=== PATIENT | male | born 1960 | race Caucasian/White ===

== ENCOUNTER 2018-10-09 05:13 | Inpatient (IN) | payer OTHER ==
[~2018-10-09] VITALS: Ht 165.1 cm; Wt 51.5 kg
[2018-10-09] VITALS (8 sets, daily range): BP systolic 97–127; BP diastolic 53–61; PULSE 53–66; RESP 18–19; Ht 165.1 cm; Wt 51.5 kg
[~2018-10-09 05:13] MED LIST: AMLO2.5T2 PO; LANT3I SC; LEVO500T48 PO; SAN30GM TOP
--- NOTE | 2018-10-09 09:19 | HP ---
Date/Time of Note Date/Time of Note DATE: 10/09/18 TIME: 09:06 Assessment/Plan VTE Prophylaxis SCD applied (from Nsg): Yes Pharmacological prophylaxis: NA/contraindicated Pharm contraindication: renal impairment Assessment/Plan Hospital Course 1. Sepsis secondary to UTI UA at outside hospital showed WBC of 100-200, large leukocyte esterase as well as a serum WBC of 14.9 and fevers Obtain UA and urine culture Empiric Rocephin 2. CKD with possible acute component Patient has a BUN of 77 and creatinine of 5.9 at outside hospital Baseline creatinine is unknown but patient has been told that he is close to requiring dialysis Renal ultrasound to rule out obstruction UA does show significant proteinuria likely secondary to diabetic nephropathy, urine RBC is 100-200 with large blood noted Nephrology consultation obtained IV fluids and antibiotics for sepsis 3. Diabetes Patient is on oral medications which will be held during his hospitalization Basal and mealtime insulin as well as sliding scale Follow-up on A1c 4. History of hypertension Hold home meds secondary to current sepsis Restart as needed 5. Chronic anemia likely secondary to chronic disease and CKD Stool guaiac at outside ER was negative and patient denies melena Patient reports chronic anemia and reports that his hemoglobin is usually between 7 and 8 6. Hyponatremia Sodium at outside hospital was 126, serum sugar was 262 and hence this is not merely pseudohyponatremia Nephrology consultation obtained Follow-up on urine sodium IV fluids Monitor Prophylaxis: SCDs HPI/ROS Admit Date/Time Admit Date/Time Oct 09, 2018 at 08:11 Hx of Present Illness Patient is a 57-year-old male with a history of oih-lhmpvhd-bnsgrdpnk diabetes with CKD, hypertension, chronic anemia as well as chronic cough for 2 years with no hemoptysis or acute features. Patient presents to [facility] with complaint of fever for 8 days as well as dysuria. In the ER at [facility] patient was noted to have a UTI as well as fever and white count of 14.9. Patient was also noted to be anemic with hemoglobin of 7.0 which according to the patient is close to his baseline. Patient did have a stool guaiac test in the ER that was negative. Patient's remaining labs revealed a sodium of 126 BUN of 77 and creatinine 5.9, glucose was 262 lactic acid was normal and urine protein was greater than 300. Patient has no known history of BPH, patient does not recall his baseline renal function but was told that he is close to requiring dialysis. Chest x-ray at outside hospital was normal, patient was transferred to [facility] due to capitation. Patient denies flank pain and has no other complaints besides fever chills and dysuria at this time. ROS Constitutional: chills, febrile Eyes: no complaints ENT: no complaints Respiratory: no complaints Cardiovascular: no complaints Gastrointestinal: no complaints Genitourinary: dysuria Musculoskeletal: no complaints Skin: no complaints Neurologic: no complaints Endocrine: no complaints Lymphatic: no complaints Psychological: no complaints, nl mood/affect Immunologic: no complaints PMH/Family/Social Past Medical History As per HPI Coded Allergies: No Known Allergy (Unverified , 05/29/15) Family History Significant Family History: no pertinent family hx Social History Alcohol Use: rarely Smoking Status: Never smoker Drug Use: none Exam/Review of Systems Vital Signs Vitals Vital Signs Date Temp Pulse Resp B/P (MAP) Pulse Ox O2 O2 Flow FiO2 Time Delivery Rate 10/09/18 66 08:24 Exam Constitutional: alert, oriented Respiratory: clear to auscultation Cardiovascular: regular rate and rhythm Gastrointestinal: soft; No distended Musculoskeletal: nl extremities to inspection LISA JUNG Oct 09, 2018 09:19
[2018-10-09] MEDS ORDERED: NACL 0.9% 3 ML SYG IV SCH (09:30)
[2018-10-09] MEDS ORDERED: morphine 2 MG INJ IV PRN (09:30)
[2018-10-09] MEDS ORDERED: ONDANSETRON 4 MG INJ IV PRN (09:30)
[2018-10-09] MEDS ORDERED: HYDROCODONE/APAP (5/325) TAB PO PRN (09:30)
[2018-10-09] MEDS ORDERED: ZOLPIDEM 5 MG TAB PO PRN (09:30)
[2018-10-09] MEDS ORDERED: DOCUSATE SODIUM 100 MG CAP PO PRN (09:30)
[2018-10-09] MEDS ORDERED: DEXTROSE 50% 50 ML SYRINGE IV PRN ×2 (10:00)
[2018-10-09] MEDS ORDERED: GLUCOSE GEL 15 GRAM TUBE BUCCAL PRN (10:00)
[2018-10-09] MEDS ORDERED: GLUCOSE GEL 15 GRAM TUBE PO PRN ×2 (10:00)
[2018-10-09] MEDS ORDERED: GLUCAGON 1 MG INJ IM PRN (10:00)
[2018-10-09] MEDS: SOD CHLORIDE 0.9% 1,000 ML IV SCH ×3 (10:25→20:48)
[2018-10-09] MEDS: CEFTRIAXONE 1 GM/50 ML (PMX) 50 ML IVPB SCH (10:25)
[2018-10-09] MEDS: INSULIN ASPART [NOVOLOG] 3 ML PEN SC SCH ×5 (12:00→20:39)
--- NOTE | 2018-10-09 16:38 | CONS ---
DATE OF ADMISSION: 10/09/2018 DATE OF CONSULTATION: 10/09/2018 TYPE OF CONSULTATION: Nephrology. REASON FOR CONSULTATION: Chronic kidney disease, possible acute kidney injury. HISTORY OF PRESENT ILLNESS: This is a 57-year-old male with a past medical history of chronic kidney disease stage IV with a baseline eGFR around 20 mL per minute per patient, history of hypertension, history of diabetes, history of anemia, who presented to an outside hospital ____ with complaints of fever for 8 days. The patient in the emergency room was noted to have UTI, elevated white count of 1 4.9. The patient was also noted to have hemoglobin of 10.0. The patient was guaiac negative in the ER. On admission, the patient also was hyponatremic, sodium 126, BUN 77, creatinine 5.9. The patien t was subsequently transferred to [facility] for evaluation. In terms of patient's renal history, the patient admits to being followed by outpatient pulpwood cutter. Patient states that he was told his kidney function is around 20%. The patient last saw the nephro logist several months ago. The patient is also adamant stating he did not wish to be dialyzed. The patient denies any hemoptysis, hematemesis or hematochezia. PAST MEDICAL HISTORY: History of CKD stage IV, history of hypertension, anemia, diabetes. PAST SURGICAL HISTORY: Reviewed. ALLERGIES: NO KNOWN DRUG ALLERGIES. FAMILY HISTORY: No family history of kidney disease. SOCIAL HISTORY: Does not drink, smoke or do drugs. MEDICATIONS: The patient's medications have been reviewed. REVIEW OF SYSTEMS: A 14-point review of system is conducted. Pertinent positives stated in HPI, oth erwise negative. PHYSICAL EXAMINATION: VITAL SIGNS: Blood pressure is 127/61, respiration 18, pulse 62, temperature 98.2. HEENT: Head is normocephalic. NECK: Supple. HEART: Regular rate. LUNGS: Show diminished breath sounds at the base. ABDOMEN: Soft, nontender to palpation without rebound or guarding. EXTREMITIES: Negative for clubbing, cyanosis, no edema. DERMATOLOGIC: No rashes. MUSCULOSKELETAL: No joint effusion. NEUROLOGIC: No focal deficits. The patient's medications have been reviewed. LABORATORY DATA: From outside hospital was reviewed. Laboratory data from [facility] is pending. ASSESSMENT AND PLAN: This is a 57-year-old male who presents with: 1. Renal failure, possible acute kidney injury on top of CKD, versus progression of CKD. Plan is to do a full evaluation. We will check UA with microanalysis, check urine electrolytes. We will quant luciano patient's proteinuria. Will check the renal ultrasound to rule out obstruction. Agree with gent le fluid challenge. We will monitor renal function closely. Continue supportive care, renally dose all meds, avoid nephrotoxins. Please note, I spoke with the patient about the possibility of initiat ing hemodialysis if renal function does not improve. The patient is adamant and has refused dialysis at this time. We will also try to obtain old medical records from patient's primary pulpwood cutter. 2. Anemia, etiology may be secondary to chronic kidney disease. Plan is to check an iron panel, joaquin ck stool for occult blood. We will give patient Epogen if there is evidence of iron deficiency. We will start IV iron and monitor. 3. Mineral bone disorder. Monitor calcium and phosphorus level. Check PTH, vitamin D25 level. 4. Sepsis secondary to UTI. Continue current antibiotic regimen. Follow up cultures. 5. Diabetes. Continue current insulin regimen. 6. Hyponatremia. Etiology may be likely multifactorial secondary to acute kidney injury, CKD causin g decreased free water urinary excretion. Possible component of hyperglycemia as a contributing fact or. Recommendation is to limit free water intake no more than 800 mL daily. We will follow up urine studies, monitor sodium levels closely, on IV fluids. Thank you, Dr. Madrid, for this interesting consult. It will be a pleasure to follow patient with y mirtha throughout the hospital course. Dictated By: GI PENA DO NR/NTS Conf#: [id number] DID#: [id number] CC: JIMENEZ HAILE MD;*EndCC*
[2018-10-10] VITALS (11 sets, daily range): BP systolic 104–149; BP diastolic 56–70; PULSE 61–71; RESP 18–20
[2018-10-10] MEDS: ACCU-CHEK XX SCH (02:00)
[2018-10-10] MEDS: ACETAMINOPHEN 325 MG TAB PO PRN (04:07)
[2018-10-10] MEDS: SOD CHLORIDE 0.9% 1,000 ML IV SCH (05:19)
[2018-10-10] MEDS ORDERED: INSULIN GLARGINE [LANTus] (100 UNITS/ML) SYG SC SCH (08:00)
[2018-10-10] MEDS: INSULIN ASPART [NOVOLOG] 3 ML PEN SC SCH ×7 (08:00→21:27)
[2018-10-10] MEDS: CEFTRIAXONE 1 GM/50 ML (PMX) 50 ML IVPB SCH (09:34)
--- NOTE | 2018-10-10 09:49 | PN ---
DATE: 10/10/2018 SUBJECTIVE: The patient is stable. I spoke in detail with the patient yesterday about initiating he modialysis. The patient refused. I spoke again this morning about dialysis. Patient at this point does not wish to start dialysis. The risks and benefits were explained to the patient. OBJECTIVE: VITAL SIGNS: Blood pressure is 112/56, respiration 19, pulse 71, temperature 98.6. HEENT: Head is normocephalic. NECK: Supple. HEART: Regular rate. LUNGS: Show diminished breath sounds at the base. ABDOMEN: Soft, nontender to palpation without rebound or guarding. EXTREMITIES: Negative for clubbing, cyanosis, no edema. DERMATOLOGIC: No rashes. MUSCULOSKELETAL: No joint effusion. NEUROLOGIC: No change in exam. MEDICATIONS: Reviewed. LABORATORY DATA: Has been reviewed. IMAGING STUDIES: Renal ultrasound shows echogenic kidneys consistent with medical renal disease and moderate left-sided hydronephrosis, and large 3 cm stone within the urinary bladder. ASSESSMENT AND PLAN: 1. Renal failure, possible acute on top of chronic versus progression of chronic kidney disease. Et iology of acute kidney injury may be secondary to hemodynamics, tubular injury, questionable componen t of obstructive uropathy. The patient showed no evidence of renal recovery despite fluid challenge. The patient was advised to initiate hemodialysis. Currently, he is refusing. Will therefore alex nue current medical management. Continue supportive care, renally dose all meds, monitor mental stat us and electrolytes closely. 2. Anemia, etiology is likely due to chronic kidney disease. Plan is to check an iron panel, check ferritin level. Continue Epogen. Consider blood transfusion if there is evidence of iron deficiency , will start the patient on IV Ferrlecit. 3. Mineral bone disorder. The patient is hyperphosphatemic. We will start patient on phosphorus bi nders. 4. Atrial left-sided hydronephrosis. Etiology is unclear. Consider urologic evaluation. 5. Metabolic acidosis likely secondary to acute kidney injury and chronic kidney disease. Continue to monitor bicarbonate levels. 6. Sepsis secondary to urinary tract infection. Continue current regimen. 7. Diabetes. Continue current insulin regimen. 8. Hyponatremia secondary to acute kidney injury. The patient's sodium levels have been improving. Continue to monitor. Dictated By: GI DALEY/TIFFANI Conf#: [id number] DID#: [id number] CC: JIMENEZ HAILE MD;*EndCC*
--- NOTE | 2018-10-10 11:45 | PN ---
Date/Time of Note Date/Time of Note DATE: 10/10/18 TIME: 11:42 Assessment/Plan VTE Prophylaxis Risk score (from Ns)>0 risk: 1 SCD applied (from Ns): Yes Pharmacological prophylaxis: heparin Lines/Catheters IV [facility]from [facility] Peripheral IV Assessment/Plan Hospital Course 57 yo male with h/o DMII, CKD 5, blindness presents wtih UTI and advanced renal failure Hydronephrosis: - Dr Borrero consulted - Imaging requested DMII: - Decrease basal dose given midl hypoglycemia - sliding scale AK/CKD: - likely at baseline - refused HD per Dr Gordon - Dc fluids as no benefit after 2.5 L ANemia of CKD: - stable - iron Result Diagram: 10/10/18 0502 10/10/18 0502 Results 24hrs Laboratory Tests Test 10/09/18 12:27 10/09/18 17:16 10/09/18 20:25 10/10/18 02:15 Bedside Glucose 133 160 132 Urine Color YELLOW Urine Clarity CLOUDY A Urine pH 5.0 Urine Specific 1.011 Linch Urine Ketones NEGATIVE Urine Nitrite NEGATIVE Urine Bilirubin NEGATIVE Urine Urobilinogen NEGATIVE Urine Leukocyte 3+ H Esterase Urine Microscopic 14 H RBC Urine Microscopic > 182 H WBC Urine Bacteria FEW A Urine Hemoglobin 2+ H Urine Random Sodium 23 L Urine Glucose NEGATIVE Urine Total Protein 183.0 H Test 10/10/18 05:02 10/10/18 08:34 10/10/18 09:25 White Blood Count 12.4 #H Red Blood Count 1.95 #L Hemoglobin 6.5 #*L Hematocrit 19.1 #L Mean Corpuscular 97.9 Volume Mean Corpuscular 33.3 H Hemoglobin Mean Corpuscular 34.0 Hemoglobin Concent Red Cell 12.1 Distribution Width Platelet Count 160 Mean Platelet Volume 9.9 # Immature 1.000 H Granulocytes % Neutrophils % 84.2 H Lymphocytes % 8.6 L Monocytes % 5.1 Eosinophils % 1.0 Basophils % 0.1 Nucleated Red Blood 0.0 Cells % Immature 0.130 H Granulocytes # Neutrophils # 10.5 H Lymphocytes # 1.1 Monocytes # 0.6 Eosinophils # 0.1 Basophils # 0.0 Nucleated Red Blood 0.0 Cells # Sodium Level 134 L Potassium Level 3.8 Chloride Level 111 H Carbon Dioxide Level 14 L Anion Gap 9 Blood Urea Nitrogen 81 H Creatinine 6.48 H Est Glomerular 9 L Filtrat Rate mL/min Glucose Level 65 L Hemoglobin A1c 8.7 H Calcium Level 8.4 Phosphorus Level 5.5 H Magnesium Level 1.7 Iron Level 21 L Total Iron Binding 194 L Capacity Percent Iron 11 L Saturation Total Bilirubin 0.0 L Direct Bilirubin 0.00 Indirect Bilirubin 0.0 Aspartate Amino 24 Transf (AST/SGOT) Alanine 26 Aminotransferase (AL T/SGPT) Alkaline Phosphatase 76 Total Protein 5.6 L Albumin 2.5 L Globulin 3.10 Albumin/Globulin 0.80 Ratio Triglycerides Level 172 H Cholesterol Level 96 L LDL Cholesterol, 36 Calculated HDL Cholesterol 26 L Cholesterol/HDL 3.6 Ratio Bedside Glucose 73 126 Subjective 24 Hr Interval Summary Free Text/Dictation Doing well no complaints Exam/Review of Systems Exam Vitals Vital Signs Date Temp Pulse Resp B/P (MAP) Pulse Ox O2 O2 Flow FiO2 Time Delivery Rate 10/10/18 67 08:01 10/10/18 98.6 18 112/56 98 07:40 (74) Intake and Output 10/09/18 10/09/18 10/10/18 1515:00 23:00 07:00 IntakeIntake Total 700 ml 400 ml OutputOutput Total 400 ml 800 ml BalanceBalance 300 ml -400 ml Exam blindness comfortable euvolemic RRR CTAB soft nt nd Results Results 24hrs Laboratory Tests Test 10/09/18 12:27 10/09/18 17:16 10/09/18 20:25 10/10/18 02:15 Bedside Glucose 133 160 132 Urine Color YELLOW Urine Clarity CLOUDY A Urine pH 5.0 Urine Specific 1.011 Linch Urine Ketones NEGATIVE Urine Nitrite NEGATIVE Urine Bilirubin NEGATIVE Urine Urobilinogen NEGATIVE Urine Leukocyte 3+ H Esterase Urine Microscopic 14 H RBC Urine Microscopic > 182 H WBC Urine Bacteria FEW A Urine Hemoglobin 2+ H Urine Random Sodium 23 L Urine Glucose NEGATIVE Urine Total Protein 183.0 H Test 10/10/18 05:02 10/10/18 08:34 10/10/18 09:25 White Blood Count 12.4 #H Red Blood Count 1.95 #L Hemoglobin 6.5 #*L Hematocrit 19.1 #L Mean Corpuscular 97.9 Volume Mean Corpuscular 33.3 H Hemoglobin Mean Corpuscular 34.0 Hemoglobin Concent Red Cell 12.1 Distribution Width Platelet Count 160 Mean Platelet Volume 9.9 # Immature 1.000 H Granulocytes % Neutrophils % 84.2 H Lymphocytes % 8.6 L Monocytes % 5.1 Eosinophils % 1.0 Basophils % 0.1 Nucleated Red Blood 0.0 Cells % Immature 0.130 H Granulocytes # Neutrophils # 10.5 H Lymphocytes # 1.1 Monocytes # 0.6 Eosinophils # 0.1 Basophils # 0.0 Nucleated Red Blood 0.0 Cells # Sodium Level 134 L Potassium Level 3.8 Chloride Level 111 H Carbon Dioxide Level 14 L Anion Gap 9 Blood Urea Nitrogen 81 H Creatinine 6.48 H Est Glomerular 9 L Filtrat Rate mL/min Glucose Level 65 L Hemoglobin A1c 8.7 H Calcium Level 8.4 Phosphorus Level 5.5 H Magnesium Level 1.7 Iron Level 21 L Total Iron Binding 194 L Capacity Percent Iron 11 L Saturation Total Bilirubin 0.0 L Direct Bilirubin 0.00 Indirect Bilirubin 0.0 Aspartate Amino 24 Transf (AST/SGOT) Alanine 26 Aminotransferase (AL T/SGPT) Alkaline Phosphatase 76 Total Protein 5.6 L Albumin 2.5 L Globulin 3.10 Albumin/Globulin 0.80 Ratio Triglycerides Level 172 H Cholesterol Level 96 L LDL Cholesterol, 36 Calculated HDL Cholesterol 26 L Cholesterol/HDL 3.6 Ratio Bedside Glucose 73 126 Medications Medication Current Medications IV Flush (NS 3 ml) 3 ml PER PROTOCOL IV ; Start 10/09/18 at 09:30 Ondansetron HCl (Zofran Inj) 4 mg Q6H PRN IV NAUSEA/VOMITING; Start 10/09/18 at 09:30 Acetaminophen (Tylenol Tab) 650 mg Q6H PRN PO .PAIN 1-3 OR TEMP Last administered on 10/10/18at 04:07; Admin Dose 650 MG; Start 10/09/18 at 09:30 Acetaminophen/ Hydrocodone Bitart ([place] (5/325)) 1 tab Q6H PRN PO .MOD PAIN 4- 6; Start 10/09/18 at 09:30 Docusate Sodium (Colace) 100 mg Q12H PRN PO .CONSTIPATION; Start 10/09/18 at 09:30 Zolpidem Tartrate (Ambien) 5 mg QHS PRN PO .INSOMNIA; Start 10/09/18 at 09:30 Ceftriaxone Sodium 50 ml @ 100 mls/hr Q24H IVPB Last administered on 10/10/18at 09:34; Admin Dose 100 MLS/HR; Start 10/09/18 at 10:00 Diagnostic Test (Pha) (Accu-Chek) 1 ea 02 XX ; Start 10/10/18 at 02:00 Insulin Aspart (Novolog Insulin Pen) 3 unit WITH MEALS SC Last administered on 10/10/18at 10:02; Admin Dose 3 UNIT; Start 10/09/18 at 12:00 Insulin Aspart (Novolog Insulin Pen) NOVOLOG *MILD* ALGORITHM WITH MEALS BE DTIME SC Last administered on 10/09/18at 17:26; Admin Dose 1 UNIT; Start 10/09/18 at 12:00 Miscellaneous Information 1 ea NOTE XX ; Start 10/09/18 at 10:00 Glucose (Glutose) 15 gm Q15M PRN PO DECREASED GLUCOSE; Start 10/09/18 at 10:00 Glucose (Glutose) 22.5 gm Q15M PRN PO DECREASED GLUCOSE; Start 10/09/18 at 10:00 Dextrose (D50w Syringe) 25 ml Q15M PRN IV DECREASED GLUCOSE; Start 10/09/18 at 10:00 Dextrose (D50w Syringe) 50 ml Q15M PRN IV DECREASED GLUCOSE; Start 10/09/18 at 10:00 Glucagon (Glucagen) 1 mg Q15M PRN IM DECREASED GLUCOSE; Start 10/09/18 at 10:00 Glucose (Glutose) 15 gm Q15M PRN BUCCAL DECREASED GLUCOSE; Start 10/09/18 at 10:00 Epoetin Santiago-epbx (RETACRIT(esrd)) 10,000 unit MoWeFr@1700 SC ; Start 10/10/18 at 17:00 Sevelamer Carbonate (Renvela) 800 mg WITH MEALS PO ; Start 10/10/18 at 12:00 Insulin Glargine (Lantus) 8 units DAILY@0800 SC ; Start 10/11/18 at 08:00 MANNY HOUGH MD Oct 10, 2018 11:45
[2018-10-10] MEDS: SEVELAMER CARBONATE 800 MG TABLET PO SCH ×2 (11:57→17:52)
[2018-10-10] MEDS: SOD FERRIC GLUC COMPLX 125 MG in SOD CHLORIDE 0.9% 100 ML IVPB SCH (15:04)
[2018-10-10] MEDS ORDERED: EPOETIN ALFA-EPBX (ESRD) 10,000 UNIT/ML VIAL SC SCH (17:00)
--- NOTE | 2018-10-10 22:08 | CONS ---
Assessment/Plan Assessment/Plan Hospital Course (Demo Recall) 57-year-old male has a history of qxe-hytmpwp-oqmplydfh diabetes with CKD, hypertension, chronic anemia as well as chronic cough for 2 years. He presented to [facility] complaining of fever for 8 days as well as dysuria. In the ER at [facility] patient was noted to have a UTI as well as fever and white count of 14.9. He was noted to be anemic with hemoglobin of 7.0 Patient did h ave a stool guaiac test in the ER that was negative. Patient's remaining labs revealed a sodium of 126 BUN of 77 and creatinine 5.9, glucose was 262. Patient was transferred to [facility] because of his insurance. Because of his elevated creatinine renal ultrasound was done and that showed: Echogenic kidneys, consistent with medical renal disease. Left nephrolithiasis with moderate left-sided hydronephrosis. Large 3 cm stone within the urinary bladder. Therefore a urological consultation was requested. Prior to coming and seeing him I reviewed the ultrasound and I did order a KUB for him and CT scan. The KUB showed that he has a JJ stent in the left ureter . He also had the CT scan of the abdomen and pelvis and that showed stones forming on the distal curl of the JJ stent in the bladder. The patient himself does not know that he has a JJ stent and when I tried to question him he then recalls having it put at [facility] and was told it just to drain the kidney. It appears he did not follow-up with the doctor to have it removed or replaced. The patient will need the stones in the bladder removed and then he may need extracorporeal shockwave lithotripsy to the proximal curl of the stent then try to remove the stent from his left ureter. Consultation Date/Type/Reason Admit Date/Time Oct 09, 2018 at 08:11 Date of Consultation: Oct 10, 2018 Type of Consult Urology Reason for Consultation Hydronephrosis and kidney stones Requesting Provider: MANNY HOUGH MD Date/Time of Note DATE: 10/10/18 TIME: 21:51 Hx of Present Illness 57-year-old male has a history of [id number]-uvfhgfpjp diabetes with CKD, hypertension, chronic anemia as well as chronic cough for 2 years. He presented to [facility] complaining of fever for 8 days as well as dysuria. In the ER at [facility] patient was noted to have a UTI as well as fever and white count of 14.9. He was noted to be anemic with hemoglobin of 7.0 Patient did have a stool guaiac test in the ER that was negative. Patient's remaining labs revealed a sodium of 126 BUN of 77 and creatinine 5.9, glucose was 262. Patient was transferred to [facility] because of his insurance. Because of his elevated creatinine renal ultrasound was done and that showed: Echogenic kidneys, consistent with medical renal disease. Left nephrolithiasis with moderate left-sided hydronephrosis. Large 3 cm stone within the urinary bladder. Therefore a urological consultation was requested. Prior to coming and seeing him I reviewed the ultrasound and I did order a KUB for him and CT scan. The KUB showed that he has a JJ stent in the left ureter . He also had the CT scan of the abdomen and pelvis and that showed stones forming on the distal curl of the JJ stent in the bladder. The patient himself does not know that he has a JJ stent and when I tried to question him he then recalls having it put at [facility] and was told it just to drain the kidney. It appears he did not follow-up with the doctor to have it removed or replaced. Constitutional: no complaints, other (Patient is blind.) Eyes: visual change (Patient is blind in the left eye the right eye vision is very poor. He does have cataract on that eye) ENT: no complaints Respiratory: cough; No wheezing Cardiovascular: No chest pain Gastrointestinal: No nausea, No vomiting Genitourinary: dysuria Musculoskeletal: no complaints Skin: no complaints Neurologic: no complaints Psychological: no complaints Past Medical History Medical History: diabetes, hypertension, renal disease, other (Anemia) Home Meds Active Scripts Collagenase* (Santyl*) 1 Applic Oint, 1 APPLIC TOP DAILY for 28 Days Prov:MARK LAMBERT MD 06/25/15 Amlodipine Besylate* (Norvasc*) 2.5 Mg Tab, 2.5 MG PO DAILY for 28 Days, TAB Prov:MARK LAMBERT MD 06/25/15 Insulin Glargine* (Lantus*) 100 Unit/Ml Soln, 8 UNIT SC QHS for 14 Days Prov:MARK LAMBERT MD 06/25/15 Levofloxacin* (Levaquin*) 500 Mg Tab, 500 MG PO DAILY@06 for 28 Days, TAB Prov:MARK LAMBERT MD 06/25/15 Medications Current Medications IV Flush (NS 3 ml) 3 ml PER PROTOCOL IV ; Start 10/09/18 at 09:30 Ondansetron HCl (Zofran Inj) 4 mg Q6H PRN IV NAUSEA/VOMITING; Start 10/09/18 at 09:30 Acetaminophen (Tylenol Tab) 650 mg Q6H PRN PO .PAIN 1-3 OR TEMP Last adm inistered on 10/10/18at 04:07; Admin Dose 650 MG; Start 10/09/18 at 09:30 Acetaminophen/ Hydrocodone Bitart ([place] (5/325)) 1 tab Q6H PRN PO .MOD PAIN 4- 6; Start 10/09/18 at 09:30 Docusate Sodium (Colace) 100 mg Q12H PRN PO .CONSTIPATION; Start 10/09/18 at 09:30 Zolpidem Tartrate (Ambien) 5 mg QHS PRN PO .INSOMNIA; Start 10/09/18 at 09:30 Ceftriaxone Sodium 50 ml @ 100 mls/hr Q24H IVPB Last administered on 10/10/18at 09:34; Admin Dose 100 MLS/HR; Start 10/09/18 at 10:00 Diagnostic Test (Pha) (Accu-Chek) 1 ea 02 XX ; Start 10/10/18 at 02:00 Insulin Aspart (Novolog Insulin Pen) 3 unit WITH MEALS SC Last administered on 10/10/18at 17:51; Admin Dose 3 UNIT; Start 10/09/18 at 12:00 Insulin Aspart (Novolog Insulin Pen) NOVOLOG *MILD* ALGORITHM WITH MEALS BEDTIME SC Last administered on 10/10/18at 21:27; Admin Dose 2 UNIT; Start 10/09/18 at 12:00 Miscellaneous Information 1 ea NOTE XX ; Start 10/09/18 at 10:00 Glucose (Glutose) 15 gm Q15M PRN PO DECREASED GLUCOSE; Start 10/09/18 at 10:00 Glucose (Glutose) 22.5 gm Q15M PRN PO DECREASED GLUCOSE; Start 10/09/18 at 10:00 Dextrose (D50w Syringe) 25 ml Q15M PRN IV DECREASED GLUCOSE; Start 10/09/18 at 10:00 Dextrose (D50w Syringe) 50 ml Q15M PRN IV DECREASED GLUCOSE; Start 10/09/18 at 10:00 Glucagon (Glucagen) 1 mg Q15M PRN IM DECREASED GLUCOSE; Start 10/09/18 at 10:00 Glucose (Glutose) 15 gm Q15M PRN BUCCAL DECREASED GLUCOSE; Start 10/09/18 at 10:00 Epoetin Santiago-epbx (RETACRIT(esrd)) 10,000 unit MoWeFr@1700 SC Last administered on 10/10/18at 17:17; Admin Dose 10,000 UNIT; Start 10/10/18 at 17:00 Sevelamer Carbonate (Renvela) 800 mg WITH MEALS PO Last administered on 10/10/18at 11:57; Admin Dose 800 MG; Start 10/10/18 at 12:00 Insulin Glargine (Lantus) 8 units DAILY@0800 SC ; Start 10/11/18 at 08:00 Ferric Sodium Gluconate Complex 125 mg/Sodium Chloride 110 ml @ 110 mls/hr DAILY@1300 IVPB Last administered on 10/10/18at 15:04; Admin Dose 110 MLS/HR; Start 10/10/18 at 15:00; Stop 10/14/18 at 13:59 Allergies: Coded Allergies: No Known Allergy (Unverified , 05/29/15) Past Surgical History Past Surgical Hx: other (Patient must have had in the past cystoscopy and insertion of left ureteral JJ stent, he also has had multiple surgeries on his left eye and he is blind in that eye.) Social History Alcohol Use: rarely Smoking Status: Never smoker Drug Use: none Exam/Review of Systems Exam Vitals Vital Signs Date Temp Pulse Resp B/P (MAP) Pulse Ox O2 O2 Flow FiO2 Time Delivery Rate 10/10/18 69 20:02 10/10/18 98.1 19 149/70 98 20:00 (96) Intake and Output 10/09/18 10/09/18 10/10/18 1515:00 23:00 07:00 IntakeIntake Total 700 ml 400 ml OutputOutput Total 400 ml 800 ml BalanceBalance 300 ml -400 ml Constitutional: alert Psych: no complaints Head: normocephalic Eyes: other (Blind in the left eye and vision right eye is very poor) ENMT: nl external ears & nose Neck: supple, non-tender Respiratory: normal air movement; No wheezing Cardiovascular: No jugular venous distention (JVD) Gastrointestinal: soft, non-tender Genitourinary - Male: nl penis, nl scrotum, other (Rectal exam prostate is soft and not large) Musculoskeletal: nl extremities to inspection Extremities: No calf tenderness Neurological: nl mental status Skin: nl turgor Results Result Diagram: 10/10/18 0502 10/10/18 0502 Results 24hrs Laboratory Tests Test 10/10/18 02:15 10/10/18 05:02 10/10/18 08:34 10/10/18 09:25 Urine Color YELLOW Urine Clarity CLOUDY A Urine pH 5.0 Urine Specific 1.011 [place] Urine Ketones NEGATIVE Urine Nitrite NEGATIVE Urine Bilirubin NEGATIVE Urine Urobilinogen NEGATIVE Urine Leukocyte 3+ H Esterase Urine Microscopic 14 H RBC Urine Microscopic > 182 H WBC Urine Bacteria FEW A Urine Hemoglobin 2+ H Urine Random 111.04 Creatinine Urine Random Sodium 23 L Urine Glucose NEGATIVE Urine Total Protein 183.0 H White Blood Count 12.4 #H Red Blood Count 1.95 #L Hemoglobin 6.5 #*L Hematocrit 19.1 #L Mean Corpuscular 97.9 Volume Mean Corpuscular 33.3 H Hemoglobin Mean Corpuscular 34.0 Hemoglobin Concent Red Cell 12.1 Distribution Width Platelet Count 160 Mean Platelet Volume 9.9 # Immature 1.000 H Granulocytes % Neutrophils % 84.2 H Lymphocytes % 8.6 L Monocytes % 5.1 Eosinophils % 1.0 Basophils % 0.1 Nucleated Red Blood 0.0 Cells % Immature 0.130 H Granulocytes # Neutrophils # 10.5 H Lymphocytes # 1.1 Monocytes # 0.6 Eosinophils # 0.1 Basophils # 0.0 Nucleated Red Blood 0.0 Cells # Sodium Level 134 L Potassium Level 3.8 Chloride Level 111 H Carbon Dioxide Level 14 L Anion Gap 9 Blood Urea Nitrogen 81 H Creatinine 6.48 H Est Glomerular 9 L Filtrat Rate mL/min Glucose Level 65 L Hemoglobin A1c 8.7 H Calcium Level 8.4 Phosphorus Level 5.5 H Magnesium Level 1.7 Iron Level 21 L Total Iron Binding 194 L Capacity Percent Iron 11 L Saturation Ferritin 439.0 H Total Bilirubin 0.0 L Direct Bilirubin 0.00 Indirect Bilirubin 0.0 Aspartate Amino 24 Transf (AST/SGOT) Alanine 26 Aminotransferase (AL T/SGPT) Alkaline Phosphatase 76 Total Protein 5.6 L Albumin 2.5 L Globulin 3.10 Albumin/Globulin 0.80 Ratio Triglycerides Level 172 H Cholesterol Level 96 L LDL Cholesterol, 36 Calculated HDL Cholesterol 26 L Cholesterol/HDL 3.6 Ratio Bedside Glucose 73 126 Test 10/10/18 11:55 10/10/18 17:35 10/10/18 21:08 Bedside Glucose 190 182 225 H Imaging Imaging Renal ultrasound: Echogenic kidneys, consistent with medical renal disease. Left nephrolithiasis with moderate left-sided hydronephrosis. Large 3 cm stone within the urinary bladder. KUB: 1. Left double-J ureteral stent. 2. 6 mm calcification projects over the lower pole of the left kidney. 3. Bladder calculi noted on prior ultrasound are not appreciated on plain film. Consider CT for further evaluation. CT scan was done and it appears he does have stone formed on the distal curl of the JJ stent inside the bladder. Medications Medication Current Medications IV Flush (NS 3 ml) 3 ml PER PROTOCOL IV ; Start 10/09/18 at 09:30 Ondansetron HCl (Zofran Inj) 4 mg Q6H PRN IV NAUSEA/VOMITING; Start 10/09/18 at 09:30 Acetaminophen (Tylenol Tab) 650 mg Q6H PRN PO .PAIN 1-3 OR TEMP Last administered on 10/10/18at 04:07; Admin Dose 650 MG; Start 10/09/18 at 09:30 Acetaminophen/ Hydrocodone Bitart ([place] (5/325)) 1 tab Q6H PRN PO .MOD PAIN 4- 6; Start 10/09/18 at 09:30 Docusate Sodium (Colace) 100 mg Q12H PRN PO .CONSTIPATION; Start 10/09/18 at 09:30 Zolpidem Tartrate (Ambien) 5 mg QHS PRN PO .INSOMNIA; Start 10/09/18 at 09:30 Ceftriaxone Sodium 50 ml @ 100 mls/hr Q24H IVPB Last administered on 10/10/18at 09:34; Admin Dose 100 MLS/HR; Start 10/09/18 at 10:00 Diagnostic Test (Pha) (Accu-Chek) 1 ea 02 XX ; Start 10/10/18 at 02:00 Insulin Aspart (Novolog Insulin Pen) 3 unit WITH MEALS SC Last administered on 10/10/18at 17:51; Admin Dose 3 UNIT; Start 10/09/18 at 12:00 Insulin Aspart (Novolog Insulin Pen) NOVOLOG *MILD* ALGORITHM WITH MEALS BEDTIME SC Last administered on 10/10/18at 21:27; Admin Dose 2 UNIT; Start 10/09 at 12:00 Miscellaneous Information 1 ea NOTE XX ; Start 10/09/18 at 10:00 Glucose (Glutose) 15 gm Q15M PRN PO DECREASED GLUCOSE; Start 10/09/18 at 10:00 Glucose (Glutose) 22.5 gm Q15M PRN PO DECREASED GLUCOSE; Start 10/09/18 at 10:00 Dextrose (D50w Syringe) 25 ml Q15M PRN IV DECREASED GLUCOSE; Start 10/09/18 at 10:00 Dextrose (D50w Syringe) 50 ml Q15M PRN IV DECREASED GLUCOSE; Start 10/09/18 at 10:00 Glucagon (Glucagen) 1 mg Q15M PRN IM DECREASED GLUCOSE; Start 10/09/18 at 10:00 Glucose (Glutose) 15 gm Q15M PRN BUCCAL DECREASED GLUCOSE; Start 10/09/18 at 10:00 Epoetin Santiago-epbx (RETACRIT(esrd)) 10,000 unit MoWeFr@1700 SC Last administered on 10/10/18at 17:17; Admin Dose 10,000 UNIT; Start 10/10/18 at 17:00 Sevelamer Carbonate (Renvela) 800 mg WITH MEALS PO Last administered on 10/10/18at 11:57; Admin Dose 800 MG; Start 10/10/18 at 12:00 Insulin Glargine (Lantus) 8 units DAILY@0800 SC ; Start 10/11/18 at 08:00 Ferric Sodium Gluconate Complex 125 mg/Sodium Chloride 110 ml @ 110 mls/hr DAILY@1300 IVPB Last administered on 10/10/18at 15:04; Admin Dose 110 MLS/HR; Start 10/10/18 at 15:00; Stop 10/14/18 at 13:59 JITENDRA MOYA MD Oct 10, 2018 22:03
[2018-10-11] VITALS (12 sets, daily range): BP systolic 105–186; BP diastolic 55–87; PULSE 67–88; RESP 18–19
[2018-10-11] MEDS ORDERED: hydrALAzine 20 MG INJ IV PRN
[2018-10-11] MEDS: ACETAMINOPHEN 325 MG TAB PO PRN ×2 (00:22→10:39)
[2018-10-11] MEDS: ACCU-CHEK XX SCH (02:00)
[2018-10-11] MEDS ORDERED: SOD CHLORIDE 0.9% 250 ML IV* ONE (06:53)
[2018-10-11] MEDS: INSULIN ASPART [NOVOLOG] 3 ML PEN SC SCH ×7 (07:54→21:00)
[2018-10-11] MEDS: SEVELAMER CARBONATE 800 MG TABLET PO SCH ×3 (08:00→17:35)
[2018-10-11] MEDS: INSULIN GLARGINE [LANTus] (100 UNITS/ML) SYG SC SCH (08:06)
--- NOTE | 2018-10-11 08:51 | CONS ---
Consult Date/Type/Reason Admit Date/Time Oct 09, 2018 at 08:11 Initial Consult Date 10/10/18 Type of Consultation: Urology Reason for Consultation Hydronephrosis and renal and bladder stones Requesting Provider: MANNY HOUGH MD Date/Time of Note DATE: 10/11/18 TIME: 08:45 Subjective Patient states that he is comfortable, he denies any dysuria. Objective Vitals Vital Signs Date Temp Pulse Resp B/P (MAP) Pulse Ox O2 O2 Flow FiO2 Time Delivery Rate 10/11/18 70 08:01 10/11/18 99.0 18 105/56 98 07:34 (72) Intake and Output 10/10/18 10/10/18 10/11/18 1414:59 22:59 06:59 IntakeIntake Total 1400 ml 760 ml OutputOutput Total 800 ml 900 ml BalanceBalance 600 ml -140 ml Exam Abdomen is soft. His KUB and CT scan of the abdomen and pelvis showed that he has left ureteral JJ stent with stones forming on the distal curl into the bladder. Results/Medications Result Diagram: 10/11/18 0526 10/11/18 0527 Results 24 hrs Laboratory Tests Test 10/10/18 09:25 10/10/18 11:55 10/10/18 17:35 10/10/18 21:08 Bedside Glucose 126 190 182 225 H Test 10/11/18 05:26 10/11/18 05:27 10/11/18 07:53 White Blood Count 8.5 # Red Blood Count 1.76 L Hemoglobin 6.0 *L Hematocrit 16.9 L Mean Corpuscular 96.0 Volume Mean Corpuscular 34.1 H Hemoglobin Mean Corpuscular 35.5 Hemoglobin Concent Red Cell 12.1 Distribution Width Platelet Count 167 Mean Platelet Volume 9.9 Immature 1.800 H Granulocytes % Neutrophils % 78.9 H Lymphocytes % 9.7 L Monocytes % 8.1 Eosinophils % 1.3 Basophils % 0.2 Nucleated Red Blood 0.0 Cells % Immature 0.150 H Granulocytes # Neutrophils # 6.7 Lymphocytes # 0.8 Monocytes # 0.7 Eosinophils # 0.1 Basophils # 0.0 Nucleated Red Blood 0.0 Cells # Sodium Level 138 Potassium Level 3.8 Chloride Level 115 H Carbon Dioxide Level 13 L Anion Gap 10 Blood Urea Nitrogen 81 H Creatinine 6.25 H Est Glomerular 9 L Filtrat Rate mL/min Glucose Level 115 # Calcium Level 8.7 Phosphorus Level 4.4 Magnesium Level 1.8 Bedside Glucose 120 Home Meds Active Scripts Collagenase* (Santyl*) 1 Applic Oint, 1 APPLIC TOP DAILY for 28 Days Prov:MARK LAMBERT MD 06/25/15 Amlodipine Besylate* (Norvasc*) 2.5 Mg Tab, 2.5 MG PO DAILY for 28 Days, TAB Prov:MARK LAMBERT MD 06/25/15 Insulin Glargine* (Lantus*) 100 Unit/Ml Soln, 8 UNIT SC QHS for 14 Days Prov:MARK LAMBERT MD 06/25/15 Levofloxacin* (Levaquin*) 500 Mg Tab, 500 MG PO DAILY@06 for 28 Days, TAB Prov:MARK LAMBERT MD 06/25/15 Medications Current Medications IV Flush (NS 3 ml) 3 ml PER PROTOCOL IV ; Start 10/09/18 at 09:30 Ondansetron HCl (Zofran Inj) 4 mg Q6H PRN IV NAUSEA/VOMITING; Start 10/09/18 at 09:30 Acetaminophen (Tylenol Tab) 650 mg Q6H PRN PO .PAIN 1-3 OR TEMP Last administered on 10/11/18at 00:22; Admin Dose 650 MG; Start 10/09/18 at 09:30 Acetaminophen/ Hydrocodone Bitart ([place] (5/325)) 1 tab Q6H PRN PO .MOD PAIN 4- 6 Last administered on 10/11/18at 04:07; Admin Dose 1 TAB; Start 10/09/18 at 09:30 Docusate Sodium (Colace) 100 mg Q12H PRN PO .CONSTIPATION; Start 10/09/18 at 09:30 Zolpidem Tartrate (Ambien) 5 mg QHS PRN PO .INSOMNIA; Start 10/09/18 at 09:30 Ceftriaxone Sodium 50 ml @ 100 mls/hr Q24H IVPB Last administered on 10/10/18at 09:34; Admin Dose 100 MLS/HR; Start 10/09/18 at 10:00 Diagnostic Test (Pha) (Accu-Chek) 1 ea 02 XX Last administered on 10/11/18at 02:00; Admin Dose 1 EA; Start 10/10/18 at 02:00 Insulin Aspart (Novolog Insulin Pen) 3 unit WITH MEALS SC Last administered on 10/11/18at 08:06; Admin Dose 3 UNIT; Start 10/09/18 at 12:00 Insulin Aspart (Novolog Insulin Pen) NOVOLOG *MILD* ALGORITHM WITH MEALS BEDTIME SC Last administered on 10/10/18at 21:27; Admin Dose 2 UNIT; Start 10/09/18 at 12:00 Miscellaneous Information 1 ea NOTE XX ; Start 10/09/18 at 10:00 Glucose (Glutose) 15 gm Q15M PRN PO DECREASED GLUCOSE; Start 10/09/18 at 10:00 Glucose (Glutose) 22.5 gm Q15M PRN PO DECREASED GLUCOSE; Start 10/09/18 at 10:00 Dextrose (D50w Syringe) 25 ml Q15M PRN IV DECREASED GLUCOSE; Start 10/09/18 at 10:00 Dextrose (D50w Syringe) 50 ml Q15M PRN IV DECREASED GLUCOSE; Start 10/09/18 at 10:00 Glucagon (Glucagen) 1 mg Q15M PRN IM DECREASED GLUCOSE; Start 10/09/18 at 10:00 Glucose (Glutose) 15 gm Q15M PRN BUCCAL DECREASED GLUCOSE; Start 10/09/18 at 10:00 Epoetin Santiago-epbx (RETACRIT(esrd)) 10,000 unit MoWeFr@1700 SC Last administered on 10/10/18at 17:17; Admin Dose 10,000 UNIT; Start 10/10/18 at 17:00 Sevelamer Carbonate (Renvela) 800 mg WITH MEALS PO Last administered on 10/10/18at 11:57; Admin Dose 800 MG; Start 10/10/18 at 12:00 Insulin Glargine (Lantus) 8 units DAILY@0800 SC Last administered on 10/11/18at 08:06; Admin Dose 8 UNITS; Start 10/11/18 at 08:00 Ferric Sodium Gluconate Complex 125 mg/Sodium Chloride 110 ml @ 110 mls/hr DAILY@1300 IVPB Last administered on 10/10/18at 15:04; Admin Dose 110 MLS/HR; Start 10/10/18 at 15:00; Stop 10/14/18 at 13:59 Hydralazine HCl (Apresoline) 10 mg Q4H PRN IV ELEVATED BLOOD PRESSURE Last administered on 10/11/18at 00:22; Admin Dose 10 MG; Start 10/11/18 at 00:00 Assessment/Plan Hospital Course (Demo Recall) 57-year-old male has a history of rzc-ucjrohp-lcznoqkky diabetes with CKD, hypertension, chronic anemia as well as chronic cough for 2 years. He presented to [facility] complaining of fever for 8 days as well as dysuria. In the ER at [facility] patient was noted to have a UTI as well as fever and white count of 14.9. He was noted to be anemic with hemoglobin of 7.0 Patient did have a stool guaiac test in the ER that was negative. Patient's remaining labs revealed a sodium of 126 BUN of 77 and creatinine 5.9, glucose was 262. Patient was transferred to [facility] because of his insurance. Because of his elevated creatinine renal ultrasound was done and that showed: Echogenic kidneys, consistent with medical renal disease. Left nephrolithiasis with moderate left-sided hydronephrosis. Large 3 cm stone within the urinary bladder. Therefore a urological consultation was requested. A KUB showed that he has a JJ stent in the left ureter . He also had the CT scan of the abdomen and pelvis and that showed stones forming on the distal curl of the JJ stent in the bladder. The patient himself does not know that he has a JJ stent and when I tried to question him he then recalls having it put at [facility] over 2 years ago and was told it just to drain the kidney. It appears he did not follow-up with the doctor to have it removed or replaced. The patient will need the stones in the bladder removed and then he may need extracorporeal shockwave lithotripsy to the proximal curl of the stent then try to remove the stent from his left ureter. JITENDRA MOYA MD Oct 11, 2018 08:51
--- NOTE | 2018-10-11 09:29 | PN ---
DATE: 10/11/2018 SUBJECTIVE: The patient is stable. No events overnight. OBJECTIVE: VITAL SIGNS: Blood pressure is 105/56, pulse 72, respirations 18, temperature 99.0. HEENT: Head is normocephalic. NECK: Supple. HEART: Regular rate. LUNGS: Show diminished breath sounds at the base. ABDOMEN: Soft, nontender to palpation without rebound or guarding. EXTREMITIES: Negative for clubbing, cyanosis, no edema. DERMATOLOGIC: No rashes. MUSCULOSKELETAL: No joint effusion. NEUROLOGIC: No change in exam. MEDICATIONS: Reviewed. LABORATORY DATA: Reviewed. ASSESSMENT AND PLAN: 1. Renal failure. Etiology is possible acute kidney injury on top of chronic kidney disease versus progression of underlying chronic kidney disease. The patient's renal function has shown no evidence of significant recovery despite fluid challenge. I have spoken with the patient in extensive detail about initiating hemodialysis. The patient does not wish to start dialysis. I have explained the r isks of not doing dialysis including uremia and electrolyte abnormalities. The patient is insistent not wanting to initiate dialysis. The patient does have evidence of left-sided hydronephrosis. A co mponent of obstructive uropathy may also be contributing to patient's renal failure. 2. Chronic kidney disease stage IV. Possible progression towards stage V. We will continue current treatment plan as stated above. 3. Anemia with iron deficiency. Continue IV Ferrlecit. Continue Epogen. 4. Metabolic acidosis. The patient will be started on Bicitra. 5. Mineral bone disorder. The patient is hyperphosphatemic. Continue phosphate binders. 6. Left-sided hydronephrosis. Etiology is unclear. Continue to monitor. The patient's CT scan of abdomen and pelvis was reviewed. Appreciate urology's evaluation. Follow up recommendations. 7. Sepsis secondary to urinary tract infection. Continue current antibiotic regimen. 8. Diabetes. Continue current insulin regimen. 9. Hypernatremia, improved. Dictated By: GI PENA DO NR/NTS Conf#: [id number] DID#: [id number] CC: MANNY HOUGH MD; GI PENA DO; JIMENEZ HAILE MD;*EndCC*
[2018-10-11] MEDS: CEFTRIAXONE 1 GM/50 ML (PMX) 50 ML IVPB SCH (10:39)
--- NOTE | 2018-10-11 13:43 | PN ---
Date/Time of Note Date/Time of Note DATE: 10/11/18 TIME: 13:41 Assessment/Plan VTE Prophylaxis Risk score (from Nsg)>0 risk: 1 SCD applied (from Nsg): Yes Pharmacological prophylaxis: heparin Lines/Catheters IV Catheter Type (from Nrsg): Peripheral IV Assessment/Plan Hospital Course EXAM: Blind Appears comfortable Euvolemic RRR CTAB Soft ntd Toe amputations 57 yo male with h/o DMII, CKD 5, PAD s/p toe amputations, blindness presents wtih UTI and advanced renal failure Hydronephrosis: - Dr Borrero consulted. Will need to have lithotripsy and stent removal as an outapitent. I communicated this to the patient and his daughter DMII: - Decrease basal dose given midl hypoglycemia - sliding scale AK/CKD: - likely at baseline - refused HD per Dr Gordon - Further care as outapitnet UTI: - Ceftriaxone course. culture without growth ANemia of CKD: - stable - iron dc home tomorrow Result Diagram: 10/11/18 0526 10/11/18 0527 Results 24hrs Laboratory Tests Test 10/10/18 17:35 10/10/18 21:08 10/11/18 05:26 10/11/18 05:27 Bedside Glucose 182 225 H White Blood Count 8.5 # Red Blood Count 1.76 L Hemoglobin 6.0 *L Hematocrit 16.9 L Mean Corpuscular 96.0 Volume Mean Corpuscular 34.1 H Hemoglobin Mean Corpuscular 35.5 Hemoglobin Concent Red Cell 12.1 Distribution Width Platelet Count 167 Mean Platelet Volume 9.9 Immature 1.800 H Granulocytes % Neutrophils % 78.9 H Lymphocytes % 9.7 L Monocytes % 8.1 Eosinophils % 1.3 Basophils % 0.2 Nucleated Red Blood 0.0 Cells % Immature 0.150 H Granulocytes # Neutrophils # 6.7 Lymphocytes # 0.8 Monocytes # 0.7 Eosinophils # 0.1 Basophils # 0.0 Nucleated Red Blood 0.0 Cells # Sodium Level 138 Potassium Level 3.8 Chloride Level 115 H Carbon Dioxide Level 13 L Anion Gap 10 Blood Urea Nitrogen 81 H Creatinine 6.25 H Est Glomerular 9 L Filtrat Rate mL/min Glucose Level 115 # Calcium Level 8.7 Phosphorus Level 4.4 Magnesium Level 1.8 Test 10/11/18 07:53 10/11/18 11:49 Bedside Glucose 120 145 Subjective 24 Hr Interval Summary Free Text/Dictation Patient feels well, no complaints Again says he prefers to have his renal care coordinated by outpatient imaging system administrator Exam/Review of Systems Exam Vitals Vital Signs Date Temp Pulse Resp B/P (MAP) Pulse Ox O2 O2 Flow FiO2 Time Delivery Rate 10/11/18 98.3 68 18 131/66 98 12:16 (87) Intake and Output 10/10/18 10/10/18 10/11/18 1414:59 22:59 06:59 IntakeIntake Total 1400 ml 760 ml OutputOutput Total 800 ml 900 ml BalanceBalance 600 ml -140 ml Results Results 24hrs Laboratory Tests Test 10/10/18 17:35 10/10/18 21:08 10/11/18 05:26 10/11/18 05:27 Bedside Glucose 182 225 H White Blood Count 8.5 # Red Blood Count 1.76 L Hemoglobin 6.0 *L Hematocrit 16.9 L Mean Corpuscular 96.0 Volume Mean Corpuscular 34.1 H Hemoglobin Mean Corpuscular 35.5 Hemoglobin Concent Red Cell 12.1 Distribution Width Platelet Count 167 Mean Platelet Volume 9.9 Immature 1.800 H Granulocytes % Neutrophils % 78.9 H Lymphocytes % 9.7 L Monocytes % 8.1 Eosinophils % 1.3 Basophils % 0.2 Nucleated Red Blood 0.0 Cells % Immature 0.150 H Granulocytes # Neutrophils # 6.7 Lymphocytes # 0.8 Monocytes # 0.7 Eosinophils # 0.1 Basophils # 0.0 Nucleated Red Blood 0.0 Cells # Sodium Level 138 Potassium Level 3.8 Chloride Level 115 H Carbon Dioxide Level 13 L Anion Gap 10 Blood Urea Nitrogen 81 H Creatinine 6.25 H Est Glomerular 9 L Filtrat Rate mL/min Glucose Level 115 # Calcium Level 8.7 Phosphorus Level 4.4 Magnesium Level 1.8 Test 10/11/18 07:53 10/11/18 11:49 Bedside Glucose 120 145 Medications Medication Current Medications IV Flush (NS 3 ml) 3 ml PER PROTOCOL IV ; Start 10/09/18 at 09:30 Ondansetron HCl (Zofran Inj) 4 mg Q6H PRN IV NAUSEA/VOMITING; Start 10/09/18 at 09:30 Acetaminophen (Tylenol Tab) 650 mg Q6H PRN PO .PAIN 1-3 OR TEMP Last administered on 10/11/18 10:39; Admin Dose 650 MG; Start 10/09/18 at 09:30 Acetaminophen/ Hydrocodone Bitart ([place] (5/325)) 1 tab Q6H PRN PO .MOD PAIN 4- 6 Last administered on 10/11/18at 04:07; Admin Dose 1 TAB; Start 10/09/18 at 09:30 Docusate Sodium (Colace) 100 mg Q12H PRN PO .CONSTIPATION; Start 10/09/18 at 09:30 Zolpidem Tartrate (Ambien) 5 mg QHS PRN PO .INSOMNIA; Start 10/09/18 at 09:30 Ceftriaxone Sodium 50 ml @ 100 mls/hr Q24H IVPB Last administered on 10/11/18 10:39; Admin Dose 100 MLS/HR; Start 10/09/18 at 10:00 Diagnostic Test (Pha) (Accu-Chek) 1 ea 02 XX Last administered on 10/11/18at 02:00; Admin Dose 1 EA; Start 10/10/18 at 02:00 Insulin Aspart (Novolog Insulin Pen) 3 unit WITH MEALS SC Last administered on 10/11/18 12:12; Admin Dose 3 UNIT; Start 10/09/18 at 12:00 Insulin Aspart (Novolog Insulin Pen) NOVOLOG *MILD* ALGORITHM WITH MEALS BEDTIME SC Last administered on 10/11/18 12:12; Admin Dose 1 UNIT; Start 10/09/18 at 12:00 Miscellaneous Information 1 ea NOTE XX ; Start 10/09/18 at 10:00 Glucose (Glutose) 15 gm Q15M PRN PO DECREASED GLUCOSE; Start 10/09/18 at 10:00 Glucose (Glutose) 22.5 gm Q15M PRN PO DECREASED GLUCOSE; Start 10/09/18 at 10:00 Dextrose (D50w Syringe) 25 ml Q15M PRN IV DECREASED GLUCOSE; Start 10/09/18 at 10:00 Dextrose (D50w Syringe) 50 ml Q15M PRN IV DECREASED GLUCOSE; Start 10/09/18 at 10:00 Glucagon (Glucagen) 1 mg Q15M PRN IM DECREASED GLUCOSE; Start 10/09/18 at 10:00 Glucose (Glutose) 15 gm Q15M PRN BUCCAL DECREASED GLUCOSE; Start 10/09/18 at 10:00 Epoetin Santiago-epbx (RETACRIT(esrd)) 10,000 unit MoWeFr@1700 SC Last administered on 10/10/18at 17:17; Admin Dose 10,000 UNIT; Start 10/10/18 at 17:00 Sevelamer Carbonate (Renvela) 800 mg WITH MEALS PO Last administered on 10/10/18at 11:57; Admin Dose 800 MG; Start 10/10/18 at 12:00 Insulin Glargine (Lantus) 8 units DAILY@0800 SC Last administered on 10/11/18at 08:06; Admin Dose 8 UNITS; Start 10/11/18 at 08:00 Ferric Sodium Gluconate Complex 125 mg/Sodium Chloride 110 ml @ 110 mls/hr DAILY@1300 IVPB Last administered on 10/10/18at 15:04; Admin Dose 110 MLS/HR; Start 10/10/18 at 15:00; Stop 10/14/18 at 13:59 Hydralazine HCl (Apresoline) 10 mg Q4H PRN IV ELEVATED BLOOD PRESSURE Last administered on 10/11/18at 00:22; Admin Dose 10 MG; Start 10/11/18 at 00:00 Citric Acid/ Sodium Citrate (Bicitra) 30 ml Q8 PO ; Start 10/11/18 at 14:00 MANNY HOUGH MD Oct 11, 2018 13:43
[2018-10-11] MEDS: SOD FERRIC GLUC COMPLX 125 MG in SOD CHLORIDE 0.9% 100 ML IVPB SCH (15:41)
[2018-10-11] MEDS: CITRIC ACID/NA CITRATE 30 ML CUP PO SCH ×2 (15:44→22:49)
[2018-10-11 19:57] LABS: PTH CALCIUM 7.8 mg/dL (8.6-10.3)
[2018-10-12] VITALS (7 sets, daily range): BP systolic 132–155; BP diastolic 67–70; PULSE 75–87; RESP 18–19
[2018-10-12] MEDS: ACCU-CHEK XX SCH (01:22)
[2018-10-12] MEDS: CITRIC ACID/NA CITRATE 30 ML CUP PO SCH (05:32)
[2018-10-12] MEDS: INSULIN ASPART [NOVOLOG] 3 ML PEN SC SCH ×4 (08:00→11:36)
[2018-10-12] MEDS: SEVELAMER CARBONATE 800 MG TABLET PO SCH ×2 (08:37→12:18)
[2018-10-12] MEDS: ACETAMINOPHEN 325 MG TAB PO PRN (08:37)
[2018-10-12] MEDS: INSULIN GLARGINE [LANTus] (100 UNITS/ML) SYG SC SCH (08:40)
--- NOTE | 2018-10-12 09:23 | PN ---
DATE: 10/12/2018 SUBJECTIVE: No events overnight. No fevers, chills, nausea, or vomiting. OBJECTIVE: VITAL SIGNS: Blood pressure is 150/70, respirations 18, pulse 81, temperature 99.2. HEENT: Head is normocephalic. NECK: Supple. HEART: Regular rate. LUNGS: Show diminished breath sounds at the base. ABDOMEN: Soft, nontender to palpation without rebound or guarding. EXTREMITIES: Negative for clubbing, cyanosis, no edema. DERMATOLOGIC: No rashes. MUSCULOSKELETAL: No joint effusion. NEUROLOGIC: No change in exam. MEDICATIONS: The patient's medications have been reviewed. LABORATORY DATA: Reviewed. ASSESSMENT AND PLAN: 1. Renal failure. Etiology may be possible acute kidney injury on top of chronic kidney disease estella maxim progression of chronic kidney disease. The patient's renal function has marginally improved in t he last 24 to 48 hours. His creatinine is down to 5.8 mg/dL. The patient is refusing any form of he modialysis at this time. We will therefore continue current treatment plan, supportive care, renally dose all medicines. A component of obstructive uropathy may also be a contributing factor in the fani tee's renal failure. 2. Chronic kidney disease stage IV, possible stage V. Continue current medical management as stated above. Continue disease factor modification. 3. Anemia with iron deficiency. The patient is status post Epogen. Status post blood transfusion. Continue IV Ferrlecit. 4. Metabolic acidosis, slowly improving. Continue Bicitra. 5. Mineral bone disorder. Monitor calcium and phosphorus levels. Continue phosphate binders. 6. Left-sided hydronephrosis. The patient has been evaluated by urology. Continue to monitor. 7. Sepsis secondary to urinary tract infection. The patient is completing antibiotic course. 8. Diabetes. Continue current insulin regimen. 9. Hypernatremia, improved. Dictated By: GI PENA DO NR/NTS Conf#: [id number] DID#: [id number] CC: MANNY HOUGH MD; JIMENEZ HAILE MD; GI PENA DO;*EndCC*
[2018-10-12] MEDS: CEFTRIAXONE 1 GM/50 ML (PMX) 50 ML IVPB SCH (09:46)
[2018-10-12] MEDS ORDERED: LEVO500T48 PO ×2 (11:33→14:25)
[2018-10-12] MEDS ORDERED: BICS PO (11:33)
--- NOTE | 2018-10-12 11:34 | PDOCDIS ---
Discharge Instructions DIAGNOSIS Discharge Diagnosis UTI CONDITION [id number] Patient Condition: [id number] Stable FOLLOW UP/APPOINTMENTS Follow-up Plan Take your antibiotics as prescribed Return to the emergency room if you have any concerning symptoms It is very important for you to see your kidney doctor regularly You also need to make an appointment with a urologist to discuss management of your kidney stones MANNY HOUGH MD October 12, 2018 11:34
--- NOTE | 2018-10-12 13:33 | DS ---
Date/Time of Note Date/Time of Note DATE: 10/12/18 TIME: 13:31 Discharge Summary Admission/Discharge Info Admit Date/Time Oct 09, 2018 at 08:11 Discharge Date/Time October 12, 2018 at 12:41 Discharge Diagnosis UTI Patient Condition: Stable Hospital Course EXAM: Blind Appears comfortable Euvolemic RRR CTAB Soft ntd Toe amputations 57 yo male with h/o DMII, CKD 5, PAD s/p toe amputations, blindness presents wtih UTI and advanced renal failure He was found to be febrile at [facility] emergency room. He was started on ceftriaxone and symptoms resolved. He was given a course of levaquin to complete as an outpatient. He had anemia of CKD and was transfused PRBCs as well as iron IV. He was offered dialysis initiation but he declined this and preferred to have this done by his regular community relations liaison He also was found to have unilateral hydronephrosis with nephrolithiasis. He was seen by Dr Borrero from urology who recommended he follow up as an outpatient for lithotripsy Home Meds Active Scripts Citric Acid/Sodium Citrate* (Bicitra* (PEDIATRIC)) 1 Meq/Ml Soln, 30 ML PO Q8 for 30 Days, #90 DOSE Prov:MANNY HOUGH MD 10/12/18 Levofloxacin* (Levaquin*) 500 Mg Tab, 500 MG PO Q48H for 8 Days, #4 TAB Prov:MANNY HOUGH MD 10/12/18 Collagenase* (Santyl*) 1 Applic Oint, 1 APPLIC TOP DAILY for 28 Days Prov:MARK LAMBERT MD 06/25/15 Amlodipine Besylate* (Norvasc*) 2.5 Mg Tab, 2.5 MG PO DAILY for 28 Days, TAB Prov:MARK LAMBERT MD 06/25/15 Insulin Glargine* (Lantus*) 100 Unit/Ml Soln, 8 UNIT SC QHS for 14 Days Prov:MARK LAMBERT MD 06/25/15 Follow-up Plan Take your antibiotics as prescribed Return to the emergency room if you have any concerning symptoms It is very important for you to see your kidney doctor regularly You also need to make an appointment with a urologist to discuss management of your kidney stones Primary Care Provider Not On Staff Doctor Pending Labs Laboratory Tests Test 10/11/18 17:37 10/11/18 20:32 10/12/18 05:01 10/12/18 07:59 Bedside 155 142 84 Glucose mg/dL (70-220) mg/dL (70-220) mg/dL (70-220) White Blood 10.7 Count 10^3/ul (4.8-1 0.8) Red Blood 2.34 Count 10^6/ul (4.70- 6.10) Hemoglobin 7.5 g/dl (14.0-18. 0) Hematocrit 21.8 % (42.0-52.0) Mean 93.2 Corpuscular fl (82.0-101.0 Volume ) Mean 32.1 Corpuscular pg (29.0-33.0) Hemoglobin Mean 34.4 Corpuscular g/dl (32.0-37. Hemoglobin Conc 0) ent Red Cell 14.1 Distribution % (11.5-14.5) Width Platelet Count 207 10^3/UL (140-4 15) Mean Platelet 9.9 Volume fl (7.4-10.4) Immature 3.800 Granulocytes % % (0.001-0.429 ) Neutrophils % 76.5 % (39.0-77.0) Lymphocytes % 9.7 % (15.0-51.0) Monocytes % 7.7 % (0.0-11.0) Eosinophils % 2.1 % (0.0-7.0) Basophils % 0.2 % (0.0-2.0) Nucleated Red 0.0 Blood Cells % /100WBC (0.0-0 .0) Immature 0.410 Granulocytes # 10^3/ul (0.0-0 .031) Neutrophils # 8.2 10^3/ul (1.6-7 .5) Lymphocytes # 1.0 10^3/ul (0.8-2 .9) Monocytes # 0.8 10^3/ul (0.3-0 .9) Eosinophils # 0.2 10^3/ul (0.0-0 .5) Basophils # 0.0 10^3/ul (0.0-0 .1) Nucleated Red 0.0 Blood Cells # 10^3/ul (0.0-0 .0) Sodium Level 140 mmol/L (135-14 4) Potassium 4.0 Level mmol/L (3.5-5. 1) Chloride Level 115 mmol/L (97-110 ) Carbon Dioxide 15 Level mmol/L (21-31) Anion Gap 10 (5-13) Blood Urea 79 Nitrogen mg/dl (7-20) Creatinine 5.84 mg/dl (0.61-1. 24) Est Glomerular 10 Filtrat mL/min (>60) Rate mL/min Glucose Level 85 mg/dl (70-220) Calcium Level 8.8 mg/dl (8.4-10. 2) Phosphorus 3.7 Level mg/dl (2.5-4.9 ) Magnesium 1.7 Level mg/dl (1.7-2.5 ) Test 10/12/18 11:30 Bedside 143 Glucose mg/dL (70-220) MANNY HOUGH MD October 12, 2018 13:33
== END 2018-10-12 12:41 | disposition home or self-care (01) | DRG 872 ==
LOC: 6WM 08:11
PROVIDERS: ADMIT Internal Medicine; ATTEND Internal Medicine
PROC: 30233N1 Transfusion of Nonautologous Red Blood Cells into Peripheral Vein, Percutaneous Approach (ICD-10-PCS; principal; 2018-10-11)
DX: A41.9 Sepsis, unspecified organism (principal); I12.0 Hypertensive chronic kidney disease with stage 5 chronic kidney disease or end stage renal disease; N39.0 Urinary tract infection, site not specified; N17.9 Acute kidney failure, unspecified; E87.1 Hypo-osmolality and hyponatremia; E87.2 Acidosis; N18.5 Chronic kidney disease, stage 5; N13.6 Pyonephrosis; E87.0 Hyperosmolality and hypernatremia; E11.51 Type 2 diabetes mellitus with diabetic peripheral angiopathy without gangrene; E11.21 Type 2 diabetes mellitus with diabetic nephropathy; E11.649 Type 2 diabetes mellitus with hypoglycemia without coma; E11.22 Type 2 diabetes mellitus with diabetic chronic kidney disease; D63.1 Anemia in chronic kidney disease; H54.40 Blindness, one eye, unspecified eye; N21.0 Calculus in bladder; D50.9 Iron deficiency anemia, unspecified; Z79.4 Long term (current) use of insulin; Z89.421 Acquired absence of other right toe(s)
CPT/HCPCS: 36430; 74018; 74176; 76775; 80048; 80053; 80061; 81001; 81003; 82043; 82306; 82728; 82962; 83036; 83540; 83735; 83970; 84100; 84155; 84300; 85025; 86850; 86900; 86901; 86920; 87086; J0360; J0696; J1815; J2916; J7030; J7040; P9016; Q5105

== ENCOUNTER 2018-10-18 04:28 | Inpatient (IN) | payer OTHER ==
[~2018-10-18] VITALS: Ht 182.9 cm; Wt 57.2 kg
[2018-10-18 04:33] VITALS: Ht 182.9 cm; Wt 57.2 kg
--- NOTE | 2018-10-18 05:23 | ERD ---
ER Documentation Chief Complaint Chief Complaint BIB AMB FROM [facility]. FEVER X 1 WEEK. HPI This is a 57-year-old with private evidence for heavy male. Patient has fever for a week. He was to be admitted for infected diabetic foot ulcer. Patient capitated to this hospital. Accepted by hospitalist ROS All systems reviewed and are negative except as per history of present illness. Medications Home Meds Active Scripts Levofloxacin* (Levaquin*) 500 Mg Tablet, 500 MG PO Q48H for 8 Days, #4 TAB Prov:MANNY HOUGH MD 10/12/18 Collagenase* (Santyl*) 1 Applic Oint, 1 APPLIC TOP DAILY for 28 Days Prov:MARK LAMBERT MD 06/25/15 Amlodipine Besylate* (Norvasc*) 2.5 Mg Tab, 2.5 MG PO DAILY for 28 Days, TAB Prov:MARK LAMBERT MD 06/25/15 Insulin Glargine* (Lantus*) 100 Unit/Ml Soln, 8 UNIT SC QHS for 14 Days Prov:MARK LAMBERT MD 06/25/15 Discontinued Scripts Levofloxacin* (Levaquin*) 500 Mg Tab, 500 MG PO DAILY@06 for 28 Days, TAB Prov:MARK LAMBERT MD 06/25/15 Allergies Allergies: Coded Allergies: No Known Allergy (Unverified , 05/29/15) PMhx/Soc History of Surgery: No Anesthesia Reaction: No Hx Neurological Disorder: No Hx Respiratory Disorders: No Hx Cardiac Disorders: Yes (htn, hyperlipidemia ) Hx Psychiatric Problems: No Hx Miscellaneous Medical Probl: No Hx Alcohol Use: No Hx Substance Use: No Hx Tobacco Use: No Smoking Status: Never smoker Physical Exam Vitals Vital Signs Date Temp Pulse Resp B/P (MAP) Pulse Ox O2 O2 Flow FiO2 Time Delivery Rate 10/18/18 97.5 56 16 123/61 100 04:33 (81) Physical Exam Const: No acute distress Head: Atraumatic Eyes: Normal Conjunctiva ENT: Normal External Ears, Nose and Mouth. Neck: Full range of motion. No meningismus. Resp: Clear to auscultation bilaterally Cardio: Regular rate and rhythm, no murmurs Abd: Soft, non tender, non distended. Normal bowel sounds Skin: No petechiae or rashes Back: No midline or flank tenderness Ext: No cyanosis, or edema Neur: Awake and alert Psych: Normal Mood and Affect Procedures/MDM This is a 57-year-old male with infected diabetic foot ulcer. Patient admitted to hospitalist. Departure Diagnosis: Primary Impression: Cellulitis of foot Condition: Serious JIMENEZ RODRÍGUEZ October 18, 2018 05:23
[2018-10-18] MEDS ORDERED: GLIP10TA14 PO (06:46)
[2018-10-18] MEDS ORDERED: SIMV20TA PO (06:49)
[2018-10-18] MEDS ORDERED: CARV12.579 PO (06:49)
[2018-10-18] MEDS ORDERED: LEVO500T48 PO (06:50)
[2018-10-18] MEDS ORDERED: PIOG30TA12 PO (06:50)
[2018-10-18] MEDS ORDERED: FOLI-49 PO (06:50)
[2018-10-18 13:00] VITALS: BP 136/65; PULSE 70; RESP 18
--- NOTE | 2018-10-18 14:07 | HP ---
Date/Time of Note Date/Time of Note DATE: 10/18/18 TIME: 13:56 Assessment/Plan VTE Prophylaxis SCD applied (from Nsg): Yes Pharmacological prophylaxis: NA/contraindicated Pharm contraindication: anticoag not tolerated Lines/Catheters IV Catheter Type (from Nrsg): Saline Lock Urinary Cath still in place: No Assessment/Plan Hospital Course SUBJECTIVE: Lying in bed comfortably. No fevers. Having pain not right foot. OBJECTIVE: Vital signs-see below PHYSICAL EXAM: Constitutional: Adequately built,not in acute distress. HEENT:Blind. Head atraumatic and normocephalic. Eyes: Extraocular muscles intact. NECK: Supple without lymph node. CHEST: Clear and good breath sounds equally. No wheezing. No rhonchi. HEART: S1, S2. Regular rate and rhythm. ABDOMEN: Soft/non tender with no rebound tenderness. Bowel sounds were present. EXTREMITIES:R foot erythema/cellulitis.Missing toes. No cyanosis, clubbing or edema. NEUROLOGIC: Alert and oriented x3. No focal deficit. No sensory deficit. PSYCHOSOCIAL: No signs of depression. INTEGUMENTARY: See extremity assessment. Skin appears pale. ASSESSMENT AND PLAN:57 yo M w/DMII, CKD, chronic anemia, PAD s/p toe amputations,dyslipidemia, transferred from OSH for inpatient management for sepsis w/ R foot DM cellulitis... Sepsis with right foot cellulitis (Criteria:Outside hosp record T 103/WBC 15,00 PLUS documented foot infection) -Zosyn/vancomycin (Renally dosed) -Cultures Right foot DM cellulitis -Podiatry consult -Wound care -Glycemic control Chronic anemia -H/H 7.2/ 21.5 -Consider Epogen -No need for transfusion. Monitor H&H closely DMII -A1C -Basal/bolus insulin CKD -Outside record creatinine 4.5. -Nephrology consult/monitor renal function -Patient was previously told to be on dialysis for which he was not receptive -AVOID NEPHROTOXINS AND RENALLY DOSE ALL MEDS PAD s/p toe amputations -Chronic issue Dyslipidemia -Resume statin Blindness -Supportive care DVT prophylaxis: SCDs PUD prophylaxis: Not indicated Rest of the management depend on hospital course. Approximately 60 m spent on this history and physical. Patient was seen in collaboration with Dr. Nelson 57-year-old male with history of DMII, CKD 5, anemia of CKD-who was recommended to start dialysis for which patient was not receptive,, nephrolithiasis, PAD s/p toe amputations, dyslipidemia, blindness, who initially presented to [facility] with redness/swelling on right foot associated with fevers x2-day duration. HPI/ROS Admit Date/Time Admit Date/Time October 18, 2018 at 04:40 Hx of Present Illness This is a 57-year-old male with history of DMII, CKD 5, anemia of CKD-who was recommended to start dialysis for which patient was not receptive,, nephrolithiasis, PAD s/p toe amputations, dyslipidemia, blindness, who initially presented to [facility] with redness/swelling on right foot associated with fevers x2-day duration. Patient did not have any other complaints. Patient was transferred to [facility] due to insurance capitation. At my encounter with the patient, he denied chest pain, palpitation, nausea, vomiting, abdominal pain, loss of consciousness, dizziness, numbness, tingling, fever, chills, diarrhea, constipation or other discomfort. Labs reviewed from outside hospital showed white count 15,400, hemoglobin 7.2, hematocrit 21.5, platelet 252, sodium 131, potassium 4.4, BUN 62, creatinine 4.5, glucose 177. Normal LFTs. Right foot x-ray with no acute issues. Chest x-ray normal. Twelve-lead EKG normal sinus rhythm.Vital signs temperature 103.1, pulse rate 86, respiratory rate 20, blood pressure 153/69 and oxygen saturation 97% on arrival to [facility]. Patient was given Zosyn and vancomycin from outside hospital. ROS A 12 point review of system was assessed and is negative other than what is mentioned in HPI. PMH/Family/Social Past Medical History See HPI Coded Allergies: No Known Allergy (Unverified , 10/18/18) Past Surgical History See HPI Past Surgical Hx: other Family History Significant Family History: no pertinent family hx Social History Denied history of alcohol, smoking or illicit drug use. Smoking Status: Never smoker Exam/Review of Systems Vital Signs Vitals Vital Signs Date Temp Pulse Resp B/P (MAP) Pulse Ox O2 O2 Flow FiO2 Time Delivery Rate 10/18/18 97.8 64 62 121/74 100 11:11 (90) 10/18/18 Room Air 09:06 ISIDRO PAPPAS NP October 18, 2018 14:07
[2018-10-18] MEDS ORDERED: GLUCOSE GEL 15 GRAM TUBE BUCCAL PRN (14:30)
[2018-10-18] MEDS ORDERED: GLUCAGON 1 MG INJ IM PRN (14:30)
[2018-10-18] MEDS ORDERED: VANCOMYCIN IV PER PHARMACY XX SCH (14:30)
[2018-10-18] MEDS ORDERED: GLUCOSE GEL 15 GRAM TUBE PO PRN ×2 (14:30)
[2018-10-18] MEDS ORDERED: PIPER-TAZO 3.375 GM IV (PMX) 100 ML IVPB SCH (14:30)
[2018-10-18] MEDS ORDERED: ONDANSETRON 4 MG INJ IV PRN (14:30)
[2018-10-18] MEDS ORDERED: DOCUSATE SODIUM 100 MG CAP PO PRN (14:30)
[2018-10-18] MEDS ORDERED: DEXTROSE 50% 50 ML SYRINGE IV PRN (14:30)
[2018-10-18] MEDS ORDERED: NACL 0.9% 3 ML SYG IV SCH (14:30)
[2018-10-18] MEDS: SOD CHLORIDE 0.9% 1,000 ML IV SCH (16:07)
[2018-10-18 16:31] VITALS: BP 150/73; PULSE 72; RESP 18
--- NOTE | 2018-10-18 17:32 | CONS ---
Assessment/Plan Assessment/Plan Assessment/Plan (Daily) Right foot cellulitis Right foot callus Tinea pedis Onychomycosis Hx of digit amputation right foot DM2 with peripheral neuropathy CKD 5 refused dialysis Plan Reviewed reports from [facility] and appreciated elevated white blood cell count and X-ray report revealed no fracture fragment or dislocation. Recommend ordering MRI of right foot and ankle. Inflammatory labs to be ordered along with non invasive arterial studies. Continue with IV abx therapy as recommended. Apply clotrimazole to bilateral feet. Offload heels with pillows. No open lesions appreciated. Consultation Date/Type/Reason Admit Date/Time October 18, 2018 at 04:40 Date/Time of Note DATE: 10/18/18 TIME: 17:31 Hx of Present Illness 57 y/o M patient with hx of diabetes, CKD, legally blind, and PAD presents to the floor with right foot redness, swelling and associated fevers. Patient was seen previously at [facility] and transferred here due to insurance. Patient was noted to have elevated white blood cell count, cellulitis, and burning pain to the foot. Patient was initiated on IV broad spectrum IV abx and had X-rays with no acute fracture fragments or dislocations per the report. Patient states it has been going on for a few days. He does not recall how it started. ROS Negative except for HPI Past Medical History DMII, CKD 5, anemia of CKD-who was recommended to start dialysis for which patient was not receptive,, nephrolithiasis, PAD s/p toe amputations, dyslipidemia, blindness Home Meds Reported Medications Levofloxacin* (Levaquin*) 500 Mg Tablet, 500 MG PO DAILY, TAB 10/18/18 Pioglitazone Hcl* (Actos*) 30 Mg Tablet, 30 MG PO DAILY, #30 TAB 10/18/18 Folic Acid* (Folic Acid*) 1 Mg Tablet, 1 MG PO DAILY, TAB 10/18/18 Simvastatin* (Zocor*) 20 Mg Tablet, 20 MG PO QHS, #30 TAB 10/18/18 Carvedilol* (Carvedilol*) 12.5 Mg Tablet, 12.5 MG PO DAILY, #60 TAB 10/18/18 Glipizide* (Glipizide*) 10 Mg Tablet, 10 MG PO AC BREAKFAST, TAB 10/18/18 Discontinued Scripts Levofloxacin* (Levaquin*) 500 Mg Tablet, 500 MG PO Q48H for 8 Days, #4 TAB Prov:MANNY HOUGH MD 10/12/18 Collagenase* (Santyl*) 1 Applic Oint, 1 APPLIC TOP DAILY for 28 Days Prov:AMRK LAMBERT MD 06/25/15 Amlodipine Besylate* (Norvasc*) 2.5 Mg Tab, 2.5 MG PO DAILY for 28 Days, TAB Prov:MARK LAMBERT MD 06/25/15 Insulin Glargine* (Lantus*) 100 Unit/Ml Soln, 8 UNIT SC QHS for 14 Days Prov:MARK LAMBERT MD 06/25/15 Levofloxacin* (Levaquin*) 500 Mg Tab, 500 MG PO DAILY@06 for 28 Days, TAB Prov:MARK LAMBERT MD 06/25/15 Medications Current Medications Carvedilol (Coreg) 12.5 mg DAILY PO ; Start 10/19/18 at 09:00 Folic Acid (Folic Acid) 1 mg DAILY PO ; Start 10/19/18 at 09:00 Atorvastatin Calcium (Lipitor) 10 mg DAILY@21 PO ; Start 10/18/18 at 21:00 Sodium Chloride 1,000 ml @ 75 mls/hr [id number] IV Last administered on 10/18/18at 16:07; Admin Dose 75 MLS/HR; Start 10/18/18 at 14:08 IV Flush (NS 3 ml) 3 ml PER PROTOCOL IV ; Start 10/18/18 at 14:30 Ondansetron HCl (Zofran Inj) 4 mg Q6H PRN IV NAUSEA/VOMITING; Start 10/18/18 at 14:30 Acetaminophen (Tylenol Tab) 650 mg Q6H PRN PO .PAIN 1-3 OR TEMP; Start 10/18/18 at 14:30 Acetaminophen/ Hydrocodone Bitart (Davis (5/325)) 1 tab Q6H PRN PO .MOD PAIN 4- 6; Start 10/18/18 at 14:30 Docusate Sodium (Colace) 100 mg Q12H PRN PO .CONSTIPATION; Start 10/18/18 at 14:30 Diagnostic Test (Pha) (Accu-Chek) 1 ea 02 XX ; Start 10/19/18 at 02:00 Insulin Glargine (Lantus) 14 units DAILY@2000 SC ; Start 10/18/18 at 20:00 Insulin Aspart (Novolog Insulin Pen) 3 unit WITH MEALS SC ; Start 10/18/18 at 17:35 Insulin Aspart (Novolog Insulin Pen) NOVOLOG *MILD* ALGORITHM WITH MEALS BEDTIME SC ; Start 10/18/18 at 17:35 Vancomycin HCl (Vanco Iv Per Pharmacy) VANCOMYCIN PER PHARM... PER PROTOCOL XX ; Start 10/18/18 at 14:30 Piperacillin Sod/ Tazobactam Sod 50 ml @ 100 mls/hr Q8 IVPB ; Start 10/18/18 at 14:30 Miscellaneous Information 1 ea NOTE XX ; Start 10/18/18 at 14:30 Glucose (Glutose) 15 gm Q15M PRN PO DECREASED GLUCOSE; Start 10/18/18 at 14:30 Glucose (Glutose) 22.5 gm Q15M PRN PO DECREASED GLUCOSE; Start 10/18/18 at 14:30 Dextrose (D50w Syringe) 25 ml Q15M PRN IV DECREASED GLUCOSE; Start 10/18/18 at 14:30 Dextrose (D50w Syringe) 50 ml Q15M PRN IV DECREASED GLUCOSE; Start 10/18/18 at 14:30 Glucagon (Glucagen) 1 mg Q15M PRN IM DECREASED GLUCOSE; Start 10/18/18 at 14:30 Glucose (Glutose) 15 gm Q15M PRN BUCCAL DECREASED GLUCOSE; Start 10/18/18 at 14:30 Allergies: Coded Allergies: No Known Allergy (Unverified , 10/18/18) Past Surgical History previous toe amputation and debridements Past Surgical Hx: other Social History Smoking Status: Never smoker Exam/Review of Systems Exam Vitals Vital Signs Date Temp Pulse Resp B/P (MAP) Pulse Ox O2 O2 Flow FiO2 Time Delivery Rate 10/18/18 98.3 72 18 150/73 100 16:31 (98) 10/18/18 Room Air 09:06 Exam PT pulses palpable, DP weakly palpable Absent protective sensations Warmth to the right foot compared to the left foot Non pitting edema to the right foot Appreciate right foot digit amputation Muscle strength 4/5 in all compartments of the foot. No pain on palpation to the right foot. HPK lesion noted to the right plantar 5th metatarsal White scaling lesions in mocassin distribution. Results Result Diagram: 10/18/18 1508 10/18/18 1508 Results 24hrs Laboratory Tests Test 10/18/18 15:08 White Blood Count 15.5 #H Red Blood Count 2.16 L Hemoglobin 7.1 L Hematocrit 20.6 L Mean Corpuscular Volume 95.4 Mean Corpuscular Hemoglobin 32.9 Mean Corpuscular Hemoglobin Concent 34.5 Red Cell Distribution Width 13.7 Platelet Count 264 # Mean Platelet Volume 9.6 Immature Granulocytes % 0.600 H Neutrophils % 90.4 H Lymphocytes % 3.1 L Monocytes % 4.8 Eosinophils % 0.9 Basophils % 0.2 Nucleated Red Blood Cells % 0.0 Immature Granulocytes # 0.100 H Neutrophils # 14.0 H Lymphocytes # 0.5 L Monocytes # 0.7 Eosinophils # 0.1 Basophils # 0.0 Nucleated Red Blood Cells # 0.0 Sodium Level 134 L Potassium Level 4.3 Chloride Level 110 Carbon Dioxide Level 15 L Anion Gap 9 Blood Urea Nitrogen 70 H Creatinine 4.79 H Est Glomerular Filtrat Rate mL/min 13 L Glucose Level 195 Calcium Level 8.3 L Medications Medication Current Medications Carvedilol (Coreg) 12.5 mg DAILY PO ; Start 10/19/18 at 09:00 Folic Acid (Folic Acid) 1 mg DAILY PO ; Start 10/19/18 at 09:00 Atorvastatin Calcium (Lipitor) 10 mg DAILY@21 PO ; Start 10/18/18 at 21:00 Sodium Chloride 1,000 ml @ 75 mls/hr [id number] IV Last administered on 10/18/18at 16:07; Admin Dose 75 MLS/HR; Start 10/18/18 at 14:08 IV Flush (NS 3 ml) 3 ml PER PROTOCOL IV ; Start 10/18/18 at 14:30 Ondansetron HCl (Zofran Inj) 4 mg Q6H PRN IV NAUSEA/VOMITING; Start 10/18/18 at 14:30 Acetaminophen (Tylenol Tab) 650 mg Q6H PRN PO .PAIN 1-3 OR TEMP; Start 10/18/18 at 14:30 Acetaminophen/ Hydrocodone Bitart (Davis (5/325)) 1 tab Q6H PRN PO .MOD PAIN 4- 6; Start 10/18/18 at 14:30 Docusate Sodium (Colace) 100 mg Q12H PRN PO .CONSTIPATION; Start 10/18/18 at 14:30 Diagnostic Test (Pha) (Accu-Chek) 1 ea 02 XX ; Start 10/19/18 at 02:00 Insulin Glargine (Lantus) 14 units DAILY@2000 SC ; Start 10/18/18 at 20:00 Insulin Aspart (Novolog Insulin Pen) 3 unit WITH MEALS SC ; Start 10/18/18 at 17:35 Insulin Aspart (Novolog Insulin Pen) NOVOLOG *MILD* ALGORITHM WITH MEALS BEDTIME SC ; Start 10/18/18 at 17:35 Vancomycin HCl (Vanco Iv Per Pharmacy) VANCOMYCIN PER PHARM... PER PROTOCOL XX ; Start 10/18/18 at 14:30 Piperacillin Sod/ Tazobactam Sod 50 ml @ 100 mls/hr Q8 IVPB ; Start 10/18/18 at 14:30 Miscellaneous Information 1 ea NOTE XX ; Start 10/18/18 at 14:30 Glucose (Glutose) 15 gm Q15M PRN PO DECREASED GLUCOSE; Start 10/18/18 at 14:30 Glucose (Glutose) 22.5 gm Q15M PRN PO DECREASED GLUCOSE; Start 10/18/18 at 14:30 Dextrose (D50w Syringe) 25 ml Q15M PRN IV DECREASED GLUCOSE; Start 10/18/18 at 14:30 Dextrose (D50w Syringe) 50 ml Q15M PRN IV DECREASED GLUCOSE; Start 10/18/18 at 14:30 Glucagon (Glucagen) 1 mg Q15M PRN IM DECREASED GLUCOSE; Start 10/18/18 at 14:30 Glucose (Glutose) 15 gm Q15M PRN BUCCAL DECREASED GLUCOSE; Start 10/18/18 at 14:30 RM BAKER DPShaye October 18, 2018 17:31
[2018-10-18] MEDS: INSULIN ASPART [NOVOLOG] 3 ML PEN SC SCH ×3 (17:47→21:51)
[2018-10-18] MEDS: PIPER-TAZO 2.25 GM (PMX) 50 ML IVPB SCH ×2 (17:47→21:47)
--- NOTE | 2018-10-18 18:05 | CONS ---
DATE OF ADMISSION: 10/18/2018 DATE OF CONSULTATION: TYPE OF CONSULTATION: Nephrology. REASON FOR CONSULTATION: CKD stage V, possible acute kidney injury. PHYSICIAN REQUESTING CONSULT: Augustina Gusman NP HISTORY OF PRESENT ILLNESS: This is a 57-year-old male with a past medical history of chronic kidney disease stage IV/V with a previous eGFR around 20 mL per minute per patient, history of hypertension , diabetes, anemia, who was previously admitted to [facility] approximately 2 weeks ago. At that time, the patient was in acute kidney injury with possible progression of chronic kidn ey disease. The patient had an eGFR of approximately 10 to 12 mL per minute. The patient refused he modialysis at that time, did not have overt uremic symptoms and was subsequently discharged. The hugo suárez now presented to [facility] with symptoms of fevers, chills. In the em ergency room, the patient was noted to have possible sepsis secondary to his diabetic foot wound and was subsequently admitted to telemetry for further evaluation. Upon my evaluation of the patient at this time, he is currently stable. Denies any fevers, chills. The patient also denies nausea, vomiting. Denies any rashes, any frothy urine. PAST MEDICAL HISTORY: As stated above, history of CKD stage IV/V, history of diabetes, history of pe ripheral arterial disease, history of dyslipidemia, history of anemia, history of blindness. FAMILY HISTORY: No family history of kidney disease. SOCIAL HISTORY: Does not drink, smoke or do drugs. MEDICATIONS: Have been reviewed. REVIEW OF SYSTEMS: A 14-point review of systems was conducted. Pertinent positives stated in HPI, o therwise negative. PHYSICAL EXAMINATION: VITAL SIGNS: Blood pressure 150/73, respiration 18, pulse is 72, temperature 98.3. HEENT: Head is normocephalic. NECK: Supple. HEART: Regular rate. LUNGS: Show diminished breath sounds at the base. ABDOMEN: Soft, nontender to palpation without rebound or guarding. EXTREMITIES: Negative for clubbing, cyanosis. No edema. DERMATOLOGIC: No rashes. MUSCULOSKELETAL: No joint effusions. NEUROLOGIC: No focal deficits. LABORATORY DATA: Have been reviewed. IMAGING STUDIES: Have been reviewed. MICROBIOLOGY: Previous urinalysis was reviewed. ASSESSMENT AND PLAN: 1. Nonoliguric acute kidney injury on top of chronic kidney disease stage IV/V with previous eGFR ar ound 20 mL per minute per patient. The patient's renal function has improved in the last 10 days. T he patient may be entering the recovery phase of acute kidney injury. Recommendation at this point i s to repeat UA with microanalysis and check urine electrolytes. We will continue current treatment p jihan, supportive care, renally dose all medications. Continue current antibiotic therapy. Please not e, I spoke with the patient again about the possibility of hemodialysis if renal function does not im prove. The patient again refuses any form of dialysis. Please note, the patient is currently on a f luid challenge. We will continue. Monitor volume status closely. 2. Metabolic acidosis. Etiology is secondary to chronic kidney disease. The patient will be starte d on Bicitra. 3. Hyponatremia secondary to chronic kidney disease and acute kidney injury, causing decreased free water urinary excretion. We will continue to monitor serial sodium levels. We will minimize free wa ter intake. 4. Anemia. Monitor hemoglobin and hematocrit levels. We will give Epogen. We will check an iron p apple. 5. Mineral bone disorder. Monitor calcium and phosphorus level. 6. Sepsis secondary to right foot cellulitis. Continue current antibiotic regimen. Follow up cultu res. 7. Diabetes. Continue current insulin regimen. 8. Peripheral arterial disease, status post amputation. Continue medical management. 9. Dyslipidemia. Continue statin therapy. 10. History of bilateral blindness. Thank you, Augustina, for this interesting consult. It will be a pleasure to follow patient with you thr oughout the hospital course. Dictated By: GI PENA DO NR/NTS Conf#: [id number] DID#: [id number] CC: JIMENEZ HAILE MD;*EndCC*
--- NOTE | 2018-10-18 18:47 | CONS ---
DATE OF ADMISSION: 10/18/2018 DATE OF CONSULTATION: 10/18/2018 TYPE OF CONSULTATION: Infectious disease. REASON FOR CONSULTATION: Antibiotic management. HISTORY OF PRESENT ILLNESS: Huber Hines is a 57-year-old male who comes in from [facility] with a fever for 1 week. The patient has a diabetic infected foot ulcer. His past problems include hypertension, hyperlipidemia. On admission, the patient was seen by the hospitalist, Augustina Gusman. The patient is noted to be blind. He has chronic renal disease, anemia of chronic disease, pe ripheral artery disease, status post amputations, dyslipidemia. He was transferred from outside hosp [facility] for sepsis and right foot diabetic cellulitis. The patient is on vancomycin and Zosyn, sepsis w ith right foot cellulitis. Temperature of 103. White count of 15,000 plus. The patient was seen by Dr. Devante Mccurdy, podiatry. PAST MEDICAL HISTORY: As outlined. FAMILY HISTORY: Noncontributory. SOCIAL HISTORY: He does not smoke, drink or abuse drugs. ALLERGIES: NONE TO PENICILLIN, SULFA OR FOODS. MEDICATIONS: Per chart. REVIEW OF SYSTEMS: As per HPI. PHYSICAL EXAMINATION: GENERAL: The patient is an adequately built individual in no acute distress. VITAL SIGNS: Stable. He is afebrile. SKIN: Without generalized rash. HEENT: Within normal limits. NECK: Supple. LYMPH NODES: None palpable. CHEST: Decreased breath sounds at the bases. HEART: Without murmur or gallop. ABDOMEN: Soft, nontender without organosplenomegaly or masses. EXTREMITIES: Right foot erythema and cellulitis with missing toes. RECTAL AND GENITAL: Deferred. NEUROLOGIC: Decreased sensation in distal extremities. His creatinine at the outside hospital is 4.5. He was told that he would need dialysis, which he was not receptive. The patient was started on vancomycin and Zosyn and vancomycin per pharmacy. His wh ite count was 15.5, H and H is 7.1 and 20.6, platelet count 264,000 with 90% neutrophils. BUN and cr eatinine is 70/4.79. We will continue him on current therapy. No evidence for deep vein thrombophle bitis. He has enlarged right inguinal lymph node and right leg edema. I will dictate my findings to the hospitalist and to Dr. Mccurdy. Dictated By: GRETCHEN NDIAYE MD, JD/TIFFANI Conf#: [id number] [facility]#: [id number] CC: GI PENA DO; JIMENEZ HAILE MD;*EndCC*
[2018-10-18 19:37] VITALS: BP 144/72; PULSE 80; RESP 18
[2018-10-18] MEDS ORDERED: INSULIN GLARGINE [LANTus] (100 UNITS/ML) SYG SC SCH (20:00)
[2018-10-18] MEDS ORDERED: EPOETIN ALFA-EPBX (ESRD) 10,000 UNIT/ML VIAL SC ONE (20:00)
[2018-10-18] MEDS ORDERED: NON-FORMULARY/PATIENT OWN MED (Simvastatin* (Zocor*) 20 MG) PO SCH (21:00)
[2018-10-18] MEDS: ATORVASTATIN 10 MG TAB PO SCH (21:47)
[2018-10-18] MEDS: CITRIC ACID/NA CITRATE 30 ML CUP PO SCH (21:47)
[2018-10-18] MEDS: ACETAMINOPHEN 325 MG TAB PO PRN (21:47)
[2018-10-18] MEDS: CLOTRIMAZOLE 1% 30 GM CR TOP SCH (23:09)
[2018-10-19 01:21] VITALS: BP 115/61; PULSE 76; RESP 18
[2018-10-19] MEDS: ACCU-CHEK XX SCH (02:03)
[2018-10-19] MEDS: SOD CHLORIDE 0.9% 1,000 ML IV SCH (03:17)
[2018-10-19] MEDS: PIPER-TAZO 2.25 GM (PMX) 50 ML IVPB SCH ×3 (06:13→22:02)
[2018-10-19 07:59] VITALS: BP 149/72; PULSE 68; RESP 18
[2018-10-19] MEDS: INSULIN ASPART [NOVOLOG] 3 ML PEN SC SCH ×5 (08:00→20:30)
--- NOTE | 2018-10-19 09:25 | PN ---
DATE: 10/19/2018 SUBJECTIVE: Overnight, the patient was stable. No events overnight. No fevers, chills, nausea, vom iting, no distress. No shortness of breath. The patient again this morning has reiterated that he d oes not want to be initiated on hemodialysis. OBJECTIVE: VITAL SIGNS: Blood pressure is 149/72, respirations 18, pulse 68, temperature 98.8. HEENT: Head is normocephalic. NECK: Supple. HEART: Regular rate. LUNGS: Show diminished breath sounds at the base. ABDOMEN: Soft, nontender to palpation without rebound or guarding. EXTREMITIES: Negative for clubbing, cyanosis, no edema. DERMATOLOGIC: No rashes. MUSCULOSKELETAL: No joint effusion. NEUROLOGIC: No change in exam. MEDICATIONS: Reviewed. LABORATORY DATA: Reviewed. IMAGING STUDIES: Reviewed. ASSESSMENT AND PLAN: 1. Chronic kidney disease stage V. The patient's creatinine appears to be stabilizing around 4.8 to 5.5 mg/dL, which gives her EGFR of approximately 11 mL per minute. The patient has mild uremic symp toms. The patient is clear that he does not wish to be initiating on dialysis. We will therefore co ntinue current treatment plan, supportive care, renally dose all medications, monitor for signs of ur emia closely. 2. Metabolic acidosis. Etiology is secondary to chronic kidney disease. The patient will be starti ng on Bicitra. 3. Hypernatremia secondary to chronic kidney disease, caused decreased urinary excretion, will limit free water intake. 4. Anemia, start the patient on IV iron. We will continue Epogen. The patient may require blood tr ansfusion. 5. Mineral bone disorder, monitor calcium and phosphorus levels. 6. Sepsis secondary to cellulitis. Continue current antibiotic regimen. 7. Peripheral vascular disease. The patient's ultrasounds were reviewed. Continue to monitor. Con bed setter a vascular evaluation. 8. Diabetes. Continue current insulin regimen. 9. Dyslipidemia. Continue statin therapy. 10. Hypertension in part due to increased intravascular volume. We will discontinue IV fluids and m onitor. 11. Bilateral blindness. Dictated By: GI PENA DO NR/NTS Conf#: [id number] DID#: [id number] CC: JIMENEZ HAILE MD; GI PENA DO;*EndCC*
[2018-10-19] MEDS: CITRIC ACID/NA CITRATE 30 ML CUP PO SCH ×2 (09:38→20:30)
[2018-10-19] MEDS: FOLIC ACID 1 MG TAB PO SCH (09:38)
[2018-10-19] MEDS: CLOTRIMAZOLE 1% 30 GM CR TOP SCH ×2 (09:39→20:30)
[2018-10-19] MEDS ORDERED: SOD CHLORIDE 0.9% 250 ML IV* ONE (11:55)
[2018-10-19] MEDS: ACETAMINOPHEN 325 MG TAB PO PRN (11:56)
--- NOTE | 2018-10-19 12:05 | PN ---
Date/Time of Note Date/Time of Note DATE: 10/19/18 TIME: 11:56 Assessment/Plan VTE Prophylaxis Risk score (from Ns)>0 risk: 3 SCD applied (from Ns): No SCD contraindicated: other (NOT CONTRAINDIACTED) Pharmacological prophylaxis: NA/contraindicated Pharm contraindication: anticoag not tolerated Lines/Catheters IV C[facility]ter Type (from [facility]): Peripheral IV Urinary Cath still in place: No Assessment/Plan Hospital Course SUBJECTIVE:No acute distress. no fevers. right foot w/improved swelling/pain. OBJECTIVE: Vital signs-see below PHYSICAL EXAM: Constitutional: Adequately built,not in acute distress. HEENT:Blind. Head atraumatic and normocephalic. Eyes: Extraocular muscles intact. NECK: Supple without lymph node. CHEST: Clear and good breath sounds equally. No wheezing. No rhonchi. HEART: S1, S2. Regular rate and rhythm. ABDOMEN: Soft/non tender with no rebound tenderness. Bowel sounds were present. EXTREMITIES:R foot erythema/cellulitis-improved.Missing toes. No cyanosis, clubbing or edema. NEUROLOGIC: Alert and oriented x3. No focal deficit. No sensory deficit. PSYCHOSOCIAL: No signs of depression. INTEGUMENTARY: See extremity assessment. Skin appears pale. ASSESSMENT AND PLAN:57 yo M w/DMII, CKD, chronic anemia, PAD s/p toe amputations,dyslipidemia, transferred from OSH for inpatient management for sepsis w/ R foot DM cellulitis... Sepsis,POA with right foot cellulitis/abscess -cont. 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 Dyslipidemia -on statin Blindness -Supportive care DVT prophylaxis: SCDs PUD prophylaxis: Not indicated Dispo: f/u podiatry,nephrology and vascular recs Patient was seen in collaboration with Dr. Nelson Result Diagram: 10/19/18 0448 10/19/18447 Results 24hrs Laboratory Tests Test 10/18/18 15:08 10/18/18 15:43 10/18/18 17:41 10/18/18 21:46 White Blood Count 15.5 #H Red Blood Count 2.16 L Hemoglobin 7.1 L Hematocrit 20.6 L Mean Corpuscular Volume 95.4 Mean Corpuscular 32.9 Hemoglobin Mean Corpuscular 34.5 Hemoglobin Concent Red Cell Distribution 13.7 Width Platelet Count 264 # Mean Platelet Volume 9.6 Immature Granulocytes % 0.600 H Neutrophils % 90.4 H Lymphocytes % 3.1 L Monocytes % 4.8 Eosinophils % 0.9 Basophils % 0.2 Nucleated Red Blood 0.0 Cells % Immature Granulocytes # 0.100 H Neutrophils # 14.0 H Lymphocytes # 0.5 L Monocytes # 0.7 Eosinophils # 0.1 Basophils # 0.0 Nucleated Red Blood 0.0 Cells # Erythrocyte 104 H Sedimentation Rate Sodium Level 134 L Potassium Level 4.3 Chloride Level 110 Carbon Dioxide Level 15 L Anion Gap 9 Blood Urea Nitrogen 70 H Creatinine 4.79 H Est Glomerular Filtrat 13 L Rate mL/min Glucose Level 195 Calcium Level 8.3 L C-Reactive Protein 8.5 H Urine Color YELLOW Urine Clarity CLOUDY A Urine pH 5.0 Urine Specific [place] 1.013 Urine Ketones NEGATIVE Urine Nitrite NEGATIVE Urine Bilirubin NEGATIVE Urine Urobilinogen NEGATIVE Urine Leukocyte Esterase NEGATIVE Urine Microscopic RBC > 182 H Urine Microscopic WBC 18 H Urine Squamous FEW Epithelial Cells Urine Hemoglobin 3+ H Urine Random Creatinine 85.01 Urine Random Sodium 40 Urine Glucose 1+ H Urine Total Protein 345.0 H Bedside Glucose 194 258 H Test 10/19/18 02:04 10/19/18 04:48 10/19/18 04:51 10/19/18 08:13 Bedside Glucose 140 54 L White Blood Count 14.6 H Red Blood Count 1.99 L Hemoglobin 6.3 *L Hematocrit 18.9 L Mean Corpuscular Volume 95.0 Mean Corpuscular 31.7 Hemoglobin Mean Corpuscular 33.3 Hemoglobin Concent Red Cell Distribution 13.9 Width Platelet Count 255 Mean Platelet Volume 9.6 Immature Granulocytes % 0.800 H Neutrophils % 84.3 H Lymphocytes % 6.3 L Monocytes % 7.1 Eosinophils % 1.3 Basophils % 0.2 Nucleated Red Blood 0.1 H Cells % Immature Granulocytes # 0.120 H Neutrophils # 12.3 H Lymphocytes # 0.9 Monocytes # 1.0 H Eosinophils # 0.2 Basophils # 0.0 Nucleated Red Blood 0.0 Cells # Sodium Level 137 Potassium Level 3.8 Chloride Level 111 H Carbon Dioxide Level 17 L Anion Gap 9 Blood Urea Nitrogen 66 H Creatinine 5.27 H Est Glomerular Filtrat 11 L Rate mL/min Glucose Level 77 # Hemoglobin A1c 8.0 H Calcium Level 8.2 L Phosphorus Level 4.3 Magnesium Level 2.2 Iron Level < 10 L Total Iron Binding 165 L Capacity Percent Iron Saturation Total Bilirubin 0.1 L Direct Bilirubin 0.00 Indirect Bilirubin 0.1 Aspartate Amino 34 Transf (AST/SGOT) Alanine 33 Aminotransferase (ALT/SG PT) Alkaline Phosphatase 148 H Total Protein 5.4 L Albumin 2.3 L Globulin 3.10 Albumin/Globulin Ratio 0.74 Triglycerides Level 114 Cholesterol Level 77 L LDL Cholesterol, 33 Calculated HDL Cholesterol 21 L Cholesterol/HDL Ratio 3.6 Random Vancomycin Level 17.8 Test 10/19/18 09:05 Bedside Glucose 118 Exam/Review of Systems Exam Vitals Vital Signs Date Temp Pulse Resp B/P (MAP) Pulse Ox O2 O2 Flow FiO2 Time Delivery Rate 10/19/18 98.8 68 18 149/72 99 07:59 (97) 10/18/18 Room Air 09:06 Intake and Output 10/18/18 10/18/18 10/19/18 1515:00 23:00 07:00 IntakeIntake Total 650 ml 875 ml OutputOutput Total 400 ml BalanceBalance 250 ml 875 ml Results Results 24hrs Laboratory Tests Test 10/18/18 15:08 10/18/18 15:43 10/18/18 17:41 10/18/18 21:46 White Blood Count 15.5 #H Red Blood Count 2.16 L Hemoglobin 7.1 L Hematocrit 20.6 L Mean Corpuscular Volume 95.4 Mean Corpuscular 32.9 Hemoglobin Mean Corpuscular 34.5 Hemoglobin Concent Red Cell Distribution 13.7 Width Platelet Count 264 # Mean Platelet Volume 9.6 Immature Granulocytes % 0.600 H Neutrophils % 90.4 H Lymphocytes % 3.1 L Monocytes % 4.8 Eosinophils % 0.9 Basophils % 0.2 Nucleated Red Blood 0.0 Cells % Immature Granulocytes # 0.100 H Neutrophils # 14.0 H Lymphocytes # 0.5 L Monocytes # 0.7 Eosinophils # 0.1 Basophils # 0.0 Nucleated Red Blood 0.0 Cells # Erythrocyte 104 H Sedimentation Rate Sodium Level 134 L Potassium Level 4.3 Chloride Level 110 Carbon Dioxide Level 15 L Anion Gap 9 Blood Urea Nitrogen 70 H Creatinine 4.79 H Est Glomerular Filtrat 13 L Rate mL/min Glucose Level 195 Calcium Level 8.3 L C-Reactive Protein 8.5 H Urine Color YELLOW Urine Clarity CLOUDY A Urine pH 5.0 Urine Specific [place] 1.013 Urine Ketones NEGATIVE Urine Nitrite NEGATIVE Urine Bilirubin NEGATIVE Urine Urobilinogen NEGATIVE Urine Leukocyte Esterase NEGATIVE Urine Microscopic RBC > 182 H Urine Microscopic WBC 18 H Urine Squamous FEW Epithelial Cells Urine Hemoglobin 3+ H Urine Random Creatinine 85.01 Urine Random Sodium 40 Urine Glucose 1+ H Urine Total Protein 345.0 H Bedside Glucose 194 258 H Test 10/19/18 02:04 10/19/18 04:48 10/19/18 04:51 10/19/18 08:13 Bedside Glucose 140 54 L White Blood Count 14.6 H Red Blood Count 1.99 L Hemoglobin 6.3 *L Hematocrit 18.9 L Mean Corpuscular Volume 95.0 Mean Corpuscular 31.7 Hemoglobin Mean Corpuscular 33.3 Hemoglobin Concent Red Cell Distribution 13.9 Width Platelet Count 255 Mean Platelet Volume 9.6 Immature Granulocytes % 0.800 H Neutrophils % 84.3 H Lymphocytes % 6.3 L Monocytes % 7.1 Eosinophils % 1.3 Basophils % 0.2 Nucleated Red Blood 0.1 H Cells % Immature Granulocytes # 0.120 H Neutrophils # 12.3 H Lymphocytes # 0.9 Monocytes # 1.0 H Eosinophils # 0.2 Basophils # 0.0 Nucleated Red Blood 0.0 Cells # Sodium Level 137 Potassium Level 3.8 Chloride Level 111 H Carbon Dioxide Level 17 L Anion Gap 9 Blood Urea Nitrogen 66 H Creatinine 5.27 H Est Glomerular Filtrat 11 L Rate mL/min Glucose Level 77 # Hemoglobin A1c 8.0 H Calcium Level 8.2 L Phosphorus Level 4.3 Magnesium Level 2.2 Iron Level < 10 L Total Iron Binding 165 L Capacity Percent Iron Saturation Total Bilirubin 0.1 L Direct Bilirubin 0.00 Indirect Bilirubin 0.1 Aspartate Amino 34 Transf (AST/SGOT) Alanine 33 Aminotransferase (ALT/SG PT) Alkaline Phosphatase 148 H Total Protein 5.4 L Albumin 2.3 L Globulin 3.10 Albumin/Globulin Ratio 0.74 Triglycerides Level 114 Cholesterol Level 77 L LDL Cholesterol, 33 Calculated HDL Cholesterol 21 L Cholesterol/HDL Ratio 3.6 Random Vancomycin Level 17.8 Test 10/19/18 09:05 Bedside Glucose 118 Medications Medication Current Medications Carvedilol (Coreg) 12.5 mg DAILY PO Last administered on 10/19/18at 09:39; Admin Dose 12.5 MG; Start 10/19/18 at 09:00 Folic Acid (Folic Acid) 1 mg DAILY PO Last administered on 10/19/18at 09:38; Admin Dose 1 MG; Start 10/19/18 at 09:00 Atorvastatin Calcium (Lipitor) 10 mg DAILY@21 PO Last administered on 10/18/18at 21:47; Admin Dose 10 MG; Start 10/18/18 at 21:00 IV Flush (NS 3 ml) 3 ml PER PROTOCOL IV ; Start 10/18/18 at 14:30 Ondansetron HCl (Zofran Inj) 4 mg Q6H PRN IV NAUSEA/VOMITING; Start 10/18/18 at 14:30 Acetaminophen (Tylenol Tab) 650 mg Q6H PRN PO .PAIN 1-3 OR TEMP Last administered on 10/18/18at 21:47; Admin Dose 650 MG; Start 10/18/18 at 14:30 Acetaminophen/ Hydrocodone Bitart ([place] (5/325)) 1 tab Q6H PRN PO .MOD PAIN 4- 6; Start 10/18/18 at 14:30 Docusate Sodium (Colace) 100 mg Q12H PRN PO .CONSTIPATION; Start 10/18/18 at 14:30 Diagnostic Test (Pha) (Accu-Chek) 1 ea 02 XX Last administered on 10/19/18 02:03; Admin Dose 1 EA; Start 10/19/18 at 02:00 Insulin Glargine (Lantus) 14 units DAILY@2000 SC Last administered on 10/18/18 21:52; Admin Dose 14 UNITS; Start 10/18/18 at 20:00 Insulin Aspart (Novolog Insulin Pen) 3 unit WITH MEALS SC Last administered on 10/18/18 17:47; Admin Dose 3 UNIT; Start 10/18/18 at 17:35 Insulin Aspart (Novolog Insulin Pen) NOVOLOG *MILD* ALGORITHM WITH MEALS BEDTIME SC Last administered on 10/18/18 21:51; Admin Dose 2 UNIT; Start 10/18/18 at 17:35 Vancomycin HCl (Vanco Iv Per Pharmacy) VANCOMYCIN PER PHARM... PER PROTOCOL XX ; Start 10/18/18 at 14:30 Piperacillin Sod/ Tazobactam Sod 50 ml @ 100 mls/hr Q8 IVPB Last administered on 10/19/18 06:13; Admin Dose 100 MLS/HR; Start 10/18/18 at 14:30 Miscellaneous Information 1 ea NOTE XX ; Start 10/18/18 at 14:30 Glucose (Glutose) 15 gm Q15M PRN PO DECREASED GLUCOSE; Start 10/18/18 at 14:30 Glucose (Glutose) 22.5 gm Q15M PRN PO DECREASED GLUCOSE; Start 10/18/18 at 14:30 Dextrose (D50w Syringe) 25 ml Q15M PRN IV DECREASED GLUCOSE; Start 10/18/18 at 14:30 Dextrose (D50w Syringe) 50 ml Q15M PRN IV DECREASED GLUCOSE; Start 10/18/18 at 14:30 Glucagon (Glucagen) 1 mg Q15M PRN IM DECREASED GLUCOSE; Start 10/18/18 at 14:30 Glucose (Glutose) 15 gm Q15M PRN BUCCAL DECREASED GLUCOSE; Start 10/18/18 at 14:30 Citric Acid/ Sodium Citrate (Bicitra) 30 ml BID PO Last administered on 10/19/18at 09:38; Admin Dose 30 ML; Start 10/18/18 at 21:00 Clotrimazole (Lotrimin Cr) 1 applic BID TOP Last administered on 10/19/18at 09:39; Admin Dose 1 APPLIC; Start 10/18/18 at 21:00 Ferric Sodium Gluconate Complex 125 mg/Sodium Chloride 110 ml @ 110 mls/hr DAILY@1300 IVPB ; Start 10/19/18 at 13:00; Stop 10/23/18 at 13:59 ISIDRO PAPPAS NP October 19, 2018 12:05
--- NOTE | 2018-10-19 13:50 | CONS ---
Assessment/Plan Assessment/Plan Hospital Course (Demo Recall) Patient is alert looks comfortable no fevers overnight this morning he spiked fever of 101 and WBC today 14.6 platelets 255 neutrophils 84.3 BUN 66 creatinine 5.27 Urine culture negative MRI of the right foot revealed osteomyelitis with possible phlegmon collection Antimicrobials: Zosyn, vancomycin Physical examination: Well-developed middle-aged man who is in no distress head atraumatic normocephalic neck is supple chest rise symmetrical breath sounds diminished bases heart: S1-S2 abdomen soft bowel sounds present extremities with right foot swelling and erythema Assessment: 1. Sepsis, present on admission 2. Right foot cellulitis, osteomyelitis, abscess 3. End-stage renal disease 4. Diabetes Plan: We are going to do blood cultures and order chest x-ray, continue on curr ent antibiotics, follow podiatry recommendations Consultation Date/Type/Reason Admit Date/Time October 18, 2018 at 04:40 Initial Consult Date Type of Consult id Date/Time of Note DATE: 10/19/18 TIME: 13:49 Exam/Review of Systems Exam Vitals Vital Signs Date Temp Pulse Resp B/P (MAP) Pulse Ox O2 O2 Flow FiO2 Time Delivery Rate 10/19/18 101.0 11:56 10/19/18 68 18 149/72 99 07:59 (97) 10/18/18 Room Air 09:06 Intake and Output 10/18/18 10/18/18 10/19/18 1515:00 23:00 07:00 IntakeIntake Total 650 ml 875 ml OutputOutput Total 400 ml BalanceBalance 250 ml 875 ml Results Result Diagram: 10/19/18 0448 10/19/18 0448 Results 24hrs Laboratory Tests Test 10/18/18 15:08 10/18/18 15:43 10/18/18 17:41 10/18/18 21:46 White Blood Count 15.5 #H Red Blood Count 2.16 L Hemoglobin 7.1 L Hematocrit 20.6 L Mean Corpuscular Volume 95.4 Mean Corpuscular 32.9 Hemoglobin Mean Corpuscular 34.5 Hemoglobin Concent Red Cell Distribution 13.7 Width Platelet Count 264 # Mean Platelet Volume 9.6 Immature Granulocytes % 0.600 H Neutrophils % 90.4 H Lymphocytes % 3.1 L Monocytes % 4.8 Eosinophils % 0.9 Basophils % 0.2 Nucleated Red Blood 0.0 Cells % Immature Granulocytes # 0.100 H Neutrophils # 14.0 H Lymphocytes # 0.5 L Monocytes # 0.7 Eosinophils # 0.1 Basophils # 0.0 Nucleated Red Blood 0.0 Cells # Erythrocyte 104 H Sedimentation Rate Sodium Level 134 L Potassium Level 4.3 Chloride Level 110 Carbon Dioxide Level 15 L Anion Gap 9 Blood Urea Nitrogen 70 H Creatinine 4.79 H Est Glomerular Filtrat 13 L Rate mL/min Glucose Level 195 Calcium Level 8.3 L C-Reactive Protein 8.5 H Urine Color YELLOW Urine Clarity CLOUDY A Urine pH 5.0 Urine Specific [place] 1.013 Urine Ketones NEGATIVE Urine Nitrite NEGATIVE Urine Bilirubin NEGATIVE Urine Urobilinogen NEGATIVE Urine Leukocyte Esterase NEGATIVE Urine Microscopic RBC > 182 H Urine Microscopic WBC 18 H Urine Squamous FEW Epithelial Cells Urine Hemoglobin 3+ H Urine Random Creatinine 85.01 Urine Random Sodium 40 Urine Glucose 1+ H Urine Total Protein 345.0 H Bedside Glucose 194 258 H Test 10/19/18 02:04 10/19/18 04:48 10/19/18 04:51 10/19/18 08:13 Bedside Glucose 140 54 L White Blood Count 14.6 H Red Blood Count 1.99 L Hemoglobin 6.3 *L Hematocrit 18.9 L Mean Corpuscular Volume 95.0 Mean Corpuscular 31.7 Hemoglobin Mean Corpuscular 33.3 Hemoglobin Concent Red Cell Distribution 13.9 Width Platelet Count 255 Mean Platelet Volume 9.6 Immature Granulocytes % 0.800 H Neutrophils % 84.3 H Lymphocytes % 6.3 L Monocytes % 7.1 Eosinophils % 1.3 Basophils % 0.2 Nucleated Red Blood 0.1 H Cells % Immature Granulocytes # 0.120 H Neutrophils # 12.3 H Lymphocytes # 0.9 Monocytes # 1.0 H Eosinophils # 0.2 Basophils # 0.0 Nucleated Red Blood 0.0 Cells # Sodium Level 137 Potassium Level 3.8 Chloride Level 111 H Carbon Dioxide Level 17 L Anion Gap 9 Blood Urea Nitrogen 66 H Creatinine 5.27 H Est Glomerular Filtrat 11 L Rate mL/min Glucose Level 77 # Hemoglobin A1c 8.0 H Calcium Level 8.2 L Phosphorus Level 4.3 Magnesium Level 2.2 Iron Level < 10 L Total Iron Binding 165 L Capacity Percent Iron Saturation Total Bilirubin 0.1 L Direct Bilirubin 0.00 Indirect Bilirubin 0.1 Aspartate Amino 34 Transf (AST/SGOT) Alanine 33 Aminotransferase (ALT/SG PT) Alkaline Phosphatase 148 H Total Protein 5.4 L Albumin 2.3 L Globulin 3.10 Albumin/Globulin Ratio 0.74 Triglycerides Level 114 Cholesterol Level 77 L LDL Cholesterol, 33 Calculated HDL Cholesterol 21 L Cholesterol/HDL Ratio 3.6 Random Vancomycin Level 17.8 Test 10/19/18 09:05 10/19/18 12:46 Bedside Glucose 118 76 Medications Medication Current Medications Carvedilol (Coreg) 12.5 mg DAILY PO Last administered on 10/19/18 09:39; Admin Dose 12.5 MG; Start 10/19/18 at 09:00 Folic Acid (Folic Acid) 1 mg DAILY PO Last administered on 10/19/18 09:38; Admin Dose 1 MG; Start 10/19/18 at 09:00 Atorvastatin Calcium (Lipitor) 10 mg DAILY@21 PO Last administered on 10/18/18at 21:47; Admin Dose 10 MG; Start 10/18/18 at 21:00 IV Flush (NS 3 ml) 3 ml PER PROTOCOL IV ; Start 10/18/18 at 14:30 Ondansetron HCl (Zofran Inj) 4 mg Q6H PRN IV NAUSEA/VOMITING; Start 10/18/18 at 14:30 Acetaminophen (Tylenol Tab) 650 mg Q6H PRN PO .PAIN 1-3 OR TEMP Last administered on 10/19/18at 11:56; Admin Dose 650 MG; Start 10/18/18 at 14:30 Acetaminophen/ Hydrocodone Bitart ([place] (5/325)) 1 tab Q6H PRN PO .MOD PAIN 4- 6; Start 10/18/18 at 14:30 Docusate Sodium (Colace) 100 mg Q12H PRN PO .CONSTIPATION; Start 10/18/18 at 14:30 Diagnostic Test (Pha) (Accu-Chek) 1 ea 02 XX Last administered on 10/19/18at 02:03; Admin Dose 1 EA; Start 10/19/18 at 02:00 Insulin Aspart (Novolog Insulin Pen) NOVOLOG *MILD* ALGORITHM WITH MEALS BEDTIME SC Last administered on 10/18/18 21:51; Admin Dose 2 UNIT; Start 10/18/18 at 17:35 Vancomycin HCl (Vanco Iv Per Pharmacy) VANCOMYCIN PER PHARM... PER PROTOCOL XX ; Start 10/18/18 at 14:30 Piperacillin Sod/ Tazobactam Sod 50 ml @ 100 mls/hr Q8 IVPB Last administered on 10/19/18at 06:13; Admin Dose 100 MLS/HR; Start 10/18/18 at 14:30 Miscellaneous Information 1 ea NOTE XX ; Start 10/18/18 at 14:30 Glucose (Glutose) 15 gm Q15M PRN PO DECREASED GLUCOSE; Start 10/18/18 at 14:30 Glucose (Glutose) 22.5 gm Q15M PRN PO DECREASED GLUCOSE; Start 10/18/18 at 14:30 Dextrose (D50w Syringe) 25 ml Q15M PRN IV DECREASED GLUCOSE; Start 10/18/18 at 14:30 Dextrose (D50w Syringe) 50 ml Q15M PRN IV DECREASED GLUCOSE; Start 10/18/18 at 14:30 Glucagon (Glucagen) 1 mg Q15M PRN IM DECREASED GLUCOSE; Start 10/18/18 at 14:30 Glucose (Glutose) 15 gm Q15M PRN BUCCAL DECREASED GLUCOSE; Start 10/18/18 at 14:30 Citric Acid/ Sodium Citrate (Bicitra) 30 ml BID PO Last administered on 10/19/18at 09:38; Admin Dose 30 ML; Start 10/18/18 at 21:00 Clotrimazole (Lotrimin Cr) 1 applic BID TOP Last administered on 10/19/18at 09:39; Admin Dose 1 APPLIC; Start 10/18/18 at 21:00 Ferric Sodium Gluconate Complex 125 mg/Sodium Chloride 110 ml @ 110 mls/hr DAILY@1300 IVPB ; Start 10/19/18 at 13:00; Stop 10/23/18 at 13:59 Insulin Glargine (Lantus) 12 units DAILY@2000 SC ; Start 10/19/18 at 20:00 CHEN BAXTER NP October 19, 2018 13:49
[2018-10-19] MEDS: SOD FERRIC GLUC COMPLX 125 MG in SOD CHLORIDE 0.9% 100 ML IVPB SCH (15:01)
[2018-10-19 15:17] VITALS: BP 145/68; PULSE 72; RESP 17
[2018-10-19] MEDS ORDERED: VANCOMYCIN 1 GM 250 ML IVPB SCH (17:00)
--- NOTE | 2018-10-19 17:03 | CONS ---
DATE OF ADMISSION: 10/18/2018 DATE OF CONSULTATION: 10/19/2018 TYPE OF CONSULTATION: VASCULAR REFERRING PHYSICIAN: Augustina Pappas, nurse practitioner. REASON FOR CONSULTATION: Vascular evaluation. He has had a right foot edema and also has chronic ki dney disease, with peripheral arterial disease. HISTORY OF PRESENT ILLNESS: This is a 57-year-old diabetic hypertensive gentleman with stage IV/V ch ronic kidney disease. He was transferred here from [facility] with some edema and celluliti s in the right foot. He has had some surgery on the foot in the past. The fourth and fifth toes hav e been partially amputated. There is a healed wound on the plantar surface of the foot, but he had a n MRI that shows osteomyelitis in the fifth metatarsal and an abscess in the foot as well. This was just done today. Dr. Baker has been consulted, he is going to see him for podiatric evaluation. He had some arterial studies that show monophasic flow in the right lower extremity, this is from th e SFA down. There is no discrete area of stenosis seen. Suggestion of a stenosis is in the SFA. Hi s creatinine is in the 5 range. He has refused hemodialysis in the past. He had a venous duplex sca n done that showed no DVT, but he does have some large nodes in the right groin. The patient denies any pain in the foot. He has been febrile. PAST MEDICAL HISTORY: Significant for diabetes, hypertension, chronic kidney disease, peripheral art erial disease, osteomyelitis, anemia. He is legally blind. MEDICATIONS: Consist of: 1. Insulin. 2. Iron. 3. Coreg. 4. Folate. 5. Lipitor. 6. Lotrimin cream. 7. Lantus. 8. Epogen. 9. Zofran. 10. [place]. 11. Vancomycin. 12. Zosyn. ALLERGIES: Has no known drug allergies. SOCIAL HISTORY: He is a nonsmoker. Does not drink or use any illicit drugs. FAMILY HISTORY: Noncontributory. REVIEW OF SYSTEMS: He currently denies any chest pain, shortness of breath, nausea, vomiting, diarrh ea. Denies any pain in the right foot. I guess he was having pain earlier. He does have some disco mfort in the right groin where the lymph nodes are palpable. PHYSICAL EXAMINATION GENERAL: He is an elderly gentleman. He is in no acute distress. VITAL SIGNS: He has a T-max of 101 and is his current temperature. Has a blood pressure 149/72, hea rt rate 68, respiratory rate is 18, 99% sat on room air. NECK: He has 2+ carotid, radial and brachial pulses bilaterally. LUNGS: Clear. HEART: Regular rate and rhythm. ABDOMEN: Soft, nontender, nondistended. EXTREMITIES: He has 2+ femoral and popliteal pulses bilaterally. I do not feel DP or PT pulses in e ither lower extremity. The right groin, there are some enlarged lymph nodes. In the right foot, I d on't see any open wounds. He has what looks like a healed wound on the plantar aspect over the 4th a nd 5th metatarsal region and portions of his fourth and fifth toes sort of at the base have been ampu tated. So the toes are short and contracted, but there is no evidence of obvious opening. However, the MRI does show an abscess and osteomyelitis which is consistent with his lab values and his fever. There is some erythema in the right foot and sort of diffusely and it a little bit swollen. His wh ite count is 15, hemoglobin 6. Again, his MRI shows osteomyelitis. Arterial study suggests and look s to me like tibial disease and there are no palpable pedal pulses. LABORATORY DATA: Creatinine is 5.2, so actually going up. IMPRESSION: Right foot osteomyelitis with an abscess. He has some least moderate peripheral arteria l disease. He has palpable popliteal, but no pedal pulse on either side. He needs the abscess drain ed. I will discuss with Dr. Baker and is not the best time to be worked on his arterial circulat ion, given his elevated creatinine. We could consider doing an angiogram with CO2 at some point afte r the abscess is drained and he is most likely going to end up on dialysis anyway. He is on appropri ate antibiotics and I will follow him along with you. Dictated By: EILEEN BHATTI/TIFFANI Conf#: [id number] DID#: [id number] CC: AUGUSTINA PAPPAS SPACE CONTROLLER; RM BAKER; GI PENA DO; JIMENEZ HAILE MD;*End*
[2018-10-19 17:10] VITALS: BP 148/73; PULSE 64; RESP 18
[2018-10-19 17:25] VITALS: BP 136/73; PULSE 62; RESP 16
[2018-10-19 20:00] VITALS: BP 156/76; PULSE 61; RESP 17
[2018-10-19] MEDS ORDERED: INSULIN GLARGINE [LANTus] (100 UNITS/ML) SYG SC SCH (20:00)
[2018-10-19] MEDS: ATORVASTATIN 10 MG TAB PO SCH (20:30)
[2018-10-20] VITALS (14 sets, daily range): BP systolic 111–185; BP diastolic 63–84; PULSE 56–78; RESP 11–19
[2018-10-20] MEDS: ACCU-CHEK XX SCH (02:00)
[2018-10-20] MEDS ORDERED: hydrALAzine 20 MG INJ IV ONE (02:30)
[2018-10-20] MEDS: PIPER-TAZO 2.25 GM (PMX) 50 ML IVPB SCH ×3 (05:30→21:02)
[2018-10-20] MEDS: DEXTROSE 50% 50 ML SYRINGE IV PRN ×2 (08:06→17:06)
[2018-10-20] MEDS ORDERED: DEXTROSE 5%-0.45% NACL 1,000 ML IV SCH (08:30)
[2018-10-20] MEDS: INSULIN ASPART [NOVOLOG] 3 ML PEN SC SCH ×4 (08:57→21:00)
[2018-10-20] MEDS: CITRIC ACID/NA CITRATE 30 ML CUP PO SCH ×2 (09:00→20:57)
[2018-10-20] MEDS: FOLIC ACID 1 MG TAB PO SCH (09:00)
--- NOTE | 2018-10-20 10:38 | PN ---
DATE: 10/20/2018 SUBJECTIVE: The patient is stable. No events overnight. The patient has refused hemodialysis. OBJECTIVE: VITAL SIGNS: Blood pressure is 141/76, respirations 18, pulse 73, temperature 97.9. HEENT: Head is normocephalic. NECK: Supple. HEART: Regular rate. LUNGS: Show diminished breath sounds at the base. ABDOMEN: Soft. Nontender to palpation without rebound or guarding. EXTREMITIES: Negative for clubbing, cyanosis, no edema. DERMATOLOGIC: No rashes. MUSCULOSKELETAL: No joint effusion. NEUROLOGIC: No change in exam. MEDICATIONS: Reviewed. LABORATORY DATA: Reviewed. ASSESSMENT AND PLAN: 1. Chronic kidney disease stage V. The patient's creatinine appears to be stabilizing around 4.8 to 5.5 mg/dL. The patient has mild uremic symptoms. The patient has been clear that he does not wish to be initiating on dialysis. Risks and benefits including has been explained to the patient. He has voiced understanding. We will therefore continue current treatment plans, supportive care, r enally dose all medications. 2. Metabolic acidosis. Continue Bicitra. 3. Hypernatremia, resolved. 4. Anemia. The patient has blood transfusion. We will continue Epogen. The patient is completing course of IV iron. 5. Mineral bone disorder. Monitor calcium and phosphorus levels. 6 Sepsis secondary to cellulitis. The patient is completing antibiotic course. 7. Peripheral vascular disease. The patient was seen by vascular surgery. Continue to monitor. Fo llow up recommendations. 8. Diabetes. Continue current insulin regimen. 7. Dyslipidemia. Continue statin therapy. 8. Hypertension. Continue current blood pressure regimen. 9. Bilateral blindness. Dictated By: GI PENA DO NR/NTS Conf#: [id number] DID#: [id number] CC: EILEEN MCCALL MD; JIMENEZ HAILE MD;*EndCC*
--- NOTE | 2018-10-20 10:50 | PN ---
Date/Time of Note Date/Time of Note DATE: 10/20/18 TIME: 10:40 Assessment/Plan VTE Prophylaxis Risk score (from Nsg)>0 risk: 3 SCD applied (from Nsg): Yes Pharmacological prophylaxis: NA/contraindicated Pharm contraindication: surgical contra Lines/Catheters IV Catheter Type (from Nrsg): Saline Lock Urinary Cath still in place: No Assessment/Plan Hospital Course SUBJECTIVE:No acute distress. no fevers. right foot w/improved swelling/pain. OBJECTIVE: Vital signs-see below PHYSICAL EXAM: Constitutional: Adequately built,not in acute distress. HEENT:Blind. Head atraumatic and normocephalic. Eyes: Extraocular muscles intact. NECK: Supple without lymph node. CHEST: Clear and good breath sounds equally. No wheezing. No rhonchi. HEART: S1, S2. Regular rate and rhythm. ABDOMEN: Soft/non tender with no rebound tenderness. Bowel sounds were present. EXTREMITIES:R foot erythema/cellulitis-improved.Missing toes. No cyanosis, clubbing or edema. NEUROLOGIC: Alert and oriented x3. No focal deficit. No sensory deficit. PSYCHOSOCIAL: No signs of depression. INTEGUMENTARY: See extremity assessment. Skin appears pale. ASSESSMENT AND PLAN:57 yo M w/DMII, CKD, chronic anemia, PAD s/p toe amputations,dyslipidemia, transferred from OSH for inpatient management for sepsis w/ R foot DM cellulitis... Sepsis,POA with right foot cellulitis/abscess -Renally dosed abx-ID managing -culture NGTD ~24hrs Right foot DM cellulitis w/Abscess -Plan for OR drainage today-f/u podiatry recs -cont.abx -Glycemic control Osteomyelitis of Right 5th metatarsal base -alf Abx -PICC line Acute on Chronic anemia -s/p 1 PRBS-HH improved -on IV iron /Epogen DMII -Blood sugar drops to 50s in the mornings-otherwise stable. Will adjust Lantus dose and will be scheduled for morning. -basal/bolus CKD progressing to ESRD -Pt adamantly refuses HD after multiple attempt d/w night supervisor-he thinks" it will kill him" -appreciate nephrology recs -His renal fxn is an obstacle to appropriate abx/vascular f/u -AVOID NEPHROTOXINS AND RENALLY DOSE ALL MEDS PVD,s/p toe amputations -Arterial studies noted-appreciate vascular recommendation and patient would definitely benefit from vascular intervention. However his renal function and unable to accept hemodialysis treatment precludes him from getting appropriate vascular intervention. Deferred for outpatient discussion -Continue to optimize neurovascular status with antihypertensives to keep blood pressure ~140/90, diet, nutrition, exercise, blood glucose control, and antiplatelets/anticoagulation(when appropriate). Dyslipidemia -on statin Blindness -Supportive care DVT prophylaxis: SCDs PUD prophylaxis: Not indicated Dispo: Patient is for OR drainage of abscess. PICC line insertion and anticipate discharge planning on long-term antibiotics once cultures are resulted. Case management to arrange home health at that point. F/u podiatry,nephrology and vascular recs Patient was seen in collaboration with Dr. Nelson Result Diagram: 10/20/18 0532 10/20/18 0532 Results 24hrs Laboratory Tests Test 10/19/18 12:46 10/19/18 17:27 10/19/18 20:25 10/20/18 05:32 Bedside Glucose 76 112 151 White Blood Count 14.9 H Red Blood Count 2.66 #L Hemoglobin 8.3 #L Hematocrit 24.5 #L Mean Corpuscular Volume 92.1 Mean Corpuscular 31.2 Hemoglobin Mean Corpuscular 33.9 Hemoglobin Concent Red Cell Distribution 15.2 H Width Platelet Count 298 Mean Platelet Volume 9.4 Immature Granulocytes % 0.800 H Neutrophils % 86.6 H Lymphocytes % 4.8 L Monocytes % 6.7 Eosinophils % 0.9 Basophils % 0.2 Nucleated Red Blood 0.0 Cells % Immature Granulocytes # 0.120 H Neutrophils # 12.9 H Lymphocytes # 0.7 L Monocytes # 1.0 H Eosinophils # 0.1 Basophils # 0.0 Nucleated Red Blood 0.0 Cells # Sodium Level 138 Potassium Level 3.9 Chloride Level 111 H Carbon Dioxide Level 18 L Anion Gap 9 Blood Urea Nitrogen 62 H Creatinine 5.42 H Est Glomerular Filtrat 11 L Rate mL/min Glucose Level 57 #L Calcium Level 8.6 Phosphorus Level 4.6 Magnesium Level 2.1 Test 10/20/18 08:02 10/20/18 08:29 10/20/18 08:47 Bedside Glucose 53 L 113 105 Exam/Review of Systems Exam Vitals Vital Signs Date Temp Pulse Resp B/P (MAP) Pulse Ox O2 O2 Flow FiO2 Time Delivery Rate 10/20/18 97.9 73 19 141/76 100 08:18 (97) 10/19/18 Room Air 17:25 Intake and Output 10/19/18 10/19/18 10/20/18 1515:00 23:00 07:00 IntakeIntake Total 840 ml 990 ml 450 ml OutputOutput Total 250 ml BalanceBalance 840 ml 740 ml 450 ml Results Results 24hrs Laboratory Tests Test 10/19/18 12:46 10/19/18 17:27 10/19/18 20:25 10/20/18 05:32 Bedside Glucose 76 112 151 White Blood Count 14.9 H Red Blood Count 2.66 #L Hemoglobin 8.3 #L Hematocrit 24.5 #L Mean Corpuscular Volume 92.1 Mean Corpuscular 31.2 Hemoglobin Mean Corpuscular 33.9 Hemoglobin Concent Red Cell Distribution 15.2 H Width Platelet Count 298 Mean Platelet Volume 9.4 Immature Granulocytes % 0.800 H Neutrophils % 86.6 H Lymphocytes % 4.8 L Monocytes % 6.7 Eosinophils % 0.9 Basophils % 0.2 Nucleated Red Blood 0.0 Cells % Immature Granulocytes # 0.120 H Neutrophils # 12.9 H Lymphocytes # 0.7 L Monocytes # 1.0 H Eosinophils # 0.1 Basophils # 0.0 Nucleated Red Blood 0.0 Cells # Sodium Level 138 Potassium Level 3.9 Chloride Level 111 H Carbon Dioxide Level 18 L Anion Gap 9 Blood Urea Nitrogen 62 H Creatinine 5.42 H Est Glomerular Filtrat 11 L Rate mL/min Glucose Level 57 #L Calcium Level 8.6 Phosphorus Level 4.6 Magnesium Level 2.1 Test 10/20/18 08:02 10/20/18 08:29 10/20/18 08:47 Bedside Glucose 53 L 113 105 Medications Medication Current Medications Carvedilol (Coreg) 12.5 mg DAILY PO Last administered on 10/19/18at 09:39; Admin Dose 12.5 MG; Start 10/19/18 at 09:00 Folic Acid (Folic Acid) 1 mg DAILY PO Last administered on 10/19/18at 09:38; Admin Dose 1 MG; Start 10/19/18 at 09:00 Atorvastatin Calcium (Lipitor) 10 mg DAILY@21 PO Last administered on 10/19/18at 20:30; Admin Dose 10 MG; Start 10/18/18 at 21:00 IV Flush (NS 3 ml) 3 ml PER PROTOCOL IV ; Start 10/18/18 at 14:30 Ondansetron HCl (Zofran Inj) 4 mg Q6H PRN IV NAUSEA/VOMITING; Start 10/18/18 at 14:30 Acetaminophen (Tylenol Tab) 650 mg Q6H PRN PO .PAIN 1-3 OR TEMP Last administered on 10/19/18at 11:56; Admin Dose 650 MG; Start 10/18/18 at 14:30 Acetaminophen/ Hydrocodone Bitart ([place] (5/325)) 1 tab Q6H PRN PO .MOD PAIN 4- 6; Start 10/18/18 at 14:30 Docusate Sodium (Colace) 100 mg Q12H PRN PO .CONSTIPATION; Start 10/18/18 at 14:30 Diagnostic Test (Pha) (Accu-Chek) 1 ea 02 XX Last administered on 10/19/18at 02:03; Admin Dose 1 EA; Start 10/19/18 at 02:00 Vancomycin HCl (Vanco Iv Per Pharmacy) VANCOMYCIN PER PHARM... PER PROTOCOL XX ; Start 10/18/18 at 14:30 Piperacillin Sod/ Tazobactam Sod 50 ml @ 100 mls/hr Q8 IVPB Last administered on 10/20/18at 05:30; Admin Dose 100 MLS/HR; Start 10/18/18 at 14:30 Miscellaneous Information 1 ea NOTE XX ; Start 10/18/18 at 14:30 Glucose (Glutose) 15 gm Q15M PRN PO DECREASED GLUCOSE; Start 10/18/18 at 14:30 Glucose (Glutose) 22.5 gm Q15M PRN PO DECREASED GLUCOSE; Start 10/18/18 at 14:30 Dextrose (D50w Syringe) 25 ml Q15M PRN IV DECREASED GLUCOSE Last administered on 10/20/18at 08:06; Admin Dose 25 ML; Start 10/18/18 at 14:30 Dextrose (D50w Syringe) 50 ml Q15M PRN IV DECREASED GLUCOSE; Start 10/18/18 at 14:30 Glucagon (Glucagen) 1 mg Q15M PRN IM DECREASED GLUCOSE; Start 10/18/18 at 14:30 Glucose (Glutose) 15 gm Q15M PRN BUCCAL DECREASED GLUCOSE; Start 10/18/18 at 14:30 Citric Acid/ Sodium Citrate (Bicitra) 30 ml BID PO Last administered on 10/19/18at 20:30; Admin Dose 30 ML; Start 10/18/18 at 21:00 Clotrimazole (Lotrimin Cr) 1 applic BID TOP Last administered on 10/19/18at 20:30; Admin Dose 1 APPLIC; Start 10/18/18 at 21:00 Ferric Sodium Gluconate Complex 125 mg/Sodium Chloride 110 ml @ 110 mls/hr DAILY@1300 IVPB Last administered on 10/19/18at 15:01; Admin Dose 110 MLS/HR; Start 10/19/18 at 13:00; Stop 10/23/18 at 13:59 Insulin Glargine (Lantus) 12 units DAILY@2000 SC Last administered on 10/19/18at 20:28; Admin Dose 12 UNITS; Start 10/19/18 at 20:00 Insulin Aspart (Novolog Insulin Pen) NOVOLOG *MILD* ALGORI... Q4 SC ; Start at 09:00 Dextrose/Sodium Chloride 1,000 ml @ 40 mls/hr Q24H IV Last administered on 10/20/18at 08:50; Admin Dose 40 MLS/HR; Start 10/20/18 at 08:30 Epoetin Santiago-epbx (RETACRIT(non-esrd)) 10,000 unit TuThSa@1700 SC ; Start 10/20/18 at 17:00 ISIDRO PAPPAS NP October 20, 2018 10:50
[2018-10-20] MEDS: CLOTRIMAZOLE 1% 30 GM CR TOP SCH ×2 (11:11→23:37)
[2018-10-20] MEDS ORDERED: LIDOCAINE 1% (MPF) 5 ML VIAL SC ONE (12:30)
[2018-10-20] MEDS: SOD FERRIC GLUC COMPLX 125 MG in SOD CHLORIDE 0.9% 100 ML IVPB SCH (13:35)
--- NOTE | 2018-10-20 15:23 | HPN ---
Date/Time of Note Date/Time of Note DATE: 10/20/18 TIME: 15:23 Interval H&P Admission Note Pt. seen H&P reviewed: No system changes RM BAKER DPM October 20, 2018 15:23
[2018-10-20] MEDS ORDERED: POLYMYXIN/BACITRACIN 1L IRRIG ONE (15:35)
--- NOTE | 2018-10-20 15:39 | PREAC ---
Date/Time of Note Date/Time of Note DATE: 10/20/18 TIME: 15:37 Anesthesia Eval and Record Evaluation Time Pre-Procedure Interview DATE: 10/20/18 TIME: 15:37 Age 57 Sex male NPO: 8 hrs Preoperative diagnosis I AND D RIGHT FOOT ULCER Planned procedure I AND D DIABETIC RIGHT FOOT ULCER Past Medical History Past Medical History: Includes Cardio: HTN, Dyslipidemia Endo: Diabetes Musculoskeletal: Osteoarthritis Renal: CKD Heme: Anemia Surgery & Anesthesia Issues No known issue Meds Anticoagulation: No Beta Rolando within 24 hr: Yes Reported Medications Levofloxacin* (Levaquin*) 500 Mg Tablet, 500 MG PO DAILY, TAB 10/18/18 Pioglitazone Hcl* (Actos*) 30 Mg Tablet, 30 MG PO DAILY, #30 TAB 10/18/18 Folic Acid* (Folic Acid*) 1 Mg Tablet, 1 MG PO DAILY, TAB 10/18/18 Simvastatin* (Zocor*) 20 Mg Tablet, 20 MG PO QHS, #30 TAB 10/18/18 Carvedilol* (Carvedilol*) 12.5 Mg Tablet, 12.5 MG PO DAILY, #60 TAB 10/18/18 Glipizide* (Glipizide*) 10 Mg Tablet, 10 MG PO AC BREAKFAST, TAB 10/18/18 Discontinued Scripts Levofloxacin* (Levaquin*) 500 Mg Tablet, 500 MG PO Q48H for 8 Days, #4 TAB Prov:MANNY HOUGH MD 10/12/18 Collagenase* (Santyl*) 1 Applic Oint, 1 APPLIC TOP DAILY for 28 Days Prov:MARK LAMBERT MD 06/25/15 Amlodipine Besylate* (Norvasc*) 2.5 Mg Tab, 2.5 MG PO DAILY for 28 Days, TAB Prov:MARK LAMBERT MD 06/25/15 Insulin Glargine* (Lantus*) 100 Unit/Ml Soln, 8 UNIT SC QHS for 14 Days Prov:MARK LAMBERT MD 06/25/15 Current Medications Carvedilol (Coreg) 12.5 mg DAILY PO Last administered on 10/19/18at 09:39; Admin Dose 12.5 MG; Start 10/19/18 at 09:00 Folic Acid (Folic Acid) 1 mg DAILY PO Last administered on 10/19/18at 09:38; Admin Dose 1 MG; Start 10/19/18 at 09:00 Atorvastatin Calcium (Lipitor) 10 mg DAILY@21 PO Last administered on 10/19/18at 20:30; Admin Dose 10 MG; Start 10/18/18 at 21:00 IV Flush (NS 3 ml) 3 ml PER PROTOCOL IV ; Start 10/18/18 at 14:30 Ondansetron HCl (Zofran Inj) 4 mg Q6H PRN IV NAUSEA/VOMITING; Start 10/18/18 at 14:30 Acetaminophen (Tylenol Tab) 650 mg Q6H PRN PO .PAIN 1-3 OR TEMP Last admini stered on 10/19/18at 11:56; Admin Dose 650 MG; Start 10/18/18 at 14:30 Acetaminophen/ Hydrocodone Bitart ([place] (5/325)) 1 tab Q6H PRN PO .MOD PAIN 4- 6; Start 10/18/18 at 14:30 Docusate Sodium (Colace) 100 mg Q12H PRN PO .CONSTIPATION; Start 10/18/18 at 14:30 Diagnostic Test (Pha) (Accu-Chek) 1 ea 02 XX Last administered on 10/19/18at 02:03; Admin Dose 1 EA; Start 10/19/18 at 02:00 Vancomycin HCl (Vanco Iv Per Pharmacy) VANCOMYCIN PER PHARM... PER PROTOCOL XX ; Start 10/18/18 at 14:30 Piperacillin Sod/ Tazobactam Sod 50 ml @ 100 mls/hr Q8 IVPB Last administered on 10/20/18at 05:30; Admin Dose 100 MLS/HR; Start 10/18/18 at 14:30 Miscellaneous Information 1 ea NOTE XX ; Start 10/18/18 at 14:30 Glucose (Glutose) 15 gm Q15M PRN PO DECREASED GLUCOSE; Start 10/18/18 at 14:30 Glucose (Glutose) 22.5 gm Q15M PRN PO DECREASED GLUCOSE; Start 10/18/18 at 14:30 Dextrose (D50w Syringe) 25 ml Q15M PRN IV DECREASED GLUCOSE Last administered on 10/20/18at 08:06; Admin Dose 25 ML; Start 10/18/18 at 14:30 Dextrose (D50w Syringe) 50 ml Q15M PRN IV DECREASED GLUCOSE; Start 10/18/18 at 14:30 Glucagon (Glucagen) 1 mg Q15M PRN IM DECREASED GLUCOSE; Start 10/18/18 at 14:30 Glucose (Glutose) 15 gm Q15M PRN BUCCAL DECREASED GLUCOSE; Start 10/18/18 at 14:30 Citric Acid/ Sodium Citrate (Bicitra) 30 ml BID PO Last administered on 10/19/18at 20:30; Admin Dose 30 ML; Start 10/18/18 at 21:00 Clotrimazole (Lotrimin Cr) 1 applic BID TOP Last administered on 10/20/18at 11:11; Admin Dose 1 APPLIC; Start 10/18/18 at 21:00 Ferric Sodium Gluconate Complex 125 mg/Sodium Chloride 110 ml @ 110 mls/hr DAILY@1300 IVPB Last administered on 10/20/18at 13:35; Admin Dose 110 MLS/HR; Start 10/19/18 at 13:00; Stop 10/23/18 at 13:59 Insulin Aspart (Novolog Insulin Pen) NOVOLOG *MILD* ALGORI... Q4 SC ; Start 10/20/18 at 09:00 Dextrose/Sodium Chloride 1,000 ml @ 40 mls/hr Q24H IV Last administered on 10/20/18at 08:50; Admin Dose 40 MLS/HR; Start 10/20/18 at 08:30 Epoetin Santiago-epbx (RETACRIT(non-esrd)) 10,000 unit TuThSa@1700 SC ; Start 10/20/18 at 17:00 Insulin Glargine (Lantus) 9 units DAILY@0800 SC ; Start 10/21/18 at 08:00 Meds reviewed: Yes Allergies Coded Allergies: No Known Allergy (Unverified , 10/18/18) Allergies Reviewed: Yes Labs/Studies Labs Reviewed: Reviewed by anesthesiologist Result Diagram: 10/20/18 0532 10/20/18 0532 Laboratory Tests 10/20/18 05:32 test: N/A Studies: ECG, CXR Pre-procedure Exam Last vitals Vital Signs Date Temp Pulse Resp B/P (MAP) Pulse Ox O2 O2 Flow FiO2 Time Delivery Rate 10/20/18 97.9 73 19 141/76 100 08:18 (97) 10/19/18 Room Air 17:25 Airway: Adequate mouth opening, Adequate thyromental dist Mallampati: Mallampati II Teeth: Normal Lung: Normal Heart: Normal ASA Physical Status ASA physical status: 3 Emergency: None Planned Anesthetic General/MAC: LMA Planned Pain Management Parenteral pain med Pre-operative Attestations Prior to commencing anesthesia and surgery, the patient was re-evaluated, there was verification of: *The patient's identity *The results of appropriate recent lab work and preoperative vital signs *The above evaluation not changing prior to induction *Anesthetic plan, risk benefits, alternative and complications discussed with patient/family; questions answered; patient/family understands, accepts and wishes to proceed. IRIS VIERA October 20, 2018 15:39
[2018-10-20] MEDS ORDERED: PROPOFOL 20 ML ONE (15:44)
[2018-10-20] MEDS ORDERED: LIDOCAINE 2% (SDV) 5 ML INJ ONE (15:44)
[2018-10-20] MEDS ORDERED: EPHEDrine 25 MG/5 ML SYG ONE (15:45)
[2018-10-20] MEDS ORDERED: BACITRACIN 50000 UNITS INJ ONE (15:45)
--- NOTE | 2018-10-20 15:45 | CONS ---
Assessment/Plan Assessment/Plan Hospital Course (Demo Recall) All noted, no acute events, no fevers Urine culture negative MRI of the right foot revealed osteomyelitis with possible phlegmon collection Antimicrobials: Zosyn, vancomycin Physical examination: Well-developed middle-aged man who is in no distress head atraumatic normocephalic neck is supple chest rise symmetrical breath sounds diminished bases heart: S1-S2 abdomen soft bowel sounds present extremities with right foot swelling and erythema Assessment: 1. Sepsis, present on admission 2. Right foot cellulitis, osteomyelitis, abscess 3. End-stage renal disease 4. Diabetes Plan: Stable, continue antibiotics pending debridement with abscess drainage Consultation Date/Type/Reason Admit Date/Time October 18, 2018 at 04:40 Initial Consult Date Type of Consult id Date/Time of Note DATE: 10/20/18 TIME: 15:44 Exam/Review of Systems Exam Vitals Vital Signs Date Temp Pulse Resp B/P (MAP) Pulse Ox O2 O2 Flow FiO2 Time Delivery Rate 10/20/18 97.9 73 19 141/76 100 08:18 (97) 10/19/18 Room Air 17:25 Intake and Output 10/19/18 10/19/18 10/20/18 1515:00 23:00 07:00 IntakeIntake Total 840 ml 990 ml 450 ml OutputOutput Total 250 ml BalanceBalance 840 ml 740 ml 450 ml Results Result Diagram: 10/20/18 0532 10/20/18 0532 Results 24hrs Laboratory Tests Test 10/19/18 17:27 10/19/18 20:25 10/20/18 05:32 10/20/18 08:02 Bedside Glucose 112 151 53 L White Blood Count 14.9 H Red Blood Count 2.66 #L Hemoglobin 8.3 #L Hematocrit 24.5 #L Mean Corpuscular Volume 92.1 Mean Corpuscular 31.2 Hemoglobin Mean Corpuscular 33.9 Hemoglobin Concent Red Cell Distribution 15.2 H Width Platelet Count 298 Mean Platelet Volume 9.4 Immature Granulocytes % 0.800 H Neutrophils % 86.6 H Lymphocytes % 4.8 L Monocytes % 6.7 Eosinophils % 0.9 Basophils % 0.2 Nucleated Red Blood 0.0 Cells % Immature Granulocytes # 0.120 H Neutrophils # 12.9 H Lymphocytes # 0.7 L Monocytes # 1.0 H Eosinophils # 0.1 Basophils # 0.0 Nucleated Red Blood 0.0 Cells # Sodium Level 138 Potassium Level 3.9 Chloride Level 111 H Carbon Dioxide Level 18 L Anion Gap 9 Blood Urea Nitrogen 62 H Creatinine 5.42 H Est Glomerular Filtrat 11 L Rate mL/min Glucose Level 57 #L Calcium Level 8.6 Phosphorus Level 4.6 Magnesium Level 2.1 Test 10/20/18 08:29 10/20/18 08:47 10/20/18 12:26 Bedside Glucose 113 105 76 Medications Medication Current Medications Carvedilol (Coreg) 12.5 mg DAILY PO Last administered on 10/19/18 09:39; Admin Dose 12.5 MG; Start 10/19/18 at 09:00 Folic Acid (Folic Acid) 1 mg DAILY PO Last administered on 10/19/18 09:38; Admin Dose 1 MG; Start 10/19/18 at 09:00 Atorvastatin Calcium (Lipitor) 10 mg DAILY@21 PO Last administered on 10/19/18 20:30; Admin Dose 10 MG; Start 10/18/18 at 21:00 IV Flush (NS 3 ml) 3 ml PER PROTOCOL IV ; Start 10/18/18 at 14:30 Ondansetron HCl (Zofran Inj) 4 mg Q6H PRN IV NAUSEA/VOMITING; Start 10/18/18 at 14:30 Acetaminophen (Tylenol Tab) 650 mg Q6H PRN PO .PAIN 1-3 OR TEMP Last administered on 10/19/18at 11:56; Admin Dose 650 MG; Start 10/18/18 at 14:30 Acetaminophen/ Hydrocodone Bitart ([place] (5/325)) 1 tab Q6H PRN PO .MOD PAIN 4- 6; Start 10/18/18 at 14:30 Docusate Sodium (Colace) 100 mg Q12H PRN PO .CONSTIPATION; Start 10/18/18 at 14:30 Diagnostic Test (Pha) (Accu-Chek) 1 ea 02 XX Last administered on 10/19/18at 02:03; Admin Dose 1 EA; Start 10/19/18 at 02:00 Vancomycin HCl (Vanco Iv Per Pharmacy) VANCOMYCIN PER PHARM... PER PROTOCOL XX ; Start 10/18/18 at 14:30 Piperacillin Sod/ Tazobactam Sod 50 ml @ 100 mls/hr Q8 IVPB Last administered on 10/20/18at 05:30; Admin Dose 100 MLS/HR; Start 10/18/18 at 14:30 Miscellaneous Information 1 ea NOTE XX ; Start 10/18/18 at 14:30 Glucose (Glutose) 15 gm Q15M PRN PO DECREASED GLUCOSE; Start 10/18/18 at 14:30 Glucose (Glutose) 22.5 gm Q15M PRN PO DECREASED GLUCOSE; Start 10/18/18 at 14:30 Dextrose (D50w Syringe) 25 ml Q15M PRN IV DECREASED GLUCOSE Last administered on 10/20/18at 08:06; Admin Dose 25 ML; Start 10/18/18 at 14:30 Dextrose (D50w Syringe) 50 ml Q15M PRN IV DECREASED GLUCOSE; Start 10/18/18 at 14:30 Glucagon (Glucagen) 1 mg Q15M PRN IM DECREASED GLUCOSE; Start 10/18/18 at 14:30 Glucose (Glutose) 15 gm Q15M PRN BUCCAL DECREASED GLUCOSE; Start 10/18/18 at 14:30 Citric Acid/ Sodium Citrate (Bicitra) 30 ml BID PO Last administered on 10/19/18at 20:30; Admin Dose 30 ML; Start 10/18/18 at 21:00 Clotrimazole (Lotrimin Cr) 1 applic BID TOP Last administered on 10/20/18at 11:11; Admin Dose 1 APPLIC; Start 10/18/18 at 21:00 Ferric Sodium Gluconate Complex 125 mg/Sodium Chloride 110 ml @ 110 mls/hr DAILY@1300 IVPB Last administered on 10/20/18at 13:35; Admin Dose 110 MLS/HR; Start 10/19/18 at 13:00; Stop 10/23/18 at 13:59 Insulin Aspart (Novolog Insulin Pen) NOVOLOG *MILD* ALGORI... Q4 SC ; Start 10/20/18 at 09:00 Dextrose/Sodium Chloride 1,000 ml @ 40 mls/hr Q24H IV Last administered on 10/20/18at 08:50; Admin Dose 40 MLS/HR; Start 10/20/18 at 08:30 Epoetin Santiago-epbx (RETACRIT(non-esrd)) 10,000 unit TuThSa@1700 SC ; Start 10/20/18 at 17:00 Insulin Glargine (Lantus) 9 units DAILY@0800 SC ; Start 10/21/18 at 08:00 CHEN BAXTER NP October 20, 2018 15:45
[2018-10-20] MEDS ORDERED: POLYMYXIN B 500000 UNIT INJ ONE (15:47)
[2018-10-20] MEDS ORDERED: BUPIVACAINE 0.5% (SDV) 30 ML INJ ONE (16:03)
[2018-10-20] MEDS ORDERED: LIDOCAINE 1% (MPF) 30 ML INJ ONE (16:03)
[2018-10-20] MEDS ORDERED: FENTAnyl 50 MCG/ML VIAL ONE (16:04)
--- NOTE | 2018-10-20 16:50 | PAC ---
Date/Time of Note Date/Time of Note DATE: 10/20/18 TIME: 16:49 Post-Anesthesia Notes Post-Anesthesia Note Last documented vital signs Vital Signs Date Temp Pulse Resp B/P (MAP) Pulse Ox O2 O2 Flow FiO2 Time Delivery Rate 10/20/18 97.9 73 19 141/76 100 1649 (97) 10/19/18 Room Air 17:25 Activity: WNL Respiratory function: WNL Cardiovascular function: WNL Mental status: Baseline Pain reasonably controlled: Yes Hydration appropriate: Yes Nausea/Vomiting absent: Yes IRIS VIERA October 20, 2018 16:49
[2018-10-20] MEDS ORDERED: FENTAnyl 50 MCG/ML VIAL IV PRN ×3 (17:00)
[2018-10-20] MEDS ORDERED: METOCLOPRAMIDE 10 MG INJ IV PRN (17:00)
[2018-10-20] MEDS ORDERED: MIDAZOLAM 1 MG/ML 2 ML INJ IV PRN (17:00)
[2018-10-20] MEDS ORDERED: EPHEDrine SULFATE 50 MG/5 ML SYG IV PRN (17:00)
[2018-10-20] MEDS ORDERED: MEPERIDINE 25 MG INJ IV PRN (17:00)
[2018-10-20] MEDS ORDERED: ONDANSETRON 4 MG INJ IV PRN (17:00)
[2018-10-20] MEDS ORDERED: KETOROLAC 30 MG INJ IV PRN (17:00)
[2018-10-20] MEDS ORDERED: DIPHENHYDRAMINE 50 MG INJ IV PRN (17:00)
[2018-10-20] MEDS ORDERED: hydrALAzine 20 MG INJ IV PRN (17:00)
[2018-10-20] MEDS ORDERED: ALBUTEROL 0.083% (NEB) 2.5 MG/3 ML AMP HHN PRN (17:00)
[2018-10-20] MEDS ORDERED: LABETALOL HCL 20MG INJ IV PRN (17:00)
--- NOTE | 2018-10-20 17:03 | OPR ---
Date/Time of Note Date/Time of Note DATE: 10/20/18 TIME: 17:03 Operative Report Preoperative Diagnosis Right foot cellulitis Right foot abscess Right foot osteomyelitis DM2 with peripheral neuropathy CKD 5 refused dialysis Postoperative Diagnosis Right foot cellulitis Right foot abscess Right foot osteomyelitis DM2 with peripheral neuropathy CKD 5 refused dialysis Operation/Procedure Performed Incision and drainage right foot Surgeon see signature line Rn Post Partum none Anesthesia Type: general Estimated Blood Loss: 10 - 50 ml's Transfusion none Specimen right foot wound culture Right foot post lavage cultures Grafts/Implants none Complications none Indications 57 y/o diabetic M patient with right foot cellulitis with no open lesion sites upon initial presentation. Further MRI studies showed localized collection of abscess to the right foot which was contributing to his leukocytosis and infection of the foot. Findings were discussed with the patient and recommended surgical intervention to remove the infectious material. Patient was amenable to the procedure. All of the patient's questions and concerns were addressed. No promises or guarantees were given. Procedure Description Patient was brought into the OR and placed on the OR table in the supine position. The right lower extremity was scrubbed, prepped, and draped in the usual aseptic manner. A formal time out was conducted. Attention was directed to the plantar aspect of the foot correlating to the MRI findings and a linear incision was made and blunt dissection was carried out into the deeper layers. 5-6mL of purulent drainage was expelled from the plantar aspect of the foot. There was tunneling into the proximal aspect of the plantar foot and upon further exploration no additional purulence was noted. Wound cultures were obtained. Copious antibiotic infused pulse lavage irrigation was used at the plantar aspect of the right foot post lavage wound cultures were obtained Subsequently, attention was directed to the lateral aspect of the foot near the base of the 5th metatarsal correlating with the MRI findings and a linear incision was made and seropurulent drainage was appreciated. Blunt dissection was done and no further purulence was appreciated. Wound cultures were obtained. Copious irrigation was used at the surgical site. Post lavage cultures were obtained of the latera foot. 1/4in iodoform packing was placed into the incision sites and betadine 4x4 gauze, kerlix, ABD pads and dry sterile dressings were applied to the right foot. Patient was transferred to the PACU with vital signs stable and neurovascular status intact. RM BAKER DPM October 20, 2018 17:03
--- NOTE | 2018-10-20 17:03 | SIPON ---
Date/Time of Note Date/Time of Note DATE: 10/20/18 TIME: 17:03 Operative Report Preoperative Diagnosis Right foot cellulitis Right foot abscess Right foot osteomyelitis DM2 with peripheral neuropathy CKD 5 refused dialysis Postoperative Diagnosis Right foot cellulitis Right foot abscess Right foot osteomyelitis DM2 with peripheral neuropathy CKD 5 refused dialysis Operation/Procedure Performed Incision and drainage right foot Surgeon see signature line land surveyor assistant none Anesthesia: general Estimated blood loss: 10 - 50 ml's Transfusion Required none Specimen right foot wound culture Right foot post lavage cultures Grafts/Implants none Complications none RM BAKER DPM October 20, 2018 17:03
[2018-10-20] MEDS: EPOETIN ALFA-EPBX (NON-ESRD 10,000 UNIT/ML VIAL SC SCH (18:31)
[2018-10-20] MEDS: ATORVASTATIN 10 MG TAB PO SCH (20:57)
[2018-10-21 01:33] VITALS: BP 159/74; PULSE 71; RESP 18
[2018-10-21] MEDS: ACCU-CHEK XX SCH (02:00)
[2018-10-21] MEDS: PIPER-TAZO 2.25 GM (PMX) 50 ML IVPB SCH (05:32)
[2018-10-21] MEDS: INSULIN ASPART [NOVOLOG] 3 ML PEN SC SCH ×4 (07:00→21:00)
[2018-10-21 07:27] VITALS: BP 166/78; PULSE 73; RESP 18
--- NOTE | 2018-10-21 08:43 | PN ---
DATE: 10/21/2018 SUBJECTIVE: The patient is stable, no events overnight. The patient yesterday underwent abscess tammie inage of right foot, tolerated the procedure well. No other events noted. OBJECTIVE: VITAL SIGNS: Blood pressure is 156/78, respirations 18, pulse 73, temperature 99.0. HEENT: Head is normocephalic. NECK: Supple. HEART: Regular rate. LUNGS: Show diminished breath sounds at the base. ABDOMEN: Soft, nontender to palpation without rebound or guarding. EXTREMITIES: Negative for clubbing, cyanosis. The patient's right foot has dressing clean, dry, and intact. DERMATOLOGIC: No rashes. MUSCULOSKELETAL: No joint effusion. NEUROLOGIC: No change in exam. MEDICATIONS: Reviewed. LABORATORY DATA: From 10/21/2018 was reviewed. ASSESSMENT AND PLAN: 1. Nonoliguric acute kidney injury on top of chronic kidney disease stage V. The patient's renal fu nction further declined in the last 24 hours. This may be secondary to hemodynamics due to recent linares rgery. The patient has been advised to initiate hemodialysis and he has adamantly refused. Risks an d benefits of refusing including have been made aware to the patient, however, he continues to refuse hemodialysis. At this point, we would continue to monitor, continue supportive care, renally dose all medications. 2. Metabolic acidosis. Continue Bicitra. 3. Hypernatremia, resolved. 4. Anemia. The patient is status post blood transfusion. Continue IV iron. Continue Epogen. 5. Mineral bone disorder, monitor calcium and phosphorus levels. We will continue the patient on ph osphate binders. 6. Sepsis secondary to cellulitis, right foot abscess. The patient is status post incision and tamiko nage, abscess evacuation. Continue to monitor. Follow up with podiatry. 7. Peripheral vascular disease. Continue medical management. Follow up with vascular surgery. 8. Diabetes. Continue current insulin regimen. 9. Dyslipidemia. Continue statin therapy. 10. Hypertension. Continue current blood pressure regimen. 11. Bilateral blindness. Dictated By: GI PENA DO NR/NTS Conf#: [id number] DID#: [id number] CC: JIMENEZ HAILE MD; EILEEN MCCALL MD;*[facility]*
[2018-10-21] MEDS: CITRIC ACID/NA CITRATE 30 ML CUP PO SCH ×2 (08:44→21:15)
[2018-10-21] MEDS: CLOTRIMAZOLE 1% 30 GM CR TOP SCH ×2 (08:44→21:34)
[2018-10-21] MEDS: FOLIC ACID 1 MG TAB PO SCH (08:45)
[2018-10-21] MEDS: INSULIN GLARGINE [LANTus] (100 UNITS/ML) SYG SC SCH (08:52)
--- NOTE | 2018-10-21 11:09 | PN ---
Date/Time of Note Date/Time of Note DATE: 10/21/18 TIME: 11:03 Assessment/Plan VTE Prophylaxis Risk score (from Ns)>0 risk: 2 SCD applied (from Ns): No SCD contraindicated: other Pharmacological prophylaxis: heparin Lines/Catheters IV [facility] Urinary Cath still in place: No Assessment/Plan Hospital Course SUBJECTIVE:No acute distress. no fevers. OBJECTIVE: Vital signs-see below PHYSICAL EXAM: Constitutional: Adequately built,not in acute distress. HEENT:Blind. Head atraumatic and normocephalic. Eyes: Extraocular muscles intact. NECK: Supple without lymph node. CHEST: Clear and good breath sounds equally. No wheezing. No rhonchi. HEART: S1, S2. Regular rate and rhythm. ABDOMEN: Soft/non tender with no rebound tenderness. Bowel sounds were present. EXTREMITIES:R foot covered w/dressing.no oozing noted..Missing toes. No cyanosis, clubbing or edema. NEUROLOGIC: Alert and oriented x3. No focal deficit. No sensory deficit. PSYCHOSOCIAL: No signs of depression. INTEGUMENTARY: See extremity assessment. Skin appears pale. ASSESSMENT AND PLAN:57 yo M w/DMII, CKD, chronic anemia, PAD s/p toe amputations,dyslipidemia, transferred from OSH for inpatient management for sepsis w/ R foot DM cellulitis... Right foot DM cellulitis w/Abscess -s/p OR Incision and drainage right foot 10/20/18 -cont.abx -Glycemic control Osteomyelitis of Right 5th metatarsal base -long-term Abx -PICC line Sepsis,POA with right foot cellulitis/abscess -Renally dosed abx-ID managing -culture NGTD ~48hrs Acute on Chronic anemia -s/p 1 PRBS-HH improved -on IV iron /Epogen Hypertension -Needs more control -Not a candidate for ACEi 2/2 renal fx/refusing HD -change coreg to Toprol XL 50 bid DMII -W/improved control -basal/bolus CKD progressing to ESRD -REFUSED HD -appreciate nephrology recs -His renal fxn is an obstacle to appropriate abx/vascular f/u -AVOID NEPHROTOXINS AND RENALLY DOSE ALL MEDS PVD,s/p toe amputations -Arterial studies noted-appreciate vascular recommendation and patient would definitely benefit from vascular intervention. However his renal function and unable to accept hemodialysis treatment precludes him from getting appropriate vascular intervention. Deferred for outpatient discussion -Continue to optimize neurovascular status with antihypertensives to keep blood pressure ~140/90, diet, nutrition, exercise, blood glucose control, and antiplatelets/anticoagulation(when appropriate). -start aspirin Dyslipidemia -on statin Blindness -Supportive care DVT prophylaxis: Heparin PUD prophylaxis: Not indicated Dispo: PICC line insertion and anticipate discharge planning on long-term antibiotics ~24-48hrs once cultures are resulted. Case management to arrange home health at that point. F/u podiatry,nephrology and vascular recs Patient was seen in collaboration with Dr. Nelson Result Diagram: 10/20/18 0532 10/21/18 0602 Results 24hrs Laboratory Tests Test 10/20/18 12:26 10/20/18 16:52 10/20/18 17:22 10/20/18 18:28 Bedside Glucose 76 50 L 115 79 Test 10/20/18 21:00 10/21/18 06:02 10/21/18 08:48 Bedside Glucose 122 76 Sodium Level 138 Potassium Level 4.0 Chloride Level 111 H Carbon Dioxide Level 18 L Anion Gap 9 Blood Urea Nitrogen 62 H Creatinine 6.25 H Est Glomerular Filtrat 9 L Rate mL/min Glucose Level 82 Calcium Level 8.3 L Phosphorus Level 5.5 H Magnesium Level 2.1 Exam/Review of Systems Exam Vitals Vital Signs Date Temp Pulse Resp B/P (MAP) Pulse Ox O2 O2 Flow FiO2 Time Delivery Rate 10/21/18 99.0 73 18 166/78 97 Room Air 07:27 (107) Intake and Output 10/20/18 10/20/18 10/21/18 1515:00 23:00 07:00 IntakeIntake Total 500 ml 50 ml OutputOutput Total 300 ml 5 ml BalanceBalance -300 ml 495 ml 50 ml Results Results 24hrs Laboratory Tests Test 10/20/18 12:26 10/20/18 16:52 10/20/18 17:22 10/20/18 18:28 Bedside Glucose 76 50 L 115 79 Test 10/20/18 21:00 10/21/18 06:02 10/21/18 08:48 Bedside Glucose 122 76 Sodium Level 138 Potassium Level 4.0 Chloride Level 111 H Carbon Dioxide Level 18 L Anion Gap 9 Blood Urea Nitrogen 62 H Creatinine 6.25 H Est Glomerular Filtrat 9 L Rate mL/min Glucose Level 82 Calcium Level 8.3 L Phosphorus Level 5.5 H Magnesium Level 2.1 Medications Medication Current Medications Carvedilol (Coreg) 12.5 mg DAILY PO Last administered on 10/21/18at 08:45; Admin Dose 12.5 MG; Start 10/19/18 at 09:00 Folic Acid (Folic Acid) 1 mg DAILY PO Last administered on 10/21/18 08:45; Admin Dose 1 MG; Start 10/19/18 at 09:00 Atorvastatin Calcium (Lipitor) 10 mg DAILY@21 PO Last administered on 10/20/18at 20:57; Admin Dose 10 MG; Start 10/18/18 at 21:00 IV Flush (NS 3 ml) 3 ml PER PROTOCOL IV ; Start 10/18/18 at 14:30 Ondansetron HCl (Zofran Inj) 4 mg Q6H PRN IV NAUSEA/VOMITING; Start 10/18/18 at 14:30 Acetaminophen (Tylenol Tab) 650 mg Q6H PRN PO .PAIN 1-3 OR TEMP Last administered on 10/19/18at 11:56; Admin Dose 650 MG; Start 10/18/18 at 14:30 Acetaminophen/ Hydrocodone Bitart ([place] (5/325)) 1 tab Q6H PRN PO .MOD PAIN 4- 6; Start 10/18/18 at 14:30 Docusate Sodium (Colace) 100 mg Q12H PRN PO .CONSTIPATION; Start 10/18/18 at 14:30 Diagnostic Test (Pha) (Accu-Chek) 1 ea 02 XX Last administered on 10/19/18at 0 2:03; Admin Dose 1 EA; Start 10/19/18 at 02:00 Vancomycin HCl (Vanco Iv Per Pharmacy) VANCOMYCIN PER PHARM... PER PROTOCOL XX ; Start 10/18/18 at 14:30 Piperacillin Sod/ Tazobactam Sod 50 ml @ 100 mls/hr Q8 IVPB Last administered on 10/21/18at 05:32; Admin Dose 100 MLS/HR; Start 10/18/18 at 14:30 Miscellaneous Information 1 ea NOTE XX ; Start 10/18/18 at 14:30 Glucose (Glutose) 15 gm Q15M PRN PO DECREASED GLUCOSE; Start 10/18/18 at 14:30 Glucose (Glutose) 22.5 gm Q15M PRN PO DECREASED GLUCOSE; Start 10/18/18 at 14:30 Dextrose (D50w Syringe) 25 ml Q15M PRN IV DECREASED GLUCOSE Last administered o n 10/20/18at 17:06; Admin Dose 25 ML; Start 10/18/18 at 14:30 Dextrose (D50w Syringe) 50 ml Q15M PRN IV DECREASED GLUCOSE; Start 10/18/18 at 14:30 Glucagon (Glucagen) 1 mg Q15M PRN IM DECREASED GLUCOSE; Start 10/18/18 at 14:30 Glucose (Glutose) 15 gm Q15M PRN BUCCAL DECREASED GLUCOSE; Start 10/18/18 at 14:30 Citric Acid/ Sodium Citrate (Bicitra) 30 ml BID PO Last administered on 10/21/18at 08:44; Admin Dose 30 ML; Start 10/18/18 at 21:00 Clotrimazole (Lotrimin Cr) 1 applic BID TOP Last administered on 10/21/18at 08:44; Admin Dose 1 APPLIC; Start 10/18/18 at 21:00 Ferric Sodium Gluconate Complex 125 mg/Sodium Chloride 110 ml @ 110 mls/hr DAILY@1300 IVPB Last administered on 10/20/18at 13:35; Admin Dose 110 MLS/HR; Start 10/19/18 at 13:00; Stop 10/23/18 at 13:59 Epoetin Santiago-epbx (RETACRIT(non-esrd)) 10,000 unit TuThSa@1700 SC Last administered on 10/20/18at 18:31; Admin Dose 10,000 UNIT; Start 10/20/18 at 17:00 Insulin Glargine (Lantus) 9 units DAILY@0800 SC Last administered on 10/21/18at 08:52; Admin Dose 9 UNITS; Start 10/21/18 at 08:00 Insulin Aspart (Novolog Insulin Pen) NOVOLOG *MILD* ALGORITHM AC MEALS AND BEDTIME SC ; Start 10/20/18 at 17:30 Sevelamer Carbonate (Renvela) 800 mg WITH MEALS PO ; Start 10/21/18 at 12:00 ISIDRO PAPPAS NP October 21, 2018 11:09
[2018-10-21] MEDS ORDERED: hydrALAzine 20 MG INJ IV ONE (11:30)
--- NOTE | 2018-10-21 11:38 | CONS ---
Assessment/Plan Assessment/Plan Hospital Course (Demo Recall) All noted, no acute events, afebrile Urine culture negative MRI of the right foot revealed osteomyelitis with possible phlegmon collection Antimicrobials: Zosyn, vancomycin Physical examination: Well-developed middle-aged man who is in no distress head atraumatic normocephalic neck is supple chest rise symmetrical breath sounds diminished bases heart: S1-S2 abdomen soft bowel sounds present extremities with right foot swelling and erythema Assessment: 1. Sepsis, present on admission 2. Right foot cellulitis, osteomyelitis, abscess s/p i/d 10/20/18 3. End-stage renal disease, not on HD 4. Diabetes Plan: Change antibiotics to Daptomycin and Merrem, await for wound cx, renal rec -s noted, pt needs HD==> refusing Consultation Date/Type/Reason Admit Date/Time October 18, 2018 at 04:40 Initial Consult Date Type of Consult id Date/Time of Note DATE: 10/21/18 TIME: 11:36 Exam/Review of Systems Exam Vitals Vital Signs Date Temp Pulse Resp B/P (MAP) Pulse Ox O2 O2 Flow FiO2 Time Delivery Rate 10/21/18 99.0 73 18 166/78 97 Room Air 07:27 (107) Intake and Output 10/20/18 10/20/18 10/21/18 1515:00 23:00 07:00 IntakeIntake Total 500 ml 50 ml OutputOutput Total 300 ml 5 ml BalanceBalance -300 ml 495 ml 50 ml Results Result Diagram: 10/20/18 0532 10/21/18 0602 Results 24hrs Laboratory Tests Test 10/20/18 12:26 10/20/18 16:52 10/20/18 17:22 10/20/18 18:28 Bedside Glucose 76 50 L 115 79 Test 10/20/18 21:00 10/21/18 06:02 10/21/18 08:48 Bedside Glucose 122 76 Sodium Level 138 Potassium Level 4.0 Chloride Level 111 H Carbon Dioxide Level 18 L Anion Gap 9 Blood Urea Nitrogen 62 H Creatinine 6.25 H Est Glomerular Filtrat 9 L Rate mL/min Glucose Level 82 Calcium Level 8.3 L Phosphorus Level 5.5 H Magnesium Level 2.1 Medications Medication Current Medications Folic Acid (Folic Acid) 1 mg DAILY PO Last administered on 10/21/18at 08:45; Admin Dose 1 MG; Start 10/19/18 at 09:00 Atorvastatin Calcium (Lipitor) 10 mg DAILY@21 PO Last administered on 10/20/18at 20:57; Admin Dose 10 MG; Start 10/18/18 at 21:00 IV Flush (NS 3 ml) 3 ml PER PROTOCOL IV ; Start 10/18/18 at 14:30 Ondansetron HCl (Zofran Inj) 4 mg Q6H PRN IV NAUSEA/VOMITING; Start 10/18/18 at 14:30 Acetaminophen (Tylenol Tab) 650 mg Q6H PRN PO .PAIN 1-3 OR TEMP Last administered on 10/19/18at 11:56; Admin Dose 650 MG; Start 10/18/18 at 14:30 Acetaminophen/ Hydrocodone Bitart ([place] (5/325)) 1 tab Q6H PRN PO .MOD PAIN 4- 6; Start 10/18/18 at 14:30 Docusate Sodium (Colace) 100 mg Q12H PRN PO .CONSTIPATION; Start 10/18/18 at 14:30 Diagnostic Test (Pha) (Accu-Chek) 1 ea 02 XX Last administered on 10/19/18at 02:03; Admin Dose 1 EA; Start 10/19/18 at 02:00 Vancomycin HCl (Vanco Iv Per Pharmacy) VANCOMYCIN PER PHARM... PER PROTOCOL XX ; Start 10/18/18 at 14:30 Piperacillin Sod/ Tazobactam Sod 50 ml @ 100 mls/hr Q8 IVPB Last administered on 10/21/18at 05:32; Admin Dose 100 MLS/HR; Start 10/18/18 at 14:30 Miscellaneous Information 1 ea NOTE XX ; Start 10/18/18 at 14:30 Glucose (Glutose) 15 gm Q15M PRN PO DECREASED GLUCOSE; Start 10/18/18 at 14:30 Glucose (Glutose) 22.5 gm Q15M PRN PO DECREASED GLUCOSE; Start 10/18/18 at 14:30 Dextrose (D50w Syringe) 25 ml Q15M PRN IV DECREASED GLUCOSE Last administered on 10/20/18at 17:06; Admin Dose 25 ML; Start 10/18/18 at 14:30 Dextrose (D50w Syringe) 50 ml Q15M PRN IV DECREASED GLUCOSE; Start 10/18/18 at 14:30 Glucagon (Glucagen) 1 mg Q15M PRN IM DECREASED GLUCOSE; Start 10/18/18 at 14:30 Glucose (Glutose) 15 gm Q15M PRN BUCCAL DECREASED GLUCOSE; Start 10/18/18 at 14:30 Citric Acid/ Sodium Citrate (Bicitra) 30 ml BID PO Last administered on 10/21/18 08:44; Admin Dose 30 ML; Start 10/18/18 at 21:00 Clotrimazole (Lotrimin Cr) 1 applic BID TOP Last administered on 10/21/18 08:44; Admin Dose 1 APPLIC; Start 10/18/18 at 21:00 Ferric Sodium Gluconate Complex 125 mg/Sodium Chloride 110 ml @ 110 mls/hr DAILY@1300 IVPB Last administered on 10/20/18 13:35; Admin Dose 110 MLS/HR; Start 10/19/18 at 13:00; Stop 10/23/18 at 13:59 Epoetin Santiago-epbx (RETACRIT(non-esrd)) 10,000 unit TuThSa@1700 SC Last administered on 10/20/18 18:31; Admin Dose 10,000 UNIT; Start 10/20/18 at 17:00 Insulin Glargine (Lantus) 9 units DAILY@0800 SC Last administered on 10/21/18 08:52; Admin Dose 9 UNITS; Start 10/21/18 at 08:00 Insulin Aspart (Novolog Insulin Pen) NOVOLOG *MILD* ALGORITHM AC MEALS AND BEDTIME SC ; Start 10/20/18 at 17:30 Sevelamer Carbonate (Renvela) 800 mg WITH MEALS PO ; Start 10/21/18 at 12:00 Metoprolol Succinate (Toprol Xl) 50 mg BID PO ; Start 10/21/18 at 21:00 Aspirin (Aspirin) 81 mg DAILY PO ; Start 10/21/18 at 12:00 Heparin Sodium (Porcine) (Heparin (5000 Units/1ml)) 5,000 unit BID SC ; Start 10/21/18 at 21:00 CHEN BAXTER NP October 21, 2018 11:38
[2018-10-21] MEDS: SEVELAMER CARBONATE 800 MG TABLET PO SCH ×2 (12:21→17:55)
[2018-10-21] MEDS: ASPIRIN 81 MG TAB PO SCH (12:22)
[2018-10-21] MEDS: MEROPENEM 500MG/50 ML (PMX) 50 ML IVPB SCH (13:49)
[2018-10-21 14:08] VITALS: BP 135/65; PULSE 69; RESP 16
[2018-10-21] MEDS: SOD FERRIC GLUC COMPLX 125 MG in SOD CHLORIDE 0.9% 100 ML IVPB SCH (14:35)
[2018-10-21] MEDS ORDERED: GUAIFENESIN/DM 5ML CUP PO PRN (15:00)
--- NOTE | 2018-10-21 15:19 | CONS ---
Assessment/Plan Assessment/Plan Assessment/Plan (Daily) Right foot abscess - s/p incision and drainage (DOS: 10/20/18) Right foot cellulitis Right foot callus Tinea pedis Onychomycosis Hx of digit amputation right foot DM2 with peripheral neuropathy CKD 5 refused dialysis Plan Intra-op cultures pending, continue with daily dressing changes with dakins irrigation, 1/4in iodoform packing, betadine 4x4 gauze and wrap with kerlix. Offload heels while resting in bed. Patient received PICC line placement and recommend continue with IV abx as per recommendations. Appreciate vascular surgery recommendations. Consultation Date/Type/Reason Admit Date/Time October 18, 2018 at 04:40 Initial Consult Date Date/Time of Note DATE: 10/21/18 TIME: 15:19 24 HR Interval Summary Free Text/Dictation No acute events overnight. Exam/Review of Systems Exam Vitals Vital Signs Date Temp Pulse Resp B/P (MAP) Pulse Ox O2 O2 Flow FiO2 Time Delivery Rate 10/21/18 99.0 69 16 135/65 97 Room Air 14:08 (88) Intake and Output 10/20/18 10/20/18 10/21/18 1414:59 22:59 06:59 IntakeIntake Total 100 ml 500 ml 50 ml OutputOutput Total 300 ml 5 ml BalanceBalance -200 ml 495 ml 50 ml Exam Right plantar surgical incision site with seropurulent drainage no foul odor Right lateral foot with seropurulent drainage to the surgical incision site. PT pulses palpable, DP weakly palpable Absent protective sensations Warmth to the right foot compared to the left foot Non pitting edema to the right foot Appreciate right foot digit amputation Muscle strength 4/5 in all compartments of the foot. No pain on palpation to the right foot. HPK lesion noted to the right plantar 5th metatarsal White scaling lesions in mocassin distribution. Results Result Diagram: 10/20/18 0532 10/21/18 0602 Results 24hrs Laboratory Tests Test 10/20/18 16:52 10/20/18 17:22 10/20/18 18:28 10/20/18 21:00 Bedside Glucose 50 L 115 79 122 Test 10/21/18 06:02 10/21/18 08:48 10/21/18 12:21 Sodium Level 138 Potassium Level 4.0 Chloride Level 111 H Carbon Dioxide Level 18 L Anion Gap 9 Blood Urea Nitrogen 62 H Creatinine 6.25 H Est Glomerular 9 L Filtrat Rate mL/min Glucose Level 82 Calcium Level 8.3 L Phosphorus Level 5.5 H Magnesium Level 2.1 Bedside Glucose 76 144 Medications Medication Current Medications Folic Acid (Folic Acid) 1 mg DAILY PO Last administered on 10/21/18at 08:45; Admin Dose 1 MG; Start 10/19/18 at 09:00 Atorvastatin Calcium (Lipitor) 10 mg DAILY@21 PO Last administered on 10/20/18at 20:57; Admin Dose 10 MG; Start 10/18/18 at 21:00; Status Hold IV Flush (NS 3 ml) 3 ml PER PROTOCOL IV ; Start 10/18/18 at 14:30 Ondansetron HCl (Zofran Inj) 4 mg Q6H PRN IV NAUSEA/VOMITING; Start 10/18/18 at 14:30 Acetaminophen (Tylenol Tab) 650 mg Q6H PRN PO .PAIN 1-3 OR TEMP Last administered on 10/19/18at 11:56; Admin Dose 650 MG; Start 10/18/18 at 14:30 Acetaminophen/ Hydrocodone Bitart ([place] (5/325)) 1 tab Q6H PRN PO .MOD PAIN 4- 6; Start 10/18/18 at 14:30 Docusate Sodium (Colace) 100 mg Q12H PRN PO .CONSTIPATION; Start 10/18/18 at 14:30 Diagnostic Test (Pha) (Accu-Chek) 1 ea 02 XX Last administered on 10/19/18at 02:03; Admin Dose 1 EA; Start 10/19/18 at 02:00 Miscellaneous Information 1 ea NOTE XX ; Start 10/18/18 at 14:30 Glucose (Glutose) 15 gm Q15M PRN PO DECREASED GLUCOSE; Start 10/18/18 at 14:30 Glucose (Glutose) 22.5 gm Q15M PRN PO DECREASED GLUCOSE; Start 10/18/18 at 14:30 Dextrose (D50w Syringe) 25 ml Q15M PRN IV DECREASED GLUCOSE Last administered on 10/20/18at 17:06; Admin Dose 25 ML; Start 10/18/18 at 14:30 Dextrose (D50w Syringe) 50 ml Q15M PRN IV DECREASED GLUCOSE; Start 10/18/18 at 14:30 Glucagon (Glucagen) 1 mg Q15M PRN IM DECREASED GLUCOSE; Start 10/18/18 at 14:30 Glucose (Glutose) 15 gm Q15M PRN BUCCAL DECREASED GLUCOSE; Start 10/18/18 at 14:30 Citric Acid/ Sodium Citrate (Bicitra) 30 ml BID PO Last administered on 10/21/18 08:44; Admin Dose 30 ML; Start 10/18/18 at 21:00 Clotrimazole (Lotrimin Cr) 1 applic BID TOP Last administered on 10/21/18 08:44; Admin Dose 1 APPLIC; Start 10/18/18 at 21:00 Ferric Sodium Gluconate Complex 125 mg/Sodium Chloride 110 ml @ 110 mls/hr DAILY@1300 IVPB Last administered on 10/21/18 14:35; Admin Dose 110 MLS/HR; Start 10/19/18 at 13:00; Stop 10/23/18 at 13:59 Epoetin Santiago-epbx (RETACRIT(non-esrd)) 10,000 unit TuThSa@1700 SC Last administered on 10/20/18 18:31; Admin Dose 10,000 UNIT; Start 10/20/18 at 17:00 Insulin Glargine (Lantus) 9 units DAILY@0800 SC Last administered on 10/21/18 08:52; Admin Dose 9 UNITS; Start 10/21/18 at 08:00 Insulin Aspart (Novolog Insulin Pen) NOVOLOG *MILD* ALGORITHM AC MEALS AND BEDTIME SC Last administered on 10/21/18 12:23; Admin Dose 1 UNIT; Start 10/20/18 at 17:30 Sevelamer Carbonate (Renvela) 800 mg WITH MEALS PO Last administered on 10/21/18 12:21; Admin Dose 800 MG; Start 10/21/18 at 12:00 Metoprolol Succinate (Toprol Xl) 50 mg BID PO ; Start 10/21/18 at 21:00 Aspirin (Aspirin) 81 mg DAILY PO Last administered on 10/21/18 12:22; Admin Dose 81 MG; Start 10/21/18 at 12:00 Heparin Sodium (Porcine) (Heparin (5000 Units/1ml)) 5,000 unit BID SC ; Start 10/21/18 at 21:00 Daptomycin 350 mg/ Sodium Chloride 100 ml @ 200 mls/hr Q48H IVPB ; Start 10/21/18 at 14:00 Meropenem/Sodium Chloride 50 ml @ 100 mls/hr Q24H IVPB Last administered on 10/21/18at 13:49; Admin Dose 100 MLS/HR; Start 10/21/18 at 13:00 Guaifenesin/ Dextromethorphan (Robitussin Dm Liquid Cup) 10 ml Q4H PRN PO COUGH; Start 10/21/18 at 15:00 IV Flush (NS 10 ml) 10 ml Q8 PRN IV IV PROTOCOL; Start 10/21/18 at 15:00 RM BAKER DPShaye October 21, 2018 15:19
[2018-10-21] MEDS: DAPTOMYCIN 350 MG in SOD CHLORIDE 0.9% 100 ML IVPB SCH (17:49)
[2018-10-21 19:40] VITALS: BP 147/67; PULSE 65; RESP 16
[2018-10-21] MEDS: METOPROLOL (XL) 50 MG TAB PO SCH (21:15)
[2018-10-21] MEDS: HEPARIN 5,000 UNIT/1 ML VIAL SC SCH (21:17)
[2018-10-21] MEDS: PENTOXIFYLLINE (SR) 400 MG TAB PO SCH (21:30)
[2018-10-21] MEDS: CILOSTAZOL 100 MG TAB PO SCH (21:31)
[2018-10-21] MEDS: ACETYLCYSTEINE 600 MG CAP PO SCH (23:19)
[2018-10-22 01:35] VITALS: BP 155/70; PULSE 68; RESP 16
[2018-10-22] MEDS: ACCU-CHEK XX SCH (02:00)
[2018-10-22] MEDS: INSULIN ASPART [NOVOLOG] 3 ML PEN SC SCH ×4 (07:00→21:00)
[2018-10-22 07:34] VITALS: BP 129/66; PULSE 74; RESP 18
[2018-10-22] MEDS: INSULIN GLARGINE [LANTus] (100 UNITS/ML) SYG SC SCH (08:00)
[2018-10-22] MEDS: ASPIRIN 81 MG TAB PO SCH (08:14)
[2018-10-22] MEDS: CITRIC ACID/NA CITRATE 30 ML CUP PO SCH ×2 (08:14→21:49)
[2018-10-22] MEDS: PENTOXIFYLLINE (SR) 400 MG TAB PO SCH ×3 (08:15→21:51)
[2018-10-22] MEDS: CILOSTAZOL 100 MG TAB PO SCH ×2 (08:15→21:49)
[2018-10-22] MEDS: FOLIC ACID 1 MG TAB PO SCH (08:15)
[2018-10-22] MEDS: SEVELAMER CARBONATE 800 MG TABLET PO SCH ×3 (08:15→17:44)
[2018-10-22] MEDS: METOPROLOL (XL) 50 MG TAB PO SCH ×2 (08:15→21:51)
[2018-10-22] MEDS: ACETYLCYSTEINE 600 MG CAP PO SCH ×2 (08:15→21:49)
[2018-10-22] MEDS: HEPARIN 5,000 UNIT/1 ML VIAL SC SCH ×2 (08:19→21:55)
[2018-10-22] MEDS: CLOTRIMAZOLE 1% 30 GM CR TOP SCH ×2 (08:20→21:57)
[2018-10-22] MEDS: DAKINS 0.0125%(1/40) 473 ML SOLUTION TP SCH (08:21)
--- NOTE | 2018-10-22 09:01 | PN ---
Date/Time of Note Date/Time of Note DATE: 10/22/18 TIME: 08:54 Assessment/Plan VTE Prophylaxis Risk score (from Ns)>0 risk: 2 [place]CD applied [place]from [facility] [place] SCD contraindicated: bilateral LE trauma Pharmacological prophylaxis: heparin Lines/Catheters IV Catheter Type (from [facility]): PICC Line Central line still needed: Yes Urinary Cath still in place: No Assessment/Plan Problems: (1) Abscess of right foot Status: Acute Comment: Status post incision and drainage. Cultures so far no growth to date. On broad-spectrum antibiotics and progressing. Please note this gentleman may not be very cooperative and I suspect may have an underlying significant depression which he declines to have dealt with (2) Osteomyelitis of right foot Status: Chronic Comment: Patient will need long-term IV antibiotic therapy but does have a PICC line in place. Infectious disease will guide us for medication choices and duration of treatment which will undoubtedly be at least 6 weeks. Podiatry will also be actively involved. 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 This is frequently neelima mittens comorbidity of diabetes when renal failure is present (5) Diabetes mellitus type 2 with complications Status: Chronic Comment: Presently sugar control is adequate. Qualifiers: Diabetes mellitus care home insulin use: with supervisor brake repair use Qualified Codes: E11.8 - Type 2 diabetes mellitus with unspecified complications; Z79.4 - long-term (current) use of insulin (6) Essential hypertension Status: Chronic Comment: Fair control. Ideally would like to use SYLVESTER inhibitors or angiotensin to receptor blockers but I will have to wait until after he ultimately agrees to dialysis. In the meantime we will go ahead and use an alpha blocking agent (7) Hyperlipidemia due to type 2 diabetes mellitus Status: Chronic Comment: On full dose statin therapy (8) Onychomycosis Status: Chronic Comment: As per infectious disease and podiatry (9) Anemia, iron deficiency Status: Chronic Comment: Receiving iron replacement therapy now (10) Diabetes, polyneuropathy Status: Acute Comment: Noted. Qualifiers: Diabetes mellitus type: type 2 Qualified Codes: E11.42 - Type 2 diabetes mellitus with diabetic polyneuropathy Result Diagram: 10/22/18 0554 10/22/18 0555 Results 24hrs Laboratory Tests Test 10/21/18 12:21 10/21/18 17:46 10/21/18 21:13 10/22/18 05:54 Bedside Glucose 144 148 112 White Blood Count 10.5 # Red Blood Count 2.42 L Hemoglobin 7.6 L Hematocrit 23.0 L Mean Corpuscular 95.0 Volume Mean Corpuscular 31.4 Hemoglobin Mean Corpuscular 33.0 Hemoglobin Concent Red Cell 15.1 H Distribution Width Platelet Count 287 Mean Platelet Volume 9.3 Immature 3.300 H Granulocytes % Neutrophils % 73.2 Lymphocytes % 10.2 L Monocytes % 10.0 Eosinophils % 2.8 Basophils % 0.5 Nucleated Red Blood 0.2 H Cells % Immature 0.350 H Granulocytes # Neutrophils # 7.7 H Lymphocytes # 1.1 Monocytes # 1.1 H Eosinophils # 0.3 Basophils # 0.1 Nucleated Red Blood 0.0 Cells # Creatine Kinase 26 Test 10/22/18 05:55 10/22/18 06:48 10/22/18 07:02 10/22/18 07:29 Sodium Level 139 Potassium Level 3.7 Chloride Level 112 H Carbon Dioxide Level 18 L Anion Gap 9 Blood Urea Nitrogen 60 H Creatinine 6.32 H Est Glomerular 9 L Filtrat Rate mL/min Glucose Level 53 #L Calcium Level 8.2 L Phosphorus Level 5.6 H Magnesium Level 2.1 Bedside Glucose 57 L 55 L 109 Test 10/22/18 08:13 Bedside Glucose 130 Subjective 24 Hr Interval Summary Free Text/Dictation Patient requests to have a interview conducted in Vincent[place]. Constitutional: no complaints (Fevers chills or sweats) Respiratory: no complaints (Cough wheezing or shortness of breath) Cardiovascular: no complaints (Chest pain palpitations PND or orthopnea) Gastrointestinal: no complaints Genitourinary: no complaints Musculoskeletal: other (Specifically denies any lower extremity pain) Exam/Review of Systems Exam Vitals Vital Signs Date Temp Pulse Resp B/P (MAP) Pulse Ox O2 O2 Flow FiO2 Time Delivery Rate 10/22/18 98.6 74 18 129/66 97 07:34 (87) 10/21/18 Room Air 14:08 Intake and Output 10/21/18 10/21/18 10/22/18 1515:00 23:00 07:00 IntakeIntake Total 290 ml 810 ml 120 ml OutputOutput Total 175 ml 465 ml BalanceBalance 115 ml 345 ml 120 ml Exam Patient somewhat withdrawn with an air of depression Constitutional: alert Psych: depression Head: normocephalic, atraumatic Neck: supple, non-tender Respiratory: clear to auscultation, normal air movement Cardiovascular: regular rate and rhythm, nl pulses Gastrointestinal: soft, nl liver, spleen, non-tender Extremities: other (Right lower extremity bandaged but warm) Results Results 24hrs Laboratory Tests Test 10/21/18 12:21 10/21/18 17:46 10/21/18 21:13 10/22/18 05:54 Bedside Glucose 144 148 112 White Blood Count 10.5 # Red Blood Count 2.42 L Hemoglobin 7.6 L Hematocrit 23.0 L Mean Corpuscular 95.0 Volume Mean Corpuscular 31.4 Hemoglobin Mean Corpuscular 33.0 Hemoglobin Concent Red Cell 15.1 H Distribution Width Platelet Count 287 Mean Platelet Volume 9.3 Immature 3.300 H Granulocytes % Neutrophils % 73.2 Lymphocytes % 10.2 L Monocytes % 10.0 Eosinophils % 2.8 Basophils % 0.5 Nucleated Red Blood 0.2 H Cells % Immature 0.350 H Granulocytes # Neutrophils # 7.7 H Lymphocytes # 1.1 Monocytes # 1.1 H Eosinophils # 0.3 Basophils # 0.1 Nucleated Red Blood 0.0 Cells # Creatine Kinase 26 Test 10/22/18 05:55 10/22/18 06:48 10/22/18 07:02 10/22/18 07:29 Sodium Level 139 Potassium Level 3.7 Chloride Level 112 H Carbon Dioxide Level 18 L Anion Gap 9 Blood Urea Nitrogen 60 H Creatinine 6.32 H Est Glomerular 9 L Filtrat Rate mL/min Glucose Level 53 #L Calcium Level 8.2 L Phosphorus Level 5.6 H Magnesium Level 2.1 Bedside Glucose 57 L 55 L 109 Test 10/22/18 08:13 Bedside Glucose 130 Medications Medication Current Medications Folic Acid (Folic Acid) 1 mg DAILY PO Last administered on 10/22/18at 08:15; Admin Dose 1 MG; Start 10/19/18 at 09:00 Atorvastatin Calcium (Lipitor) 10 mg DAILY@21 PO Last administered on 10/20/18at 20:57; Admin Dose 10 MG; Start 10/18/18 at 21:00; Status Hold IV Flush (NS 3 ml) 3 ml PER PROTOCOL IV ; Start 10/18/18 at 14:30 Ondansetron HCl (Zofran Inj) 4 mg Q6H PRN IV NAUSEA/VOMITING Last administered on 10/22/18at 01:12; Admin Dose 4 MG; Start 10/18/18 at 14:30 Acetaminophen (Tylenol Tab) 650 mg Q6H PRN PO .PAIN 1-3 OR TEMP Last administered on 10/19/18at 11:56; Admin Dose 650 MG; Start 10/18/18 at 14:30 Acetaminophen/ Hydrocodone Bitart ([place] (5/325)) 1 tab Q6H PRN PO .MOD PAIN 4- 6; Start 10/18/18 at 14:30 Docusate Sodium (Colace) 100 mg Q12H PRN PO .CONSTIPATION; Start 10/18/18 at 14: 30 Diagnostic Test (Pha) (Accu-Chek) 1 ea 02 XX Last administered on 10/19/18at 02:03; Admin Dose 1 EA; Start 10/19/18 at 02:00 Miscellaneous Information 1 ea NOTE XX ; Start 10/18/18 at 14:30 Glucose (Glutose) 15 gm Q15M PRN PO DECREASED GLUCOSE; Start 10/18/18 at 14:30 Glucose (Glutose) 22.5 gm Q15M PRN PO DECREASED GLUCOSE; Start 10/18/18 at 14:30 Dextrose (D50w Syringe) 25 ml Q15M PRN IV DECREASED GLUCOSE Last administered on 10/20/18at 17:06; Admin Dose 25 ML; Start 10/18/18 at 14:30 Dextrose (D50w Syringe) 50 ml Q15M PRN IV DECREASED GLUCOSE; Start 10/18/18 at 14:30 Glucagon (Glucagen) 1 mg Q15M PRN IM DECREASED GLUCOSE; Start 10/18/18 at 14:30 Glucose (Glutose) 15 gm Q15M PRN BUCCAL DECREASED GLUCOSE Last administered on 10/22/18at 07:07; Admin Dose 15 GM; Start 10/18/18 at 14:30 Citric Acid/ Sodium Citrate (Bicitra) 30 ml BID PO Last administered on 10/22/18 08:14; Admin Dose 30 ML; Start 10/18/18 at 21:00 Clotrimazole (Lotrimin Cr) 1 applic BID TOP Last administered on 10/22/18at 0 8:20; Admin Dose 1 APPLIC; Start 10/18/18 at 21:00 Ferric Sodium Gluconate Complex 125 mg/Sodium Chloride 110 ml @ 110 mls/hr DAILY@1300 IVPB Last administered on 10/21/18 14:35; Admin Dose 110 MLS/HR; Start 10/19/18 at 13:00; Stop 10/23/18 at 13:59 Epoetin Santiago-epbx (RETACRIT(non-esrd)) 10,000 unit TuThSa@1700 SC Last administered on 10/20/18 18:31; Admin Dose 10,000 UNIT; Start 10/20/18 at 17:00 Insulin Glargine (Lantus) 9 units DAILY@0800 SC Last administered on 10/21/18 08:52; Admin Dose 9 UNITS; Start 10/21/18 at 08:00 Insulin Aspart (Novolog Insulin Pen) NOVOLOG *MILD* ALGORITHM AC MEALS AND BEDTIME SC Last administered on 10/21/18 17:48; Admin Dose 1 UNIT; Start 10/20/18 at 17:30 Sevelamer Carbonate (Renvela) 800 mg WITH MEALS PO Last administered on 10/22/18 08:15; Admin Dose 800 MG; Start 10/21/18 at 12:00 Metoprolol Succinate (Toprol Xl) 50 mg BID PO Last administered on 10/22/18 08:15; Admin Dose 50 MG; Start 10/21/18 at 21:00 Aspirin (Aspirin) 81 mg DAILY PO Last administered on 10/22/18 08:14; Admin Dose 81 MG; Start 10/21/18 at 12:00 Heparin Sodium (Porcine) (Heparin (5000 Units/1ml)) 5,000 unit BID SC Last administered on 10/22/18 08:19; Admin Dose 5,000 UNIT; Start 10/21/18 at 21:00 Daptomycin 350 mg/ Sodium Chloride 100 ml @ 200 mls/hr Q48H IVPB Last administered on 5/10/19at 17:49; Admin Dose 200 MLS/HR; Start 10/21/18 at 14:00 Meropenem/Sodium Chloride 50 ml @ 100 mls/hr Q24H IVPB Last administered on 10/21/18 13:49; Admin Dose 100 MLS/HR; Start 10/21/18 at 13:00 Guaifenesin/ Dextromethorphan (Robitussin Dm Liquid Cup) 10 ml Q4H PRN PO COUGH Last administered on 10/21/18 15:25; Admin Dose 10 ML; Start 10/21/18 at 15:00 IV Flush (NS 10 ml) 10 ml Q8 PRN IV IV PROTOCOL; Start 10/21/18 at 15:00 Sodium Hypochlorite (Dakins Diluted ()) 1 applic DAILY TP Last administered on 10/22/18 08:21; Admin Dose 1 APPLIC; Start 10/22/18 at 09:00 Acetylcysteine (Nac) 1,200 mg BID PO Last administered on 10/22/18 08:15; Admin Dose 1,200 MG; Start 10/21/18 at 21:00; Stop 10/25/18 at 20:59 Pentoxifylline (Trental) 400 mg TID PO Last administered on 10/22/18 08:15; Admin Dose 400 MG; Start 10/21/18 at 21:00 Cilostazol (Pletal) 50 mg BID PO Last administered on 10/22/18 08:15; Admin Dose 50 MG; Start 10/21/18 at 21:00 Doxazosin Mesylate (Cardura) 1 mg ONCE ONCE PO ; Start 10/22/18 at 09:00; Stop 10/22/18 at 09:01; Status UNV Doxazosin Mesylate (Cardura) 1 mg HS PO ; Start 10/22/18 at 21:00; Status UNV JOSUE THAKUR MD October 22, 2018 09:01
[2018-10-22] MEDS ORDERED: DOXAZOSIN 1 MG TAB PO ONE (10:00)
--- NOTE | 2018-10-22 12:45 | CONS ---
Assessment/Plan Assessment/Plan Hospital Course (Demo Recall) 1. Nonoliguric acute kidney injury on top of chronic kidney disease stage V. The patient's renal function further declined in the last 24 hours. This may be secondary to hemodynamics due to recent surgery. The patient has been advised to initiate hemodialysis and he has adamantly refused. Risks and benefits of refusing including have been made aware to the patient, however, he con tinues to refuse hemodialysis. At this point, we would continue to monitor, continue supportive care, renally dose all medications. 2. Metabolic acidosis. Continue Bicitra. 3. Hypernatremia, resolved. 4. Anemia. The patient is status post blood transfusion. Continue IV iron. Continue Epogen. 5. Mineral bone disorder, monitor calcium and phosphorus levels. We will continue the patient on phosphate binders. 6. Sepsis secondary to cellulitis, right foot abscess. The patient is status post incision and drainage, abscess evacuation. Continue to monitor. Follow up with podiatry. 7. Peripheral vascular disease. Continue medical management. Follow up with vascular surgery. 8. Diabetes. Continue current insulin regimen. 9. Dyslipidemia. Continue statin therapy. 10. Hypertension. Continue current blood pressure regimen. 11. Bilateral blindness. Consultation Date/Type/Reason Admit Date/Time October 18, 2018 at 04:40 Initial Consult Date Date/Time of Note DATE: 10/22/18 TIME: 12:43 24 HR Interval Summary Free Text/Dictation still refusing hd denies n/v or shortness of breath d/w rn gen nad cv rrr pulm ctab abd soft, nd, nt +bs ext: no edema Exam/Review of Systems Exam Vitals Vital Signs Date Temp Pulse Resp B/P (MAP) Pulse Ox O2 O2 Flow FiO2 Time Delivery Rate 10/22/18 98.6 74 18 129/66 97 07:34 (87) 10/21/18 Room Air 14:08 Intake and Output 10/21/18 10/21/18 10/22/18 1515:00 23:00 07:00 IntakeIntake Total 290 ml 810 ml 120 ml OutputOutput Total 175 ml 465 ml BalanceBalance 115 ml 345 ml 120 ml Results Result Diagram: 10/22/18 0554 10/22/18 0555 Results 24hrs Laboratory Tests Test 10/21/18 17:46 10/21/18 21:13 10/22/18 05:54 10/22/18 05:55 Bedside Glucose 148 112 White Blood Count 10.5 # Red Blood Count 2.42 L Hemoglobin 7.6 L Hematocrit 23.0 L Mean Corpuscular 95.0 Volume Mean Corpuscular 31.4 Hemoglobin Mean Corpuscular 33.0 Hemoglobin Concent Red Cell 15.1 H Distribution Width Platelet Count 287 Mean Platelet Volume 9.3 Immature 3.300 H Granulocytes % Neutrophils % 73.2 Lymphocytes % 10.2 L Monocytes % 10.0 Eosinophils % 2.8 Basophils % 0.5 Nucleated Red Blood 0.2 H Cells % Immature 0.350 H Granulocytes # Neutrophils # 7.7 H Lymphocytes # 1.1 Monocytes # 1.1 H Eosinophils # 0.3 Basophils # 0.1 Nucleated Red Blood 0.0 Cells # Creatine Kinase 26 Sodium Level 139 Potassium Level 3.7 Chloride Level 112 H Carbon Dioxide Level 18 L Anion Gap 9 Blood Urea Nitrogen 60 H Creatinine 6.32 H Est Glomerular 9 L Filtrat Rate mL/min Glucose Level 53 #L Calcium Level 8.2 L Phosphorus Level 5.6 H Magnesium Level 2.1 Test 10/22/18 06:48 10/22/18 07:02 10/22/18 07:29 10/22/18 08:13 Bedside Glucose 57 L 55 L 109 130 Test 10/22/18 11:09 Random Cortisol 21.2 Medications Medication Current Medications Folic Acid (Folic Acid) 1 mg DAILY PO Last administered on 10/22/18at 08:15; Admin Dose 1 MG; Start 10/19/18 at 09:00 Atorvastatin Calcium (Lipitor) 10 mg DAILY@21 PO Last administered on 10/20/18at 20:57; Admin Dose 10 MG; Start 10/18/18 at 21:00; Status Hold IV Flush (NS 3 ml) 3 ml PER PROTOCOL IV ; Start 10/18/18 at 14:30 Ondansetron HCl (Zofran Inj) 4 mg Q6H PRN IV NAUSEA/VOMITING Last administered on 10/22/18at 01:12; Admin Dose 4 MG; Start 10/18/18 at 14:30 Acetaminophen (Tylenol Tab) 650 mg Q6H PRN PO .PAIN 1-3 OR TEMP Last administered on 10/19/18at 11:56; Admin Dose 650 MG; Start 10/18/18 at 14:30 Acetaminophen/ Hydrocodone Bitart ([place] (5/325)) 1 tab Q6H PRN PO .MOD PAIN 4- 6; Start 10/18/18 at 14:30 Docusate Sodium (Colace) 100 mg Q12H PRN PO .CONSTIPATION; Start 10/18/18 at 14:30 Diagnostic Test (Pha) (Accu-Chek) 1 ea 02 XX Last administered on 10/19/18at 02:03; Admin Dose 1 EA; Start 10/19/18 at 02:00 Miscellaneous Information 1 ea NOTE XX ; Start 10/18/18 at 14:30 Glucose (Glutose) 15 gm Q15M PRN PO DECREASED GLUCOSE; Start 10/18/18 at 14:30 Glucose (Glutose) 22.5 gm Q15M PRN PO DECREASED GLUCOSE; Start 10/18/18 at 14:30 Dextrose (D50w Syringe) 25 ml Q15M PRN IV DECREASED GLUCOSE Last administered on 10/20/18at 17:06; Admin Dose 25 ML; Start 10/18/18 at 14:30 Dextrose (D50w Syringe) 50 ml Q15M PRN IV DECREASED GLUCOSE; Start 10/18/18 at 14:30 Glucagon (Glucagen) 1 mg Q15M PRN IM DECREASED GLUCOSE; Start 10/18/18 at 14:30 Glucose (Glutose) 15 gm Q15M PRN BUCCAL DECREASED GLUCOSE Last administered on 10/22/18at 07:07; Admin Dose 15 GM; Start 10/18/18 at 14:30 Citric Acid/ Sodium Citrate (Bicitra) 30 ml BID PO Last administered on 10/22/18at 08:14; Admin Dose 30 ML; Start 10/18/18 at 21:00 Clotrimazole (Lotrimin Cr) 1 applic BID TOP Last administered on 10/22/18at 08:20; Admin Dose 1 APPLIC; Start 10/18/18 at 21:00 Ferric Sodium Gluconate Complex 125 mg/Sodium Chloride 110 ml @ 110 mls/hr DAILY@1300 IVPB Last administered on 10/21/18at 14:35; Admin Dose 110 MLS/HR; Start 10/19/18 at 13:00; Stop 10/23/18 at 13:59 Epoetin Santiago-epbx (RETACRIT(non-esrd)) 10,000 unit TuThSa@1700 SC Last administered on 10/20/18 18:31; Admin Dose 10,000 UNIT; Start 10/20/18 at 17:00 Insulin Glargine (Lantus) 9 units DAILY@0800 SC Last administered on 10/21/18 08:52; Admin Dose 9 UNITS; Start 10/21/18 at 08:00 Insulin Aspart (Novolog Insulin Pen) NOVOLOG *MILD* ALGORITHM AC MEALS AND BEDTIME SC Last administered on 10/21/18 17:48; Admin Dose 1 UNIT; Start 10/20/18 at 17:30 Sevelamer Carbonate (Renvela) 800 mg WITH MEALS PO Last administered on 10/22/18 08:15; Admin Dose 800 MG; Start 10/21/18 at 12:00 Metoprolol Succinate (Toprol Xl) 50 mg BID PO Last administered on 10/22/18 08:15; Admin Dose 50 MG; Start 10/21/18 at 21:00 Aspirin (Aspirin) 81 mg DAILY PO Last administered on 10/22/18 08:14; Admin Dose 81 MG; Start 10/21/18 at 12:00 Heparin Sodium (Porcine) (Heparin (5000 Units/1ml)) 5,000 unit BID SC Last a dministered on 10/22/18 08:19; Admin Dose 5,000 UNIT; Start 10/21/18 at 21:00 Daptomycin 350 mg/ Sodium Chloride 100 ml @ 200 mls/hr Q48H IVPB Last administered on 10/21/18 17:49; Admin Dose 200 MLS/HR; Start 10/21/18 at 14:00 Meropenem/Sodium Chloride 50 ml @ 100 mls/hr Q24H IVPB Last administered on 10/21/18 13:49; Admin Dose 100 MLS/HR; Start 10/21/18 at 13:00 Guaifenesin/ Dextromethorphan (Robitussin Dm Liquid Cup) 10 ml Q4H PRN PO COUGH Last administered on 10/21/18 15:25; Admin Dose 10 ML; Start 10/21/18 at 15:00 IV Flush (NS 10 ml) 10 ml Q8 PRN IV IV PROTOCOL; Start 10/21/18 at 15:00 Sodium Hypochlorite (Dakins Diluted (1/40)) 1 applic DAILY TP Last administered on 10/22/18at 08:21; Admin Dose 1 APPLIC; Start 10/22/18 at 09:00 Acetylcysteine (Nac) 1,200 mg BID PO Last administered on 10/22/18 08:15; Admin Dose 1,200 MG; Start 10/21/18 at 21:00; Stop 10/25/18 at 20:59 Pentoxifylline (Trental) 400 mg TID PO Last administered on 10/22/18at 08:15; Admin Dose 400 MG; Start 10/21/18 at 21:00 Cilostazol (Pletal) 50 mg BID PO Last administered on 10/22/18at 08:15; Admin Do se 50 MG; Start 10/21/18 at 21:00 Doxazosin Mesylate (Cardura) 1 mg HS PO ; Start 10/22/18 at 21:00 CHEVY NÚÑEZ MD October 22, 2018 12:45
[2018-10-22 14:00] VITALS: BP 148/70; PULSE 77; RESP 18
[2018-10-22] MEDS: SOD FERRIC GLUC COMPLX 125 MG in SOD CHLORIDE 0.9% 100 ML IVPB SCH (14:11)
[2018-10-22] MEDS: MEROPENEM 500MG/50 ML (PMX) 50 ML IVPB SCH (15:45)
--- NOTE | 2018-10-22 18:48 | CONS ---
Assessment/Plan Assessment/Plan Hospital Course (Demo Recall) ID PROGRESS NOTE CURRENT ABX: DAY #=> Daptomycin IV + Merrem 24H INTERVAL SUMMARY * Resting comfortably, no fevers, VSS, NAD, chart reviewed IMAGING * MRI of the right foot revealed osteomyelitis with possible phlegmon collection MICRO/OTHER * Urine culture negative * 10/18/18 CX: PHYSICAL EXAMINATION: GENERAL: VSS, NAD HEENT: AT, NC, anicteric, NECK: Supple, CHEST: Equal chest rise bilaterally without dyspnea on observation HEART: Pulse RRR ABDOMEN: soft EXTREMITIES: Warm, dry---right foot swelling and erythema SKIN: No rash, no diaphoresis ID ASSESSMENT 57 yo M admit with: 1. Sepsis, present on admission 2. Right foot cellulitis, osteomyelitis, abscess s/p i/d 10/20/18 3. End-stage renal disease, not on HD 4. Diabetes (-)MRSA Nares ABX ALLERGIES: KNDA INVASIVES: PIV CURRENT ABX: DAY # => Daptomycin IV + Merrem ID RECOMMENDATIONS/PLAN: 1. Continue current ABX over the weekend 2. Will f/u tomorrow Consultation Date/Type/Reason Admit Date/Time October 18, 2018 at 04:40 Initial Consult Date Date/Time of Note DATE: 10/22/18 TIME: 18:48 Exam/Review of Systems Exam Vitals Vital Signs Date Temp Pulse Resp B/P (MAP) Pulse Ox O2 O2 Flow FiO2 Time Delivery Rate 10/22/18 98.7 77 18 148/70 97 14:00 (96) 10/21/18 Room Air 14:08 Intake and Output 10/21/18 10/21/18 10/22/18 1515:00 23:00 07:00 IntakeIntake Total 290 ml 810 ml 120 ml OutputOutput Total 175 ml 465 ml BalanceBalance 115 ml 345 ml 120 ml Results Result Diagram: 10/22/18 0554 10/22/18 0555 Results 24hrs Laboratory Tests Test 10/21/18 21:13 10/22/18 05:54 10/22/18 05:55 10/22/18 06:48 Bedside Glucose 112 57 L White Blood Count 10.5 # Red Blood Count 2.42 L Hemoglobin 7.6 L Hematocrit 23.0 L Mean Corpuscular 95.0 Volume Mean Corpuscular 31.4 Hemoglobin Mean Corpuscular 33.0 Hemoglobin Concent Red Cell 15.1 H Distribution Width Platelet Count 287 Mean Platelet Volume 9.3 Immature 3.300 H Granulocytes % Neutrophils % 73.2 Lymphocytes % 10.2 L Monocytes % 10.0 Eosinophils % 2.8 Basophils % 0.5 Nucleated Red Blood 0.2 H Cells % Immature 0.350 H Granulocytes # Neutrophils # 7.7 H Lymphocytes # 1.1 Monocytes # 1.1 H Eosinophils # 0.3 Basophils # 0.1 Nucleated Red Blood 0.0 Cells # Creatine Kinase 26 Sodium Level 139 Potassium Level 3.7 Chloride Level 112 H Carbon Dioxide Level 18 L Anion Gap 9 Blood Urea Nitrogen 60 H Creatinine 6.32 H Est Glomerular 9 L Filtrat Rate mL/min Glucose Level 53 #L Calcium Level 8.2 L Phosphorus Level 5.6 H Magnesium Level 2.1 Test 10/22/18 07:02 10/22/18 07:29 10/22/18 08:13 10/22/18 11:09 Bedside Glucose 55 L 109 130 Random Cortisol 21.2 Test 10/22/18 12:36 10/22/18 17:43 Bedside Glucose 196 151 Medications Medication Current Medications Folic Acid (Folic Acid) 1 mg DAILY PO Last administered on 10/22/18at 08:15; Admin Dose 1 MG; Start 10/19/18 at 09:00 Atorvastatin Calcium (Lipitor) 10 mg DAILY@21 PO Last administered on 10/20/18at 20:57; Admin Dose 10 MG; Start 10/18/18 at 21:00; Status Hold IV Flush (NS 3 ml) 3 ml PER PROTOCOL IV ; Start 10/18/18 at 14:30 Ondansetron HCl (Zofran Inj) 4 mg Q6H PRN IV NAUSEA/VOMITING Last administered on 10/22/18at 01:12; Admin Dose 4 MG; Start 10/18/18 at 14:30 Acetaminophen (Tylenol Tab) 650 mg Q6H PRN PO .PAIN 1-3 OR TEMP Last administered on 10/19/18at 11:56; Admin Dose 650 MG; Start 10/18/18 at 14:30 Acetaminophen/ Hydrocodone Bitart ([place] (5/325)) 1 tab Q6H PRN PO .MOD PAIN 4- 6; Start 10/18/18 at 14:30 Docusate Sodium (Colace) 100 mg Q12H PRN PO .CONSTIPATION; Start 10/18/18 at 14:30 Diagnostic Test (Pha) (Accu-Chek) 1 ea 02 XX Last administered on 10/19/18at 02:03; Admin Dose 1 EA; Start 10/19/18 at 02:00 Miscellaneous Information 1 ea NOTE XX ; Start 10/18/18 at 14:30 Glucose (Glutose) 15 gm Q15M PRN PO DECREASED GLUCOSE; Start 10/18/18 at 14:30 Glucose (Glutose) 22.5 gm Q15M PRN PO DECREASED GLUCOSE; Start 10/18/18 at 14:30 Dextrose (D50w Syringe) 25 ml Q15M PRN IV DECREASED GLUCOSE Last administered on 10/20/18at 17:06; Admin Dose 25 ML; Start 10/18/18 at 14:30 Dextrose (D50w Syringe) 50 ml Q15M PRN IV DECREASED GLUCOSE; Start 10/18/18 at 14:30 Glucagon (Glucagen) 1 mg Q15M PRN IM DECREASED GLUCOSE; Start 10/18/18 at 14:30 Glucose (Glutose) 15 gm Q15M PRN BUCCAL DECREASED GLUCOSE Last administered on 10/22/18at 07:07; Admin Dose 15 GM; Start 10/18/18 at 14:30 Citric Acid/ Sodium Citrate (Bicitra) 30 ml BID PO Last administered on 10/22/18at 08:14; Admin Dose 30 ML; Start 10/18/18 at 21:00 Clotrimazole (Lotrimin Cr) 1 applic BID TOP Last administered on 10/22/18at 08:20; Admin Dose 1 APPLIC; Start 10/18/18 at 21:00 Ferric Sodium Gluconate Complex 125 mg/Sodium Chloride 110 ml @ 110 mls/hr DAILY@1300 IVPB Last administered on 10/22/18at 14:11; Admin Dose 110 MLS/HR; Start 10/19/18 at 13:00; Stop 10/23/18 at 13:59 Epoetin Santiago-epbx (RETACRIT(non-esrd)) 10,000 unit TuThSa@1700 SC Last administered on 10/20/18 18:31; Admin Dose 10,000 UNIT; Start 10/20/18 at 17:00 Insulin Glargine (Lantus) 9 units DAILY@0800 SC Last administered on 10/21/18 08:52; Admin Dose 9 UNITS; Start 10/21/18 at 08:00 Insulin Aspart (Novolog Insulin Pen) NOVOLOG *MILD* ALGORITHM AC MEALS AND BEDTIME SC Last administered on 10/22/18 17:45; Admin Dose 1 UNIT; Start 10/20/18 at 17:30 Sevelamer Carbonate (Renvela) 800 mg WITH MEALS PO Last administered on 10/22/18 17:44; Admin Dose 800 MG; Start 10/21/18 at 12:00 Metoprolol Succinate (Toprol Xl) 50 mg BID PO Last administered on 10/22/18 08:15; Admin Dose 50 MG; Start 10/21/18 at 21:00 Aspirin (Aspirin) 81 mg DAILY PO Last administered on 10/22/18 08:14; Admin Dose 81 MG; Start 10/21/18 at 12:00 Heparin Sodium (Porcine) (Heparin (5000 Units/1ml)) 5,000 unit BID SC Last administered on 10/22/18 08:19; Admin Dose 5,000 UNIT; Start 10/21/18 at 21:00 Daptomycin 350 mg/ Sodium Chloride 100 ml @ 200 mls/hr Q48H IVPB Last administered on 10/21/18 17:49; Admin Dose 200 MLS/HR; Start 10/21/18 at 14:00 Meropenem/Sodium Chloride 50 ml @ 100 mls/hr Q24H IVPB Last administered on 10/22/18 15:45; Admin Dose 100 MLS/HR; Start 10/21/18 at 13:00 Guaifenesin/ Dextromethorphan (Robitussin Dm Liquid Cup) 10 ml Q4H PRN PO COUGH Last administered on 10/21/18 15:25; Admin Dose 10 ML; Start 10/21/18 at 15:00 IV Flush (NS 10 ml) 10 ml Q8 PRN IV IV PROTOCOL; Start 10/21/18 at 15:00 Sodium Hypochlorite (Dakins Diluted ()) 1 applic DAILY TP Last administered on 10/22/18 08:21; Admin Dose 1 APPLIC; Start 10/22/18 at 09:00 Acetylcysteine (Nac) 1,200 mg BID PO Last administered on 10/22/18 08:15; Admin Dose 1,200 MG; Start 10/21/18 at 21:00; Stop 10/25/18 at 20:59 Pentoxifylline (Trental) 400 mg TID PO Last administered on 10/22/18at 13:23; Admin Dose 400 MG; Start 10/21/18 at 21:00 Cilostazol (Pletal) 50 mg BID PO Last administered on 10/22/18 08:15; Admin Dose 50 MG; Start 10/21/18 at 21:00 Doxazosin Mesylate (Cardura) 1 mg HS PO ; Start 10/22/18 at 21:00 KRISTINA MÁRQUEZ NP October 22, 2018 18:48
[2018-10-22] MEDS: EPOETIN ALFA-EPBX (NON-ESRD 10,000 UNIT/ML VIAL SC SCH (19:08)
[2018-10-22 19:48] VITALS: BP 158/77; PULSE 71; RESP 18
[2018-10-22] MEDS ORDERED: DOXAZOSIN 1 MG TAB PO SCH (21:00)
[2018-10-23 02:00] VITALS: BP 140/81; PULSE 75; RESP 18
[2018-10-23] MEDS: ACCU-CHEK XX SCH (02:00)
[2018-10-23 07:43] VITALS: BP 159/73; PULSE 70; RESP 18
[2018-10-23] MEDS: INSULIN ASPART [NOVOLOG] 3 ML PEN SC SCH ×4 (08:13→20:57)
[2018-10-23] MEDS: INSULIN GLARGINE [LANTus] (100 UNITS/ML) SYG SC SCH (09:10)
[2018-10-23] MEDS: HEPARIN 5,000 UNIT/1 ML VIAL SC SCH ×2 (09:10→21:10)
[2018-10-23] MEDS: SEVELAMER CARBONATE 800 MG TABLET PO SCH ×3 (09:12→17:49)
[2018-10-23] MEDS: CITRIC ACID/NA CITRATE 30 ML CUP PO SCH ×2 (09:12→20:55)
[2018-10-23] MEDS: ACETYLCYSTEINE 600 MG CAP PO SCH ×2 (09:12→20:56)
[2018-10-23] MEDS: FOLIC ACID 1 MG TAB PO SCH (09:13)
[2018-10-23] MEDS: ASPIRIN 81 MG TAB PO SCH (09:13)
[2018-10-23] MEDS: PENTOXIFYLLINE (SR) 400 MG TAB PO SCH ×3 (09:13→20:56)
[2018-10-23] MEDS: CILOSTAZOL 100 MG TAB PO SCH ×2 (09:13→20:56)
[2018-10-23] MEDS: DAKINS 0.0125%(1/40) 473 ML SOLUTION TP SCH (09:14)
[2018-10-23] MEDS: CLOTRIMAZOLE 1% 30 GM CR TOP SCH ×2 (09:14→21:13)
[2018-10-23] MEDS: METOPROLOL (XL) 50 MG TAB PO SCH ×2 (09:19→20:56)
--- NOTE | 2018-10-23 09:22 | PN ---
Date/Time of Note Date/Time of Note DATE: 10/23/18 TIME: : Assessment/Plan VTE Prophylaxis Risk score (from N[place])>0 risk: 2 [place] [facility] [place] contraindicated: bilateral LE trauma Pharmacological prophylaxis: heparin Lines/Catheters IV Catheter Type (from [place]): PICC Line Central line still needed: Yes Urinary Cath still in place: No Assessment/Plan Problems: (1) Osteomyelitis of right foot Status: Chronic Comment: This gentleman remains on aggressive antibiotic therapy. Infectious disease will guide us for duration of treatment. Please note that I still am of the opinion there is a severe depression here however he declines to discuss it with me. Consider psychiatric consultation tomorrow when the staff is in the building Qualifiers: Osteomyelitis type: chronic, with draining sinus Qualified Codes: M86.471 - Chronic osteomyelitis with draining sinus, right ankle and foot (2) Abscess of right foot Status: Acute Comment: Status post incision and drainage. (3) Onychomycosis Status: Chronic Comment: On therapy. (4) Essential hypertension Status: Chronic Comment: Adjusting medication to get this under better control. (5) Hyperlipidemia due to type 2 diabetes mellitus Status: Chronic Comment: Remains on full statin therapy. (6) Diabetes mellitus type 2 with complications Status: Chronic Comment: Blood sugar control is adequate under the current regimen. Qualifiers: Diabetes mellitus snf insulin use: with snf use Qualified Codes: E11.8 - Type 2 diabetes mellitus with unspecified complications; Z79.4 - care home (current) use of insulin (7) CKD (chronic kidney disease) stage 5, GFR less than 15 ml/min Status: Chronic Comment: He again is declining dialysis. 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 Status: Chronic Comment: Comorbid condition with nephropathy (9) Anemia, iron deficiency Status: Chronic Comment: On intravenous iron replacement therapy Result Diagram: 10/23/18 0609 10/23/18 0609 Results 24hrs Laboratory Tests Test 10/22/18 11:09 10/22/18 12:36 10/22/18 17:43 10/22/18 21:58 Random Cortisol 21.2 Bedside Glucose 196 151 128 Test 5/12/19 06:09 10/23/18 06:35 10/23/18 08:05 White Blood Count 8.6 Red Blood Count 2.46 L Hemoglobin 7.6 L Hematocrit 23.5 L Mean Corpuscular 95.5 Volume Mean Corpuscular 30.9 Hemoglobin Mean Corpuscular 32.3 Hemoglobin Concen t Red Cell 14.8 H Distribution Width Platelet Count 306 Mean Platelet 9.1 Volume Immature 5.700 H Granulocytes % Neutrophils % 69.0 Lymphocytes % 10.9 L Monocytes % 9.5 Eosinophils % 4.3 Basophils % 0.6 Nucleated Red 0.5 H Blood Cells % Immature 0.490 H Granulocytes # Neutrophils # 5.9 Lymphocytes # 0.9 Monocytes # 0.8 Eosinophils # 0.4 Basophils # 0.1 Nucleated Red 0.0 Blood Cells # Sodium Level 139 Potassium Level 3.9 Chloride Level 112 H Carbon Dioxide 18 L Level Anion Gap 9 Blood Urea 53 H Nitrogen Creatinine 6.06 H Est Glomerular 10 L Filtrat Rate mL/min Glucose Level 104 # Calcium Level 7.9 L Phosphorus Level 5.1 H Magnesium Level 2.1 Total Bilirubin 0.1 L Direct Bilirubin 0.00 Indirect 0.1 Bilirubin Aspartate Amino 18 Transf (AST/SGOT) Alanine 23 Aminotransferase (ALT/SGPT) Alkaline 95 Phosphatase Total Protein 5.7 L Albumin 2.3 L Globulin 3.40 H Albumin/Globulin 0.67 Ratio Lab Scanned BLOOD TRANSFUSIO Report N Bedside Glucose 130 Subjective 24 Hr Interval Summary Free Text/Dictation Patient reports no review of systems abnormalities and wants to know when he can go home Constitutional: no complaints (Denies fevers chills or sweats) Respiratory: no complaints Cardiovascular: no complaints (Chest pain palpitations PND orthopnea) Gastrointestinal: no complaints Genitourinary: no complaints Exam/Review of Systems Exam Vitals Vital Signs Date Temp Pulse Resp B/P (MAP) Pulse Ox O2 O2 Flow FiO2 Time Delivery Rate 10/23/18 98.5 70 18 159/73 97 07:43 (101) 10/21/18 Room Air 14:08 Intake and Output 10/22/18 10/22/18 10/23/18 1515:00 23:00 07:00 IntakeIntake Total 480 ml 400 ml 240 ml OutputOutput Total 700 ml BalanceBalance 480 ml 400 ml -460 ml Constitutional: alert, oriented Neck: supple, non-tender Respiratory: clear to auscultation, normal air movement Cardiovascular: regular rate and rhythm, nl pulses Extremities: other (No change) Results Results 24hrs Laboratory Tests Test 10/22/18 11:09 10/22/18 12:36 10/22/18 17:43 10/22/18 21:58 Random Cortisol 21.2 Bedside Glucose 196 151 128 Test 10/23/18 06:09 10/23/18 06:35 10/23/18 08:05 White Blood Count 8.6 Red Blood Count 2.46 L Hemoglobin 7.6 L Hematocrit 23.5 L Mean Corpuscular 95.5 Volume Mean Corpuscular 30.9 Hemoglobin Mean Corpuscular 32.3 Hemoglobin Concen t Red Cell 14.8 H Distribution Width Platelet Count 306 Mean Platelet 9.1 Volume Immature 5.700 H Granulocytes % Neutrophils % 69.0 Lymphocytes % 10.9 L Monocytes % 9.5 Eosinophils % 4.3 Basophils % 0.6 Nucleated Red 0.5 H Blood Cells % Immature 0.490 H Granulocytes # Neutrophils # 5.9 Lymphocytes # 0.9 Monocytes # 0.8 Eosinophils # 0.4 Basophils # 0.1 Nucleated Red 0.0 Blood Cells # Sodium Level 139 Potassium Level 3.9 Chloride Level 112 H Carbon Dioxide 18 L Level Anion Gap 9 Blood Urea 53 H Nitrogen Creatinine 6.06 H Est Glomerular 10 L Filtrat Rate mL/min Glucose Level 104 # Calcium Level 7.9 L Phosphorus Level 5.1 H Magnesium Level 2.1 Total Bilirubin 0.1 L Direct Bilirubin 0.00 Indirect 0.1 Bilirubin Aspartate Amino 18 Transf (AST/SGOT) Alanine 23 Aminotransferase (ALT/SGPT) Alkaline 95 Phosphatase Total Protein 5.7 L Albumin 2.3 L Globulin 3.40 H Albumin/Globulin 0.67 Ratio Lab Scanned BLOOD TRANSFUSIO Report N Bedside Glucose 130 Medications Medication Current Medications Folic Acid (Folic Acid) 1 mg DAILY PO Last administered on 10/22/18at 08:15; Admin Dose 1 MG; Start 10/19/18 at 09:00 Atorvastatin Calcium (Lipitor) 10 mg DAILY@21 PO Last administered on 10/20/18at 20:57; Admin Dose 10 MG; Start 10/18/18 at 21:00; Status Hold IV Flush (NS 3 ml) 3 ml PER PROTOCOL IV ; Start 10/18/18 at 14:30 Ondansetron HCl (Zofran Inj) 4 mg Q6H PRN IV NAUSEA/VOMITING Last administered on 10/22/18 01:12; Admin Dose 4 MG; Start 10/18/18 at 14:30 Acetaminophen (Tylenol Tab) 650 mg Q6H PRN PO .PAIN 1-3 OR TEMP Last administered on 10/19/18 11:56; Admin Dose 650 MG; Start 10/18/18 at 14:30 Acetaminophen/ Hydrocodone Bitart ([place] (5/325)) 1 tab Q6H PRN PO .MOD PAIN 4- 6; Start 10/18/18 at 14:30 Docusate Sodium (Colace) 100 mg Q12H PRN PO .CONSTIPATION; Start 10/18/18 at 14:30 Diagnostic Test (Pha) (Accu-Chek) 1 ea 02 XX Last administered on 10/19/18 02:03; Admin Dose 1 EA; Start 10/19/18 at 02:00 Miscellaneous Information 1 ea NOTE XX ; Start 10/18/18 at 14:30 Glucose (Glutose) 15 gm Q15M PRN PO DECREASED GLUCOSE; Start 10/18/18 at 14:30 Glucose (Glutose) 22.5 gm Q15M PRN PO DECREASED GLUCOSE; Start 10/18/18 at 14:30 Dextrose (D50w Syringe) 25 ml Q15M PRN IV DECREASED GLUCOSE Last administered on 10/20/18 17:06; Admin Dose 25 ML; Start 10/18/18 at 14:30 Dextrose (D50w Syringe) 50 ml Q15M PRN IV DECREASED GLUCOSE; Start 10/18/18 at 14:30 Glucagon (Glucagen) 1 mg Q15M PRN IM DECREASED GLUCOSE; Start 10/18/18 at 14:30 Glucose (Glutose) 15 gm Q15M PRN BUCCAL DECREASED GLUCOSE Last administered on 10/22/18 07:07; Admin Dose 15 GM; Start 10/18/18 at 14:30 Citric Acid/ Sodium Citrate (Bicitra) 30 ml BID PO Last administered on 10/22/18 21:49; Admin Dose 30 ML; Start 10/18/18 at 21:00 Clotrimazole (Lotrimin Cr) 1 applic BID TOP Last administered on 10/22/18 21:57; Admin Dose 1 APPLIC; Start 10/18/18 at 21:00 Ferric Sodium Gluconate Complex 125 mg/Sodium Chloride 110 ml @ 110 mls/hr DAILY@1300 IVPB Last administered on 10/22/18 14:11; Admin Dose 110 MLS/HR; Start 10/19/18 at 13:00; Stop 10/23/18 at 13:59 Epoetin Santiago-epbx (RETACRIT(non-esrd)) 10,000 unit TuThSa@1700 SC Last administered on 10/22/18 19:08; Admin Dose 10,000 UNIT; Start 10/20/18 at 17:00 Insulin Glargine (Lantus) 9 units DAILY@0800 SC Last administered on 10/21/18 08:52; Admin Dose 9 UNITS; Start 10/21/18 at 08:00 Insulin Aspart (Novolog Insulin Pen) NOVOLOG *MILD* ALGORITHM AC MEALS AND BEDT ELIZABETH SC Last administered on 10/22/18 17:45; Admin Dose 1 UNIT; Start 10/20/18 at 17:30 Sevelamer Carbonate (Renvela) 800 mg WITH MEALS PO Last administered on 10/22/18 17:44; Admin Dose 800 MG; Start 10/21/18 at 12:00 Metoprolol Succinate (Toprol Xl) 50 mg BID PO Last administered on 10/22/18 21:51; Admin Dose 50 MG; Start 10/21/18 at 21:00 Aspirin (Aspirin) 81 mg DAILY PO Last administered on 10/22/18 08:14; Admin Dose 81 MG; Start 10/21/18 at 12:00 Heparin Sodium (Porcine) (Heparin (5000 Units/1ml)) 5,000 unit BID SC Last administered on 10/23/18 09:10; Admin Dose 5,000 UNIT; Start 10/21/18 at 21:00 Daptomycin 350 mg/ Sodium Chloride 100 ml @ 200 mls/hr Q48H IVPB Last administ ered on 10/21/18 17:49; Admin Dose 200 MLS/HR; Start 10/21/18 at 14:00 Meropenem/Sodium Chloride 50 ml @ 100 mls/hr Q24H IVPB Last administered on 10/22/18 15:45; Admin Dose 100 MLS/HR; Start 10/21/18 at 13:00 Guaifenesin/ Dextromethorphan (Robitussin Dm Liquid Cup) 10 ml Q4H PRN PO COUGH Last administered on 10/21/18 15:25; Admin Dose 10 ML; Start 10/21/18 at 15:00 IV Flush (NS 10 ml) 10 ml Q8 PRN IV IV PROTOCOL; Start 10/21/18 at 15:00 Sodium Hypochlorite (Dakins Diluted ()) 1 applic DAILY TP Last administered on 10/22/18 08:21; Admin Dose 1 APPLIC; Start 10/22/18 at 09:00 Acetylcysteine (Nac) 1,200 mg BID PO Last administered on 10/22/18 21:49; Admin Dose 1,200 MG; Start 10/21/18 at 21:00; Stop 10/25/18 at 20:59 Pentoxifylline (Trental) 400 mg TID PO Last administered on 10/22/18at 21:51; Admin Dose 400 MG; Start 10/21/18 at 21:00 Cilostazol (Pletal) 50 mg BID PO Last administered on 10/22/18 21:49; Admin Dose 50 MG; Start 10/21/18 at 21:00 Doxazosin Mesylate (Cardura) 4 mg HS PO ; Start 10/23/18 at 21:00; Status JOSUE SANCHEZ MD October 23, 2018 09:22
--- NOTE | 2018-10-23 12:12 | CONS ---
Assessment/Plan Assessment/Plan Hospital Course (Demo Recall) 1. Nonoliguric acute kidney injury on top of chronic kidney disease stage V. Renal function slowly improving. This may be secondary to hemodynamics due to recent surgery. At this point, we would continue to monitor, continue supportive care, renally dose all medications. 2. Metabolic acidosis. Continue Bicitra. 3. Hypernatremia, resolved. 4. Anemia. The patient is status post blood transfusion. Continue IV iron. Continue Epogen. 5. Mineral bone disorder, monitor calcium and phosphorus levels. We will continue the patient on phosphate binders. 6. Sepsis secondary to cellulitis, right foot abscess. The patient is status post incision and drainage, abscess evacuation. Continue to monitor. Follow up with podiatry. 7. Peripheral vascular disease. Continue medical management. Follow up with vascular surgery. 8. Diabetes. Continue current insulin regimen. 9. Dyslipidemia. Continue statin therapy. 10. Hypertension. Continue current blood pressure regimen. 11. Bilateral blindness. Consultation Date/Type/Reason Admit Date/Time October 18, 2018 at 04:40 Initial Consult Date Date/Time of Note DATE: 10/23/18 TIME: 12:11 Exam/Review of Systems Exam Vitals Vital Signs Date Temp Pulse Resp B/P (MAP) Pulse Ox O2 O2 Flow FiO2 Time Delivery Rate 10/23/18 98.5 70 18 159/73 97 07:43 (101) 10/21/18 Room Air 14:08 Intake and Output 10/22/18 10/22/18 10/23/18 1515:00 23:00 07:00 IntakeIntake Total 480 ml 400 ml 240 ml OutputOutput Total 700 ml BalanceBalance 480 ml 400 ml -460 ml Results Result Diagram: 10/23/18 0609 10/23/18 0609 Results 24hrs Laboratory Tests Test 10/22/18 12:36 10/22/18 17:43 10/22/18 21:58 10/23/18 06:09 Bedside Glucose 196 151 128 White Blood Count 8.6 Red Blood Count 2.46 L Hemoglobin 7.6 L Hematocrit 23.5 L Mean Corpuscular 95.5 Volume Mean Corpuscular 30.9 Hemoglobin Mean Corpuscular 32.3 Hemoglobin Concen t Red Cell 14.8 H Distribution Width Platelet Count 306 Mean Platelet 9.1 Volume Immature 5.700 H Granulocytes % Neutrophils % 69.0 Segmented 83 H Neutrophils % (Manual) Band Neutrophils 1 % (Manual) Lymphocytes % 10.9 L Lymphocytes % 9 L (Manual) Monocytes % 9.5 Monocytes % 4 (Manual) Eosinophils % 4.3 Eosinophils % 2 (Manual) Basophils % 0.6 Basophils % 1 (Manual) Nucleated Red 1 H Blood Cells % Immature 0.490 H Granulocytes # Neutrophils # 5.9 Neutrophils # 7.1 (Manual) Band Neutrophils 0.0 # Lymphocytes 0.7 L (Manual) Lymphocytes # 0.9 Monocytes # 0.8 Monocytes # 0.3 (Manual) Eosinophils # 0.4 Basophils # 0.1 Basophils # 0.0 (Manual) Nucleated Red 0.0 Blood Cells # Platelet Estimate NORMAL Polychromasia 3+ Poikilocytosis 3+ Anisocytosis 2+ Microcytosis 1+ Sodium Level 139 Potassium Level 3.9 Chloride Level 112 H Carbon Dioxide 18 L Level Anion Gap 9 Blood Urea 53 H Nitrogen Creatinine 6.06 H Est Glomerular 10 L Filtrat Rate mL/min Glucose Level 104 # Calcium Level 7.9 L Phosphorus Level 5.1 H Magnesium Level 2.1 Total Bilirubin 0.1 L Direct Bilirubin 0.00 Indirect 0.1 Bilirubin Aspartate Amino 18 Transf (AST/SGOT) Alanine 23 Aminotransferase (ALT/SGPT) Alkaline 95 Phosphatase Total Protein 5.7 L Albumin 2.3 L Globulin 3.40 H Albumin/Globulin 0.67 Ratio Test 10/23/18 06:35 10/23/18 08:05 Lab Scanned BLOOD TRANSFUSIO Report N Bedside Glucose 130 Medications Medication Current Medications Folic Acid (Folic Acid) 1 mg DAILY PO Last administered on 10/23/18at 09:13; Admin Dose 1 MG; Start 10/19/18 at 09:00 Atorvastatin Calcium (Lipitor) 10 mg DAILY@21 PO Last administered on 10/20/18at 20:57; Admin Dose 10 MG; Start 10/18/18 at 21:00; Status Hold IV Flush (NS 3 ml) 3 ml PER PROTOCOL IV ; Start 10/18/18 at 14:30 Ondansetron HCl (Zofran Inj) 4 mg Q6H PRN IV NAUSEA/VOMITING Last administered on 10/22/18at 01:12; Admin Dose 4 MG; Start 10/18/18 at 14:30 Acetaminophen (Tylenol Tab) 650 mg Q6H PRN PO .PAIN 1-3 OR TEMP Last administered on 10/19/18at 11:56; Admin Dose 650 MG; Start 10/18/18 at 14:30 Acetaminophen/ Hydrocodone Bitart ([place] (5/325)) 1 tab Q6H PRN PO .MOD PAIN 4- 6; Start 10/18/18 at 14:30 Docusate Sodium (Colace) 100 mg Q12H PRN PO .CONSTIPATION; Start 10/18/18 at 14:30 Diagnostic Test (Pha) (Accu-Chek) 1 ea 02 XX Last administered on 10/19/18at 02:03; Admin Dose 1 EA; Start 10/19/18 at 02:00 Miscellaneous Information 1 ea NOTE XX ; Start 10/18/18 at 14:30 Glucose (Glutose) 15 gm Q15M PRN PO DECREASED GLUCOSE; Start 10/18/18 at 14:30 Glucose (Glutose) 22.5 gm Q15M PRN PO DECREASED GLUCOSE; Start 10/18/18 at 14:30 Dextrose (D50w Syringe) 25 ml Q15M PRN IV DECREASED GLUCOSE Last administered on 10/20/18at 17:06; Admin Dose 25 ML; Start 10/18/18 at 14:30 Dextrose (D50w Syringe) 50 ml Q15M PRN IV DECREASED GLUCOSE; Start 10/18/18 at 14:30 Glucagon (Glucagen) 1 mg Q15M PRN IM DECREASED GLUCOSE; Start 10/18/18 at 14:30 Glucose (Glutose) 15 gm Q15M PRN BUCCAL DECREASED GLUCOSE Last administered on 10/22/18at 07:07; Admin Dose 15 GM; Start 10/18/18 at 14:30 Citric Acid/ Sodium Citrate (Bicitra) 30 ml BID PO Last administered on 09:12; Admin Dose 30 ML; Start 10/18/18 at 21:00 Clotrimazole (Lotrimin Cr) 1 applic BID TOP Last administered on 10/23/18at 09:14; Admin Dose 1 APPLIC; Start 10/18/18 at 21:00 Ferric Sodium Gluconate Complex 125 mg/Sodium Chloride 110 ml @ 110 mls/hr DAILY@1300 IVPB Last administered on 10/22/18at 14:11; Admin Dose 110 MLS/HR; Start 10/19/18 at 13:00; Stop 10/23/18 at 13:59 Epoetin Santiago-epbx (RETACRIT(non-esrd)) 10,000 unit TuThSa@1700 SC Last administered on 10/22/18 19:08; Admin Dose 10,000 UNIT; Start 10/20/18 at 17:00 Insulin Glargine (Lantus) 9 units DAILY@0800 SC Last administered on 10/23/18 09:10; Admin Dose 9 UNITS; Start 10/21/18 at 08:00 Insulin Aspart (Novolog Insulin Pen) NOVOLOG *MILD* ALGORITHM AC MEALS AND BEDTIME SC Last administered on 10/22/18 17:45; Admin Dose 1 UNIT; Start 10/20/18 at 17:30 Sevelamer Carbonate (Renvela) 800 mg WITH MEALS PO Last administered on 10/23/18 09:12; Admin Dose 800 MG; Start 10/21/18 at 12:00 Metoprolol Succinate (Toprol Xl) 50 mg BID PO Last administered on 10/23/18 09:19; Admin Dose 50 MG; Start 10/21/18 at 21:00 Aspirin (Aspirin) 81 mg DAILY PO Last administered on 10/23/18 09:13; Admin Dose 81 MG; Start 10/21/18 at 12:00 Heparin Sodium (Porcine) (Heparin (5000 Units/1ml)) 5,000 unit BID SC Last administered on 10/23/18 09:10; Admin Dose 5,000 UNIT; Start 10/21/18 at 21:00 Daptomycin 350 mg/ Sodium Chloride 100 ml @ 200 mls/hr Q48H IVPB Last administered on 10/21/18 17:49; Admin Dose 200 MLS/HR; Start 10/21/18 at 14:00 Meropenem/Sodium Chloride 50 ml @ 100 mls/hr Q24H IVPB Last administered on 10/22/18 15:45; Admin Dose 100 MLS/HR; Start 10/21/18 at 13:00 Guaifenesin/ Dextromethorphan (Robitussin Dm Liquid Cup) 10 ml Q4H PRN PO COUGH Last administered on 10/21/18 15:25; Admin Dose 10 ML; Start 10/21/18 at 15:00 IV Flush (NS 10 ml) 10 ml Q8 PRN IV IV PROTOCOL; Start 10/21/18 at 15:00 Sodium Hypochlorite (Dakins Diluted ()) 1 applic DAILY TP Last administered on 10/23/18at 09:14; Admin Dose 1 APPLIC; Start 10/22/18 at 09:00 Acetylcysteine (Nac) 1,200 mg BID PO Last administered on 10/23/18at 09:12; Admin Dose 1,200 MG; Start 10/21/18 at 21:00; Stop 10/25/18 at 20:59 Pentoxifylline (Trental) 400 mg TID PO Last administered on 10/23/18 09:13; Admin Dose 400 MG; Start 10/21/18 at 21:00 Cilostazol (Pletal) 50 mg BID PO Last administered on 10/23/18 09:13; Admin Dose 50 MG; Start 10/21/18 at 21:00 Doxazosin Mesylate (Cardura) 4 mg HS PO ; Start 10/23/18 at 21:00 CHEVY NÚÑEZ MD October 23, 2018 12:12
[2018-10-23 13:04] VITALS: BP 153/72; PULSE 78; RESP 18
[2018-10-23] MEDS: MEROPENEM 500MG/50 ML (PMX) 50 ML IVPB SCH (13:36)
[2018-10-23] MEDS: DAPTOMYCIN 350 MG in SOD CHLORIDE 0.9% 100 ML IVPB SCH (14:07)
[2018-10-23] MEDS: SOD FERRIC GLUC COMPLX 125 MG in SOD CHLORIDE 0.9% 100 ML IVPB SCH (15:09)
--- NOTE | 2018-10-23 16:04 | CONS ---
Assessment/Plan Assessment/Plan Hospital Course (Demo Recall) ID PROGRESS NOTE CURRENT ABX: DAY #=> Daptomycin IV + Merrem 10/23/18 0609 10/23/18 0609 24H INTERVAL SUMMARY * Resting comfortably, no fevers, VSS, NAD, chart reviewed * Loose stools w/(-)C.Diff toxin IMAGING * MRI of the right foot revealed osteomyelitis with possible phlegmon collection MICRO/OTHER * Urine and BCX (-) * 10/20/18 FOOT CX: WOUND CULTURE Preliminary Organism 1 STAPHYLOCOCCUS SPECIES QUANTITY ISOLATED FROM BROTH ONLY No growth after 2 days PHYSICAL EXAMINATION: GENERAL: VSS, NAD HEENT: AT, NC, anicteric, NECK: Supple, CHEST: Equal chest rise bilaterally without dyspnea on observation HEART: Pulse RRR ABDOMEN: soft EXTREMITIES: Warm, dry---right foot swelling and erythema SKIN: No rash, no diaphoresis ID ASSESSMENT 57 yo M admit with: 1. Sepsis, present on admission 2. Right foot cellulitis, osteomyelitis, abscess s/p i/d 10/20/18 * 10/20/18 FOOT CX: WOUND CULTURE Preliminary Organism 1 STAPHYLOCOCCUS SPECIES QUANTITY ISOLATED FROM BROTH ONLY No growth after 2 days 3. End-stage renal disease, not on HD 4. Diabetes (-)MRSA Nares ABX ALLERGIES: KNDA INVASIVES: PIV CURRENT ABX: DAY # => Daptomycin IV + Merrem ID RECOMMENDATIONS/PLAN: 1. Continue current ABX over the weekend -- Defer de-escalation of Merrem to [employer]UC[employer] Colleague review next week 2. He will need minimum 6 weeks DAPTO for Staph Species . Consultation Date/Type/Reason Admit Date/Time October 18, 2018 at 04:40 Initial Consult Date Date/Time of Note DATE: 10/23/18 TIME: 16:01 Exam/Review of Systems Exam Vitals Vital Signs Date Temp Pulse Resp B/P (MAP) Pulse Ox O2 O2 Flow FiO2 Time Delivery Rate 10/23/18 98.8 78 18 153/72 98 13:04 (99) 10/21/18 Room Air 14:08 Intake and Output 10/22/18 10/22/18 10/23/18 1515:00 23:00 07:00 IntakeIntake Total 480 ml 400 ml 240 ml OutputOutput Total 700 ml BalanceBalance 480 ml 400 ml -460 ml Results Result Diagram: 10/23/18 0609 10/23/18 0609 Results 24hrs Laboratory Tests Test 10/22/18 17:43 10/22/18 21:58 10/23/18 06:09 10/23/18 06:35 Bedside Glucose 151 128 White Blood Count 8.6 Red Blood Count 2.46 L Hemoglobin 7.6 L Hematocrit 23.5 L Mean Corpuscular 95.5 Volume Mean Corpuscular 30.9 Hemoglobin Mean Corpuscular 32.3 Hemoglobin Concen t Red Cell 14.8 H Distribution Width Platelet Count 306 Mean Platelet 9.1 Volume Immature 5.700 H Granulocytes % Neutrophils % 69.0 Segmented 83 H Neutrophils % (Manual) Band Neutrophils 1 % (Manual) Lymphocytes % 10.9 L Lymphocytes % 9 L (Manual) Monocytes % 9.5 Monocytes % 4 (Manual) Eosinophils % 4.3 Eosinophils % 2 (Manual) Basophils % 0.6 Basophils % 1 (Manual) Nucleated Red 1 H Blood Cells % Immature 0.490 H Granulocytes # Neutrophils # 5.9 Neutrophils # 7.1 (Manual) Band Neutrophils 0.0 # Lymphocytes 0.7 L (Manual) Lymphocytes # 0.9 Monocytes # 0.8 Monocytes # 0.3 (Manual) Eosinophils # 0.4 Basophils # 0.1 Basophils # 0.0 (Manual) Nucleated Red 0.0 Blood Cells # Platelet Estimate NORMAL Polychromasia 3+ Poikilocytosis 3+ Anisocytosis 2+ Microcytosis 1+ Sodium Level 139 Potassium Level 3.9 Chloride Level 112 H Carbon Dioxide 18 L Level Anion Gap 9 Blood Urea 53 H Nitrogen Creatinine 6.06 H Est Glomerular 10 L Filtrat Rate mL/min Glucose Level 104 # Calcium Level 7.9 L Phosphorus Level 5.1 H Magnesium Level 2.1 Total Bilirubin 0.1 L Direct Bilirubin 0.00 Indirect 0.1 Bilirubin Aspartate Amino 18 Transf (AST/SGOT) Alanine 23 Aminotransferase (ALT/SGPT) Alkaline 95 Phosphatase Total Protein 5.7 L Albumin 2.3 L Globulin 3.40 H Albumin/Globulin 0.67 Ratio Lab Scanned BLOOD TRANSFUSIO Report N Test 10/23/18 08:05 10/23/18 12:45 Bedside Glucose 130 139 Medications Medication Current Medications Folic Acid (Folic Acid) 1 mg DAILY PO Last administered on 10/23/18at 09:13; Admin Dose 1 MG; Start 10/19/18 at 09:00 Atorvastatin Calcium (Lipitor) 10 mg DAILY@21 PO Last administered on 10/20/18at 20:57; Admin Dose 10 MG; Start 10/18/18 at 21:00; Status Hold IV Flush (NS 3 ml) 3 ml PER PROTOCOL IV ; Start 10/18/18 at 14:30 Ondansetron HCl (Zofran Inj) 4 mg Q6H PRN IV NAUSEA/VOMITING Last administered on 10/22/18at 01:12; Admin Dose 4 MG; Start 10/18/18 at 14:30 Acetaminophen (Tylenol Tab) 650 mg Q6H PRN PO .PAIN 1-3 OR TEMP Last administered on 10/19/18at 11:56; Admin Dose 650 MG; Start 10/18/18 at 14:30 Acetaminophen/ Hydrocodone Bitart ([place] (5/325)) 1 tab Q6H PRN PO .MOD PAIN 4- 6; Start 10/18/18 at 14:30 Docusate Sodium (Colace) 100 mg Q12H PRN PO .CONSTIPATION; Start 10/18/18 at 14:30 Diagnostic Test (Pha) (Accu-Chek) 1 ea 02 XX Last administered on 10/19/18at 02:03; Admin Dose 1 EA; Start 10/19/18 at 02:00 Miscellaneous Information 1 ea NOTE XX ; Start 10/18/18 at 14:30 Glucose (Glutose) 15 gm Q15M PRN PO DECREASED GLUCOSE; Start 10/18/18 at 14:30 Glucose (Glutose) 22.5 gm Q15M PRN PO DECREASED GLUCOSE; Start 10/18/18 at 14:30 Dextrose (D50w Syringe) 25 ml Q15M PRN IV DECREASED GLUCOSE Last administered on 10/20/18at 17:06; Admin Dose 25 ML; Start 10/18/18 at 14:30 Dextrose (D50w Syringe) 50 ml Q15M PRN IV DECREASED GLUCOSE; Start 10/18/18 at 14:30 Glucagon (Glucagen) 1 mg Q15M PRN IM DECREASED GLUCOSE; Start 10/18/18 at 14:30 Glucose (Glutose) 15 gm Q15M PRN BUCCAL DECREASED GLUCOSE Last administered on 10/22/18 07:07; Admin Dose 15 GM; Start 10/18/18 at 14:30 Citric Acid/ Sodium Citrate (Bicitra) 30 ml BID PO Last administered on 10/23/18 09:12; Admin Dose 30 ML; Start 10/18/18 at 21:00 Clotrimazole (Lotrimin Cr) 1 applic BID TOP Last administered on 10/23/18 09:14; Admin Dose 1 APPLIC; Start 10/18/18 at 21:00 Epoetin Santiago-epbx (RETACRIT(non-esrd)) 10,000 unit TuThSa@1700 SC Last administered on 10/22/18 19:08; Admin Dose 10,000 UNIT; Start 10/20/18 at 17:00 Insulin Glargine (Lantus) 9 units DAILY@0800 SC Last administered on 10/23/18 09:10; Admin Dose 9 UNITS; Start 10/21/18 at 08:00 Insulin Aspart (Novolog Insulin Pen) NOVOLOG *MILD* ALGORITHM AC MEALS AND BEDTIME SC Last administered on 10/22/18 17:45; Admin Dose 1 UNIT; Start 10/20/18 at 17:30 Sevelamer Carbonate (Renvela) 800 mg WITH MEALS PO Last administered on 10/23/18 09:12; Admin Dose 800 MG; Start 10/21/18 at 12:00 Metoprolol Succinate (Toprol Xl) 50 mg BID PO Last administered on 10/23/18 09:19; Admin Dose 50 MG; Start 10/21/18 at 21:00 Aspirin (Aspirin) 81 mg DAILY PO Last administered on 10/23/18 09:13; Admin Dose 81 MG; Start 10/21/18 at 12:00 Heparin Sodium (Porcine) (Heparin (5000 Units/1ml)) 5,000 unit BID SC Last administered on 10/23/18 09:10; Admin Dose 5,000 UNIT; Start 10/21/18 at 21:00 Daptomycin 350 mg/ Sodium Chloride 100 ml @ 200 mls/hr Q48H IVPB Last administered on 10/23/18 14:07; Admin Dose 200 MLS/HR; Start 10/21/18 at 14:00 Meropenem/Sodium Chloride 50 ml @ 100 mls/hr Q24H IVPB Last administered on 10/23/18 13:36; Admin Dose 100 MLS/HR; Start 10/21/18 at 13:00 Guaifenesin/ Dextromethorphan (Robitussin Dm Liquid Cup) 10 ml Q4H PRN PO COUGH Last administered on 10/21/18 15:25; Admin Dose 10 ML; Start 10/21/18 at 15:00 IV Flush (NS 10 ml) 10 ml Q8 PRN IV IV PROTOCOL; Start 10/21/18 at 15:00 Sodium Hypochlorite (Dakins Diluted (40)) 1 applic DAILY TP Last administered on 10/23/18 09:14; Admin Dose 1 APPLIC; Start 10/22/18 at 09:00 Acetylcysteine (Nac) 1,200 mg BID PO Last administered on 10/23/18 09:12; Admin Dose 1,200 MG; Start 10/21/18 at 21:00; Stop 10/25/18 at 20:59 Pentoxifylline (Trental) 400 mg TID PO Last administered on 10/23/18 09:13; Admin Dose 400 MG; Start 10/21/18 at 21:00 Cilostazol (Pletal) 50 mg BID PO Last administered on 10/23/18 09:13; Admin Dose 50 MG; Start 10/21/18 at 21:00 Doxazosin Mesylate (Cardura) 4 mg HS PO ; Start 10/23/18 at 21:00 KRISTINA MÁRQUEZ NP October 23, 2018 16:04
[2018-10-23 20:00] VITALS: BP 143/79; PULSE 72; RESP 18
[2018-10-23] MEDS: DOXAZOSIN 4 MG TAB PO SCH (20:57)
[2018-10-24] MEDS: ACCU-CHEK XX SCH (01:57)
[2018-10-24 02:00] VITALS: BP 148/73; PULSE 73; RESP 18
[2018-10-24 07:58] VITALS: BP 161/77; PULSE 75; RESP 18
--- NOTE | 2018-10-24 08:26 | PN ---
DATE: 10/24/2018 SUBJECTIVE: The patient is stable overnight. No fevers, chills, nausea or vomiting. The patient lee s no shortness of breath. OBJECTIVE: VITAL SIGNS: Blood pressure is 148/73, respirations 18, pulse 73, temperature 98.4. HEENT: Head is normocephalic. NECK: Supple. HEART: Regular rate. LUNGS: Show diminished breath sounds at the base. ABDOMEN: Soft, nontender to palpation without rebound or guarding. EXTREMITIES: Negative for clubbing, cyanosis. Noted wound on right lower extremity. NEUROLOGIC: No change in exam. MUSCULOSKELETAL: No joint effusion. DERMATOLOGIC: No new rashes. MEDICATIONS: The patient's medications have been reviewed. LABORATORY DATA: Reviewed. ASSESSMENT AND PLAN: 1. Nonoliguric acute kidney injury on top of chronic kidney disease stage V. Renal function has bee n fluctuating appears to be between creatinine of 5 and 6 mg/dL. The patient has refused hemodialysi s previously. Risks and benefits were explained to the patient. We will continue to monitor. Janusz nue current treatment plans, supportive care, renally dose all medications. 3. Metabolic acidosis. Continue Bicitra. 4. Hypernatremia, resolved. 5. Anemia, continue IV iron. Continue Epogen as needed. 6. Mineral bone disorder. Monitor calcium and phosphorus levels. Continue phosphate binders, and v itamin D analogs. 7. Sepsis secondary to cellulitis and abscess. The patient is status post incision and drainage. C ontinue to monitor. Continue antibiotic therapy. 8. Peripheral vascular disease. Continue medical management. 9. Diabetes. Continue current insulin regimen. 10. Dyslipidemia. Continue statin therapy. 11. Hypertension. Continue current blood pressure regimen. 12. Bilateral blindness. Dictated By: GI PENA DO NR/NTS Conf#: [id number] DID#: [id number] CC: JIMENEZ HAILE MD; EILEEN MCCALL MD;*End*
[2018-10-24] MEDS: INSULIN ASPART [NOVOLOG] 3 ML PEN SC SCH ×4 (08:30→21:00)
[2018-10-24] MEDS: ASPIRIN 81 MG TAB PO SCH (09:50)
[2018-10-24] MEDS: ACETYLCYSTEINE 600 MG CAP PO SCH ×2 (09:50→21:36)
[2018-10-24] MEDS: CILOSTAZOL 100 MG TAB PO SCH ×2 (09:50→21:45)
[2018-10-24] MEDS: PENTOXIFYLLINE (SR) 400 MG TAB PO SCH ×3 (09:50→21:35)
[2018-10-24] MEDS: FOLIC ACID 1 MG TAB PO SCH (09:50)
[2018-10-24] MEDS: CITRIC ACID/NA CITRATE 30 ML CUP PO SCH ×2 (09:50→21:36)
[2018-10-24] MEDS: METOPROLOL (XL) 50 MG TAB PO SCH ×2 (09:50→21:40)
[2018-10-24] MEDS: SEVELAMER CARBONATE 800 MG TABLET PO SCH ×3 (09:50→18:42)
[2018-10-24] MEDS: HEPARIN 5,000 UNIT/1 ML VIAL SC SCH ×2 (10:02→21:00)
[2018-10-24] MEDS: CLOTRIMAZOLE 1% 30 GM CR TOP SCH ×2 (10:03→21:51)
[2018-10-24] MEDS: INSULIN GLARGINE [LANTus] (100 UNITS/ML) SYG SC SCH (10:03)
--- NOTE | 2018-10-24 10:43 | PQ ---
Date/Time of Note Date/Time of Note DATE: 10/24/18 TIME: 10:[address] Baker , A review of the medical record found a need for documentation clarification. on 10/20 patient underwent incision and drainage right foot. un the body of the report documented "Copious antibiotic infused pulse lavage irrigation was used at the plantar aspect of the right foot post lavage wound cultures were obtained" Please specify the depth of the pulse lavage irrigation" Thank you Please clarify a diagnosis being treated. To facilitate accurate and complete coding, please alysia ( x ) the suspected diagnosis that apply: ( x ) Skin ( x ) Subcutaneous tissue and fascia ( x ) muscles ( x ) Tendon ( ) Bone ( ) Bursa ( ) Other ( ) Unable to determine Please provide your response by clicking edit document,make your choice (x ) , click ok/save and finally click sign. You may alsodocument your responseinyour progress notes. Thank you for your time. Kelsy GILESBS,CCS,CCDS Clinical Pamphlet Distributor Health Information Management, CDI and Coding Services Room # [id number] - Coding [place] [phone] KELSY JAMES October 24, 2018 10:43 RM BAKER DPM October 25, 2018 10:31
--- NOTE | 2018-10-24 11:46 | PN ---
Date/Time of Note Date/Time of Note DATE: 10/24/18 TIME: 11:42 Assessment/Plan VTE Prophylaxis Risk score (from Ns)>0 risk: 2 SCD applied (from Ns): No SCD contraindicated: other Pharmacological prophylaxis: heparin Lines/Catheters IV Catheter Type (from [facility]): PICC Line Central line still needed: Yes Urinary Cath still in place: No Assessment/Plan Hospital Course SUBJECTIVE:No acute distress. no fevers. OBJECTIVE: Vital signs-see below PHYSICAL EXAM: Constitutional: Adequately built,not in acute distress. HEENT:Blind. Head atraumatic and normocephalic. Eyes: Extraocular muscles intact. NECK: Supple without lymph node. CHEST: Clear and good breath sounds equally. No wheezing. No rhonchi. HEART: S1, S2. Regular rate and rhythm. ABDOMEN: Soft/non tender with no rebound tenderness. Bowel sounds were present. EXTREMITIES:R foot covered w/dressing.no oozing noted..Missing toes. No cyanosis, clubbing or edema. NEUROLOGIC: Alert and oriented x3. No focal deficit. No sensory deficit. PSYCHOSOCIAL: No signs of depression. INTEGUMENTARY: See extremity assessment. Skin appears pale. ASSESSMENT AND PLAN:57 yo M w/DMII, CKD, chronic anemia, PAD s/p toe amputations,dyslipidemia, transferred from OSH for inpatient management for sepsis w/ R foot DM cellulitis... Right foot DM cellulitis w/Abscess -s/p OR Incision and drainage right foot 10/20/18 -cultures negative -Glycemic control Osteomyelitis of Right 5th metatarsal base -abx per ID=>requires assisted iv abx-on Merrem/dapto=>consider deescalation. Sepsis,POA with right foot cellulitis/abscess -resolved -consider abx deescalation Acute on Chronic anemia -s/p 1 PRBS-HH improved -on iron /Epogen CKD progressing to ESRD -REFUSED HD -appreciate nephrology recs -His renal fxn is an obstacle to appropriate abx/vascular f/u -AVOID NEPHROTOXINS AND RENALLY DOSE ALL MEDS HX Nephrolithiasis/ JJ stent 2yrs ago -Pt just reported that he never f/u w/urologist for removal -consult Hypertension -on Toprol/Cardura DMII -stable -basal/bolus PVD,s/p toe amputations -Arterial studies noted-appreciate vascular recommendation and patient would definitely benefit from vascular intervention. However his renal function and unable to accept hemodialysis treatment precludes him from getting appropriate vascular intervention. Deferred for outpatient discussion -Continue to optimize neurovascular status with antihypertensives to keep blood pressure ~140/90, diet, nutrition, exercise, blood glucose control, and antiplatelets/anticoagulation(when appropriate). -on Aspirin/Trental Dyslipidemia -on statin Blindness -Supportive care DVT prophylaxis: Heparin PUD prophylaxis: Not indicated Dispo:f/u consultants recommendation. Patient adamantly refuses dialysis and he may also benefit from inpatient psych eval as he might be depressed, lack of insight into medical condition which is obstructing further treatment. Patient was seen in collaboration with Dr. Nelson Result Diagram: 10/23/18 0609 10/23/18 0609 Results 24hrs Laboratory Tests Test 10/23/18 12:45 10/23/18 17:17 10/23/18 20:54 10/24/18 08:22 Bedside Glucose 139 94 126 74 Exam/Review of Systems Exam Vitals Vital Signs Date Temp Pulse Resp B/P (MAP) Pulse Ox O2 O2 Flow FiO2 Time Delivery Rate 10/24/18 98.7 75 18 161/77 97 Room Air 07:58 (105) Intake and Output 10/23/18 10/23/18 10/24/18 1515:00 23:00 07:00 IntakeIntake Total 390 ml 830 ml OutputOutput Total 500 ml 200 ml BalanceBalance 390 ml 330 ml -200 ml Results Results 24hrs Laboratory Tests Test 10/23/18 12:45 10/23/18 17:17 10/23/18 20:54 10/24/18 08:22 Bedside Glucose 139 94 126 74 Medications Medication Current Medications Folic Acid (Folic Acid) 1 mg DAILY PO Last administered on 10/24/18at 09:50; Admin Dose 1 MG; Start 10/19/18 at 09:00 Atorvastatin Calcium (Lipitor) 10 mg DAILY@21 PO Last administered on 10/20/18at 20:57; Admin Dose 10 MG; Start 10/18/18 at 21:00; Status Hold IV Flush (NS 3 ml) 3 ml PER PROTOCOL IV ; Start 10/18/18 at 14:30 Ondansetron HCl (Zofran Inj) 4 mg Q6H PRN IV NAUSEA/VOMITING Last administered on 10/22/18at 01:12; Admin Dose 4 MG; Start 10/18/18 at 14:30 Acetaminophen (Tylenol Tab) 650 mg Q6H PRN PO .PAIN 1-3 OR TEMP Last administered on 10/19/18 11:56; Admin Dose 650 MG; Start 10/18/18 at 14:30 Acetaminophen/ Hydrocodone Bitart ([place] (5/325)) 1 tab Q6H PRN PO .MOD PAIN 4- 6; Start 10/18/18 at 14:30 Docusate Sodium (Colace) 100 mg Q12H PRN PO .CONSTIPATION; Start 10/18/18 at 14:30 Diagnostic Test (Pha) (Accu-Chek) 1 ea 02 XX Last administered on 10/19/18at 02:03; Admin Dose 1 EA; Start 10/19/18 at 02:00 Miscellaneous Information 1 ea NOTE XX ; Start 10/18/18 at 14:30 Glucose (Glutose) 15 gm Q15M PRN PO DECREASED GLUCOSE; Start 10/18/18 at 14:30 Glucose (Glutose) 22.5 gm Q15M PRN PO DECREASED GLUCOSE; Start 10/18/18 at 14:30 Dextrose (D50w Syringe) 25 ml Q15M PRN IV DECREASED GLUCOSE Last administered on 10/20/18at 17:06; Admin Dose 25 ML; Start 10/18/18 at 14:30 Dextrose (D50w Syringe) 50 ml Q15M PRN IV DECREASED GLUCOSE; Start 10/18/18 at 14:30 Glucagon (Glucagen) 1 mg Q15M PRN IM DECREASED GLUCOSE; Start 10/18/18 at 14:30 Glucose (Glutose) 15 gm Q15M PRN BUCCAL DECREASED GLUCOSE Last administered on 10/22/18at 07:07; Admin Dose 15 GM; Start 10/18/18 at 14:30 Citric Acid/ Sodium Citrate (Bicitra) 30 ml BID PO Last administered on 10/24/18at 09:50; Admin Dose 30 ML; Start 10/18/18 at 21:00 Clotrimazole (Lotrimin Cr) 1 applic BID TOP Last administered on 10/24/18at 10:03; Admin Dose 1 APPLIC; Start 10/18/18 at 21:00 Epoetin Santiago-epbx (RETACRIT(non-esrd)) 10,000 unit TuThSa@1700 SC Last admi nistered on 10/22/18 19:08; Admin Dose 10,000 UNIT; Start 10/20/18 at 17:00 Insulin Glargine (Lantus) 9 units DAILY@0800 SC Last administered on 10/24/18 10:03; Admin Dose 9 UNITS; Start 10/21/18 at 08:00 Insulin Aspart (Novolog Insulin Pen) NOVOLOG *MILD* ALGORITHM AC MEALS AND BEDTIME SC Last administered on 10/22/18 17:45; Admin Dose 1 UNIT; Start 10/20/18 at 17:30 Sevelamer Carbonate (Renvela) 800 mg WITH MEALS PO Last administered on 10/24/18 09:50; Admin Dose 800 MG; Start 10/21/18 at 12:00 Metoprolol Succinate (Toprol Xl) 50 mg BID PO Last administered on 10/24/18 09:50; Admin Dose 50 MG; Start 10/21/18 at 21:00 Aspirin (Aspirin) 81 mg DAILY PO Last administered on 10/24/18 09:50; Admin Dose 81 MG; Start 10/21/18 at 12:00 Heparin Sodium (Porcine) (Heparin (5000 Units/1ml)) 5,000 unit BID SC Last administered on 10/24/18 10:02; Admin Dose 5,000 UNIT; Start 10/21/18 at 21:00 Daptomycin 350 mg/ Sodium Chloride 100 ml @ 200 mls/hr Q48H IVPB Last administered on 10/23/18 14:07; Admin Dose 200 MLS/HR; Start 10/21/18 at 14:00 Meropenem/Sodium Chloride 50 ml @ 100 mls/hr Q24H IVPB Last administered on 10/23/18 13:36; Admin Dose 100 MLS/HR; Start 10/21/18 at 13:00 Guaifenesin/ Dextromethorphan (Robitussin Dm Liquid Cup) 10 ml Q4H PRN PO COUGH Last administered on 10/21/18 15:25; Admin Dose 10 ML; Start 10/21/18 at 15:00 IV Flush (NS 10 ml) 10 ml Q8 PRN IV IV PROTOCOL; Start 10/21/18 at 15:00 Sodium Hypochlorite (Dakins Diluted ()) 1 applic DAILY TP Last administered on 10/23/18at 09:14; Admin Dose 1 APPLIC; Start 10/22/18 at 09:00 Acetylcysteine (Nac) 1,200 mg BID PO Last administered on 10/24/18at 09:50; Admin Dose 1,200 MG; Start 10/21/18 at 21:00; Stop 10/25/18 at 20:59 Pentoxifylline (Trental) 400 mg TID PO Last administered on 10/24/18 09:50; Admin Dose 400 MG; Start 10/21/18 at 21:00 Cilostazol (Pletal) 50 mg BID PO Last administered on 10/24/18at 09:50; Admin Dose 50 MG; Start 10/21/18 at 21:00 Doxazosin Mesylate (Cardura) 4 mg HS PO Last administered on 10/23/18at 20:57; Admin Dose 4 MG; Start 10/23/18 at 21:00 ISIDRO PAPPAS [employer] October 24, 2018 11:46
[2018-10-24] MEDS: DAKINS 0.0125%(1/40) 473 ML SOLUTION TP SCH (13:45)
[2018-10-24] MEDS: MEROPENEM 500MG/50 ML (PMX) 50 ML IVPB SCH (13:45)
--- NOTE | 2018-10-24 14:48 | CONS ---
Assessment/Plan Assessment/Plan Hospital Course (Demo Recall) All noted, no acute events, looks comfortable Urine culture negative MRI of the right foot revealed osteomyelitis with possible phlegmon collection Antimicrobials: Daptomycin, Merrem Physical examination: Well-developed middle-aged man who is in no distress head atraumatic normocephalic neck is supple chest rise symmetrical breath sounds diminished bases heart: S1-S2 abdomen soft bowel sounds present extremities with right foot swelling and erythema Assessment: 1. Sepsis, present on admission 2. Right foot cellulitis, osteomyelitis, abscess s/p i/d 10/20/18 3. End-stage renal disease, not on HD 4. Diabetes Plan: Clinically unchanged, continue Daptomycin, change Merrem to Invanz, f/u podiatry/renal rec-s. Anticipate dc on 6 weeks IV abx for treatment of OM Consultation Date/Type/Reason Admit Date/Time October 18, 2018 at 04:40 Initial Consult Date Type of Consult id Date/Time of Note DATE: 10/24/18 TIME: 14:46 Exam/Review of Systems Exam Vitals Vital Signs Date Temp Pulse Resp B/P (MAP) Pulse Ox O2 O2 Flow FiO2 Time Delivery Rate 10/24/18 98.7 75 18 161/77 97 Room Air 07:58 (105) Intake and Output 10/23/18 10/23/18 10/24/18 1515:00 23:00 07:00 IntakeIntake Total 390 ml 830 ml OutputOutput Total 500 ml 200 ml BalanceBalance 390 ml 330 ml -200 ml Results Result Diagram: 10/23/18 0609 10/23/18 0609 Results 24hrs Laboratory Tests Test 10/23/18 17:17 10/23/18 20:54 10/24/18 08:22 10/24/18 13:00 Bedside Glucose 94 126 74 92 Medications Medication Current Medications Folic Acid (Folic Acid) 1 mg DAILY PO Last administered on 10/24/18at 09:50; Admin Dose 1 MG; Start 10/19/18 at 09:00 Atorvastatin Calcium (Lipitor) 10 mg DAILY@21 PO Last administered on 10/20/18at 20:57; Admin Dose 10 MG; Start 10/18/18 at 21:00; Status Hold IV Flush (NS 3 ml) 3 ml PER PROTOCOL IV ; Start 10/18/18 at 14:30 Ondansetron HCl (Zofran Inj) 4 mg Q6H PRN IV NAUSEA/VOMITING Last administered on 10/22/18 01:12; Admin Dose 4 MG; Start 10/18/18 at 14:30 Acetaminophen (Tylenol Tab) 650 mg Q6H PRN PO .PAIN 1-3 OR TEMP Last administered on 10/19/18 11:56; Admin Dose 650 MG; Start 10/18/18 at 14:30 Acetaminophen/ Hydrocodone Bitart ([place] (5/325)) 1 tab Q6H PRN PO .MOD PAIN 4- 6; Start 10/18/18 at 14:30 Docusate Sodium (Colace) 100 mg Q12H PRN PO .CONSTIPATION; Start 10/18/18 at 14:30 Diagnostic Test (Pha) (Accu-Chek) 1 ea 02 XX Last administered on 10/19/18at 02:03; Admin Dose 1 EA; Start 10/19/18 at 02:00 Miscellaneous Information 1 ea NOTE XX ; Start 10/18/18 at 14:30 Glucose (Glutose) 15 gm Q15M PRN PO DECREASED GLUCOSE; Start 10/18/18 at 14:30 Glucose (Glutose) 22.5 gm Q15M PRN PO DECREASED GLUCOSE; Start 10/18/18 at 14:30 Dextrose (D50w Syringe) 25 ml Q15M PRN IV DECREASED GLUCOSE Last administered on 10/20/18at 17:06; Admin Dose 25 ML; Start 10/18/18 at 14:30 Dextrose (D50w Syringe) 50 ml Q15M PRN IV DECREASED GLUCOSE; Start 10/18/18 at 14:30 Glucagon (Glucagen) 1 mg Q15M PRN IM DECREASED GLUCOSE; Start 10/18/18 at 14:30 Glucose (Glutose) 15 gm Q15M PRN BUCCAL DECREASED GLUCOSE Last administered on 10/22/18 07:07; Admin Dose 15 GM; Start 10/18/18 at 14:30 Citric Acid/ Sodium Citrate (Bicitra) 30 ml BID PO Last administered on 10/24/18at 09:50; Admin Dose 30 ML; Start 10/18/18 at 21:00 Clotrimazole (Lotrimin Cr) 1 applic BID TOP Last administered on 10/24/18at 10:03; Admin Dose 1 APPLIC; Start 10/18/18 at 21:00 Epoetin Santiago-epbx (RETACRIT(non-esrd)) 10,000 unit TuThSa@1700 SC Last administered on 10/22/18 19:08; Admin Dose 10,000 UNIT; Start 10/20/18 at 17:00 Insulin Glargine (Lantus) 9 units DAILY@0800 SC Last administered on 10/24/18 10:03; Admin Dose 9 UNITS; Start 10/21/18 at 08:00 Insulin Aspart (Novolog Insulin Pen) NOVOLOG *MILD* ALGORITHM AC MEALS AND BEDTIME SC Last administered on 10/22/18 17:45; Admin Dose 1 UNIT; Start 10/20 at 17:30 Sevelamer Carbonate (Renvela) 800 mg WITH MEALS PO Last administered on 10/24/18 13:45; Admin Dose 800 MG; Start 10/21/18 at 12:00 Metoprolol Succinate (Toprol Xl) 50 mg BID PO Last administered on 10/24/18 09:50; Admin Dose 50 MG; Start 10/21/18 at 21:00 Aspirin (Aspirin) 81 mg DAILY PO Last administered on 10/24/18 09:50; Admin Dose 81 MG; Start 10/21/18 at 12:00 Heparin Sodium (Porcine) (Heparin (5000 Units/1ml)) 5,000 unit BID SC Last administered on 10/24/18 10:02; Admin Dose 5,000 UNIT; Start 10/21/18 at 21:00 Daptomycin 350 mg/ Sodium Chloride 100 ml @ 200 mls/hr Q48H IVPB Last administered on 10/23/18 14:07; Admin Dose 200 MLS/HR; Start 10/21/18 at 14:00 Meropenem/Sodium Chloride 50 ml @ 100 mls/hr Q24H IVPB Last administered on 10/24/18 13:45; Admin Dose 100 MLS/HR; Start 10/21/18 at 13:00 Guaifenesin/ Dextromethorphan (Robitussin Dm Liquid Cup) 10 ml Q4H PRN PO COUGH Last administered on 10/21/18 15:25; Admin Dose 10 ML; Start 10/21/18 at 15:00 IV Flush (NS 10 ml) 10 ml Q8 PRN IV IV PROTOCOL; Start 10/21/18 at 15:00 Sodium Hypochlorite (Dakins Diluted ()) 1 applic DAILY TP Last administered on 10/24/18at 13:45; Admin Dose 1 APPLIC; Start 10/22/18 at 09:00 Acetylcysteine (Nac) 1,200 mg BID PO Last administered on 10/24/18at 09:50; Admi n Dose 1,200 MG; Start 10/21/18 at 21:00; Stop 10/25/18 at 20:59 Pentoxifylline (Trental) 400 mg TID PO Last administered on 10/24/18at 13:45; Admin Dose 400 MG; Start 10/21/18 at 21:00 Cilostazol (Pletal) 50 mg BID PO Last administered on 10/24/18at 09:50; Admin Dose 50 MG; Start 10/21/18 at 21:00 Doxazosin Mesylate (Cardura) 4 mg HS PO Last administered on 10/23/18at 20:57; Admin Dose 4 MG; Start 10/23/18 at 21:00 Docusate Sodium/ Ferrous Fumarate (Taty-Sequels) 1 tab BID PO ; Start 10/24/18 at 21:00 Alteplase, Recombinant (Cathflo (Activase)) 2 mg MAY REPEAT X1 PRN CATHETER IF CATHETER REMAINS OCCULUDED; Start 10/24/18 at 15:00; Status CHEN GARCIAS NP October 24, 2018 14:48
[2018-10-24] MEDS ORDERED: ERTAPENEM SODIUM 1 GM in SOD CHLORIDE 0.9% 100 ML IVPB SCH (15:00)
[2018-10-24 15:04] VITALS: BP 173/72; PULSE 73; RESP 18
--- NOTE | 2018-10-24 15:17 | CONS ---
Assessment/Plan Assessment/Plan Assessment/Plan (Daily) Right foot abscess - s/p incision and drainage (DOS: 10/20/18) Right foot cellulitis Right foot callus Tinea pedis Onychomycosis Hx of digit amputation right foot DM2 with peripheral neuropathy CKD 5 Plan Intra-op cultures currently showing staph coag negative. Continue with daily dressing changes with dakins irrigation, 1/4in iodoform packing, betadine 4x4 gauze and wrap with kerlix. Offload heels while resting in bed. Patient received PICC line placement and recommend continue with IV abx as per recommendations. Appreciate vascular surgery recommendations. Consultation Date/Type/Reason Admit Date/Time October 18, 2018 at 04:40 Initial Consult Date Date/Time of Note DATE: 10/24/18 TIME: 15:17 24 HR Interval Summary Free Text/Dictation No acute events overnight. Exam/Review of Systems Exam Vitals Vital Signs Date Temp Pulse Resp B/P (MAP) Pulse Ox O2 O2 Flow FiO2 Time Delivery Rate 10/24/18 98.9 73 18 173/72 92 Room Air 15:04 (105) Intake and Output 10/23/18 10/23/18 10/24/18 1515:00 23:00 07:00 IntakeIntake Total 390 ml 830 ml OutputOutput Total 500 ml 200 ml BalanceBalance 390 ml 330 ml -200 ml Exam Right plantar surgical incision site with mild serous drainage no foul odor Right lateral foot with mild seropurulent drainage to the surgical incision site. PT pulses palpable, DP weakly palpable Absent protective sensations Warmth to the right foot compared to the left foot Non pitting edema to the right foot Appreciate right foot digit amputation Muscle strength 4/5 in all compartments of the foot. No pain on palpation to the right foot. HPK lesion noted to the right plantar 5th metatarsal White scaling lesions in mocassin distribution. Results Result Diagram: 10/23/18 0609 10/23/18 0609 Results 24hrs Laboratory Tests Test 10/23/18 17:17 10/23/18 20:54 10/24/18 08:22 10/24/18 13:00 Bedside Glucose 94 126 74 92 Medications Medication Current Medications Folic Acid (Folic Acid) 1 mg DAILY PO Last administered on 10/24/18at 09:50; Admin Dose 1 MG; Start 10/19/18 at 09:00 Atorvastatin Calcium (Lipitor) 10 mg DAILY@21 PO Last administered on 10/20/18at 20:57; Admin Dose 10 MG; Start 10/18/18 at 21:00; Status Hold IV Flush (NS 3 ml) 3 ml PER PROTOCOL IV ; Start 10/18/18 at 14:30 Ondansetron HCl (Zofran Inj) 4 mg Q6H PRN IV NAUSEA/VOMITING Last administered on 10/22/18at 01:12; Admin Dose 4 MG; Start 10/18/18 at 14:30 Acetaminophen (Tylenol Tab) 650 mg Q6H PRN PO .PAIN 1-3 OR TEMP Last administered on 10/19/18at 11:56; Admin Dose 650 MG; Start 10/18/18 at 14:30 Acetaminophen/ Hydrocodone Bitart ([place] (5/325)) 1 tab Q6H PRN PO .MOD PAIN 4- 6; Start 10/18/18 at 14:30 Docusate Sodium (Colace) 100 mg Q12H PRN PO .CONSTIPATION; Start 10/18/18 at 14:30 Diagnostic Test (Pha) (Accu-Chek) 1 ea 02 XX Last administered on 10/19/18at 02:03; Admin Dose 1 EA; Start 10/19/18 at 02:00 Miscellaneous Information 1 ea NOTE XX ; Start 10/18/18 at 14:30 Glucose (Glutose) 15 gm Q15M PRN PO DECREASED GLUCOSE; Start 10/18/18 at 14:30 Glucose (Glutose) 22.5 gm Q15M PRN PO DECREASED GLUCOSE; Start 10/18/18 at 14:30 Dextrose (D50w Syringe) 25 ml Q15M PRN IV DECREASED GLUCOSE Last administered on 10/20/18at 17:06; Admin Dose 25 ML; Start 10/18/18 at 14:30 Dextrose (D50w Syringe) 50 ml Q15M PRN IV DECREASED GLUCOSE; Start 10/18/18 at 14:30 Glucagon (Glucagen) 1 mg Q15M PRN IM DECREASED GLUCOSE; Start 10/18/18 at 14:30 Glucose (Glutose) 15 gm Q15M PRN BUCCAL DECREASED GLUCOSE Last administered on 10/22/18at 07:07; Admin Dose 15 GM; Start 10/18/18 at 14:30 Citric Acid/ Sodium Citrate (Bicitra) 30 ml BID PO Last administered on 10/24/18 09:50; Admin Dose 30 ML; Start 10/18/18 at 21:00 Clotrimazole (Lotrimin Cr) 1 applic BID TOP Last administered on 10/24/18 10:03; Admin Dose 1 APPLIC; Start 10/18/18 at 21:00 Epoetin Santiago-epbx (RETACRIT(non-esrd)) 10,000 unit TuThSa@1700 SC Last administered on 10/22/18 19:08; Admin Dose 10,000 UNIT; Start 10/20/18 at 17:00 Insulin Glargine (Lantus) 9 units DAILY@0800 SC Last administered on 10/24/18 10:03; Admin Dose 9 UNITS; Start 10/21/18 at 08:00 Insulin Aspart (Novolog Insulin Pen) NOVOLOG *MILD* ALGORITHM AC MEALS AND BEDTIME SC Last administered on 10/22/18 17:45; Admin Dose 1 UNIT; Start 10/20/18 at 17:30 Sevelamer Carbonate (Renvela) 800 mg WITH MEALS PO Last administered on 10/24/18 13:45; Admin Dose 800 MG; Start 10/21/18 at 12:00 Metoprolol Succinate (Toprol Xl) 50 mg BID PO Last administered on 10/24/18 09:50; Admin Dose 50 MG; Start 10/21/18 at 21:00 Aspirin (Aspirin) 81 mg DAILY PO Last administered on 10/24/18 09:50; Admin Dose 81 MG; Start 10/21/18 at 12:00 Heparin Sodium (Porcine) (Heparin (5000 Units/1ml)) 5,000 unit BID SC Last administered on 10/24/18 10:02; Admin Dose 5,000 UNIT; Start 10/21/18 at 21:00 Daptomycin 350 mg/ Sodium Chloride 100 ml @ 200 mls/hr Q48H IVPB Last administered on 10/23/18 14:07; Admin Dose 200 MLS/HR; Start 10/21/18 at 14:00 Guaifenesin/ Dextromethorphan (Robitussin Dm Liquid Cup) 10 ml Q4H PRN PO COUGH Last administered on 10/21/18 15:25; Admin Dose 10 ML; Start 10/21/18 at 15:00 IV Flush (NS 10 ml) 10 ml Q8 PRN IV IV PROTOCOL; Start 10/21/18 at 15:00 Sodium Hypochlorite (Dakins Diluted ()) 1 applic DAILY TP Last administered on 10/24/18at 13:45; Admin Dose 1 APPLIC; Start 10/22/18 at 09:00 Acetylcysteine (Nac) 1,200 mg BID PO Last administered on 10/24/18at 09:50; Admin Dose 1,200 MG; Start 10/21/18 at 21:00; Stop 10/25/18 at 20:59 Pentoxifylline (Trental) 400 mg TID PO Last administered on 10/24/18at 13:45; Admin Dose 400 MG; Start 10/21/18 at 21:00 Cilostazol (Pletal) 50 mg BID PO Last administered on 10/24/18at 09:50; Admin Dose 50 MG; Start 10/21/18 at 21:00 Doxazosin Mesylate (Cardura) 4 mg HS PO Last administered on 10/23/18at 20:57; Admin Dose 4 MG; Start 10/23/18 at 21:00 Docusate Sodium/ Ferrous Fumarate (Taty-Sequels) 1 tab BID PO ; Start 10/24/18 at 21:00 Alteplase, Recombinant (Cathflo (Activase)) 2 mg MAY REPEAT X1 PRN CATHETER IF C ATHETER REMAINS OCCULUDED; Start 10/24/18 at 16:00 Ertapenem 0.5 gm/ Sodium Chloride 100 ml @ 200 mls/hr Q24H IVPB ; Start 10/24/18 at 16:00 RM BAKER DPShaye October 24, 2018 15:17
[2018-10-24] MEDS ORDERED: ALTEPLASE (CATHFLO) 2 MG INJ CATHETER PRN (16:00)
--- NOTE | 2018-10-24 18:27 | CONS ---
Assessment/Plan Assessment/Plan Hospital Course (Demo Recall) 57-year-old male with history of type 2 diabetes mellitus and chronic kidney disease stage V and anemia. The patient was advised to have hemodialysis but he refused. He is known to have a history of peripheral arterial disease resulting in 2 ischemia and toe amputation. He also has dyslipidemia and blindness. He presented to [facility] with redness/swelling on right foot associated with fevers x2-day duration. Patient did not have any other complaints. Patient was transferred to [facility] due to insurance capitation. The patient is known to me from his prior admission and he was supposed to follow-up in the office but he turned to be admitted here for osteomyelitis and he still has the JJ stent with the calcification on it in the bladder and also stones in the kidney. CT scan that was done during his prior admission did show large calcification fo rmed on the distal end of the JJ stent in the bladder. And also he has stones in the lower pole of the left kidney. Impression: Bladder stone formed on the distal curl of the JJ stent, left ureteral JJ stent was calcification in the lower pole of the left kidney. Plan: Cystoscopy and cystolitholopaxy and possible removal of the JJ stent. I did explain to him and to his daughter Edda the procedure and the possible need for more than one trip to the operating room to be able to remove the JJ stent. She and her father both did understand and are agreeable to proceed Consultation Date/Type/Reason Admit Date/Time October 18, 2018 at 04:40 Date of Consultation: October 24, 2018 Type of Consult Urology Reason for Consultation Bladder stone formed on distal curl of left ureteral JJ stent. Retained left ureteral JJ stent. Requesting Provider: YURY CASTRO Date/Time of Note DATE: 10/24/18 TIME: 18:11 Hx of Present Illness 57-year-old male with history of type 2 diabetes mellitus and chronic kidney disease stage V and anemia. The patient was advised to have hemodialysis but he refused. He is known to have a history of peripheral arterial disease resulting in 2 ischemia and toe amputation. He also has dyslipidemia and blindness. He presented to [facility] with redness/swelling on right foot associated with fevers x2-day duration. Patient did not have any other complaints. Patient was transferred to [facility] due to insurance capitation. The patient is known to me from his prior admission and he was supposed to follow-up in the office but he turned to be admitted here for osteomyelitis and he still has the JJ stent with the calcification on it in the bladder and also stones in the kidney. Eyes: other (Patient is blind) ENT: no complaints Respiratory: no complaints; No shortness of breath Cardiovascular: No chest pain Gastrointestinal: no complaints Genitourinary: dysuria Musculoskeletal: no complaints Skin: no complaints Neurologic: no complaints Endocrine: no complaints Lymphatic: no complaints Psychological: no complaints Immunologic: no complaints Past Medical History Medical History: coronary artery disease, diabetes, high cholesterol, hypertens ion, renal disease (Stage V), other (Anemia) Home Meds Reported Medications Levofloxacin* (Levaquin*) 500 Mg Tablet, 500 MG PO DAILY, TAB 10/18/18 Pioglitazone Hcl* (Actos*) 30 Mg Tablet, 30 MG PO DAILY, #30 TAB 10/18/18 Folic Acid* (Folic Acid*) 1 Mg Tablet, 1 MG PO DAILY, TAB 10/18/18 Simvastatin* (Zocor*) 20 Mg Tablet, 20 MG PO QHS, #30 TAB 10/18/18 Carvedilol* (Carvedilol*) 12.5 Mg Tablet, 12.5 MG PO DAILY, #60 TAB 10/18/18 Glipizide* (Glipizide*) 10 Mg Tablet, 10 MG PO AC BREAKFAST, TAB 10/18/18 Discontinued Scripts Levofloxacin* (Levaquin*) 500 Mg Tablet, 500 MG PO Q48H for 8 Days, #4 TAB Prov:MANNY HOUGH MD 10/12/18 Collagenase* (Santyl*) 1 Applic Oint, 1 APPLIC TOP DAILY for 28 Days Prov:MARK LAMBERT MD 06/25/15 Amlodipine Besylate* (Norvasc*) 2.5 Mg Tab, 2.5 MG PO DAILY for 28 Days, TAB Prov:MARK LAMBERT MD 06/25/15 Insulin Glargine* (Lantus*) 100 Unit/Ml Soln, 8 UNIT SC QHS for 14 Days Prov:MARK LAMBERT MD 06/25/15 Medications Current Medications Folic Acid (Folic Acid) 1 mg DAILY PO Last administered on 10/24/18 09:50; Admin Dose 1 MG; Start 10/19/18 at 09:00 Atorvastatin Calcium (Lipitor) 10 mg DAILY@21 PO Last administered on 10/20/18at 20:57; Admin Dose 10 MG; Start 10/18/18 at 21:00; Status Hold IV Flush (NS 3 ml) 3 ml PER PROTOCOL IV ; Start 10/18/18 at 14:30 Ondansetron HCl (Zofran Inj) 4 mg Q6H PRN IV NAUSEA/VOMITING Last administered on 10/22/18at 01:12; Admin Dose 4 MG; Start 10/18/18 at 14:30 Acetaminophen (Tylenol Tab) 650 mg Q6H PRN PO .PAIN 1-3 OR TEMP Last administer ed on 10/19/18 11:56; Admin Dose 650 MG; Start 10/18/18 at 14:30 Acetaminophen/ Hydrocodone Bitart (Couderay (5/325)) 1 tab Q6H PRN PO .MOD PAIN 4- 6; Start 10/18/18 at 14:30 Docusate Sodium (Colace) 100 mg Q12H PRN PO .CONSTIPATION; Start 10/18/18 at 14:30 Diagnostic Test (Pha) (Accu-Chek) 1 ea 02 XX Last administered on 10/19/18at 02:03; Admin Dose 1 EA; Start 10/19/18 at 02:00 Miscellaneous Information 1 ea NOTE XX ; Start 10/18/18 at 14:30 Glucose (Glutose) 15 gm Q15M PRN PO DECREASED GLUCOSE; Start 10/18/18 at 14:30 Glucose (Glutose) 22.5 gm Q15M PRN PO DECREASED GLUCOSE; Start 10/18/18 at 14:30 Dextrose (D50w Syringe) 25 ml Q15M PRN IV DECREASED GLUCOSE Last administered on 10/20/18 17:06; Admin Dose 25 ML; Start 10/18/18 at 14:30 Dextrose (D50w Syringe) 50 ml Q15M PRN IV DECREASED GLUCOSE; Start 10/18/18 at 14:30 Glucagon (Glucagen) 1 mg Q15M PRN IM DECREASED GLUCOSE; Start 10/18/18 at 14:30 Glucose (Glutose) 15 gm Q15M PRN BUCCAL DECREASED GLUCOSE Last administered on 5/11/19at 07:07; Admin Dose 15 GM; Start 10/18/18 at 14:30 Citric Acid/ Sodium Citrate (Bicitra) 30 ml BID PO Last administered on 10/24/18 09:50; Admin Dose 30 ML; Start 10/18/18 at 21:00 Clotrimazole (Lotrimin Cr) 1 applic BID TOP Last administered on 10/24/18 10:03; Admin Dose 1 APPLIC; Start 10/18/18 at 21:00 Epoetin Santiago-epbx (RETACRIT(non-esrd)) 10,000 unit TuThSa@1700 SC Last administered on 10/22/18 19:08; Admin Dose 10,000 UNIT; Start 10/20/18 at 17:00 Insulin Glargine (Lantus) 9 units DAILY@0800 SC Last administered on 10/24/18 10:03; Admin Dose 9 UNITS; Start 10/21/18 at 08:00 Insulin Aspart (Novolog Insulin Pen) NOVOLOG *MILD* ALGORITHM AC MEALS AND BEDTIME SC Last administered on 10/22/18 17:45; Admin Dose 1 UNIT; Start 10/20/18 at 17:30 Sevelamer Carbonate (Renvela) 800 mg WITH MEALS PO Last administered on 10/24/18 13:45; Admin Dose 800 MG; Start 10/21/18 at 12:00 Metoprolol Succinate (Toprol Xl) 50 mg BID PO Last administered on 10/24/18 09:50; Admin Dose 50 MG; Start 10/21/18 at 21:00 Aspirin (Aspirin) 81 mg DAILY PO Last administered on 10/24/18 09:50; Admin Dose 81 MG; Start 10/21/18 at 12:00 Heparin Sodium (Porcine) (Heparin (5000 Units/1ml)) 5,000 unit BID SC Last administered on 10/24/18 10:02; Admin Dose 5,000 UNIT; Start 10/21/18 at 21:00 Daptomycin 350 mg/ Sodium Chloride 100 ml @ 200 mls/hr Q48H IVPB Last administered on 10/23/18 14:07; Admin Dose 200 MLS/HR; Start 10/21/18 at 14:00 Guaifenesin/ Dextromethorphan (Robitussin Dm Liquid Cup) 10 ml Q4H PRN PO COUGH Last administered on 10/21/18at 15:25; Admin Dose 10 ML; Start 10/21/18 at 15:00 IV Flush (NS 10 ml) 10 ml Q8 PRN IV IV PROTOCOL; Start 10/21/18 at 15:00 Sodium Hypochlorite (Dakins Diluted (1/40)) 1 applic DAILY TP Last administered on 10/24/18 13:45; Admin Dose 1 APPLIC; Start 10/22/18 at 09:00 Acetylcysteine (Nac) 1,200 mg BID PO Last administered on 10/24/18 09:50; Admin Dose 1,200 MG; Start 10/21/18 at 21:00; Stop 10/25/18 at 20:59 Pentoxifylline (Trental) 400 mg TID PO Last administered on 10/24/18 13:45; Admin Dose 400 MG; Start 10/21/18 at 21:00 Cilostazol (Pletal) 50 mg BID PO Last administered on 10/24/18 09:50; Admin Dose 50 MG; Start 10/21/18 at 21:00 Doxazosin Mesylate (Cardura) 4 mg HS PO Last administered on 10/23/18at 20:57; Admin Dose 4 MG; Start 10/23/18 at 21:00 Docusate Sodium/ Ferrous Fumarate (Taty-Sequels) 1 tab BID PO ; Start 10/24/18 at 21:00 Alteplase, Recombinant (Cathflo (Activase)) 2 mg MAY REPEAT X1 PRN CATHETER IF CATHETER REMAINS OCCULUDED Last administered on 10/24/18at 16:34; Admin Dose 2 MG; Start 10/24/18 at 16:00 Ertapenem 0.5 gm/ Sodium Chloride 100 ml @ 200 mls/hr Q24H IVPB ; Start 10/24/18 at 16:00 Allergies: Coded Allergies: No Known Allergy (Unverified , 10/18/18) Past Surgical History Past Surgical Hx: other (Toe amputation) Social History Smoking Status: Never smoker Exam/Review of Systems Exam Vitals Vital Signs Date Temp Pulse Resp B/P (MAP) Pulse Ox O2 O2 Flow FiO2 Time Delivery Rate 10/24/18 98.9 73 18 173/72 92 Room Air 15:04 (105) Intake and Output 510/23/18 10/24/18 1515:00 23:00 07:00 IntakeIntake Total 390 ml 830 ml OutputOutput Total 500 ml 200 ml BalanceBalance 390 ml 330 ml -200 ml Constitutional: alert (And blind) Psych: no complaints Head: normocephalic Eyes: other (Blind) ENMT: nl external ears & nose Neck: supple Respiratory: normal air movement; No wheezing Cardiovascular: No jugular venous distention (JVD) Gastrointestinal: soft, hepatomegaly Genitourinary - Male: nl penis, nl scrotum Extremities: other (Osteomyelitis) Neurological: nl mental status Skin: rash or lesions Results Result Diagram: 10/23/18 0609 10/23/18 0609 Results 24hrs Laboratory Tests Test 10/23/18 20:54 10/24/18 08:22 10/24/18 13:00 10/24/18 18:02 Bedside Glucose 126 74 92 74 Medications Medication Current Medications Folic Acid (Folic Acid) 1 mg DAILY PO Last administered on 10/24/18at 09:50; Admin Dose 1 MG; Start 10/19/18 at 09:00 Atorvastatin Calcium (Lipitor) 10 mg DAILY@21 PO Last administered on 10/20/18at 20:57; Admin Dose 10 MG; Start 10/18/18 at 21:00; Status Hold IV Flush (NS 3 ml) 3 ml PER PROTOCOL IV ; Start 10/18/18 at 14:30 Ondansetron HCl (Zofran Inj) 4 mg Q6H PRN IV NAUSEA/VOMITING Last administered on 10/22/18at 01:12; Admin Dose 4 MG; Start 10/18/18 at 14:30 Acetaminophen (Tylenol Tab) 650 mg Q6H PRN PO .PAIN 1-3 OR TEMP Last administered on 10/19/18at 11:56; Admin Dose 650 MG; Start 10/18/18 at 14:30 Acetaminophen/ Hydrocodone Bitart ([place]ou[place]ay (5/325)) 1 tab Q6H PRN PO .MOD PAIN 4- 6; Start 10/18/18 at 14:30 Docusate Sodium (Colace) 100 mg Q12H PRN PO .CONSTIPATION; Start 10/18/18 at 14:30 Diagnostic Test (Pha) (Accu-Chek) 1 ea 02 XX Last administered on 10/19/18at 02:03; Admin Dose 1 EA; Start 10/19/18 at 02:00 Miscellaneous Information 1 ea NOTE XX ; Start 10/18/18 at 14:30 Glucose (Glutose) 15 gm Q15M PRN PO DECREASED GLUCOSE; Start 10/18/18 at 14:30 Glucose (Glutose) 22.5 gm Q15M PRN PO DECREASED GLUCOSE; Start 10/18/18 at 14:30 Dextrose (D50w Syringe) 25 ml Q15M PRN IV DECREASED GLUCOSE Last administered on 10/20/18at 17:06; Admin Dose 25 ML; Start 10/18/18 at 14:30 Dextrose (D50w Syringe) 50 ml Q15M PRN IV DECREASED GLUCOSE; Start 10/18/18 at 14:30 Glucagon (Glucagen) 1 mg Q15M PRN IM DECREASED GLUCOSE; Start 10/18/18 at 14:30 Glucose (Glutose) 15 gm Q15M PRN BUCCAL DECREASED GLUCOSE Last administered on 10/22/18at 07:07; Admin Dose 15 GM; Start 10/18/18 at 14:30 Citric Acid/ Sodium Citrate (Bicitra) 30 ml BID PO Last administered on 10/24/18at 09:50; Admin Dose 30 ML; Start 10/18/18 at 21:00 Clotrimazole (Lotrimin Cr) 1 applic BID TOP Last administered on 10/24/18 10:03; Admin Dose 1 APPLIC; Start 10/18/18 at 21:00 Epoetin Santiago-epbx (RETACRIT(non-esrd)) 10,000 unit TuThSa@1700 SC Last administered on 10/22/18 19:08; Admin Dose 10,000 UNIT; Start 10/20/18 at 17:00 Insulin Glargine (Lantus) 9 units DAILY@0800 SC Last administered on 10/24/18 10:03; Admin Dose 9 UNITS; Start 10/21/18 at 08:00 Insulin Aspart (Novolog Insulin Pen) NOVOLOG *MILD* ALGORITHM AC MEALS AND BEDTIME SC Last administered on 10/22/18 17:45; Admin Dose 1 UNIT; Start 10/20/18 at 17:30 Sevelamer Carbonate (Renvela) 800 mg WITH MEALS PO Last administered on 5/ 13/19at 13:45; Admin Dose 800 MG; Start 10/21/18 at 12:00 Metoprolol Succinate (Toprol Xl) 50 mg BID PO Last administered on 10/24/18 09:50; Admin Dose 50 MG; Start 10/21/18 at 21:00 Aspirin (Aspirin) 81 mg DAILY PO Last administered on 10/24/18 09:50; Admin Dose 81 MG; Start 10/21/18 at 12:00 Heparin Sodium (Porcine) (Heparin (5000 Units/1ml)) 5,000 unit BID SC Last administered on 10/24/18 10:02; Admin Dose 5,000 UNIT; Start 10/21/18 at 21:00 Daptomycin 350 mg/ Sodium Chloride 100 ml @ 200 mls/hr Q48H IVPB Last administered on 10/23/18 14:07; Admin Dose 200 MLS/HR; Start 10/21/18 at 14:00 Guaifenesin/ Dextromethorphan (Robitussin Dm Liquid Cup) 10 ml Q4H PRN PO COUGH Last administered on 10/21/18 15:25; Admin Dose 10 ML; Start 10/21/18 at 15:00 IV Flush (NS 10 ml) 10 ml Q8 PRN IV IV PROTOCOL; Start 10/21/18 at 15:00 Sodium Hypochlorite (Dakins Diluted (40)) 1 applic DAILY TP Last administered on 10/24/18 13:45; Admin Dose 1 APPLIC; Start 10/22/18 at 09:00 Acetylcysteine (Nac) 1,200 mg BID PO Last administered on 10/24/18 09:50; Admin Dose 1,200 MG; Start 10/21/18 at 21:00; Stop 10/25/18 at 20:59 Pentoxifylline (Trental) 400 mg TID PO Last administered on 10/24/18 13:45; Admin Dose 400 MG; Start 10/21/18 at 21:00 Cilostazol (Pletal) 50 mg BID PO Last administered on 10/24/18 09:50; Admin Dose 50 MG; Start 10/21/18 at 21:00 Doxazosin Mesylate (Cardura) 4 mg HS PO Last administered on 10/23/18 20:57; Admin Dose 4 MG; Start 10/23/18 at 21:00 Docusate Sodium/ Ferrous Fumarate (Taty-Sequels) 1 tab BID PO ; Start 10/24/18 at 21:00 Alteplase, Recombinant (Cathflo (Activase)) 2 mg MAY REPEAT X1 PRN CATHETER IF CATHETER REMAINS OCCULUDED Last administered on 10/24/18at 16:34; Admin Dose 2 MG; Start 10/24/18 at 16:00 Ertapenem 0.5 gm/ Sodium Chloride 100 ml @ 200 mls/hr Q24H IVPB ; Start 10/24/18 at 16:00 JITENDRA MOYA MD October 24, 2018 18:22
[2018-10-24] MEDS: ERTAPENEM SODIUM 0.5 GM in SOD CHLORIDE 0.9% 100 ML IVPB SCH (18:37)
[2018-10-24 20:07] VITALS: BP 166/81; PULSE 69; RESP 18
[2018-10-24] MEDS: FERROUS FUMARATE (SR) TAB PO SCH (21:36)
[2018-10-24] MEDS: DOXAZOSIN 4 MG TAB PO SCH (21:39)
[2018-10-25] MEDS: ACCU-CHEK XX SCH (02:00)
[2018-10-25 02:23] VITALS: BP 190/85; PULSE 78; RESP 18
[2018-10-25] MEDS: hydrALAzine 20 MG INJ IV PRN ×2 (03:00→15:45)
[2018-10-25 05:13] VITALS: BP 150/72; PULSE 73; RESP 18
[2018-10-25] MEDS ORDERED: EPHEDrine 25 MG/5 ML SYG ONE (07:00)
[2018-10-25] MEDS ORDERED: CEFAZOLIN 1 GM INJ ONE (07:00)
[2018-10-25] MEDS: INSULIN ASPART [NOVOLOG] 3 ML PEN SC SCH ×4 (07:00→21:00)
[2018-10-25 07:50] VITALS: BP 168/76; PULSE 71; RESP 20
[2018-10-25] MEDS: INSULIN GLARGINE [LANTus] (100 UNITS/ML) SYG SC SCH (08:00)
--- NOTE | 2018-10-25 08:51 | PN ---
DATE: 10/25/2018 SUBJECTIVE: The patient is stable, no events overnight. No fevers, chills, nausea or vomiting. OBJECTIVE: VITAL SIGNS: Blood pressure is 160/76, respirations 20, pulse 71, temperature 97.3. HEENT: Head is normocephalic. NECK: Supple. HEART: Regular rate. LUNGS: Show diminished breath sounds at the base. ABDOMEN: Soft, nontender to palpation without rebound or guarding. EXTREMITIES: Negative for clubbing, cyanosis. Noted wound in the right lower extremity with dressin g clean, dry, and intact. NEUROLOGIC: No change in exam. MEDICATIONS: Reviewed. LABORATORY DATA: Reviewed. ASSESSMENT AND PLAN: 1. Nonoliguric acute kidney injury on top of chronic kidney disease stage V. Renal function has bee n fluctuating between creatinine of 5 and 6 mg/dL. The patient continues to refuse hemodialysis. At this point, continue current treatment plan, supportive care, renally dose all medications. 2. Metabolic acidosis, improved. Continue Bicitra. 3. Hypernatremia, resolved. 4. Anemia. The patient is completing course of IV iron. Continue Epogen. 5. Mineral bone disorder, monitor calcium and phosphorus levels. Continue phosphate binders, vitami n D analogs. 6. Sepsis secondary to cellulitis, right foot abscess. The patient is status post incision and tamiko flores. Continue to monitor. Continue antibiotic therapy. 7. Peripheral vascular disease. Continue medical management. 8. Diabetes. Continue current insulin regimen. 9. Dyslipidemia. Continue statin therapy. 10. Hypertension. Continue current blood pressure regimen. 11. Bilateral blindness. Dictated By: GI PENA DO NR/NTS Conf#: [id number] DID#: [id number] CC: JITENDRA MOYA MD; JIMENEZ HAILE MD;*EndCC*
[2018-10-25] MEDS: ACETYLCYSTEINE 600 MG CAP PO SCH (09:57)
[2018-10-25] MEDS: SEVELAMER CARBONATE 800 MG TABLET PO SCH ×3 (09:57→18:32)
[2018-10-25] MEDS: CILOSTAZOL 100 MG TAB PO SCH ×2 (09:58→21:48)
[2018-10-25] MEDS: CITRIC ACID/NA CITRATE 30 ML CUP PO SCH ×2 (09:58→21:46)
[2018-10-25] MEDS: ASPIRIN 81 MG TAB PO SCH (09:58)
[2018-10-25] MEDS: FOLIC ACID 1 MG TAB PO SCH (09:58)
[2018-10-25] MEDS: FERROUS FUMARATE (SR) TAB PO SCH ×2 (09:58→21:47)
[2018-10-25] MEDS: METOPROLOL (XL) 50 MG TAB PO SCH ×2 (09:58→21:48)
[2018-10-25] MEDS: PENTOXIFYLLINE (SR) 400 MG TAB PO SCH ×3 (09:59→21:47)
[2018-10-25] MEDS: CLOTRIMAZOLE 1% 30 GM CR TOP SCH ×2 (10:00→21:55)
[2018-10-25] MEDS: DAKINS 0.0125%(1/40) 473 ML SOLUTION TP SCH (10:00)
[2018-10-25] MEDS ORDERED: SOD CHLORIDE 0.9% 250 ML IV* ONE (12:51)
--- NOTE | 2018-10-25 12:52 | PN ---
Date/Time of Note Date/Time of Note DATE: 10/25/18 TIME: 12:49 Assessment/Plan VTE Prophylaxis Risk score (from Ns)>0 risk: 2 SCD applied (from Ns): No SCD contraindicated: other Pharmacological prophylaxis: heparin Lines/Catheters [facility] PICC Line Central line still needed: Yes Urinary Cath still in place: No Assessment/Plan Hospital Course SUBJECTIVE:No acute distress. no fevers. OBJECTIVE: Vital signs-see below PHYSICAL EXAM: Constitutional: Adequately built,not in acute distress. HEENT:Blind. Head atraumatic and normocephalic. Eyes: Extraocular muscles intact. NECK: Supple without lymph node. CHEST: Clear and good breath sounds equally. No wheezing. No rhonchi. HEART: S1, S2. Regular rate and rhythm. ABDOMEN: Soft/non tender with no rebound tenderness. Bowel sounds were present. EXTREMITIES:R foot covered w/dressing.no oozing noted..Missing toes. No cyanosis, clubbing or edema. NEUROLOGIC: Alert and oriented x3. No focal deficit. No sensory deficit. PSYCHOSOCIAL: No signs of depression. INTEGUMENTARY: See extremity assessment. Skin appears pale. ASSESSMENT AND PLAN:57 yo M w/DMII, CKD, chronic anemia, PAD s/p toe amputations,dyslipidemia, transferred from OSH for inpatient management for sepsis w/ R foot DM cellulitis... Right foot DM cellulitis w/Abscess -s/p OR Incision and drainage right foot 10/20/18 -cultures negative -Glycemic control Osteomyelitis of Right 5th metatarsal base -abx per ID=>requires half-way iv abx-on Invanz/dapto Sepsis,POA with right foot cellulitis/abscess -resolved Acute on Chronic anemia -s/p 1 PRBS-HH dropped again -Tx 1 unit as pt going to OR today -on iron /Epogen CKD progressing to ESRD -REFUSED HD -appreciate nephrology recs -His renal fxn is an obstacle to appropriate abx/vascular f/u -AVOID NEPHROTOXINS AND RENALLY DOSE ALL MEDS HX Nephrolithiasis/ JJ stent 2yrs ago -Pt just reported that he never f/u w/urologist for removal - for OR today for stent removal w/ Hypertension -on Toprol/Cardura DMII -stable -basal/bolus PVD,s/p toe amputations -Arterial studies noted-appreciate vascular recommendation and patient would definitely benefit from vascular intervention. However his renal function and unable to accept hemodialysis treatment precludes him from getting appropriate vascular intervention. Deferred for outpatient discussion -Continue to optimize neurovascular status with antihypertensives to keep blood pressure ~140/90, diet, nutrition, exercise, blood glucose control, and antiplatelets/anticoagulation(when appropriate). -on Aspirin/Trental Dyslipidemia -on statin Blindness -Supportive care DVT prophylaxis: Heparin PUD prophylaxis: Not indicated Dispo:f/u consultants recommendation. Patient adamantly refuses dialysis and he may also benefit from inpatient psych eval as he might be depressed, lack of insight into medical condition which is obstructing further treatment. Patient was seen in collaboration with Dr. Nelson Result Diagram: 10/25/18 0430 10/25/18 0433 Results 24hrs Laboratory Tests Test 10/24/18 13:00 10/24/18 18:02 10/24/18 20:50 10/24/18 21:34 Bedside Glucose 92 74 97 Erythrocyte 100 H Sedimentation Rate Prothrombin Time 15.7 H Prothrombin Time 1.2 Ratio INR International 1.24 Normalized Ratio Activated 45.4 H Partial Thromboplast Time C-Reactive Protein 6.9 H Test 10/25/18 04:30 10/25/18 04:33 10/25/18 08:53 10/25/18 12:27 White Blood Count 8.0 Red Blood Count 2.49 L Hemoglobin 7.7 L Hematocrit 23.6 L Mean Corpuscular 94.8 Volume Mean Corpuscular 30.9 Hemoglobin Mean Corpuscular 32.6 Hemoglobin Concent Red Cell 15.1 H Distribution Width Platelet Count 312 Mean Platelet Volume 9.2 Immature 5.800 H Granulocytes % Neutrophils % 68.5 Segmented 76 Neutrophils % (Manual) Band Neutrophils % 2 (Manual) Lymphocytes % 12.2 L Lymphocytes % 10 L (Manual) Monocytes % 8.3 Monocytes % (Manual) 6 Eosinophils % 4.4 Eosinophils % 4 (Manual) Basophils % 0.8 Basophils % (Manual) 1 Metamyelocytes % 1 H (manual) Nucleated Red Blood 1 H Cells % Immature 0.460 H Granulocytes # Neutrophils # 5.5 Neutrophils # 6.1 (Manual) Band Neutrophils # 0.1 Lymphocytes (Manual) 0.8 Lymphocytes # 1.0 Monocytes # 0.7 Monocytes # (Manual) 0.4 Eosinophils # 0.4 Basophils # 0.1 Basophils # (Manual) 0.0 Metamyelocytes # 0.0 Nucleated Red Blood 0.1 H Cells # Platelet Estimate NORMAL Polychromasia 1+ Poikilocytosis 1+ Anisocytosis 1+ Microcytosis 1+ Macrocytosis 1+ Sodium Level 139 Potassium Level 4.0 Chloride Level 110 Carbon Dioxide Level 21 Anion Gap 8 Blood Urea Nitrogen 46 H Creatinine 4.98 #H Est Glomerular 12 L Filtrat Rate mL/min Glucose Level 80 Calcium Level 8.6 Phosphorus Level 4.3 Magnesium Level 2.0 Bedside Glucose 76 139 Exam/Review of Systems Exam Vitals Vital Signs Date Temp Pulse Resp B/P (MAP) Pulse Ox O2 O2 Flow FiO2 Time Delivery Rate 10/25/18 97.3 71 20 168/76 98 07:50 (106) 10/24/18 Room Air 15:04 Intake and Output 10/24/18 10/24/18 10/25/18 1515:00 23:00 07:00 IntakeIntake Total 240 ml 390 ml OutputOutput Total 400 ml BalanceBalance 240 ml 390 ml -400 ml Results Results 24hrs Laboratory Tests Test 10/24/18 13:00 10/24/18 18:02 10/24/18 20:50 10/24/18 21:34 Bedside Glucose 92 74 97 Erythrocyte 100 H Sedimentation Rate Prothrombin Time 15.7 H Prothrombin Time 1.2 Ratio INR International 1.24 Normalized Ratio Activated 45.4 H Partial Thromboplast Time C-Reactive Protein 6.9 H Test 10/25/18 04:30 10/25/18 04:33 10/25/18 08:53 10/25/18 12:27 White Blood Count 8.0 Red Blood Count 2.49 L Hemoglobin 7.7 L Hematocrit 23.6 L Mean Corpuscular 94.8 Volume Mean Corpuscular 30.9 Hemoglobin Mean Corpuscular 32.6 Hemoglobin Concent Red Cell 15.1 H Distribution Width Platelet Count 312 Mean Platelet Volume 9.2 Immature 5.800 H Granulocytes % Neutrophils % 68.5 Segmented 76 Neutrophils % (Manual) Band Neutrophils % 2 (Manual) Lymphocytes % 12.2 L Lymphocytes % 10 L (Manual) Monocytes % 8.3 Monocytes % (Manual) 6 Eosinophils % 4.4 Eosinophils % 4 (Manual) Basophils % 0.8 Basophils % (Manual) 1 Metamyelocytes % 1 H (manual) Nucleated Red Blood 1 H Cells % Immature 0.460 H Granulocytes # Neutrophils # 5.5 Neutrophils # 6.1 (Manual) Band Neutrophils # 0.1 Lymphocytes (Manual) 0.8 Lymphocytes # 1.0 Monocytes # 0.7 Monocytes # (Manual) 0.4 Eosinophils # 0.4 Basophils # 0.1 Basophils # (Manual) 0.0 Metamyelocytes # 0.0 Nucleated Red Blood 0.1 H Cells # Platelet Estimate NORMAL Polychromasia 1+ Poikilocytosis 1+ Anisocytosis 1+ Microcytosis 1+ Macrocytosis 1+ Sodium Level 139 Potassium Level 4.0 Chloride Level 110 Carbon Dioxide Level 21 Anion Gap 8 Blood Urea Nitrogen 46 H Creatinine 4.98 #H Est Glomerular 12 L Filtrat Rate mL/min Glucose Level 80 Calcium Level 8.6 Phosphorus Level 4.3 Magnesium Level 2.0 Bedside Glucose 76 139 Medications Medication Current Medications Folic Acid (Folic Acid) 1 mg DAILY PO Last administered on 10/25/18at 09:58; Admin Dose 1 MG; Start 10/19/18 at 09:00 Atorvastatin Calcium (Lipitor) 10 mg DAILY@21 PO Last administered on 10/20/18at 20:57; Admin Dose 10 MG; Start 10/18/18 at 21:00; Status Hold IV Flush (NS 3 ml) 3 ml PER PROTOCOL IV ; Start 10/18/18 at 14:30 Ondansetron HCl (Zofran Inj) 4 mg Q6H PRN IV NAUSEA/VOMITING Last administered on 10/22/18at 01:12; Admin Dose 4 MG; Start 10/18/18 at 14:30 Acetaminophen (Tylenol Tab) 650 mg Q6H PRN PO .PAIN 1-3 OR TEMP Last administered on 10/19/18at 11:56; Admin Dose 650 MG; Start 10/18/18 at 14:30 Acetaminophen/ Hydrocodone Bitart ([place] (5/325)) 1 tab Q6H PRN PO .MOD PAIN 4- 6; Start 10/18/18 at 14:30 Docusate Sodium (Colace) 100 mg Q12H PRN PO .CONSTIPATION; Start 10/18/18 at 14:30 Diagnostic Test (Pha) (Accu-Chek) 1 ea 02 XX Last administered on 10/19/18 02:03; Admin Dose 1 EA; Start 10/19/18 at 02:00 Miscellaneous Information 1 ea NOTE XX ; Start 10/18/18 at 14:30 Glucose (Glutose) 15 gm Q15M PRN PO DECREASED GLUCOSE; Start 10/18/18 at 14:30 Glucose (Glutose) 22.5 gm Q15M PRN PO DECREASED GLUCOSE; Start 10/18/18 at 14:30 Dextrose (D50w Syringe) 25 ml Q15M PRN IV DECREASED GLUCOSE Last administered on 10/20/18at 17:06; Admin Dose 25 ML; Start 10/18/18 at 14:30 Dextrose (D50w Syringe) 50 ml Q15M PRN IV DECREASED GLUCOSE; Start 10/18/18 at 14:30 Glucagon (Glucagen) 1 mg Q15M PRN IM DECREASED GLUCOSE; Start 10/18/18 at 14:30 Glucose (Glutose) 15 gm Q15M PRN BUCCAL DECREASED GLUCOSE Last administered on 10/22/18at 07:07; Admin Dose 15 GM; Start 10/18/18 at 14:30 Citric Acid/ Sodium Citrate (Bicitra) 30 ml BID PO Last administered on 10/25/18 09:58; Admin Dose 30 ML; Start 10/18/18 at 21:00 Clotrimazole (Lotrimin Cr) 1 applic BID TOP Last administered on 10/25/18 10:00; Admin Dose 1 APPLIC; Start 10/18/18 at 21:00 Epoetin Santiago-epbx (RETACRIT(non-esrd)) 10,000 unit TuThSa@1700 SC Last admini stered on 10/22/18 19:08; Admin Dose 10,000 UNIT; Start 10/20/18 at 17:00 Insulin Glargine (Lantus) 9 units DAILY@0800 SC Last administered on 10/24/18 10:03; Admin Dose 9 UNITS; Start 10/21/18 at 08:00 Insulin Aspart (Novolog Insulin Pen) NOVOLOG *MILD* ALGORITHM AC MEALS AND BEDTIME SC Last administered on 10/22/18 17:45; Admin Dose 1 UNIT; Start 10/20/18 at 17:30 Sevelamer Carbonate (Renvela) 800 mg WITH MEALS PO Last administered on 10/25/18 09:57; Admin Dose 800 MG; Start 10/21/18 at 12:00 Metoprolol Succinate (Toprol Xl) 50 mg BID PO Last administered on 10/25/18 09:58; Admin Dose 50 MG; Start 10/21/18 at 21:00 Aspirin (Aspirin) 81 mg DAILY PO Last administered on 10/25/18 09:58; Admin Dose 81 MG; Start 10/21/18 at 12:00 Heparin Sodium (Porcine) (Heparin (5000 Units/1ml)) 5,000 unit BID SC Last administered on 10/24/18 10:02; Admin Dose 5,000 UNIT; Start 10/21/18 at 21:00; Status Hold Daptomycin 350 mg/ Sodium Chloride 100 ml @ 200 mls/hr Q48H IVPB Last administered on 10/23/18 14:07; Admin Dose 200 MLS/HR; Start 10/21/18 at 14:00 Guaifenesin/ Dextromethorphan (Robitussin Dm Liquid Cup) 10 ml Q4H PRN PO COUGH Last administered on 10/21/18 15:25; Admin Dose 10 ML; Start 10/21/18 at 15:00 IV Flush (NS 10 ml) 10 ml Q8 PRN IV IV PROTOCOL; Start 10/21/18 at 15:00 Sodium Hypochlorite (Dakins Diluted (/40)) 1 applic DAILY TP Last administered on 10/25/18 10:00; Admin Dose 1 APPLIC; Start 10/22/18 at 09:00 Acetylcysteine (Nac) 1,200 mg BID PO Last administered on 10/25/18 09:57; Admin Dose 1,200 MG; Start 10/21/18 at 21:00; Stop 10/25/18 at 20:59 Pentoxifylline (Trental) 400 mg TID PO Last administered on 10/25/18 09:59; Admin Dose 400 MG; Start 10/21/18 at 21:00 Cilostazol (Pletal) 50 mg BID PO Last administered on 10/25/18 09:58; Admin Dose 50 MG; Start 10/21/18 at 21:00 Doxazosin Mesylate (Cardura) 4 mg HS PO Last administered on 10/24/18 21:39; Admin Dose 4 MG; Start 10/23/18 at 21:00 Docusate Sodium/ Ferrous Fumarate (Taty-Sequels) 1 tab BID PO Last administered on 10/25/18at 09:58; Admin Dose 1 TAB; Start 10/24/18 at 21:00 Alteplase, Recombinant (Cathflo (Activase)) 2 mg MAY REPEAT X1 PRN CATHETER IF CATHETER REMAINS OCCULUDED Last administered on 10/24/18 16:34; Admin Dose 2 MG; Start 10/24/18 at 16:00 Ertapenem 0.5 gm/ Sodium Chloride 100 ml @ 200 mls/hr Q24H IVPB Last administered on 10/24/18at 18:37; Admin Dose 200 MLS/HR; Start 10/24/18 at 16:00 Hydralazine HCl (Apresoline) 10 mg Q4H PRN IV ELEVATED BLOOD PRESSURE Last administered on 10/25/18at 03:00; Admin Dose 10 MG; Start 10/25/18 at 03:00 ISIDRO PAPPAS NP October 25, 2018 12:52
[2018-10-25 13:49] VITALS: BP 158/73; PULSE 69; RESP 20
[2018-10-25] MEDS: DAPTOMYCIN 350 MG in SOD CHLORIDE 0.9% 100 ML IVPB SCH (14:20)
--- NOTE | 2018-10-25 14:32 | CONS ---
Assessment/Plan Assessment/Plan Hospital Course (Demo Recall) All noted, no acute events, looks comfortable Urine culture negative MRI of the right foot revealed osteomyelitis with possible phlegmon collection Antimicrobials: Daptomycin, Invanz Physical examination: Well-developed middle-aged man who is in no distress head atraumatic normocephalic neck is supple chest rise symmetrical breath sounds diminished bases heart: S1-S2 abdomen soft bowel sounds present extremities with right foot swelling and erythema Assessment: 1. Sepsis, present on admission 2. Right foot cellulitis, osteomyelitis, abscess s/p i/d 10/20/18 3. End-stage renal disease, not on HD 4. Diabetes 5. Bladder stone Plan: Stable, continue abx, per urology plan for cystoscopy and cystolitholopaxy and possible removal of the JJ stent. Anticipate dc on 6 weeks IV abx for treatment of OM Consultation Date/Type/Reason Admit Date/Time October 18, 2018 at 04:40 Initial Consult Date Type of Consult id Requesting Provider: YURY CASTRO Date/Time of Note DATE: 10/25/18 TIME: 14:29 Exam/Review of Systems Exam Vitals Vital Signs Date Temp Pulse Resp B/P (MAP) Pulse Ox O2 O2 Flow FiO2 Time Delivery Rate 10/25/18 98.8 69 20 158/73 95 13:49 (101) 10/24/18 Room Air 15:04 Intake and Output 10/24/18 10/24/18 10/25/18 1515:00 23:00 07:00 IntakeIntake Total 240 ml 390 ml OutputOutput Total 400 ml BalanceBalance 240 ml 390 ml -400 ml Results Result Diagram: 10/25/18 0430 10/25/18 0433 Results 24hrs Laboratory Tests Test 10/24/18 18:02 10/24/18 20:50 10/24/18 21:34 10/25/18 04:30 Bedside Glucose 74 97 Erythrocyte 100 H Sedimentation Rate Prothrombin Time 15.7 H Prothrombin Time 1.2 Ratio INR International 1.24 Normalized Ratio Activated 45.4 H Partial Thromboplast Time C-Reactive Protein 6.9 H White Blood Count 8.0 Red Blood Count 2.49 L Hemoglobin 7.7 L Hematocrit 23.6 L Mean Corpuscular 94.8 Volume Mean Corpuscular 30.9 Hemoglobin Mean Corpuscular 32.6 Hemoglobin Concent Red Cell 15.1 H Distribution Width Platelet Count 312 Mean Platelet Volume 9.2 Immature 5.800 H Granulocytes % Neutrophils % 68.5 Segmented 76 Neutrophils % (Manual) Band Neutrophils % 2 (Manual) Lymphocytes % 12.2 L Lymphocytes % 10 L (Manual) Monocytes % 8.3 Monocytes % (Manual) 6 Eosinophils % 4.4 Eosinophils % 4 (Manual) Basophils % 0.8 Basophils % (Manual) 1 Metamyelocytes % 1 H (manual) Nucleated Red Blood 1 H Cells % Immature 0.460 H Granulocytes # Neutrophils # 5.5 Neutrophils # 6.1 (Manual) Band Neutrophils # 0.1 Lymphocytes (Manual) 0.8 Lymphocytes # 1.0 Monocytes # 0.7 Monocytes # (Manual) 0.4 Eosinophils # 0.4 Basophils # 0.1 Basophils # (Manual) 0.0 Metamyelocytes # 0.0 Nucleated Red Blood 0.1 H Cells # Platelet Estimate NORMAL Polychromasia 1+ Poikilocytosis 1+ Anisocytosis 1+ Microcytosis 1+ Macrocytosis 1+ Test 10/25/18 04:33 10/25/18 08:53 10/25/18 12:27 Sodium Level 139 Potassium Level 4.0 Chloride Level 110 Carbon Dioxide Level 21 Anion Gap 8 Blood Urea Nitrogen 46 H Creatinine 4.98 #H Est Glomerular 12 L Filtrat Rate mL/min Glucose Level 80 Calcium Level 8.6 Phosphorus Level 4.3 Magnesium Level 2.0 Bedside Glucose 76 139 Medications Medication Current Medications Folic Acid (Folic Acid) 1 mg DAILY PO Last administered on 10/25/18 09:58; Admin Dose 1 MG; Start 10/19/18 at 09:00 Atorvastatin Calcium (Lipitor) 10 mg DAILY@21 PO Last administered on 10/20/18at 20:57; Admin Dose 10 MG; Start 10/18/18 at 21:00; Status Hold IV Flush (NS 3 ml) 3 ml PER PROTOCOL IV ; Start 10/18/18 at 14:30 Ondansetron HCl (Zofran Inj) 4 mg Q6H PRN IV NAUSEA/VOMITING Last administered on 10/22/18at 01:12; Admin Dose 4 MG; Start 10/18/18 at 14:30 Acetaminophen (Tylenol Tab) 650 mg Q6H PRN PO .PAIN 1-3 OR TEMP Last administered on 10/19/18at 11:56; Admin Dose 650 MG; Start 10/18/18 at 14:30 Acetaminophen/ Hydrocodone Bitart ([place] (5/325)) 1 tab Q6H PRN PO .MOD PAIN 4- 6; Start 10/18/18 at 14:30 Docusate Sodium (Colace) 100 mg Q12H PRN PO .CONSTIPATION; Start 10/18/18 at 14:30 Diagnostic Test (Pha) (Accu-Chek) 1 ea 02 XX Last administered on 10/19/18at 02:03; Admin Dose 1 EA; Start 10/19/18 at 02:00 Miscellaneous Information 1 ea NOTE XX ; Start 10/18/18 at 14:30 Glucose (Glutose) 15 gm Q15M PRN PO DECREASED GLUCOSE; Start 10/18/18 at 14:30 Glucose (Glutose) 22.5 gm Q15M PRN PO DECREASED GLUCOSE; Start 10/18/18 at 14:30 Dextrose (D50w Syringe) 25 ml Q15M PRN IV DECREASED GLUCOSE Last administered on 10/20/18at 17:06; Admin Dose 25 ML; Start 10/18/18 at 14:30 Dextrose (D50w Syringe) 50 ml Q15M PRN IV DECREASED GLUCOSE; Start 10/18/18 at 14:30 Glucagon (Glucagen) 1 mg Q15M PRN IM DECREASED GLUCOSE; Start 10/18/18 at 14:30 Glucose (Glutose) 15 gm Q15M PRN BUCCAL DECREASED GLUCOSE Last administered on 10/22/18at 07:07; Admin Dose 15 GM; Start 10/18/18 at 14:30 Citric Acid/ Sodium Citrate (Bicitra) 30 ml BID PO Last administered on 10/25/18at 09:58; Admin Dose 30 ML; Start 10/18/18 at 21:00 Clotrimazole (Lotrimin Cr) 1 applic BID TOP Last administered on 10/25/18at 10:00; Admin Dose 1 APPLIC; Start 10/18/18 at 21:00 Epoetin Santiago-epbx (RETACRIT(non-esrd)) 10,000 unit TuThSa@1700 SC Last administered on 10/22/18at 19:08; Admin Dose 10,000 UNIT; Start 10/20/18 at 17:00 Insulin Glargine (Lantus) 9 units DAILY@0800 SC Last administered on 10/24/18 10:03; Admin Dose 9 UNITS; Start 10/21/18 at 08:00 Insulin Aspart (Novolog Insulin Pen) NOVOLOG *MILD* ALGORITHM AC MEALS AND BEDTIME SC Last administered on 10/22/18 17:45; Admin Dose 1 UNIT; Start 10/20/18 at 17:30 Sevelamer Carbonate (Renvela) 800 mg WITH MEALS PO Last administered on 10/25/18 09:57; Admin Dose 800 MG; Start 10/21/18 at 12:00 Metoprolol Succinate (Toprol Xl) 50 mg BID PO Last administered on 10/25/18 09:58; Admin Dose 50 MG; Start 10/21/18 at 21:00 Aspirin (Aspirin) 81 mg DAILY PO Last administered on 10/25/18 09:58; Admin Dose 81 MG; Start 10/21/18 at 12:00 Heparin Sodium (Porcine) (Heparin (5000 Units/1ml)) 5,000 unit BID SC Last administered on 10/24/18 10:02; Admin Dose 5,000 UNIT; Start 10/21/18 at 21:00; Status Hold Daptomycin 350 mg/ Sodium Chloride 100 ml @ 200 mls/hr Q48H IVPB Last administered on 10/25/18 14:20; Admin Dose 200 MLS/HR; Start 10/21/18 at 14:00 Guaifenesin/ Dextromethorphan (Robitussin Dm Liquid Cup) 10 ml Q4H PRN PO COUGH Last administered on 10/21/18 15:25; Admin Dose 10 ML; Start 10/21/18 at 15:00 IV Flush (NS 10 ml) 10 ml Q8 PRN IV IV PROTOCOL; Start 10/21/18 at 15:00 Sodium Hypochlorite (Dakins Diluted (/40)) 1 applic DAILY TP Last administered on 10/25/18 10:00; Admin Dose 1 APPLIC; Start 10/22/18 at 09:00 Acetylcysteine (Nac) 1,200 mg BID PO Last administered on 10/25/18 09:57; Admin Dose 1,200 MG; Start 10/21/18 at 21:00; Stop 10/25/18 at 20:59 Pentoxifylline (Trental) 400 mg TID PO Last administered on 10/25/18 09:59; A dmin Dose 400 MG; Start 10/21/18 at 21:00 Cilostazol (Pletal) 50 mg BID PO Last administered on 10/25/18 09:58; Admin Dose 50 MG; Start 10/21/18 at 21:00 Doxazosin Mesylate (Cardura) 4 mg HS PO Last administered on 10/24/18 21:39; Admin Dose 4 MG; Start 10/23/18 at 21:00 Docusate Sodium/ Ferrous Fumarate (Taty-Sequels) 1 tab BID PO Last administered on 10/25/18 09:58; Admin Dose 1 TAB; Start 10/24/18 at 21:00 Alteplase, Recombinant (Cathflo (Activase)) 2 mg MAY REPEAT X1 PRN CATHETER IF C ATHETER REMAINS OCCULUDED Last administered on 10/24/18 16:34; Admin Dose 2 MG; Start 10/24/18 at 16:00 Ertapenem 0.5 gm/ Sodium Chloride 100 ml @ 200 mls/hr Q24H IVPB Last administered on 10/24/18 18:37; Admin Dose 200 MLS/HR; Start 10/24/18 at 16:00 Hydralazine HCl (Apresoline) 10 mg Q4H PRN IV ELEVATED BLOOD PRESSURE Last administered on 10/25/18 03:00; Admin Dose 10 MG; Start 10/25/18 at 03:00 CHEN BAXTER NP October 25, 2018 14:32
[2018-10-25] MEDS: ERTAPENEM SODIUM 0.5 GM in SOD CHLORIDE 0.9% 100 ML IVPB SCH (15:43)
[2018-10-25 15:45] VITALS: BP 185/82; PULSE 72; RESP 16
--- NOTE | 2018-10-25 16:38 | PREAC ---
Date/Time of Note Date/Time of Note DATE: 10/25/18 TIME: 16:37 Anesthesia Eval and Record Evaluation Time Pre-Procedure Interview DATE: 10/25/18 TIME: 16:37 Age 57 Sex male NPO: 8 hrs Preoperative diagnosis STONES Planned procedure CYSTOSCOPY, LYTHOLAPAXY WITH Past Medical History Past Medical History: Includes Cardio: HTN, Dyslipidemia Endo: Diabetes Musculoskeletal: Osteoarthritis Renal: CKD Heme: Anemia Surgery & Anesthesia Issues No known issue Meds Anticoagulation: No Beta Rolando within 24 hr: Yes Reported Medications Levofloxacin* (Levaquin*) 500 Mg Tablet, 500 MG PO DAILY, TAB 10/18/18 Pioglitazone Hcl* (Actos*) 30 Mg Tablet, 30 MG PO DAILY, #30 TAB 10/18/18 Folic Acid* (Folic Acid*) 1 Mg Tablet, 1 MG PO DAILY, TAB 10/18/18 Simvastatin* (Zocor*) 20 Mg Tablet, 20 MG PO QHS, #30 TAB 10/18/18 Carvedilol* (Carvedilol*) 12.5 Mg Tablet, 12.5 MG PO DAILY, #60 TAB 10/18/18 Glipizide* (Glipizide*) 10 Mg Tablet, 10 MG PO AC BREAKFAST, TAB 10/18/18 Current Medications Folic Acid (Folic Acid) 1 mg DAILY PO Last administered on 10/25/18at 09:58; Admin Dose 1 MG; Start 10/19/18 at 09:00 Atorvastatin Calcium (Lipitor) 10 mg DAILY@21 PO Last administered on 10/20/18at 20:57; Admin Dose 10 MG; Start 10/18/18 at 21:00; Status Hold IV Flush (NS 3 ml) 3 ml PER PROTOCOL IV ; Start 10/18/18 at 14:30 Ondansetron HCl (Zofran Inj) 4 mg Q6H PRN IV NAUSEA/VOMITING Last administered on 10/22/18at 01:12; Admin Dose 4 MG; Start 10/18/18 at 14:30 Acetaminophen (Tylenol Tab) 650 mg Q6H PRN PO .PAIN 1-3 OR TEMP Last administered on 10/19/18at 11:56; Admin Dose 650 MG; Start 10/18/18 at 14:30 Acetaminophen/ Hydrocodone Bitart ([place] (5/325)) 1 tab Q6H PRN PO .MOD PAIN 4- 6; Start 10/18/18 at 14:30 Docusate Sodium (Colace) 100 mg Q12H PRN PO .CONSTIPATION; Start 10/18/18 at 14:30 Diagnostic Test (Pha) (Accu-Chek) 1 ea 02 XX Last administered on 10/19/18at 02:03; Admin Dose 1 EA; Start 10/19/18 at 02:00 Miscellaneous Information 1 ea NOTE XX ; Start 10/18/18 at 14:30 Glucose (Glutose) 15 gm Q15M PRN PO DECREASED GLUCOSE; Start 10/18/18 at 14:30 Glucose (Glutose) 22.5 gm Q15M PRN PO DECREASED GLUCOSE; Start 10/18/18 at 14:30 Dextrose (D50w Syringe) 25 ml Q15M PRN IV DECREASED GLUCOSE Last administered on 10/20/18at 17:06; Admin Dose 25 ML; Start 10/18/18 at 14:30 Dextrose (D50w Syringe) 50 ml Q15M PRN IV DECREASED GLUCOSE; Start 10/18/18 at 14:30 Glucagon (Glucagen) 1 mg Q15M PRN IM DECREASED GLUCOSE; Start 10/18/18 at 14:30 Glucose (Glutose) 15 gm Q15M PRN BUCCAL DECREASED GLUCOSE Last administered on 10/22/18at 07:07; Admin Dose 15 GM; Start 10/18/18 at 14:30 Citric Acid/ Sodium Citrate (Bicitra) 30 ml BID PO Last administered on 10/25/18at 09:58; Admin Dose 30 ML; Start 10/18/18 at 21:00 Clotrimazole (Lotrimin Cr) 1 applic BID TOP Last administered on 10/25/18at 10:00; Admin Dose 1 APPLIC; Start 10/18/18 at 21:00 Epoetin Santiago-epbx (RETACRIT(non-esrd)) 10,000 unit TuThSa@1700 SC Last administered on 10/22/18at 19:08; Admin Dose 10,000 UNIT; Start 10/20/18 at 17:00 Insulin Glargine (Lantus) 9 units DAILY@0800 SC Last administered on 10/24/18at 10:03; Admin Dose 9 UNITS; Start 10/21/18 at 08:00 Insulin Aspart (Novolog Insulin Pen) NOVOLOG *MILD* ALGORITHM AC MEALS AND BEDTIME SC Last administered on 10/22/18 17:45; Admin Dose 1 UNIT; Start 10/20/18 at 17:30 Sevelamer Carbonate (Renvela) 800 mg WITH MEALS PO Last administered on 10/25/18 09:57; Admin Dose 800 MG; Start 10/21/18 at 12:00 Metoprolol Succinate (Toprol Xl) 50 mg BID PO Last administered on 10/25/18 09:58; Admin Dose 50 MG; Start 10/21/18 at 21:00 Aspirin (Aspirin) 81 mg DAILY PO Last administered on 10/25/18 09:58; Admin Dose 81 MG; Start 10/21/18 at 12:00 Heparin Sodium (Porcine) (Heparin (5000 Units/1ml)) 5,000 unit BID SC Last administered on 10/24/18 10:02; Admin Dose 5,000 UNIT; Start 10/21/18 at 21:00; Status Hold Daptomycin 350 mg/ Sodium Chloride 100 ml @ 200 mls/hr Q48H IVPB Last administered on 10/25/18 14:20; Admin Dose 200 MLS/HR; Start 10/21/18 at 14:00 Guaifenesin/ Dextromethorphan (Robitussin Dm Liquid Cup) 10 ml Q4H PRN PO COUGH Last administered on 10/21/18 15:25; Admin Dose 10 ML; Start 10/21/18 at 15:00 IV Flush (NS 10 ml) 10 ml Q8 PRN IV IV PROTOCOL; Start 10/21/18 at 15:00 Sodium Hypochlorite (Dakins Diluted (/40)) 1 applic DAILY TP Last administered on 10/25/18at 10:00; Admin Dose 1 APPLIC; Start 10/22/18 at 09:00 Acetylcysteine (Nac) 1,200 mg BID PO Last administered on 10/25/18 09:57; Admin Dose 1,200 MG; Start 10/21/18 at 21:00; Stop 10/25/18 at 20:59 Pentoxifylline (Trental) 400 mg TID PO Last administered on 10/25/18 09:59; Admin Dose 400 MG; Start 10/21/18 at 21:00 Cilostazol (Pletal) 50 mg BID PO Last administered on 10/25/18 09:58; Admin Dose 50 MG; Start 10/21/18 at 21:00 Doxazosin Mesylate (Cardura) 4 mg HS PO Last administered on 10/24/18at 21:39; Admin Dose 4 MG; Start 10/23/18 at 21:00 Docusate Sodium/ Ferrous Fumarate (Taty-Sequels) 1 tab BID PO Last administered on 10/25/18 09:58; Admin Dose 1 TAB; Start 10/24/18 at 21:00 Alteplase, Recombinant (Cathflo (Activase)) 2 mg MAY REPEAT X1 PRN CATHETER IF CATHETER REMAINS OCCULUDED Last administered on 10/24/18 16:34; Admin Dose 2 MG; Start 10/24/18 at 16:00 Ertapenem 0.5 gm/ Sodium Chloride 100 ml @ 200 mls/hr Q24H IVPB Last administered on 10/25/18at 15:43; Admin Dose 200 MLS/HR; Start 10/24/18 at 16:00 Hydralazine HCl (Apresoline) 10 mg Q4H PRN IV ELEVATED BLOOD PRESSURE Last administered on 10/25/18at 15:45; Admin Dose 10 MG; Start 10/25/18 at 03:00 Meds reviewed: Yes Allergies Coded Allergies: No Known Allergy (Unverified , 10/18/18) Allergies Reviewed: Yes Labs/Studies Labs Reviewed: Reviewed by anesthesiologist Result Diagram: 10/25/18 0430 10/25/18 0433 Laboratory Tests 10/25/18 04:30 10/25/18 04:33 Blood Bank Test 10/24/18 20:50 Antibody Screen NEGATIVE Blood Product Summary Counts Blood Type A POSITIVE Crossmatch Red Blood Cells test: N/A Pre-procedure Exam Last vitals Vital Signs Date Temp Pulse Resp B/P (MAP) Pulse Ox O2 O2 Flow FiO2 Time Delivery Rate 10/25/18 72 16 185/82 96 15:45 (116) 10/25/18 98.8 13:49 10/24/18 Room Air 15:04 Airway: Adequate mouth opening Mallampati: Mallampati II Teeth: Normal Lung: Normal Heart: Normal ASA Physical Status ASA physical status: 3 Emergency: None Planned Anesthetic General/MAC: ETT Pre-operative Attestations Prior to commencing anesthesia and surgery, the patient was re-evaluated, there was verification of: *The patient's identity *The results of appropriate recent lab work and preoperative vital signs *The above evaluation not changing prior to induction *Anesthetic plan, risk benefits, alternative and complications discussed with patient/family; questions answered; patient/family understands, accepts and wishes to proceed. VIET ALVAREZ October 25, 2018 16:38
[2018-10-25] MEDS ORDERED: LIDOCAINE 100 MG SYRINGE ONE (17:58)
[2018-10-25] MEDS ORDERED: PROPOFOL 20 ML ONE (17:58)
[2018-10-25] MEDS ORDERED: ONDANSETRON 4 MG INJ ONE (17:59)
[2018-10-25] MEDS ORDERED: DEXAMETHASONE 4 MG/ML 5 ML INJ ONE (17:59)
[2018-10-25] MEDS ORDERED: FENTAnyl 50 MCG/ML VIAL ONE (17:59)
[2018-10-25] MEDS: EPOETIN ALFA-EPBX (NON-ESRD 10,000 UNIT/ML VIAL SC SCH (18:34)
--- NOTE | 2018-10-25 18:55 | CONS ---
Consult Date/Type/Reason Admit Date/Time October 18, 2018 at 04:40 Initial Consult Date 10/24/18 Type of Consultation: Urology Reason for Consultation Bladder stones and retained ureteral JJ stent Requesting Provider: YURY CASTRO Date/Time of Note DATE: 10/25/18 TIME: 18:52 Subjective Patient has no new complaints Objective Vitals Vital Signs Date Temp Pulse Resp B/P (MAP) Pulse Ox O2 O2 Flow FiO2 Time Delivery Rate 10/25/18 72 16 185/82 96 15:45 (116) 10/25/18 98.8 13:49 10/24/18 Room Air 15:04 Intake and Output 10/24/18 10/24/18 10/25/18 1414:59 22:59 06:59 IntakeIntake Total 240 ml 390 ml OutputOutput Total 400 ml BalanceBalance 240 ml 390 ml -400 ml Exam Abdomen is soft. Patient was supposed to have cystoscopy and laser lithotripsy to the bladder stone. But the laser was not available. Results/Medications Result Diagram: 10/25/18 0430 10/25/18 0433 Results 24 hrs Laboratory Tests Test 10/24/18 20:50 10/24/18 21:34 10/25/18 04:30 10/25/18 04:33 Erythrocyte 100 H Sedimentation Rate Prothrombin Time 15.7 H Prothrombin Time 1.2 Ratio INR International 1.24 Normalized Ratio Activated 45.4 H Partial Thromboplast Time C-Reactive Protein 6.9 H Bedside Glucose 97 White Blood Count 8.0 Red Blood Count 2.49 L Hemoglobin 7.7 L Hematocrit 23.6 L Mean Corpuscular 94.8 Volume Mean Corpuscular 30.9 Hemoglobin Mean Corpuscular 32.6 Hemoglobin Concent Red Cell 15.1 H Distribution Width Platelet Count 312 Mean Platelet Volume 9.2 Immature 5.800 H Granulocytes % Neutrophils % 68.5 Segmented 76 Neutrophils % (Manual) Band Neutrophils % 2 (Manual) Lymphocytes % 12.2 L Lymphocytes % 10 L (Manual) Monocytes % 8.3 Monocytes % (Manual) 6 Eosinophils % 4.4 Eosinophils % 4 (Manual) Basophils % 0.8 Basophils % (Manual) 1 Metamyelocytes % 1 H (manual) Nucleated Red Blood 1 H Cells % Immature 0.460 H Granulocytes # Neutrophils # 5.5 Neutrophils # 6.1 (Manual) Band Neutrophils # 0.1 Lymphocytes (Manual) 0.8 Lymphocytes # 1.0 Monocytes # 0.7 Monocytes # (Manual) 0.4 Eosinophils # 0.4 Basophils # 0.1 Basophils # (Manual) 0.0 Metamyelocytes # 0.0 Nucleated Red Blood 0.1 H Cells # Platelet Estimate NORMAL Polychromasia 1+ Poikilocytosis 1+ Anisocytosis 1+ Microcytosis 1+ Macrocytosis 1+ Sodium Level 139 Potassium Level 4.0 Chloride Level 110 Carbon Dioxide Level 21 Anion Gap 8 Blood Urea Nitrogen 46 H Creatinine 4.98 #H Est Glomerular 12 L Filtrat Rate mL/min Glucose Level 80 Calcium Level 8.6 Phosphorus Level 4.3 Magnesium Level 2.0 Test 10/25/18 08:53 10/25/18 12:27 10/25/18 17:09 10/25/18 17:40 Bedside Glucose 76 139 117 117 Home Meds Reported Medications Levofloxacin* (Levaquin*) 500 Mg Tablet, 500 MG PO DAILY, TAB 10/18/18 Pioglitazone Hcl* (Actos*) 30 Mg Tablet, 30 MG PO DAILY, #30 TAB 10/18/18 Folic Acid* (Folic Acid*) 1 Mg Tablet, 1 MG PO DAILY, TAB 10/18/18 Simvastatin* (Zocor*) 20 Mg Tablet, 20 MG PO QHS, #30 TAB 10/18/18 Carvedilol* (Carvedilol*) 12.5 Mg Tablet, 12.5 MG PO DAILY, #60 TAB 10/18/18 Glipizide* (Glipizide*) 10 Mg Tablet, 10 MG PO AC BREAKFAST, TAB 10/18/18 Discontinued Scripts Levofloxacin* (Levaquin*) 500 Mg Tablet, 500 MG PO Q48H for 8 Days, #4 TAB Prov:MANNY HOUGH MD 10/12/18 Collagenase* (Santyl*) 1 Applic Oint, 1 APPLIC TOP DAILY for 28 Days Prov:MARK LAMBERT MD 06/25/15 Amlodipine Besylate* (Norvasc*) 2.5 Mg Tab, 2.5 MG PO DAILY for 28 Days, TAB Prov:MARK LAMBRET MD 06/25/15 Insulin Glargine* (Lantus*) 100 Unit/Ml Soln, 8 UNIT SC QHS for 14 Days Prov:MARK LAMBERT MD 06/25/15 Medications Current Medications Folic Acid (Folic Acid) 1 mg DAILY PO Last administered on 10/25/18at 09:58; Admin Dose 1 MG; Start 10/19/18 at 09:00 Atorvastatin Calcium (Lipitor) 10 mg DAILY@21 PO Last administered on 10/20/18at 20:57; Admin Dose 10 MG; Start 10/18/18 at 21:00; Status Hold IV Flush (NS 3 ml) 3 ml PER PROTOCOL IV ; Start 10/18/18 at 14:30 Ondansetron HCl (Zofran Inj) 4 mg Q6H PRN IV NAUSEA/VOMITING Last administered on 10/22/18at 01:12; Admin Dose 4 MG; Start 10/18/18 at 14:30 Acetaminophen (Tylenol Tab) 650 mg Q6H PRN PO .PAIN 1-3 OR TEMP Last administered on 10/19/18at 11:56; Admin Dose 650 MG; Start 10/18/18 at 14:30 Acetaminophen/ Hydrocodone Bitart ([place] (5/325)) 1 tab Q6H PRN PO .MOD PAIN 4- 6; Start 10/18/18 at 14:30 Docusate Sodium (Colace) 100 mg Q12H PRN PO .CONSTIPATION; Start 10/18/18 at 14:30 Diagnostic Test (Pha) (Accu-Chek) 1 ea 02 XX Last administered on 10/19/18at 02:03; Admin Dose 1 EA; Start 10/19/18 at 02:00 Miscellaneous Information 1 ea NOTE XX ; Start 10/18/18 at 14:30 Glucose (Glutose) 15 gm Q15M PRN PO DECREASED GLUCOSE; Start 10/18/18 at 14:30 Glucose (Glutose) 22.5 gm Q15M PRN PO DECREASED GLUCOSE; Start 10/18/18 at 14:30 Dextrose (D50w Syringe) 25 ml Q15M PRN IV DECREASED GLUCOSE Last administered on 10/20/18at 17:06; Admin Dose 25 ML; Start 10/18/18 at 14:30 Dextrose (D50w Syringe) 50 ml Q15M PRN IV DECREASED GLUCOSE; Start 10/18/18 at 14:30 Glucagon (Glucagen) 1 mg Q15M PRN IM DECREASED GLUCOSE; Start 10/18/18 at 14:30 Glucose (Glutose) 15 gm Q15M PRN BUCCAL DECREASED GLUCOSE Last administered on 10/22/18 07:07; Admin Dose 15 GM; Start 10/18/18 at 14:30 Citric Acid/ Sodium Citrate (Bicitra) 30 ml BID PO Last administered on 10/25/18 09:58; Admin Dose 30 ML; Start 10/18/18 at 21:00 Clotrimazole (Lotrimin Cr) 1 applic BID TOP Last administered on 10/25/18 10:00; Admin Dose 1 APPLIC; Start 10/18/18 at 21:00 Epoetin Santiago-epbx (RETACRIT(non-esrd)) 10,000 unit TuThSa@1700 SC Last administered on 10/25/18 18:34; Admin Dose 10,000 UNIT; Start 10/20/18 at 17:00 Insulin Glargine (Lantus) 9 units DAILY@0800 SC Last administered on 10/24/18 10:03; Admin Dose 9 UNITS; Start 10/21/18 at 08:00 Insulin Aspart (Novolog Insulin Pen) NOVOLOG *MILD* ALGORITHM AC MEALS AND BEDTIME SC Last administered on 10/22/18 17:45; Admin Dose 1 UNIT; Start 10/20/18 at 17:30 Sevelamer Carbonate (Renvela) 800 mg WITH MEALS PO Last administered on 10/25/18 18:32; Admin Dose 800 MG; Start 10/21/18 at 12:00 Metoprolol Succinate (Toprol Xl) 50 mg BID PO Last administered on 10/25/18 09:58; Admin Dose 50 MG; Start 10/21/18 at 21:00 Aspirin (Aspirin) 81 mg DAILY PO Last administered on 10/25/18 09:58; Admin Dose 81 MG; Start 10/21/18 at 12:00 Heparin Sodium (Porcine) (Heparin (5000 Units/1ml)) 5,000 unit BID SC Last administered on 10/24/18 10:02; Admin Dose 5,000 UNIT; Start 10/21/18 at 21:00; Status Hold Daptomycin 350 mg/ Sodium Chloride 100 ml @ 200 mls/hr Q48H IVPB Last administered on 10/25/18 14:20; Admin Dose 200 MLS/HR; Start 10/21/18 at 14:00 Guaifenesin/ Dextromethorphan (Robitussin Dm Liquid Cup) 10 ml Q4H PRN PO COUGH Last administered on 10/21/18 15:25; Admin Dose 10 ML; Start 10/21/18 at 15:00 IV Flush (NS 10 ml) 10 ml Q8 PRN IV IV PROTOCOL; Start 10/21/18 at 15:00 Sodium Hypochlorite (Dakins Diluted ()) 1 applic DAILY TP Last administered on 10/25/18 10:00; Admin Dose 1 APPLIC; Start 10/22/18 at 09:00 Acetylcysteine (Nac) 1,200 mg BID PO Last administered on 10/25/18 09:57; Admin Dose 1,200 MG; Start 10/21/18 at 21:00; Stop 10/25/18 at 20:59 Pentoxifylline (Trental) 400 mg TID PO Last administered on 10/25/18 09:59; Admin Dose 400 MG; Start 10/21/18 at 21:00 Cilostazol (Pletal) 50 mg BID PO Last administered on 10/25/18 09:58; Admin Dose 50 MG; Start 10/21/18 at 21:00 Doxazosin Mesylate (Cardura) 4 mg HS PO Last administered on 10/24/18 21:39; Admin Dose 4 MG; Start 10/23/18 at 21:00 Docusate Sodium/ Ferrous Fumarate (Taty-Sequels) 1 tab BID PO Last adm inistered on 10/25/18 09:58; Admin Dose 1 TAB; Start 10/24/18 at 21:00 Alteplase, Recombinant (Cathflo (Activase)) 2 mg MAY REPEAT X1 PRN CATHETER IF CATHETER REMAINS OCCULUDED Last administered on 10/24/18 16:34; Admin Dose 2 MG; Start 10/24/18 at 16:00 Ertapenem 0.5 gm/ Sodium Chloride 100 ml @ 200 mls/hr Q24H IVPB Last administered on 10/25/18 15:43; Admin Dose 200 MLS/HR; Start 10/24/18 at 16:00 Hydralazine HCl (Apresoline) 10 mg Q4H PRN IV ELEVATED BLOOD PRESSURE Last administered on 10/25/18at 15:45; Admin Dose 10 MG; Start 10/25/18 at 03:00 Assessment/Plan Hospital Course (Demo Recall) 57-year-old male with history of type 2 diabetes mellitus and chronic kidney disease stage V and anemia. The patient was advised to have hemodialysis but he refused. He is known to have a history of peripheral arterial disease resulting in 2 ischemia and toe amputation. He also has dyslipidemia and blindness. He presented to [facility] with redness/swelling on right foot associated with fevers x2-day duration. Patient did not have any other complaints. Patient was transferred to [facility] due to insurance capitation. The patient is known to me from his prior admission and he was supposed to follow-up in the office but he turned to be admitted here for osteomyelitis and he still has the JJ stent with the calcification on it in the bladder and also stones in the kidney. CT scan that was done during his prior admission did show large calcification formed on the distal end of the JJ stent in the bladder. And also he has stones in the lower pole of the left kidney. Impression: Bladder stone formed on the distal curl of the JJ stent, left ureteral JJ stent was calcification in the lower pole of the left kidney. Plan was to do cystoscopy and cystolitholopaxy and possible removal of the JJ stent today, however the laser was not available and therefore we had to reschedule it for tomorrow. JITENDRA MOYA MD October 25, 2018 18:54
[2018-10-25 20:00] VITALS: BP 151/78; PULSE 74; RESP 16
--- NOTE | 2018-10-25 20:27 | RADRPT ---
Vent Rate: 71 bpm RR Interval: 844 msec NV Interval: 144 msec QRS Duration: 80 msec QT Interval: 432 msec QTC Interval: 470 msec P-R-T [place]: 51 - -17 - 62 degrees Sinus rhythm...normal P axis, V-rate 50- 99 Probable anterior infarct, old...Q >40mS, V2-V5 Electronically Signed By: Jovanni Soler
[2018-10-25] MEDS: DOXAZOSIN 4 MG TAB PO SCH (21:47)
[2018-10-26] VITALS (24 sets, daily range): BP systolic 123–184; BP diastolic 61–92; PULSE 64–72; RESP 12–22
[2018-10-26] MEDS: ACCU-CHEK XX SCH (01:43)
[2018-10-26] MEDS: INSULIN ASPART [NOVOLOG] 3 ML PEN SC SCH ×4 (07:00→22:07)
[2018-10-26] MEDS: HEPARIN 5,000 UNIT/1 ML VIAL SC SCH ×2 (09:00→22:17)
[2018-10-26] MEDS: FERROUS FUMARATE (SR) TAB PO SCH ×2 (09:02→22:06)
[2018-10-26] MEDS: CITRIC ACID/NA CITRATE 30 ML CUP PO SCH ×2 (09:02→22:06)
[2018-10-26] MEDS: SEVELAMER CARBONATE 800 MG TABLET PO SCH ×3 (09:02→17:22)
[2018-10-26] MEDS: FOLIC ACID 1 MG TAB PO SCH (09:02)
[2018-10-26] MEDS: CILOSTAZOL 100 MG TAB PO SCH ×2 (09:02→22:06)
[2018-10-26] MEDS: PENTOXIFYLLINE (SR) 400 MG TAB PO SCH ×3 (09:03→22:06)
[2018-10-26] MEDS: DAKINS 0.0125%(1/40) 473 ML SOLUTION TP SCH (09:03)
[2018-10-26] MEDS: CLOTRIMAZOLE 1% 30 GM CR TOP SCH ×2 (09:03→22:08)
[2018-10-26] MEDS: METOPROLOL (XL) 50 MG TAB PO SCH ×2 (09:03→22:06)
[2018-10-26] MEDS: ASPIRIN 81 MG TAB PO SCH (09:03)
[2018-10-26] MEDS: INSULIN GLARGINE [LANTus] (100 UNITS/ML) SYG SC SCH (09:08)
--- NOTE | 2018-10-26 09:48 | PN ---
DATE: 10/26/2018 SUBJECTIVE: The patient is stable. No events overnight. OBJECTIVE: VITAL SIGNS: Blood pressure is 149/77, pulse 70, respirations 20, temperature 98.1. HEENT: Head is normocephalic. NECK: Supple. HEART: Regular rate. LUNGS: Show diminished breath sounds at the base. ABDOMEN: Soft, nontender to palpation without rebound or guarding. EXTREMITIES: Negative for clubbing, cyanosis, no edema. DERMATOLOGIC: No rashes. MUSCULOSKELETAL: No joint effusion. NEUROLOGIC: No change in exam. MEDICATIONS: Reviewed. LABORATORY DATA: Reviewed. ASSESSMENT AND PLAN: 1. Nonoliguric acute kidney injury on top of chronic kidney disease stage V. Renal function has imp roved in last 24 hours. At this point, continue current treatment plan, supportive care, renally dos e all medications. Please note the patient refuses dialysis. 2. Metabolic acidosis, improved. Continue Bicitra. 3. Hypernatremia, resolved. 4. Anemia. Continue intermittent Epogen. Monitor hemoglobin and hematocrit levels. 5. Mineral bone disorder. Continue phosphate binders. Continue vitamin D analogs. 6. Sepsis secondary to cellulitis, right foot abscess. The patient is status post incision and drai nage. Continue to monitor. Continue antibiotic therapy. Continue wound care. 7. Peripheral vascular disease. Continue medical management. 8. Diabetes. Continue current insulin regimen. 9. Dyslipidemia. Continue statin therapy. 10. Hypertension. Continue current blood pressure regimen. 11. Bilateral blindness. 12. Bilateral stones. The patient is seen by neurology, pending possible cystoscopy, cystolitholapa xy and removal of double-J stent. Continue to monitor. Dictated By: GI PENA DO NR/NTS Conf#: [id number] DID#: [id number] CC: JIMENEZ HAILE MD; JITENDRA MOYA MD;*EndCC*
--- NOTE | 2018-10-26 11:06 | PN ---
Date/Time of Note Date/Time of Note DATE: 10/26/18 TIME: 11:04 Assessment/Plan VTE Prophylaxis Risk score (from Ns)>0 risk: 1 SCD applied (from Ns): No SCD contraindicated: other Pharmacological prophylaxis: heparin Lines/Catheters IV [facility]from [facility] PICC Line Central line still needed: Yes Urinary Cath still in place: No Assessment/Plan Hospital Course SUBJECTIVE:No acute distress. no fevers. OBJECTIVE: Vital signs-see below PHYSICAL EXAM: Constitutional: Adequately built,not in acute distress. HEENT:Blind. Head atraumatic and normocephalic. Eyes: Extraocular muscles intact. NECK: Supple without lymph node. CHEST: Clear and good breath sounds equally. No wheezing. No rhonchi. HEART: S1, S2. Regular rate and rhythm. ABDOMEN: Soft/non tender with no rebound tenderness. Bowel sounds were present. EXTREMITIES:R foot covered w/dressing.no oozing noted..Missing toes. No cyanosis, clubbing or edema. NEUROLOGIC: Alert and oriented x3. No focal deficit. No sensory deficit. PSYCHOSOCIAL: No signs of depression. INTEGUMENTARY: See extremity assessment. Skin appears pale. ASSESSMENT AND PLAN:57 yo M w/DMII, CKD, chronic anemia, PAD s/p toe amputations,dyslipidemia, transferred from OSH for inpatient management for sepsis w/ R foot DM cellulitis... Right foot DM cellulitis w/Abscess -s/p OR Incision and drainage right foot 10/20/18 -cultures negative -Glycemic control Osteomyelitis of Right 5th metatarsal base -abx per ID=>requires residential iv abx-on Invanz/dapto currently Sepsis,POA with right foot cellulitis/abscess -resolved Acute on Chronic anemia -s/p 1 PRBS-HH dropped again -Tx 1 unit as pt going to OR today -on iron /Epogen CKD,stage V progressing to ESRD -REFUSED HD -appreciate nephrology recs -His renal fxn is an obstacle to appropriate abx/vascular f/u -AVOID NEPHROTOXINS AND RENALLY DOSE ALL MEDS HX Nephrolithiasis/ JJ stent 2yrs ago - for OR today for stent removal w/ -Postop care per urology. Hypertension -on Toprol/Cardura DMII -stable -basal/bolus PVD,s/p toe amputations -Arterial studies noted-appreciate vascular recommendation and patient would definitely benefit from vascular intervention. However his renal function and unable to accept hemodialysis treatment precludes him from getting appropriate vascular intervention. Deferred for outpatient discussion -Continue to optimize neurovascular status with antihypertensives to keep blood pressure ~140/90, diet, nutrition, exercise, blood glucose control, and antiplatelets/anticoagulation(when appropriate). -on Aspirin/Trental Dyslipidemia -on statin Blindness -Supportive care DVT prophylaxis: Heparin PUD prophylaxis: Not indicated Dispo: Patient is for or today for JJ stent removal. Monitor postoperatively. F/u consultants recommendation. Patient adamantly refuses dialysis and he may also benefit from inpatient psych eval as he might be depressed, lack of insight into medical condition which is obstructing further treatment. DC planning with home health IV antibiotic daptomycin per ID recommendation. Patient was seen in collaboration with Dr. Nelson Result Diagram: 10/26/18 0453 10/26/18 0453 Results 24hrs Laboratory Tests Test 10/25/18 12:27 10/25/18 17:09 10/25/18 17:40 10/25/18 21:53 Bedside Glucose 139 117 117 151 Test 10/26/18 04:53 10/26/18 07:51 White Blood Count 7.6 Red Blood Count 2.87 L Hemoglobin 8.9 L Hematocrit 27.1 L Mean Corpuscular 94.4 Volume Mean Corpuscular 31.0 Hemoglobin Mean Corpuscular 32.8 Hemoglobin Concent Red Cell 15.1 H Distribution Width Platelet Count 290 Mean Platelet Volume 8.9 Immature 5.400 H Granulocytes % Neutrophils % 67.2 Lymphocytes % 13.1 L Monocytes % 7.8 Eosinophils % 5.7 Basophils % 0.8 Nucleated Red Blood 0.5 H Cells % Immature 0.410 H Granulocytes # Neutrophils # 5.1 Lymphocytes # 1.0 Monocytes # 0.6 Eosinophils # 0.4 Basophils # 0.1 Nucleated Red Blood 0.0 Cells # Sodium Level 140 Potassium Level 4.0 Chloride Level 112 H Carbon Dioxide Level 22 Anion Gap 6 Blood Urea Nitrogen 44 H Creatinine 4.94 H Est Glomerular 12 L Filtrat Rate mL/min Glucose Level 105 Calcium Level 8.7 Phosphorus Level 4.3 Magnesium Level 2.0 Bedside Glucose 96 Exam/Review of Systems Exam Vitals Vital Signs Date Temp Pulse Resp B/P (MAP) Pulse Ox O2 O2 Flow FiO2 Time Delivery Rate 10/26/18 98.1 70 20 149/77 96 07:33 (101) 10/24/18 Room Air 15:04 Intake and Output 10/25/18 10/25/18 10/26/18 1515:00 23:00 07:00 IntakeIntake Total 340 ml 450 ml OutputOutput Total 375 ml BalanceBalance -35 ml 450 ml Results Results 24hrs Laboratory Tests Test 10/25/18 12:27 10/25/18 17:09 10/25/18 17:40 10/25/18 21:53 Bedside Glucose 139 117 117 151 Test 10/26/18 04:53 10/26/18 07:51 White Blood Count 7.6 Red Blood Count 2.87 L Hemoglobin 8.9 L Hematocrit 27.1 L Mean Corpuscular 94.4 Volume Mean Corpuscular 31.0 Hemoglobin Mean Corpuscular 32.8 Hemoglobin Concent Red Cell 15.1 H Distribution Width Platelet Count 290 Mean Platelet Volume 8.9 Immature 5.400 H Granulocytes % Neutrophils % 67.2 Lymphocytes % 13.1 L Monocytes % 7.8 Eosinophils % 5.7 Basophils % 0.8 Nucleated Red Blood 0.5 H Cells % Immature 0.410 H Granulocytes # Neutrophils # 5.1 Lymphocytes # 1.0 Monocytes # 0.6 Eosinophils # 0.4 Basophils # 0.1 Nucleated Red Blood 0.0 Cells # Sodium Level 140 Potassium Level 4.0 Chloride Level 112 H Carbon Dioxide Level 22 Anion Gap 6 Blood Urea Nitrogen 44 H Creatinine 4.94 H Est Glomerular 12 L Filtrat Rate mL/min Glucose Level 105 Calcium Level 8.7 Phosphorus Level 4.3 Magnesium Level 2.0 Bedside Glucose 96 Medications Medication Current Medications Folic Acid (Folic Acid) 1 mg DAILY PO Last administered on 10/26/18at 09:02; Admin Dose 1 MG; Start 10/19/18 at 09:00 Atorvastatin Calcium (Lipitor) 10 mg DAILY@21 PO Last administered on 10/20/18at 20:57; Admin Dose 10 MG; Start 10/18/18 at 21:00; Status Hold IV Flush (NS 3 ml) 3 ml PER PROTOCOL IV ; Start 10/18/18 at 14:30 Ondansetron HCl (Zofran Inj) 4 mg Q6H PRN IV NAUSEA/VOMITING Last administered on 10/22/18 01:12; Admin Dose 4 MG; Start 10/18/18 at 14:30 Acetaminophen (Tylenol Tab) 650 mg Q6H PRN PO .PAIN 1-3 OR TEMP Last administered on 10/19/18 11:56; Admin Dose 650 MG; Start 10/18/18 at 14:30 Acetaminophen/ Hydrocodone Bitart ([place] (5/325)) 1 tab Q6H PRN PO .MOD PAIN 4- 6; Start 10/18/18 at 14:30 Docusate Sodium (Colace) 100 mg Q12H PRN PO .CONSTIPATION; Start 10/18/18 at 14:30 Diagnostic Test (Pha) (Accu-Chek) 1 ea 02 XX Last administered on 10/19/18at 02:03; Admin Dose 1 EA; Start 10/19/18 at 02:00 Miscellaneous Information 1 ea NOTE XX ; Start 10/18/18 at 14:30 Glucose (Glutose) 15 gm Q15M PRN PO DECREASED GLUCOSE; Start 10/18/18 at 14:30 Glucose (Glutose) 22.5 gm Q15M PRN PO DECREASED GLUCOSE; Start 10/18/18 at 14:30 Dextrose (D50w Syringe) 25 ml Q15M PRN IV DECREASED GLUCOSE Last administered on 10/20/18 17:06; Admin Dose 25 ML; Start 10/18/18 at 14:30 Dextrose (D50w Syringe) 50 ml Q15M PRN IV DECREASED GLUCOSE; Start 10/18/18 at 14:30 Glucagon (Glucagen) 1 mg Q15M PRN IM DECREASED GLUCOSE; Start 10/18/18 at 14:30 Glucose (Glutose) 15 gm Q15M PRN BUCCAL DECREASED GLUCOSE Last administered on 10/22/18 07:07; Admin Dose 15 GM; Start 10/18/18 at 14:30 Citric Acid/ Sodium Citrate (Bicitra) 30 ml BID PO Last administered on 10/26/18 09:02; Admin Dose 30 ML; Start 10/18/18 at 21:00 Clotrimazole (Lotrimin Cr) 1 applic BID TOP Last administered on 10/26/18 09:03; Admin Dose 1 APPLIC; Start 10/18/18 at 21:00 Epoetin Santiago-epbx (RETACRIT(non-esrd)) 10,000 unit TuThSa@1700 SC Last administered on 10/25/18 18:34; Admin Dose 10,000 UNIT; Start 10/20/18 at 17:00 Insulin Glargine (Lantus) 9 units DAILY@0800 SC Last administered on 10/26/18 09:08; Admin Dose 9 UNITS; Start 10/21/18 at 08:00 Insulin Aspart (Novolog Insulin Pen) NOVOLOG *MILD* ALGORITHM AC MEALS AND BEDTIME SC Last administered on 10/22/18 17:45; Admin Dose 1 UNIT; Start 10/20/18 at 17:30 Sevelamer Carbonate (Renvela) 800 mg WITH MEALS PO Last administered on 10/26/18 09:02; Admin Dose 800 MG; Start 10/21/18 at 12:00 Metoprolol Succinate (Toprol Xl) 50 mg BID PO Last administered on 10/26/18 09:03; Admin Dose 50 MG; Start 10/21/18 at 21:00 Aspirin (Aspirin) 81 mg DAILY PO Last administered on 10/26/18 09:03; Admin Dose 81 MG; Start 10/21/18 at 12:00 Heparin Sodium (Porcine) (Heparin (5000 Units/1ml)) 5,000 unit BID SC Last administered on 10/24/18 10:02; Admin Dose 5,000 UNIT; Start 10/21/18 at 21:00 Daptomycin 350 mg/ Sodium Chloride 100 ml @ 200 mls/hr Q48H IVPB Last administered on 10/25/18 14:20; Admin Dose 200 MLS/HR; Start 10/21/18 at 14:00 Guaifenesin/ Dextromethorphan (Robitussin Dm Liquid Cup) 10 ml Q4H PRN PO COUGH Last administered on 10/21/18 15:25; Admin Dose 10 ML; Start 10/21/18 at 15:00 IV Flush (NS 10 ml) 10 ml Q8 PRN IV IV PROTOCOL; Start 10/21/18 at 15:00 Sodium Hypochlorite (Dakins Diluted (1/40)) 1 applic DAILY TP Last administered on 10/26/18 09:03; Admin Dose 1 APPLIC; Start 10/22/18 at 09:00 Pentoxifylline (Trental) 400 mg TID PO Last administered on 10/26/18 09:03; Admin Dose 400 MG; Start 10/21/18 at 21:00 Cilostazol (Pletal) 50 mg BID PO Last administered on 10/26/18 09:02; Admin Dose 50 MG; Start 10/21/18 at 21:00 Doxazosin Mesylate (Cardura) 4 mg HS PO Last administered on 10/25/18 21:47; Admin Dose 4 MG; Start 10/23/18 at 21:00 Docusate Sodium/ Ferrous Fumarate (Taty-Sequels) 1 tab BID PO Last administered on 10/26/18 09:02; Admin Dose 1 TAB; Start 10/24/18 at 21:00 Alteplase, Recombinant (Cathflo (Activase)) 2 mg MAY REPEAT X1 PRN CATHETER IF CATHETER REMAINS OCCULUDED Last administered on 10/24/18 16:34; Admin Dose 2 MG; Start 10/24/18 at 16:00 Ertapenem 0.5 gm/ Sodium Chloride 100 ml @ 200 mls/hr Q24H IVPB Last administered on 10/25/18 15:43; Admin Dose 200 MLS/HR; Start 10/24/18 at 16:00 Hydralazine HCl (Apresoline) 10 mg Q4H PRN IV ELEVATED BLOOD PRESSURE Last administered on 10/25/18 15:45; Admin Dose 10 MG; Start 10/25/18 at 03:00 ISIDRO PAPPAS NP October 26, 2018 11:06
--- NOTE | 2018-10-26 14:12 | CONS ---
Assessment/Plan Assessment/Plan Hospital Course (Demo Recall) All noted, no acute events, looks comfortable Urine culture negative MRI of the right foot revealed osteomyelitis with possible phlegmon collection Antimicrobials: Daptomycin, Invanz Physical examination: Well-developed middle-aged man who is in no distress head atraumatic normocephalic neck is supple chest rise symmetrical breath sounds diminished bases heart: S1-S2 abdomen soft bowel sounds present extremities with right foot swelling and erythema Assessment: 1. Sepsis, present on admission 2. Right foot cellulitis, osteomyelitis, abscess s/p i/d 10/20/18 3. End-stage renal disease, not on HD 4. Diabetes 5. Bladder stone Plan: Clinically unchanged, refusing dialysis, unable to do angiogram secondary to renal function, anticipate discharge on IV daptomycin and oral Levaquin to 250 mg every 48 hours for 6+ weeks, per urology needs cystoscopy and cystolitholopaxy and possible removal of the JJ stent. Consultation Date/Type/Reason Admit Date/Time October 18, 2018 at 04:40 Initial Consult Date Type of Consult id Requesting Provider: YURY CASTRO Date/Time of Note DATE: 10/26/18 TIME: 14:10 Exam/Review of Systems Exam Vitals Vital Signs Date Temp Pulse Resp B/P (MAP) Pulse Ox O2 O2 Flow FiO2 Time Delivery Rate 10/26/18 98.0 70 20 153/72 96 14:07 (99) 10/24/18 Room Air 15:04 Intake and Output 10/25/18 10/25/18 10/26/18 1515:00 23:00 07:00 IntakeIntake Total 340 ml 450 ml OutputOutput Total 375 ml BalanceBalance -35 ml 450 ml Results Result Diagram: 10/26/18 0453 10/26/18 0453 Results 24hrs Laboratory Tests Test 10/25/18 17:09 10/25/18 17:40 10/25/18 21:53 10/26/18 04:53 Bedside Glucose 117 117 151 White Blood Count 7.6 Red Blood Count 2.87 L Hemoglobin 8.9 L Hematocrit 27.1 L Mean Corpuscular 94.4 Volume Mean Corpuscular 31.0 Hemoglobin Mean Corpuscular 32.8 Hemoglobin Concent Red Cell 15.1 H Distribution Width Platelet Count 290 Mean Platelet Volume 8.9 Immature 5.400 H Granulocytes % Neutrophils % 67.2 Lymphocytes % 13.1 L Monocytes % 7.8 Eosinophils % 5.7 Basophils % 0.8 Nucleated Red Blood 0.5 H Cells % Immature 0.410 H Granulocytes # Neutrophils # 5.1 Lymphocytes # 1.0 Monocytes # 0.6 Eosinophils # 0.4 Basophils # 0.1 Nucleated Red Blood 0.0 Cells # Sodium Level 140 Potassium Level 4.0 Chloride Level 112 H Carbon Dioxide Level 22 Anion Gap 6 Blood Urea Nitrogen 44 H Creatinine 4.94 H Est Glomerular 12 L Filtrat Rate mL/min Glucose Level 105 Calcium Level 8.7 Phosphorus Level 4.3 Magnesium Level 2.0 Test 10/26/18 07:51 10/26/18 12:37 Bedside Glucose 96 136 Medications Medication Current Medications Folic Acid (Folic Acid) 1 mg DAILY PO Last administered on 10/26/18at 09:02; Admin Dose 1 MG; Start 10/19/18 at 09:00 Atorvastatin Calcium (Lipitor) 10 mg DAILY@21 PO Last administered on 10/20/18at 20:57; Admin Dose 10 MG; Start 10/18/18 at 21:00; Status Hold IV Flush (NS 3 ml) 3 ml PER PROTOCOL IV ; Start 10/18/18 at 14:30 Ondansetron HCl (Zofran Inj) 4 mg Q6H PRN IV NAUSEA/VOMITING Last administered on 10/22/18at 01:12; Admin Dose 4 MG; Start 10/18/18 at 14:30 Acetaminophen (Tylenol Tab) 650 mg Q6H PRN PO .PAIN 1-3 OR TEMP Last administered on 10/19/18at 11:56; Admin Dose 650 MG; Start 10/18/18 at 14:30 Acetaminophen/ Hydrocodone Bitart ([place] (5/325)) 1 tab Q6H PRN PO .MOD PAIN 4- 6; Start 10/18/18 at 14:30 Docusate Sodium (Colace) 100 mg Q12H PRN PO .CONSTIPATION; Start 10/18/18 at 14:30 Diagnostic Test (Pha) (Accu-Chek) 1 ea 02 XX Last administered on 10/19/18at 02:03; Admin Dose 1 EA; Start 10/19/18 at 02:00 Miscellaneous Information 1 ea NOTE XX ; Start 10/18/18 at 14:30 Glucose (Glutose) 15 gm Q15M PRN PO DECREASED GLUCOSE; Start 10/18/18 at 14:30 Glucose (Glutose) 22.5 gm Q15M PRN PO DECREASED GLUCOSE; Start 10/18/18 at 14:30 Dextrose (D50w Syringe) 25 ml Q15M PRN IV DECREASED GLUCOSE Last administered on 10/20/18at 17:06; Admin Dose 25 ML; Start 10/18/18 at 14:30 Dextrose (D50w Syringe) 50 ml Q15M PRN IV DECREASED GLUCOSE; Start 10/18/18 at 14:30 Glucagon (Glucagen) 1 mg Q15M PRN IM DECREASED GLUCOSE; Start 10/18/18 at 14:30 Glucose (Glutose) 15 gm Q15M PRN BUCCAL DECREASED GLUCOSE Last administered on 10/22/18at 07:07; Admin Dose 15 GM; Start 10/18/18 at 14:30 Citric Acid/ Sodium Citrate (Bicitra) 30 ml BID PO Last administered on 10/26/18 09:02; Admin Dose 30 ML; Start 10/18/18 at 21:00 Clotrimazole (Lotrimin Cr) 1 applic BID TOP Last administered on 10/26/18 09:03; Admin Dose 1 APPLIC; Start 10/18/18 at 21:00 Epoetin Santiago-epbx (RETACRIT(non-esrd)) 10,000 unit TuThSa@1700 SC Last administered on 10/25/18 18:34; Admin Dose 10,000 UNIT; Start 10/20/18 at 17:00 Insulin Glargine (Lantus) 9 units DAILY@0800 SC Last administered on 10/26/18 09:08; Admin Dose 9 UNITS; Start 10/21/18 at 08:00 Insulin Aspart (Novolog Insulin Pen) NOVOLOG *MILD* ALGORITHM AC MEALS AND BEDTIME SC Last administered on 10/22/18 17:45; Admin Dose 1 UNIT; Start 10/20/18 at 17:30 Sevelamer Carbonate (Renvela) 800 mg WITH MEALS PO Last administered on 10/26/18 09:02; Admin Dose 800 MG; Start 10/21/18 at 12:00 Metoprolol Succinate (Toprol Xl) 50 mg BID PO Last administered on 10/26/18 09:03; Admin Dose 50 MG; Start 10/21/18 at 21:00 Aspirin (Aspirin) 81 mg DAILY PO Last administered on 10/26/18 09:03; Admin Dose 81 MG; Start 10/21/18 at 12:00 Heparin Sodium (Porcine) (Heparin (5000 Units/1ml)) 5,000 unit BID SC Last administered on 10/24/18 10:02; Admin Dose 5,000 UNIT; Start 10/21/18 at 21:00 Daptomycin 350 mg/ Sodium Chloride 100 ml @ 200 mls/hr Q48H IVPB Last administered on 10/25/18 14:20; Admin Dose 200 MLS/HR; Start 10/21/18 at 14:00 Guaifenesin/ Dextromethorphan (Robitussin Dm Liquid Cup) 10 ml Q4H PRN PO COUGH Last administered on 10/21/18 15:25; Admin Dose 10 ML; Start 10/21/18 at 15:00 IV Flush (NS 10 ml) 10 ml Q8 PRN IV IV PROTOCOL; Start 10/21/18 at 15:00 Sodium Hypochlorite (Dakins Diluted (1/40)) 1 applic DAILY TP Last administered on 10/26/18 09:03; Admin Dose 1 APPLIC; Start 10/22/18 at 09:00 Pentoxifylline (Trental) 400 mg TID PO Last administered on 10/26/18 09:03; Admin Dose 400 MG; Start 10/21/18 at 21:00 Cilostazol (Pletal) 50 mg BID PO Last administered on 10/26/18 09:02; Admin Dose 50 MG; Start 10/21/18 at 21:00 Doxazosin Mesylate (Cardura) 4 mg HS PO Last administered on 10/25/18 21:47; Admin Dose 4 MG; Start 10/23/18 at 21:00 Docusate Sodium/ Ferrous Fumarate (Taty-Sequels) 1 tab BID PO Last administered on 10/26/18 09:02; Admin Dose 1 TAB; Start 10/24/18 at 21:00 Alteplase, Recombinant (Cathflo (Activase)) 2 mg MAY REPEAT X1 PRN CATHETER IF CATHETER REMAINS OCCULUDED Last administered on 10/24/18 16:34; Admin Dose 2 MG; Start 10/24/18 at 16:00 Ertapenem 0.5 gm/ Sodium Chloride 100 ml @ 200 mls/hr Q24H IVPB Last administered on 10/25/18at 15:43; Admin Dose 200 MLS/HR; Start 10/24/18 at 16:00 Hydralazine HCl (Apresoline) 10 mg Q4H PRN IV ELEVATED BLOOD PRESSURE Last administered on 10/25/18at 15:45; Admin Dose 10 MG; Start 10/25/18 at 03:00 CHEN BAXTER NP October 26, 2018 14:12
[2018-10-26] MEDS: ERTAPENEM SODIUM 0.5 GM in SOD CHLORIDE 0.9% 100 ML IVPB SCH (16:00)
--- NOTE | 2018-10-26 17:24 | PREAC ---
Date/Time of Note Date/Time of Note DATE: 10/26/18 TIME: 17:21 Anesthesia Eval and Record Evaluation Time Pre-Procedure Interview DATE: 10/26/18 TIME: 17:21 Age 57 Sex male NPO: 8 hrs Preoperative diagnosis Kidney Stons Planned procedure Lithotripsy Past Medical History Past Medical History: Includes Cardio: HTN Endo: Diabetes Neuro: Peripheral neuropathy : Other (Legally Blind) Surgery & Anesthesia Issues No known issue Meds Anticoagulation: No Beta Rolando within 24 hr: No Reason Beta Rolando not given: Pt. not on B-Rolando Reported Medications Levofloxacin* (Levaquin*) 500 Mg Tablet, 500 MG PO DAILY, TAB 10/18/18 Pioglitazone Hcl* (Actos*) 30 Mg Tablet, 30 MG PO DAILY, #30 TAB 10/18/18 Folic Acid* (Folic Acid*) 1 Mg Tablet, 1 MG PO DAILY, TAB 10/18/18 Simvastatin* (Zocor*) 20 Mg Tablet, 20 MG PO QHS, #30 TAB 10/18/18 Carvedilol* (Carvedilol*) 12.5 Mg Tablet, 12.5 MG PO DAILY, #60 TAB 10/18/18 Glipizide* (Glipizide*) 10 Mg Tablet, 10 MG PO AC BREAKFAST, TAB 10/18/18 Current Medications Folic Acid (Folic Acid) 1 mg DAILY PO Last administered on 10/26/18at 09:02; Admin Dose 1 MG; Start 10/19/18 at 09:00 Atorvastatin Calcium (Lipitor) 10 mg DAILY@21 PO Last administered on 10/20/18at 20:57; Admin Dose 10 MG; Start 10/18/18 at 21:00; Status Hold IV Flush (NS 3 ml) 3 ml PER PROTOCOL IV ; Start 10/18/18 at 14:30 Ondansetron HCl (Zofran Inj) 4 mg Q6H PRN IV NAUSEA/VOMITING Last administered on 10/22/18at 01:12; Admin Dose 4 MG; Start 10/18/18 at 14:30 Acetaminophen (Tylenol Tab) 650 mg Q6H PRN PO .PAIN 1-3 OR TEMP Last ad ministered on 10/19/18at 11:56; Admin Dose 650 MG; Start 10/18/18 at 14:30 Acetaminophen/ Hydrocodone Bitart ([place] (5/325)) 1 tab Q6H PRN PO .MOD PAIN 4- 6; Start 10/18/18 at 14:30 Docusate Sodium (Colace) 100 mg Q12H PRN PO .CONSTIPATION; Start 10/18/18 at 14:30 Diagnostic Test (Pha) (Accu-Chek) 1 ea 02 XX Last administered on 10/19/18at 02:03; Admin Dose 1 EA; Start 10/19/18 at 02:00 Miscellaneous Information 1 ea NOTE XX ; Start 10/18/18 at 14:30 Glucose (Glutose) 15 gm Q15M PRN PO DECREASED GLUCOSE; Start 10/18/18 at 14:30 Glucose (Glutose) 22.5 gm Q15M PRN PO DECREASED GLUCOSE; Start 10/18/18 at 14:30 Dextrose (D50w Syringe) 25 ml Q15M PRN IV DECREASED GLUCOSE Last administered on 10/20/18at 17:06; Admin Dose 25 ML; Start 10/18/18 at 14:30 Dextrose (D50w Syringe) 50 ml Q15M PRN IV DECREASED GLUCOSE; Start 10/18/18 at 14:30 Glucagon (Glucagen) 1 mg Q15M PRN IM DECREASED GLUCOSE; Start 10/18/18 at 14:30 Glucose (Glutose) 15 gm Q15M PRN BUCCAL DECREASED GLUCOSE Last administered on 10/22/18at 07:07; Admin Dose 15 GM; Start 10/18/18 at 14:30 Citric Acid/ Sodium Citrate (Bicitra) 30 ml BID PO Last administered on 10/26/18 09:02; Admin Dose 30 ML; Start 10/18/18 at 21:00 Clotrimazole (Lotrimin Cr) 1 applic BID TOP Last administered on 10/26/18 09:03; Admin Dose 1 APPLIC; Start 10/18/18 at 21:00 Epoetin Santiago-epbx (RETACRIT(non-esrd)) 10,000 unit TuThSa@1700 SC Last administered on 10/25/18at 18:34; Admin Dose 10,000 UNIT; Start 10/20/18 at 17:00 Insulin Glargine (Lantus) 9 units DAILY@0800 SC Last administered on 10/26/18 09:08; Admin Dose 9 UNITS; Start 10/21/18 at 08:00 Insulin Aspart (Novolog Insulin Pen) NOVOLOG *MILD* ALGORITHM AC MEALS AND BEDTIME SC Last administered on 10/22/18 17:45; Admin Dose 1 UNIT; Start 10/20/18 at 17:30 Sevelamer Carbonate (Renvela) 800 mg WITH MEALS PO Last administered on 10/26/18 09:02; Admin Dose 800 MG; Start 10/21/18 at 12:00 Metoprolol Succinate (Toprol Xl) 50 mg BID PO Last administered on 10/26/18 09:03; Admin Dose 50 MG; Start 10/21/18 at 21:00 Aspirin (Aspirin) 81 mg DAILY PO Last administered on 10/26/18 09:03; Admin Do se 81 MG; Start 10/21/18 at 12:00 Heparin Sodium (Porcine) (Heparin (5000 Units/1ml)) 5,000 unit BID SC Last administered on 10/24/18 10:02; Admin Dose 5,000 UNIT; Start 10/21/18 at 21:00 Daptomycin 350 mg/ Sodium Chloride 100 ml @ 200 mls/hr Q48H IVPB Last administered on 10/25/18 14:20; Admin Dose 200 MLS/HR; Start 10/21/18 at 14:00 Guaifenesin/ Dextromethorphan (Robitussin Dm Liquid Cup) 10 ml Q4H PRN PO COUGH Last administered on 10/21/18 15:25; Admin Dose 10 ML; Start 10/21/18 at 15:00 IV Flush (NS 10 ml) 10 ml Q8 PRN IV IV PROTOCOL; Start 10/21/18 at 15:00 Sodium Hypochlorite (Dakins Diluted (1/40)) 1 applic DAILY TP Last administered on 10/26/18 09:03; Admin Dose 1 APPLIC; Start 10/22/18 at 09:00 Pentoxifylline (Trental) 400 mg TID PO Last administered on 10/26/18 09:03; Admin Dose 400 MG; Start 10/21/18 at 21:00 Cilostazol (Pletal) 50 mg BID PO Last administered on 10/26/18 09:02; Admin Dose 50 MG; Start 10/21/18 at 21:00 Doxazosin Mesylate (Cardura) 4 mg HS PO Last administered on 10/25/18at 21:47; Admin Dose 4 MG; Start 10/23/18 at 21:00 Docusate Sodium/ Ferrous Fumarate (Taty-Sequels) 1 tab BID PO Last administered on 10/26/18at 09:02; Admin Dose 1 TAB; Start 10/24/18 at 21:00 Alteplase, Recombinant (Cathflo (Activase)) 2 mg MAY REPEAT X1 PRN CATHETER IF CATHETER REMAINS OCCULUDED Last administered on 10/24/18at 16:34; Admin Dose 2 MG; Start 10/24/18 at 16:00 Ertapenem 0.5 gm/ Sodium Chloride 100 ml @ 200 mls/hr Q24H IVPB Last administered on 10/25/18at 15:43; Admin Dose 200 MLS/HR; Start 10/24/18 at 16:00 Hydralazine HCl (Apresoline) 10 mg Q4H PRN IV ELEVATED BLOOD PRESSURE Last administered on 10/25/18at 15:45; Admin Dose 10 MG; Start 10/25/18 at 03:00 Meds reviewed: Yes Allergies Coded Allergies: No Known Allergy (Unverified , 10/18/18) Allergies Reviewed: Yes Labs/Studies Labs Reviewed: Reviewed by anesthesiologist Result Diagram: 10/26/18 0453 10/26/18 0453 Laboratory Tests 10/26/18 04:53 test: N/A Pre-procedure Exam Last vitals Vital Signs Date Temp Pulse Resp B/P (MAP) Pulse Ox O2 O2 Flow FiO2 Time Delivery Rate 10/26/18 98.0 70 20 153/72 96 14:07 (99) 10/24/18 Room Air 15:04 Airway: Adequate mouth opening Mallampati: Mallampati II Teeth: Normal Lung: Normal Heart: Normal ASA Physical Status ASA physical status: 3 Emergency: None Planned Anesthetic General/MAC: LMA Pre-operative Attestations Prior to commencing anesthesia and surgery, the patient was re-evaluated, there was verification of: *The patient's identity *The results of appropriate recent lab work and preoperative vital signs *The above evaluation not changing prior to induction *Anesthetic plan, risk benefits, alternative and complications discussed with patient/family; questions answered; patient/family understands, accepts and wishes to proceed. NAN AVILA MD October 26, 2018 17:24
[2018-10-26] MEDS ORDERED: PROPOFOL 20 ML ONE (17:26)
[2018-10-26] MEDS ORDERED: EPHEDrine 25 MG/5 ML SYG ONE (17:44)
[2018-10-26] MEDS ORDERED: CEFAZOLIN 1 GM INJ ONE ×2 (17:46→18:35)
[2018-10-26] MEDS ORDERED: LIDOCAINE 2% 20 ML UROJET SYRINGE ONE (18:17)
--- NOTE | 2018-10-26 18:50 | PAC ---
Date/Time of Note Date/Time of Note DATE: 10/26/18 TIME: 18:50 Post-Anesthesia Notes Post-Anesthesia Note Last documented vital signs Vital Signs Date Temp Pulse Resp B/P (MAP) Pulse Ox O2 O2 Flow FiO2 Time Delivery Rate 10/26/18 98.0 70 20 153/72 96 14:07 (99) 10/24/18 Room Air 15:04 Activity: WNL Respiratory function: WNL Cardiovascular function: WNL Mental status: Baseline Pain reasonably controlled: Yes Hydration appropriate: Yes Nausea/Vomiting absent: Yes NAN AVILA MD October 26, 2018 18:50
--- NOTE | 2018-10-26 18:53 | OPR ---
Date/Time of Note Date/Time of Note DATE: 10/26/18 TIME: 18:46 Operative Report Procedure Date: October 26, 2018 Preoperative Diagnosis Large bladder stone formed on distal curl of JJ stent. Retained left ureteral JJ stent Postoperative Diagnosis Same Operation/Procedure Performed Cystoscopy and cystolitholapaxy and removal of left ureteral JJ stent Surgeon see signature line Asp Web Developer Lon Hutchison Anesthesia Type: general Anesthesiologist: NAN AVILA MD Estimated Blood Loss: minimal Transfusion none Specimen Bladder stone fragments and left ureteral JJ stent Grafts/Implants none Complications none Pt Condition Post Procedure: stable Disposition: PACU Indications Large bladder stone and retained left ureteral JJ stent Procedure Description The patient was brought to the operating room and given general anesthesia. Patient was then positioned in the lithotomy position and the genital area was prepped and draped in the usual sterile manner. Timeout was done and the patient was identified by his name, the procedure and the side of the procedure. He was given 1 g of Ancef IV at the start of the procedure. #22 [place] cystoscope sheath was then introduced under direct vision through the penile urethra all the way to the bladder. The stone was visualized and it was large and covering the whole curl of the distal end of the left ureteral JJ stent. Then I used the holmium laser and 500 m laser fiber and broke the stone of the curl of the JJ stent. All the fragments were broken further into smaller pieces. Then these fragments were drained and irrigated out of the bladder. Then under fluoroscopy I did grasper the distal end of the JJ stent and while looking under fluoroscopy I pulled the stent out. I did lubricate the left ureter was 2% lidocaine gel before I pulled the stent out. The stent came out without any problem and came out intact the proximal end did uncurl. At the end of the procedure I did insert an 18 [place] three-way Bailey catheter with a 10 mL balloon. Continuous bladder irrigation was started in the operating room and the patient was transferred to the recovery room in a stable and satisfactory condition. JITENDRA MOYA MD October 26, 2018 18:53
[2018-10-26] MEDS ORDERED: ONDANSETRON 4 MG INJ IV PRN (19:00)
[2018-10-26] MEDS: FENTAnyl 50 MCG/ML VIAL IV PRN ×4 (19:36→20:10)
[2018-10-26] MEDS: hydrALAzine 20 MG INJ IV PRN (19:56)
[2018-10-26] MEDS: DEXTROSE 50% 50 ML SYRINGE IV PRN (20:37)
[2018-10-26] MEDS: DOXAZOSIN 4 MG TAB PO SCH (22:07)
[2018-10-27 02:00] VITALS: BP 136/67; PULSE 76; RESP 18
[2018-10-27] MEDS: ACCU-CHEK XX SCH (02:00)
[2018-10-27] MEDS: HYDROCODONE/APAP (5/325) TAB PO PRN ×2 (05:59→12:49)
[2018-10-27] MEDS: INSULIN ASPART [NOVOLOG] 3 ML PEN SC SCH ×4 (07:00→21:00)
[2018-10-27 08:07] VITALS: BP 151/78; PULSE 79; RESP 18
[2018-10-27] MEDS: HEPARIN 5,000 UNIT/1 ML VIAL SC SCH (09:00)
[2018-10-27] MEDS: SEVELAMER CARBONATE 800 MG TABLET PO SCH ×3 (09:07→17:16)
[2018-10-27] MEDS: FOLIC ACID 1 MG TAB PO SCH (09:07)
[2018-10-27] MEDS: ASPIRIN 81 MG TAB PO SCH (09:07)
[2018-10-27] MEDS: CILOSTAZOL 100 MG TAB PO SCH ×2 (09:07→21:18)
[2018-10-27] MEDS: PENTOXIFYLLINE (SR) 400 MG TAB PO SCH ×3 (09:07→21:18)
[2018-10-27] MEDS: FERROUS FUMARATE (SR) TAB PO SCH ×2 (09:07→21:19)
[2018-10-27] MEDS: CLOTRIMAZOLE 1% 30 GM CR TOP SCH ×2 (09:08→21:24)
[2018-10-27] MEDS: METOPROLOL (XL) 50 MG TAB PO SCH ×2 (09:09→21:23)
[2018-10-27] MEDS: CITRIC ACID/NA CITRATE 30 ML CUP PO SCH ×2 (09:10→21:17)
[2018-10-27] MEDS: INSULIN GLARGINE [LANTus] (100 UNITS/ML) SYG SC SCH (09:17)
--- NOTE | 2018-10-27 09:17 | PN ---
DATE: 10/27/2018 SUBJECTIVE: The patient is stable, no events overnight. No fevers, chills, nausea or vomiting. OBJECTIVE: VITAL SIGNS: Blood pressure is 151/78, respirations 18, pulse 79, temperature 98.5. HEENT: Head is normocephalic. NECK: Supple. HEART: Regular rate. LUNGS: Show diminished breath sounds at the base. ABDOMEN: Soft, nontender to palpation without rebound or guarding. EXTREMITIES: Negative for clubbing, cyanosis, no edema. DERMATOLOGIC: No rashes. MUSCULOSKELETAL: No joint effusion. NEUROLOGIC: No change in exam. MEDICATIONS: Reviewed. LABORATORY DATA: Reviewed. ASSESSMENT AND PLAN: 1. Nonoliguric acute kidney injury on top of chronic kidney disease stage V. Etiology of acute kidn ey injury is secondary to hemodynamics. Renal function appears to have stabilizing around a creatini ne between 4 to 5 mg/dL. At this point, continue current treatment plan, supportive care, renally do se all medications. The patient does not want hemodialysis. 2. Metabolic acidosis, improved. Continue Bicitra. 3. Hypernatremia, resolved. Continue to monitor. 4. Anemia. Continue to monitor hemoglobin and hematocrit levels. We will give intermittent Epogen as needed. 5. Mineral bone disorder. Monitor calcium and phosphorus levels. We will continue vitamin D analog s. 6. Sepsis secondary to cellulitis, right foot abscess. The patient is status post incision and tamiko flores. Continue to monitor. Continue antibiotic therapy. Continue wound care. 7. Bilateral kidney stones. The patient is status post cystoscopy, cystolitholapaxy and removal of double-J stent. Continue to monitor. Follow up with urology. 8. Peripheral vascular disease. 9. Diabetes. Continue current insulin regimen. 10. Dyslipidemia. Continue statin therapy. 11. Hypertension. Continue current blood pressure regimen. Dictated By: GI PENA DO NR/NTS Conf#: [id number] DID#: [id number] CC: JIMENEZ HAILE MD; JITENDRA MOYA MD;*EndCC*
[2018-10-27] MEDS: DAKINS 0.0125%(1/40) 473 ML SOLUTION TP SCH (09:18)
[2018-10-27] MEDS: CHOLECALCIFEROL 1,000 UNIT TAB PO SCH (10:38)
--- NOTE | 2018-10-27 11:14 | PN ---
Date/Time of Note Date/Time of Note DATE: 10/27/18 TIME: 11:01 Assessment/Plan VTE Prophylaxis Risk score (from Nsg)>0 risk: 6 SCD applied (from Nsg): Yes Pharmacological prophylaxis: NA/contraindicated Pharm contraindication: surgical contra Lines/Catheters IV Catheter Type (from Nrsg): PICC Line Central line still needed: Yes Urinary Cath still in place: Yes Reason Cath still needed: other (indicate) Assessment/Plan Hospital Course SUBJECTIVE:No acute distress. no fevers. OBJECTIVE: Vital signs-see below PHYSICAL EXAM: Constitutional: Adequately built,not in acute distress. HEENT:Blind. Head atraumatic and normocephalic. Eyes: Extraocular muscles intact. NECK: Supple without lymph node. CHEST: Clear and good breath sounds equally. No wheezing. No rhonchi. HEART: S1, S2. Regular rate and rhythm. ABDOMEN: Soft/non tender with no rebound tenderness. Bowel sounds were present. EXTREMITIES:R foot covered w/dressing.no oozing noted..Missing toes. No cyanosis, clubbing or edema. NEUROLOGIC: Alert and oriented x3. No focal deficit. No sensory deficit. PSYCHOSOCIAL: No signs of depression. INTEGUMENTARY: See extremity assessment. Skin appears pale. ASSESSMENT AND PLAN:57 yo M w/DMII, CKD, chronic anemia, PAD s/p toe amputations,dyslipidemia, transferred from OSH for inpatient management for sepsis w/ R foot DM cellulitis... Right foot DM cellulitis w/Abscess -s/p OR Incision and drainage right foot 10/20/18 -cultures negative -Glycemic control Osteomyelitis of Right 5th metatarsal base -abx per ID=>requires nursing home iv abx-on Invanz/dapto currently Sepsis,POA with right foot cellulitis/abscess -resolved Acute on Chronic anemia -s/p 2 units in total with stable H&H. -on iron /Epogen CKD,stage V progressing to ESRD -REFUSED HD -appreciate nephrology recs -His renal fxn is an obstacle to appropriate abx/vascular f/u -AVOID NEPHROTOXINS AND RENALLY DOSE ALL MEDS Bladder stone/retained left ureteral JJ stent -s/p Cystoscopy and cystolitholapaxy and removal of left ureteral JJ stent -Bladder irrigation/Bailey monitoring/removal per urology team -STOP Heparin Hypertension -on Toprol/Cardura DMII -stable -basal/bolus PVD,s/p toe amputations -Arterial studies noted-appreciate vascular recommendation and patient would definitely benefit from vascular intervention. However his renal function and unable to accept hemodialysis treatment precludes him from getting appropriate vascular intervention. Deferred for outpatient discussion -Continue to optimize neurovascular status with antihypertensives to keep blood pressure ~140/90, diet, nutrition, exercise, blood glucose control, and antiplatelets/anticoagulation(when appropriate). -on Aspirin/Trental Dyslipidemia -on statin Blindness -Supportive care DVT prophylaxis: SCDs PUD prophylaxis: Not indicated Dispo: Overall, patient is clinically stable. Again, this patient kept refusing hemodialysis. At this time, we will start DC planning with home health IV antibiotics for osteomyelitis, ID recommended IV daptomycin and oral Levaquin. Patient will be monitored in-house for another 24 hours until his urine output is clear and irrigation is stopped with Bailey removal prior to discharge. We will also stop heparin. Patient was seen in collaboration with Dr. Nelson Result Diagram: 10/27/18 0510/27/18520 Results 24hrs Laboratory Tests Test 10/26/18 12:37 10/26/18 20:00 10/26/18 20:15 10/26/18 20:34 Bedside Glucose 136 69 L 64 L 68 L Test 10/26/18 20:44 10/26/18 22:04 10/27/18 05:21 10/27/18 08:18 Bedside Glucose 220 149 93 White Blood Count 11.7 #H Red Blood Count 3.15 L Hemoglobin 9.7 L Hematocrit 30.2 L Mean Corpuscular 95.9 Volume Mean Corpuscular 30.8 Hemoglobin Mean Corpuscular 32.1 Hemoglobin Concent Red Cell 16.1 H Distribution Width Platelet Count 279 Mean Platelet Volume 8.6 Immature 2.600 H Granulocytes % Neutrophils % 82.7 H Lymphocytes % 6.3 L Monocytes % 4.6 Eosinophils % 3.4 Basophils % 0.4 Nucleated Red Blood 0.3 H Cells % Immature 0.300 H Granulocytes # Neutrophils # 9.7 H Lymphocytes # 0.7 L Monocytes # 0.5 Eosinophils # 0.4 Basophils # 0.1 Nucleated Red Blood 0.0 Cells # Sodium Level 143 Potassium Level 3.6 Chloride Level 114 H Carbon Dioxide Level 22 Anion Gap 7 Blood Urea Nitrogen 39 H Creatinine 4.59 H Est Glomerular 13 L Filtrat Rate mL/min Glucose Level 134 Calcium Level 8.5 Exam/Review of Systems Exam Vitals Vital Signs Date Temp Pulse Resp B/P (MAP) Pulse Ox O2 O2 Flow FiO2 Time Delivery Rate 10/27/18 98.5 79 18 151/78 94 Room Air 08:07 (102) 10/26/18 2.0 19:09 Intake and Output 10/26/18 10/26/18 10/27/18 1515:00 23:00 07:00 IntakeIntake Total 360 ml 2310 ml OutputOutput Total 125 ml 302 ml BalanceBalance 235 ml 2008 ml Results Results 24hrs Laboratory Tests Test 10/26/18 12:37 10/26/18 20:00 10/26/18 20:15 10/26/18 20:34 Bedside Glucose 136 69 L 64 L 68 L Test 10/26/18 20:44 10/26/18 22:04 10/27/18 05:21 10/27/18 08:18 Bedside Glucose 220 149 93 White Blood Count 11.7 #H Red Blood Count 3.15 L Hemoglobin 9.7 L Hematocrit 30.2 L Mean Corpuscular 95.9 Volume Mean Corpuscular 30.8 Hemoglobin Mean Corpuscular 32.1 Hemoglobin Concent Red Cell 16.1 H Distribution Width Platelet Count 279 Mean Platelet Volume 8.6 Immature 2.600 H Granulocytes % Neutrophils % 82.7 H Lymphocytes % 6.3 L Monocytes % 4.6 Eosinophils % 3.4 Basophils % 0.4 Nucleated Red Blood 0.3 H Cells % Immature 0.300 H Granulocytes # Neutrophils # 9.7 H Lymphocytes # 0.7 L Monocytes # 0.5 Eosinophils # 0.4 Basophils # 0.1 Nucleated Red Blood 0.0 Cells # Sodium Level 143 Potassium Level 3.6 Chloride Level 114 H Carbon Dioxide Level 22 Anion Gap 7 Blood Urea Nitrogen 39 H Creatinine 4.59 H Est Glomerular 13 L Filtrat Rate mL/min Glucose Level 134 Calcium Level 8.5 Medications Medication Current Medications Folic Acid (Folic Acid) 1 mg DAILY PO Last administered on 10/27/18at 09:07; Admin Dose 1 MG; Start 10/19/18 at 09:00 Atorvastatin Calcium (Lipitor) 10 mg DAILY@21 PO Last administered on 10/20/18at 20:57; Admin Dose 10 MG; Start 10/18/18 at 21:00; Status Hold IV Flush (NS 3 ml) 3 ml PER PROTOCOL IV ; Start 10/18/18 at 14:30 Ondansetron HCl (Zofran Inj) 4 mg Q6H PRN IV NAUSEA/VOMITING Last administered on 10/22/18at 01:12; Admin Dose 4 MG; Start 10/18/18 at 14:30 Acetaminophen (Tylenol Tab) 650 mg Q6H PRN PO .PAIN 1-3 OR TEMP Last administered on 10/19/18at 11:56; Admin Dose 650 MG; Start 10/18/18 at 14:30 Acetaminophen/ Hydrocodone Bitart ([place] (5/325)) 1 tab Q6H PRN PO .MOD PAIN 4- 6 Last administered on 10/27/18at 05:59; Admin Dose 1 TAB; Start 10/18/18 at 14:30 Docusate Sodium (Colace) 100 mg Q12H PRN PO .CONSTIPATION; Start 10/18/18 at 14:30 Diagnostic Test (Pha) (Accu-Chek) 1 ea 02 XX Last administered on 10/19/18at 02:03; Admin Dose 1 EA; Start 10/19/18 at 02:00 Miscellaneous Information 1 ea NOTE XX ; Start 10/18/18 at 14:30 Glucose (Glutose) 15 gm Q15M PRN PO DECREASED GLUCOSE Last administered on 10/26/18at 20:04; Admin Dose 15 GM; Start 10/18/18 at 14:30 Glucose (Glutose) 22.5 gm Q15M PRN PO DECREASED GLUCOSE; Start 10/18/18 at 14:30 Dextrose (D50w Syringe) 25 ml Q15M PRN IV DECREASED GLUCOSE Last administered on 10/26/18at 20:37; Admin Dose 25 ML; Start 10/18/18 at 14:30 Dextrose (D50w Syringe) 50 ml Q15M PRN IV DECREASED GLUCOSE; Start 10/18/18 at 14:30 Glucagon (Glucagen) 1 mg Q15M PRN IM DECREASED GLUCOSE; Start 10/18/18 at 14:30 Glucose (Glutose) 15 gm Q15M PRN BUCCAL DECREASED GLUCOSE Last administered on 10/22/18at 07:07; Admin Dose 15 GM; Start 10/18/18 at 14:30 Citric Acid/ Sodium Citrate (Bicitra) 30 ml BID PO Last administered on 10/27/18 09:10; Admin Dose 30 ML; Start 10/18/18 at 21:00 Clotrimazole (Lotrimin Cr) 1 applic BID TOP Last administered on 10/27/18 09:08; Admin Dose 1 APPLIC; Start 10/18/18 at 21:00 Epoetin Santiago-epbx (RETACRIT(non-esrd)) 10,000 unit TuThSa@1700 SC Last administered on 10/25/18 18:34; Admin Dose 10,000 UNIT; Start 10/20/18 at 17:00 Insulin Glargine (Lantus) 9 units DAILY@0800 SC Last administered on 10/27/18 09:17; Admin Dose 9 UNITS; Start 10/21/18 at 08:00 Insulin Aspart (Novolog Insulin Pen) NOVOLOG *MILD* ALGORITHM AC MEALS AND BEDTIME SC Last administered on 10/22/18 17:45; Admin Dose 1 UNIT; Start 10/20/18 at 17:30 Sevelamer Carbonate (Renvela) 800 mg WITH MEALS PO Last administered on 10/27/18 09:07; Admin Dose 800 MG; Start 10/21/18 at 12:00 Metoprolol Succinate (Toprol Xl) 50 mg BID PO Last administered on 10/27/18 09:09; Admin Dose 50 MG; Start 10/21/18 at 21:00 Aspirin (Aspirin) 81 mg DAILY PO Last administered on 10/27/18 09:07; Admin Dose 81 MG; Start 10/21/18 at 12:00 Heparin Sodium (Porcine) (Heparin (5000 Units/1ml)) 5,000 unit BID SC Last administered on 10/26/18 22:17; Admin Dose 5,000 UNIT; Start 10/21/18 at 21:00 Daptomycin 350 mg/ Sodium Chloride 100 ml @ 200 mls/hr Q48H IVPB Last administered on 10/25/18 14:20; Admin Dose 200 MLS/HR; Start 10/21/18 at 14:00 Guaifenesin/ Dextromethorphan (Robitussin Dm Liquid Cup) 10 ml Q4H PRN PO COUGH Last administered on 10/21/18 15:25; Admin Dose 10 ML; Start 10/21/18 at 15:00 IV Flush (NS 10 ml) 10 ml Q8 PRN IV IV PROTOCOL; Start 10/21/18 at 15:00 Sodium Hypochlorite (Dakins Diluted (40)) 1 applic DAILY TP Last administered on 10/27/18 09:18; Admin Dose 1 APPLIC; Start 10/22/18 at 09:00 Pentoxifylline (Trental) 400 mg TID PO Last administered on 10/27/18 09:07; Admin Dose 400 MG; Start 10/21/18 at 21:00 Cilostazol (Pletal) 50 mg BID PO Last administered on 10/27/18 09:07; Admin Dose 50 MG; Start 10/21/18 at 21:00 Doxazosin Mesylate (Cardura) 4 mg HS PO Last administered on 10/26/18 22:07; Admin Dose 4 MG; Start 10/23/18 at 21:00 Docusate Sodium/ Ferrous Fumarate (Taty-Sequels) 1 tab BID PO Last administ ered on 10/27/18 09:07; Admin Dose 1 TAB; Start 10/24/18 at 21:00 Alteplase, Recombinant (Cathflo (Activase)) 2 mg MAY REPEAT X1 PRN CATHETER IF CATHETER REMAINS OCCULUDED Last administered on 10/24/18 16:34; Admin Dose 2 MG; Start 10/24/18 at 16:00 Ertapenem 0.5 gm/ Sodium Chloride 100 ml @ 200 mls/hr Q24H IVPB Last administered on 10/25/18 15:43; Admin Dose 200 MLS/HR; Start 10/24/18 at 16:00 Hydralazine HCl (Apresoline) 10 mg Q4H PRN IV ELEVATED BLOOD PRESSURE Last administered on 10/26/18 19:56; Admin Dose 10 MG; Start 10/25/18 at 03:00 Cholecalciferol (Vitamin D) 1,000 unit DAILY PO Last administered on 10/27/18 10:38; Admin Dose 1,000 UNIT; Start 10/27/18 at 09:00 ISIDRO PAPPAS NP October 27, 2018 11:12
--- NOTE | 2018-10-27 12:58 | CONS ---
Assessment/Plan Assessment/Plan Hospital Course (Demo Recall) Patient is awake looks comfortable status post cystoscopy with removal of left ureteral JJ stent yesterday. He has Bailey catheter urine slightly bloody but clear. No fevers overnight. WBC 11.7 platelets 279 neutrophils 82.7 MRI of the right foot revealed osteomyelitis with possible phlegmon collection Antimicrobials: Daptomycin, Invanz Physical examination: Well-developed middle-aged man who is in no distress head atraumatic normocephalic neck is supple chest rise symmetrical breath sounds diminished bases heart: S1-S2 abdomen soft bowel sounds present extremities with right foot swelling and erythema Assessment: 1. Sepsis, present on admission 2. Right foot cellulitis, osteomyelitis, abscess s/p i/d 10/20/18 3. End-stage renal disease, not on HD 4. Diabetes 5. Bladder stone Plan: Clinically unchanged, anticipate discharge on IV daptomycin and oral Levaquin to 250 mg every 48 hours for 6+ weeks, follow repeat urine culture, podiatry, renal and urology recommendations Consultation Date/Type/Reason Admit Date/Time October 18, 2018 at 04:40 Initial Consult Date Type of Consult id Requesting Provider: YURY CASTRO Date/Time of Note DATE: 10/27/18 TIME: 12:57 Exam/Review of Systems Exam Vitals Vital Signs Date Temp Pulse Resp B/P (MAP) Pulse Ox O2 O2 Flow FiO2 Time Delivery Rate 10/27/18 98.5 79 18 151/78 94 Room Air 08:07 (102) 10/26/18 2.0 19:09 Intake and Output 10/26/18 10/26/18 10/27/18 1515:00 23:00 07:00 IntakeIntake Total 360 ml 2310 ml OutputOutput Total 125 ml 302 ml BalanceBalance 235 ml 2008 ml Results Result Diagram: 10/27/18 0510/27/18 0521 Results 24hrs Laboratory Tests Test 10/26/18 20:00 10/26/18 20:15 10/26/18 20:34 10/26/18 20:44 Bedside Glucose 69 L 64 L 68 L 220 Test 10/26/18 22:04 10/27/18 05:21 10/27/18 08:18 Bedside Glucose 149 93 White Blood Count 11.7 #H Red Blood Count 3.15 L Hemoglobin 9.7 L Hematocrit 30.2 L Mean Corpuscular 95.9 Volume Mean Corpuscular 30.8 Hemoglobin Mean Corpuscular 32.1 Hemoglobin Concent Red Cell 16.1 H Distribution Width Platelet Count 279 Mean Platelet Volume 8.6 Immature 2.600 H Granulocytes % Neutrophils % 82.7 H Lymphocytes % 6.3 L Monocytes % 4.6 Eosinophils % 3.4 Basophils % 0.4 Nucleated Red Blood 0.3 H Cells % Immature 0.300 H Granulocytes # Neutrophils # 9.7 H Lymphocytes # 0.7 L Monocytes # 0.5 Eosinophils # 0.4 Basophils # 0.1 Nucleated Red Blood 0.0 Cells # Sodium Level 143 Potassium Level 3.6 Chloride Level 114 H Carbon Dioxide Level 22 Anion Gap 7 Blood Urea Nitrogen 39 H Creatinine 4.59 H Est Glomerular 13 L Filtrat Rate mL/min Glucose Level 134 Calcium Level 8.5 Medications Medication Current Medications Folic Acid (Folic Acid) 1 mg DAILY PO Last administered on 10/27/18 09:07; Admin Dose 1 MG; Start 10/19/18 at 09:00 Atorvastatin Calcium (Lipitor) 10 mg DAILY@21 PO Last administered on 10/20/18 20:57; Admin Dose 10 MG; Start 10/18/18 at 21:00; Status Hold IV Flush (NS 3 ml) 3 ml PER PROTOCOL IV ; Start 10/18/18 at 14:30 Ondansetron HCl (Zofran Inj) 4 mg Q6H PRN IV NAUSEA/VOMITING Last administered on 10/22/18 01:12; Admin Dose 4 MG; Start 10/18/18 at 14:30 Acetaminophen (Tylenol Tab) 650 mg Q6H PRN PO .PAIN 1-3 OR TEMP Last administered on 10/19/18 11:56; Admin Dose 650 MG; Start 10/18/18 at 14:30 Acetaminophen/ Hydrocodone Bitart ([place] (5/325)) 1 tab Q6H PRN PO .MOD PAIN 4- 6 Last administered on 10/27/18 12:49; Admin Dose 1 TAB; Start 10/18/18 at 14:30 Docusate Sodium (Colace) 100 mg Q12H PRN PO .CONSTIPATION; Start 10/18/18 at 14:30 Diagnostic Test (Pha) (Accu-Chek) 1 ea 02 XX Last administered on 10/19/18 02:03; Admin Dose 1 EA; Start 10/19/18 at 02:00 Miscellaneous Information 1 ea NOTE XX ; Start 10/18/18 at 14:30 Glucose (Glutose) 15 gm Q15M PRN PO DECREASED GLUCOSE Last administered on 10/26/18 20:04; Admin Dose 15 GM; Start 10/18/18 at 14:30 Glucose (Glutose) 22.5 gm Q15M PRN PO DECREASED GLUCOSE; Start 10/18/18 at 14:30 Dextrose (D50w Syringe) 25 ml Q15M PRN IV DECREASED GLUCOSE Last administered on 10/26/18 20:37; Admin Dose 25 ML; Start 10/18/18 at 14:30 Dextrose (D50w Syringe) 50 ml Q15M PRN IV DECREASED GLUCOSE; Start 10/18/18 at 1 4:30 Glucagon (Glucagen) 1 mg Q15M PRN IM DECREASED GLUCOSE; Start 10/18/18 at 14:30 Glucose (Glutose) 15 gm Q15M PRN BUCCAL DECREASED GLUCOSE Last administered on 10/22/18 07:07; Admin Dose 15 GM; Start 10/18/18 at 14:30 Citric Acid/ Sodium Citrate (Bicitra) 30 ml BID PO Last administered on 10/27 09:10; Admin Dose 30 ML; Start 10/18/18 at 21:00 Clotrimazole (Lotrimin Cr) 1 applic BID TOP Last administered on 10/27/18 09:08; Admin Dose 1 APPLIC; Start 10/18/18 at 21:00 Epoetin Santiago-epbx (RETACRIT(non-esrd)) 10,000 unit TuThSa@1700 SC Last administered on 10/25/18 18:34; Admin Dose 10,000 UNIT; Start 10/20/18 at 17:00 Insulin Glargine (Lantus) 9 units DAILY@0800 SC Last administered on 10/27/18 09:17; Admin Dose 9 UNITS; Start 10/21/18 at 08:00 Insulin Aspart (Novolog Insulin Pen) NOVOLOG *MILD* ALGORITHM AC MEALS AND BEDTIME SC Last administered on 10/22/18 17:45; Admin Dose 1 UNIT; Start 10/20/18 at 17:30 Sevelamer Carbonate (Renvela) 800 mg WITH MEALS PO Last administered on 10/27/18 12:34; Admin Dose 800 MG; Start 10/21/18 at 12:00 Metoprolol Succinate (Toprol Xl) 50 mg BID PO Last administered on 10/27/18 09:09; Admin Dose 50 MG; Start 10/21/18 at 21:00 Aspirin (Aspirin) 81 mg DAILY PO Last administered on 10/27/18 09:07; Admin Dose 81 MG; Start 10/21/18 at 12:00 Daptomycin 350 mg/ Sodium Chloride 100 ml @ 200 mls/hr Q48H IVPB Last administered on 10/25/18 14:20; Admin Dose 200 MLS/HR; Start 10/21/18 at 14:00 Guaifenesin/ Dextromethorphan (Robitussin Dm Liquid Cup) 10 ml Q4H PRN PO COUGH Last administered on 10/21/18 15:25; Admin Dose 10 ML; Start 10/21/18 at 15:00 IV Flush (NS 10 ml) 10 ml Q8 PRN IV IV PROTOCOL; Start 10/21/18 at 15:00 Sodium Hypochlorite (Dakins Diluted (1/40)) 1 applic DAILY TP Last administered on 10/27/18 09:18; Admin Dose 1 APPLIC; Start 10/22/18 at 09:00 Pentoxifylline (Trental) 400 mg TID PO Last administered on 10/27/18 12:34; Admin Dose 400 MG; Start 10/21/18 at 21:00 Cilostazol (Pletal) 50 mg BID PO Last administered on 10/27/18 09:07; Admin Dose 50 MG; Start 10/21/18 at 21:00 Doxazosin Mesylate (Cardura) 4 mg HS PO Last administered on 10/26/18 22:07; Admin Dose 4 MG; Start 10/23/18 at 21:00 Docusate Sodium/ Ferrous Fumarate (Taty-Sequels) 1 tab BID PO Last administered on 10/27/18 09:07; Admin Dose 1 TAB; Start 10/24/18 at 21:00 Alteplase, Recombinant (Cathflo (Activase)) 2 mg MAY REPEAT X1 PRN CATHETER IF CATHETER REMAINS OCCULUDED Last administered on 10/24/18 16:34; Admin Dose 2 MG; Start 10/24/18 at 16:00 Ertapenem 0.5 gm/ Sodium Chloride 100 ml @ 200 mls/hr Q24H IVPB Last admin istered on 10/25/18 15:43; Admin Dose 200 MLS/HR; Start 10/24/18 at 16:00 Hydralazine HCl (Apresoline) 10 mg Q4H PRN IV ELEVATED BLOOD PRESSURE Last administered on 10/26/18 19:56; Admin Dose 10 MG; Start 10/25/18 at 03:00 Cholecalciferol (Vitamin D) 1,000 unit DAILY PO Last administered on 10/27/18 10:38; Admin Dose 1,000 UNIT; Start 10/27/18 at 09:00 CHEN BAXTER NP October 27, 2018 12:58
[2018-10-27 14:00] VITALS: BP 161/73; PULSE 70; RESP 18
[2018-10-27] MEDS: DAPTOMYCIN 350 MG in SOD CHLORIDE 0.9% 100 ML IVPB SCH (15:16)
[2018-10-27] MEDS: ERTAPENEM SODIUM 0.5 GM in SOD CHLORIDE 0.9% 100 ML IVPB SCH (16:06)
[2018-10-27] MEDS: EPOETIN ALFA-EPBX (NON-ESRD 10,000 UNIT/ML VIAL SC SCH (17:00)
--- NOTE | 2018-10-27 19:32 | PN ---
Date/Time of Note Date/Time of Note DATE: 10/27/18 TIME: 19:29 Assessment/Plan Lines/Catheters IV Catheter Type (from [facility]): PICC Line Bailey in Place (from [facility]): Yes Assessment/Plan Chief Complaint/Hosp Course 57-year-old male who had a left ureteral JJ stent for over 1 year. That was complicated by a stone forming on the distal curl inside the bladder. He underwent cystoscopy and cystolitholopaxy on 10/26/2018 and removal of the left ureteral JJ stent. He did have continuous bladder irrigation overnight and that was stopped earlier this morning. His urine in the tubing is very clear therefore we will discontinue the Bailey catheter in a.m. and from a urological standpoint he may be discharged anytime after that. Subjective 24 Hr Interval Summary The patient is comfortable and has no pain. He is status post cystoscopy and cystolitholopaxy and removal of left ureteral JJ stent. Exam/Review of Systems Vital Signs Vitals Vital Signs Date Temp Pulse Resp B/P (MAP) Pulse Ox O2 O2 Flow FiO2 Time Delivery Rate 10/27/18 98.0 70 18 161/73 96 Room Air 14:00 (102) 10/26/18 2.0 19:09 Intake and Output 10/26/18 10/26/18 10/27/18 1515:00 23:00 07:00 IntakeIntake Total 360 ml 2310 ml OutputOutput Total 125 ml 302 ml BalanceBalance 235 ml 2008 ml Exam Free Text/Dictation The patient is afebrile, the abdomen is soft. The Bailey catheter is draining clear urine. He did have continuous bladder irrigation which was stopped earlier this morning. There is little blood in the tubing of the Bailey. Results Result Diagram: 10/27/18 0521 10/27/18 0521 JITENDRA MOYA MD October 27, 2018 19:32
[2018-10-27 20:28] VITALS: BP 170/78; PULSE 72; RESP 17
[2018-10-27] MEDS: DOXAZOSIN 4 MG TAB PO SCH (21:22)
[2018-10-28 01:55] VITALS: BP 180/86; PULSE 76; RESP 18
[2018-10-28] MEDS: ACCU-CHEK XX SCH (02:00)
[2018-10-28] MEDS: INSULIN GLARGINE [LANTus] (100 UNITS/ML) SYG SC SCH (08:00)
[2018-10-28 08:08] VITALS: BP 165/80; PULSE 78; RESP 17
[2018-10-28] MEDS: SEVELAMER CARBONATE 800 MG TABLET PO SCH ×2 (08:15→12:22)
[2018-10-28] MEDS: CHOLECALCIFEROL 1,000 UNIT TAB PO SCH (08:15)
[2018-10-28] MEDS: ASPIRIN 81 MG TAB PO SCH (08:16)
[2018-10-28] MEDS: METOPROLOL (XL) 50 MG TAB PO SCH (08:16)
[2018-10-28] MEDS: PENTOXIFYLLINE (SR) 400 MG TAB PO SCH ×2 (08:16→12:22)
[2018-10-28] MEDS: CILOSTAZOL 100 MG TAB PO SCH (08:16)
[2018-10-28] MEDS: FOLIC ACID 1 MG TAB PO SCH (08:16)
[2018-10-28] MEDS: CITRIC ACID/NA CITRATE 30 ML CUP PO SCH (08:16)
[2018-10-28] MEDS: FERROUS FUMARATE (SR) TAB PO SCH (08:16)
[2018-10-28] MEDS: INSULIN ASPART [NOVOLOG] 3 ML PEN SC SCH ×2 (08:18→11:30)
[2018-10-28] MEDS: DAKINS 0.0125%(1/40) 473 ML SOLUTION TP SCH (08:24)
[2018-10-28] MEDS: CLOTRIMAZOLE 1% 30 GM CR TOP SCH (08:24)
--- NOTE | 2018-10-28 09:19 | PN ---
DATE: 10/28/2018 SUBJECTIVE: The patient is stable, no events overnight. OBJECTIVE: VITAL SIGNS: Blood pressure is 165/80, pulse 78, respirations 17, temperature 99.0. HEENT: Head is normocephalic. NECK: Supple. HEART: Regular rate. LUNGS: Show diminished breath sounds at the base. ABDOMEN: Soft, nontender to palpation without rebound or guarding. EXTREMITIES: Negative for clubbing, cyanosis, no edema. DERMATOLOGIC: No rashes. MUSCULOSKELETAL: No joint effusion. NEUROLOGIC: No change in exam. MEDICATIONS: Reviewed. LABORATORY DATA: Has been reviewed. ASSESSMENT AND PLAN: 1. Nonoliguric acute kidney injury on chronic kidney disease stage V. Etiology of acute kidney inju ry is secondary to hemodynamics. Renal function appears to be stabilizing around a creatinine of 4 t o 5 mg/dL. At this point, continue current treatment plan, supportive care, renally dose all medicat ions. The patient is refusing hemodialysis. 2. Metabolic acidosis, improved. Continue Bicitra. 3. Hypernatremia, resolved. 4. Anemia. Continue to monitor hemoglobin and hematocrit levels. Continue intermittent Epogen. 5. Mineral bone disorder. Monitor calcium and phosphorus levels. Continue vitamin D analogs. 6. Sepsis secondary to cellulitis with abscess. The patient is status post incision and drainage. Continue to monitor. 7. Kidney stone, status post cystoscopy, cystolitholapaxy and removal of double-J stent. Continue t o monitor. 8. Peripheral vascular disease. 9. Diabetes. 10. Dyslipidemia. 11. Hypertension. Continue current blood pressure regimen. Dictated By: GI DALEY/TIFFANI Conf#: [id number] DID#: [id number] CC: JIMENEZ HAILE MD;*EndCC*
[2018-10-28 10:28] VITALS: BP 176/79; PULSE 72
[2018-10-28] MEDS: hydrALAzine 20 MG INJ IV PRN (10:42)
[2018-10-28 11:11] VITALS: BP 135/65; PULSE 74
--- NOTE | 2018-10-28 11:38 | PDOCDIS ---
Discharge Instructions CONDITION [id number] Patient Condition: [id number] Stable HOME CARE INSTRUCTIONS: [id number] Your diet recommendation is: [id number] renal/carbohydrate-controlled diet FOLLOW UP/APPOINTMENTS Follow-up Plan Follow up With amputation prevention clinic next week. You are diagnosed with bone infection and you need to be on IV antibiotics for a total 6 weeks duration. You need to have adequate wound care and follow-up with your developer designer and vascular doctors. We have arranged home health for wound care and IV antibiotics. You also have chronic kidney disease and you had refused hemodialysis which he we have recommended. At this time, I strongly recommend you following up with your e commerce merchant as outpatient to rediscuss the need for dialysis. ISIDRO PAPPAS NP October 28, 2018 11:38
[2018-10-28] MEDS ORDERED: CILO100T PO (11:46)
[2018-10-28] MEDS ORDERED: PENT400T9 PO (11:46)
[2018-10-28] MEDS ORDERED: CHOL100062 PO (11:46)
[2018-10-28] MEDS ORDERED: DOXA4TAB2 PO (11:46)
[2018-10-28] MEDS ORDERED: LEVO250T9 PO (11:46)
[2018-10-28] MEDS ORDERED: ASPI-831 PO (11:46)
[2018-10-28] MEDS ORDERED: DAPTOMYCIN (11:46)
[2018-10-28] MEDS ORDERED: FERR1TAB14 PO (11:46)
[2018-10-28] MEDS ORDERED: BICS PO (11:46)
--- NOTE | 2018-10-28 11:57 | DS ---
Date/Time of Note Date/Time of Note DATE: 10/28/18 TIME: 11:50 Discharge Summary Admission/Discharge Info Admit Date/Time October 18, 2018 at 04:40 Discharge Date/Time Discharge Diagnosis Right foot DM cellulitis w/Abscess -s/p OR Incision and drainage right foot 10/20/18 Osteomyelitis of Right 5th metatarsal base S/P Sepsis,POA with right foot cellulitis/abscess Acute on Chronic anemia CKD,stage V progressing to ESRD -REFUSED HD Bladder stone/retained left ureteral JJ stent -s/p Cystoscopy and cystolitholapaxy and removal of left ureteral JJ stent Hypertension DMII PVD,s/p toe amputations. Not a candidate for vascular intervention secondary to renal function Dyslipidemia Blindness Patient Condition: Stable Consults dr.dawoodian dr.bejjani dr.dreyer bolden Procedures 10/18/2018: MRI right foot IMPRESSION: 1. Evidence of osteomyelitis seen throughout the fifth metatarsal and extending into the fifth proximal phalanx. Fusion is noted at the metatarsal phalangeal and interphalangeal joint. 2. Partially assessed, probable phlegmonous collection seen at the midfoot. This is better seen on the dedicated MRI of the ankle. 3. Plantar soft tissue ulceration at the fifth MTP joint. 4. Abnormal bone marrow signal seen at the first distal phalanx also suspicious for osteomyelitis, particularly there is an ulcer in this region. Early ischemic change or stress edema may also have this appearance if there is no ulcer. RPTAT: UU OPERATIVE REPORT Date/Time of Note Date/Time of Note DATE: 10/20/18 TIME: 17:03 Operation/Procedure Performed Incision and drainage right foot Surgeon:RM BAKER DPM 10/21/2018: Right PICC line insertion. Operative Report Procedure Date: October 26, 2018 Preoperative Diagnosis Large bladder stone formed on distal curl of JJ stent. Retained left ureteral JJ stent Postoperative Diagnosis Same Operation/Procedure Performed Cystoscopy and cystolitholapaxy and removal of left ureteral JJ stent Surgeon:JITENDRA MOYA MD Hx of Present Illness This is a 57-year-old male with history of DMII, CKD 5, anemia of CKD-who was recommended to start dialysis for which patient was not receptive,, nephrolithiasis, PAD s/p toe amputations, dyslipidemia, blindness, who initially presented to [facility] with redness/swelling on right foot associated with fevers x2-day duration. Patient did not have any other complaints. Patient was transferred to [facility] due to insurance capitation. At my encounter with the patient, he denied chest pain, palpitation, nausea, vomiting, abdominal pain, loss of consciousness, dizziness, numbness, tingling, fever, chills, diarrhea, constipation or other discomfort. Labs reviewed from outside hospital showed white count 15,400, hemoglobin 7.2, hematocrit 21.5, platelet 252, sodium 131, potassium 4.4, BUN 62, creatinine 4.5, glucose 177. N ormal LFTs. Right foot x-ray with no acute issues. Chest x-ray normal. Twelve-lead EKG normal sinus rhythm.Vital signs temperature 103.1, pulse rate 86, respiratory rate 20, blood pressure 153/69 and oxygen saturation 97% on arrival to [facility]. Patient was given Zosyn and vancomycin from outside hospital. Hospital Course 57 yo M w/DMII, CKD, chronic anemia, PAD s/p toe amputations,dyslipidemia, transferred from OSH for inpatient management for sepsis w/ R foot DM cellu litis... Patient had Osteomyelitis of Right 5th metatarsal base. Patient underwent OR Incision and drainage right foot 10/20/18. He was continued on IV antimicrobial recommended per ID team. Sepsis resolved. Patient was noted with CKD stage V, for which patient was being followed by inspector health care facilities who recommended dialysis. Despite multiple discussion with multiple staff, patient adamantly refused hemodialysis and he would like to follow-up with his outpatient inspector health care facilities regarding this. Patient was also noted with chronic anemia of CKD for which he also required 2 units of transfusion and was continued on iron and Epogen treatment. Hemoglobin remained stable. Patient does note adequately controlled in terms of blood pressure requiring addition of Cardura along with beta- blockers. He was continued on insulin regimen for diabetes and his blood sugar remained stable. Patient was also noted with peripheral vascular disease and would benefit from vascular intervention.However his renal function and unable to accept hemodialysis treatment precludes him from getting appropriate vascular intervention. As such, this was Deferred for outpatient discussion. Patient was continued on aspirin/Trental/Pletal for PVD with claudication pain. He was continued on statin for dyslipidemia. Patient also had urology follow-up as he never followed up with his urologist after cystoscopy with double-J stent placed in early this year. Patient was noted with a bladder stone on retained left ureteral JJ stent. He underwent Cystoscopy and cystolitholapaxy and removal of left ureteral JJ stent on 10/26/2018. Bladder irrigation was stopped postoperatively with clear return from Bailey and Bailey was discontinued on 10/28/2018. At this time, patient is back to his baseline. Right foot dressing remains intact with continued wound care. He is stable for outpatient follow-up. Home health was arranged for wound care and administration of IV antibiotics. Patient to follow-up with his outpatient doctors. Approximately 60 m spent on coordinating the discharge on this patient. Patient was seen in collaboration with Dr. Nelson. Home Meds Active Scripts Levofloxacin* (Levofloxacin*) 250 Mg Tablet, 250 MG PO Q48H for 30 Days, #16 TAB Prov:PAPPAS,ISIDRO V. SOAKER SODA WORKER 10/28/18 Cholecalciferol* (Vitamin D3*) 1,000 Unit Tablet, 1000 UNIT PO DAILY, #30 TAB Prov:PAPPAS,ISIDRO V. SOAKER SODA WORKER 10/28/18 Citric Acid/Sodium Citrate* (Bicitra* (PEDIATRIC)) 1 Meq/Ml Soln, 30 ML PO BID, #60 DOSE Prov:PAPPAS,ISIDRO V. SOAKER SODA WORKER 10/28/18 Aspirin (Aspirin) 81 Mg Chew, 81 MG PO DAILY, #30 TAB Prov:PAPPAS,ISIDRO V. SOAKER SODA WORKER 10/28/18 Doxazosin Mesylate* (Cardura*) 4 Mg Tablet, 4 MG PO HS, #30 TAB Prov:PAPPAS,ISIDRO V. SOAKER SODA WORKER 10/28/18 Pentoxifylline* (Pentoxifylline*) 400 Mg Tablet.sa, 400 MG PO DAILY, #30 TAB Prov:PAPPAS,ISIDRO V. SOAKER SODA WORKER 10/28/18 Cilostazol* (Cilostazol*) 100 Mg Tablet, 50 MG PO BID, #60 TAB Prov:PAPPAS,ISIDRO V. SOAKER SODA WORKER 10/28/18 Ferrous Fumarate/Ascorbic Acid (Taty-Sequels 65-25 mg Caplet) 1 Each Tablet.er, 1 TAB PO BID, #60 TAB Prov:PAPPAS,ISIDRO V. SOAKER SODA WORKER 10/28/18 [Daptomycin] No Conflict Check, for 35 Days Prov:PAPPAS,ISIDRO V. SOAKER SODA WORKER 10/28/18 Reported Medications Levofloxacin* (Levaquin*) 500 Mg Tablet, 500 MG PO DAILY, TAB 10/18/18 Pioglitazone Hcl* (Actos*) 30 Mg Tablet, 30 MG PO DAILY, #30 TAB 10/18/18 Folic Acid* (Folic Acid*) 1 Mg Tablet, 1 MG PO DAILY, TAB 10/18/18 Simvastatin* (Zocor*) 20 Mg Tablet, 20 MG PO QHS, #30 TAB 10/18/18 Carvedilol* (Carvedilol*) 12.5 Mg Tablet, 12.5 MG PO DAILY, #60 TAB 10/18/18 Glipizide* (Glipizide*) 10 Mg Tablet, 10 MG PO AC BREAKFAST, TAB 10/18/18 Follow-up Plan Follow up With amputation prevention clinic next week. You are diagnosed with bone infection and you need to be on IV antibiotics for a total 6 weeks duration. You need to have adequate wound care and follow-up with your hand inserter operator and vascular doctors. We have arranged home health for wound care and IV antibiotics. You also have chronic kidney disease and you had refused hemodialysis which he we have recommended. At this time, I strongly recommend you following up with your inspector health care facilities as outpatient to rediscuss the need for dialysis. Primary Care Provider Not On Staff Doctor Pending Labs Laboratory Tests Test 10/27/18 12:56 10/27/18 17:55 10/27/18 21:13 10/27/18 21:26 Bedside 145 74 62 62 Glucose mg/dL (70-220) mg/dL (70-220) mg/dL (70-220) mg/dL (70-220) Test 10/27/18 21:47 10/27/18 22:02 10/28/18 03:33 10/28/18 05:22 Bedside 82 96 76 Glucose mg/dL (70-220) mg/dL (70-220) mg/dL (70-220) White Blood 9.7 Count 10^3/ul (4.8-1 0.8) Red Blood 2.96 Count 10^6/ul (4.70- 6.10) Hemoglobin 9.2 g/dl (14.0-18. 0) Hematocrit 28.4 % (42.0-52.0) Mean 95.9 Corpuscular fl (82.0-101.0 Volume ) Mean 31.1 Corpuscular pg (29.0-33.0) Hemoglobin Mean 32.4 Corpuscular g/dl (32.0-37. Hemoglobin Conc 0) ent Red Cell 16.4 Distribution % (11.5-14.5) Width Platelet Count 259 10^3/UL (140-4 15) Mean Platelet 8.8 Volume fl (7.4-10.4) Immature 2.000 Granulocytes % % (0.001-0.429 ) Neutrophils % 76.9 % (39.0-77.0) Lymphocytes % 10.0 % (15.0-51.0) Monocytes % 5.6 % (0.0-11.0) Eosinophils % 5.0 % (0.0-7.0) Basophils % 0.5 % (0.0-2.0) Nucleated Red 0.2 Blood Cells % /100WBC (0.0-0 .0) Immature 0.190 Granulocytes # 10^3/ul (0.0-0 .031) Neutrophils # 7.5 10^3/ul (1.6-7 .5) Lymphocytes # 1.0 10^3/ul (0.8-2 .9) Monocytes # 0.5 10^3/ul (0.3-0 .9) Eosinophils # 0.5 10^3/ul (0.0-0 .5) Basophils # 0.1 10^3/ul (0.0-0 .1) Nucleated Red 0.0 Blood Cells # 10^3/ul (0.0-0 .0) Sodium Level 141 mmol/L (135-14 4) Potassium 4.2 Level mmol/L (3.5-5. 1) Chloride Level 110 mmol/L (97-110 ) Carbon Dioxide 24 Level mmol/L (21-31) Anion Gap 7 (5-13) Blood Urea 35 Nitrogen mg/dl (7-20) Creatinine 4.24 mg/dl (0.61-1. 24) Est Glomerular 14 Filtrat mL/min (>60) Rate mL/min Glucose Level 79 mg/dl (70-220) Calcium Level 8.3 mg/dl (8.4-10. 2) Creatine 49 Kinase IU/L (23-200) Test 10/28/18 08:18 Bedside 85 Glucose mg/dL (70-220) ISIDRO PAPPAS NP October 28, 2018 11:57
--- NOTE | 2018-10-28 12:32 | CONS ---
Assessment/Plan Assessment/Plan Hospital Course (Demo Recall) No acute changes MRI of the right foot revealed osteomyelitis with possible phlegmon collection Antimicrobials: Daptomycin, Invanz Physical examination: Well-developed middle-aged man who is in no distress head atraumatic normocephalic neck is supple chest rise symmetrical breath sounds dim inished bases heart: S1-S2 abdomen soft bowel sounds present extremities with right foot swelling and erythema Assessment: 1. Sepsis, present on admission 2. Right foot cellulitis, osteomyelitis, abscess s/p i/d 10/20/18 3. End-stage renal disease, not on HD 4. Diabetes 5. Bladder stone Plan: Clinically unchanged, pending discharge on IV daptomycin and oral Levaquin to 250 mg every 48 hours for 6+ weeks, f/u podiatry, renal recommendations Consultation Date/Type/Reason Admit Date/Time October 18, 2018 at 04:40 Initial Consult Date Type of Consult id Requesting Provider: YURY CASTRO Date/Time of Note DATE: 10/28/18 TIME: 12:31 Exam/Review of Systems Exam Vitals Vital Signs Date Temp Pulse Resp B/P (MAP) Pulse Ox O2 O2 Flow FiO2 Time Delivery Rate 10/28/18 74 135/65 11:11 (88) 10/28/18 99.0 17 93 08:08 10/27/18 Room Air 14:00 10/26/18 2.0 19:09 Intake and Output 10/27/18 10/27/18 10/28/18 1515:00 23:00 07:00 IntakeIntake Total 720 ml 440 ml OutputOutput Total 1100 ml 900 ml 400 ml BalanceBalance -380 ml -460 ml -400 ml Results Result Diagram: 10/28/18 0522 10/28/18 0522 Results 24hrs Laboratory Tests Test 10/27/18 12:56 10/27/18 17:55 10/27/18 21:13 10/27/18 21:26 Bedside Glucose 145 74 62 L 62 L Test 10/27/18 21:47 10/27/18 22:02 10/28/18 03:33 10/28/18 05:22 Bedside Glucose 82 96 76 White Blood Count 9.7 Red Blood Count 2.96 L Hemoglobin 9.2 L Hematocrit 28.4 L Mean Corpuscular 95.9 Volume Mean Corpuscular 31.1 Hemoglobin Mean Corpuscular 32.4 Hemoglobin Concent Red Cell 16.4 H Distribution Width Platelet Count 259 Mean Platelet Volume 8.8 Immature 2.000 H Granulocytes % Neutrophils % 76.9 Lymphocytes % 10.0 L Monocytes % 5.6 Eosinophils % 5.0 Basophils % 0.5 Nucleated Red Blood 0.2 H Cells % Immature 0.190 H Granulocytes # Neutrophils # 7.5 Lymphocytes # 1.0 Monocytes # 0.5 Eosinophils # 0.5 Basophils # 0.1 Nucleated Red Blood 0.0 Cells # Sodium Level 141 Potassium Level 4.2 Chloride Level 110 Carbon Dioxide Level 24 Anion Gap 7 Blood Urea Nitrogen 35 H Creatinine 4.24 H Est Glomerular 14 L Filtrat Rate mL/min Glucose Level 79 # Calcium Level 8.3 L Creatine Kinase 49 Test 10/28/18 08:18 Bedside Glucose 85 Medications Medication Current Medications Folic Acid (Folic Acid) 1 mg DAILY PO Last administered on 10/28/18 08:16; Admin Dose 1 MG; Start 10/19/18 at 09:00 Atorvastatin Calcium (Lipitor) 10 mg DAILY@21 PO Last administered on 10/20/18 20:57; Admin Dose 10 MG; Start 10/18/18 at 21:00; Status Hold IV Flush (NS 3 ml) 3 ml PER PROTOCOL IV ; Start 10/18/18 at 14:30 Ondansetron HCl (Zofran Inj) 4 mg Q6H PRN IV NAUSEA/VOMITING Last administered on 10/22/18 01:12; Admin Dose 4 MG; Start 10/18/18 at 14:30 Acetaminophen (Tylenol Tab) 650 mg Q6H PRN PO .PAIN 1-3 OR TEMP Last administered on 10/19/18 11:56; Admin Dose 650 MG; Start 10/18/18 at 14:30 Acetaminophen/ Hydrocodone Bitart (Bartlett (5/325)) 1 tab Q6H PRN PO .MOD PAIN 4- 6 Last administered on 10/27/18 12:49; Admin Dose 1 TAB; Start 10/18/18 at 14:30 Docusate Sodium (Colace) 100 mg Q12H PRN PO .CONSTIPATION; Start 10/18/18 at 14:30 Diagnostic Test (Pha) (Accu-Chek) 1 ea 02 XX Last administered on 5/8/19at 02:03; Admin Dose 1 EA; Start 10/19/18 at 02:00 Miscellaneous Information 1 ea NOTE XX ; Start 10/18/18 at 14:30 Glucose (Glutose) 15 gm Q15M PRN PO DECREASED GLUCOSE Last administered on 10/26/18at 20:04; Admin Dose 15 GM; Start 10/18/18 at 14:30 Glucose (Glutose) 22.5 gm Q15M PRN PO DECREASED GLUCOSE; Start 10/18/18 at 14:30 Dextrose (D50w Syringe) 25 ml Q15M PRN IV DECREASED GLUCOSE Last administered on 10/26/18at 20:37; Admin Dose 25 ML; Start 10/18/18 at 14:30 Dextrose (D50w Syringe) 50 ml Q15M PRN IV DECREASED GLUCOSE; Start 10/18/18 at 1 4:30 Glucagon (Glucagen) 1 mg Q15M PRN IM DECREASED GLUCOSE; Start 10/18/18 at 14:30 Glucose (Glutose) 15 gm Q15M PRN BUCCAL DECREASED GLUCOSE Last administered on 10/22/18at 07:07; Admin Dose 15 GM; Start 10/18/18 at 14:30 Citric Acid/ Sodium Citrate (Bicitra) 30 ml BID PO Last administered on 10/28 08:16; Admin Dose 30 ML; Start 10/18/18 at 21:00 Clotrimazole (Lotrimin Cr) 1 applic BID TOP Last administered on 10/28/18at 08:24; Admin Dose 1 APPLIC; Start 10/18/18 at 21:00 Epoetin Santiago-epbx (RETACRIT(non-esrd)) 10,000 unit TuThSa@1700 SC Last administered on 10/25/18 18:34; Admin Dose 10,000 UNIT; Start 10/20/18 at 17:00 Insulin Glargine (Lantus) 9 units DAILY@0800 SC Last administered on 10/27/18 09:17; Admin Dose 9 UNITS; Start 10/21/18 at 08:00 Insulin Aspart (Novolog Insulin Pen) NOVOLOG *MILD* ALGORITHM AC MEALS AND BEDTIME SC Last administered on 10/27/18at 12:59; Admin Dose 1 UNIT; Start 10/20/18 at 17:30 Sevelamer Carbonate (Renvela) 800 mg WITH MEALS PO Last administered on 10/28/18 08:15; Admin Dose 800 MG; Start 10/21/18 at 12:00 Metoprolol Succinate (Toprol Xl) 50 mg BID PO Last administered on 10/28/18 08:16; Admin Dose 50 MG; Start 10/21/18 at 21:00 Aspirin (Aspirin) 81 mg DAILY PO Last administered on 10/28/18 08:16; Admin Dose 81 MG; Start 10/21/18 at 12:00 Daptomycin 350 mg/ Sodium Chloride 100 ml @ 200 mls/hr Q48H IVPB Last administered on 10/27/18 15:16; Admin Dose 200 MLS/HR; Start 10/21/18 at 14:00 Guaifenesin/ Dextromethorphan (Robitussin Dm Liquid Cup) 10 ml Q4H PRN PO COUGH Last administered on 10/21/18 15:25; Admin Dose 10 ML; Start 10/21/18 at 15:00 IV Flush (NS 10 ml) 10 ml Q8 PRN IV IV PROTOCOL; Start 10/21/18 at 15:00 Sodium Hypochlorite (Dakins Diluted (1/40)) 1 applic DAILY TP Last administered on 10/28/18 08:24; Admin Dose 1 APPLIC; Start 10/22/18 at 09:00 Pentoxifylline (Trental) 400 mg TID PO Last administered on 10/28/18 08:16; Admin Dose 400 MG; Start 10/21/18 at 21:00 Cilostazol (Pletal) 50 mg BID PO Last administered on 10/28/18 08:16; Admin Dose 50 MG; Start 10/21/18 at 21:00 Doxazosin Mesylate (Cardura) 4 mg HS PO Last administered on 10/27/18 21:22; Admin Dose 4 MG; Start 10/23/18 at 21:00 Docusate Sodium/ Ferrous Fumarate (Taty-Sequels) 1 tab BID PO Last administered on 10/28/18 08:16; Admin Dose 1 TAB; Start 10/24/18 at 21:00 Alteplase, Recombinant (Cathflo (Activase)) 2 mg MAY REPEAT X1 PRN CATHETER IF CATHETER REMAINS OCCULUDED Last administered on 10/24/18 16:34; Admin Dose 2 MG; Start 10/24/18 at 16:00 Ertapenem 0.5 gm/ Sodium Chloride 100 ml @ 200 mls/hr Q24H IVPB Last admin istered on 10/27/18at 16:06; Admin Dose 200 MLS/HR; Start 10/24/18 at 16:00 Hydralazine HCl (Apresoline) 10 mg Q4H PRN IV ELEVATED BLOOD PRESSURE Last administered on 10/28/18at 10:42; Admin Dose 10 MG; Start 10/25/18 at 03:00 Cholecalciferol (Vitamin D) 1,000 unit DAILY PO Last administered on 10/28/18at 08:15; Admin Dose 1,000 UNIT; Start 10/27/18 at 09:00 CHEN BAXTER NP October 28, 2018 12:31
--- NOTE | 2018-10-28 12:44 | PN ---
Date/Time of Note Date/Time of Note DATE: 10/28/18 TIME: 12:42 Assessment/Plan Lines/Catheters IV Catheter Type (from [facility]): PICC Line Bailey in Place (from [facility]): Yes Assessment/Plan Chief Complaint/Hosp Course 57-year-old male who had a left ureteral JJ stent for over 1 year. That was complicated by a stone forming on the distal curl inside the bladder. He underwent cystoscopy and cystolitholopaxy on 10/26/2018 and removal of the left ureteral JJ stent. He did have continuous bladder irrigation overnight and that was stopped on 10/27/2018. The Bailey catheter was removed this morning and he has not voided yet but his bladder is not distended. Subjective 24 Hr Interval Summary Patient is feeling comfortable. The Bailey catheter has been removed and he has not voided yet. Exam/Review of Systems Vital Signs Vitals Vital Signs Date Temp Pulse Resp B/P (MAP) Pulse Ox O2 O2 Flow FiO2 Time Delivery Rate 10/28/18 74 135/65 11:11 (88) 10/28/18 99.0 17 93 08:08 10/27/18 Room Air 14:00 10/26/18 2.0 19:09 Intake and Output 10/27/18 10/27/18 10/28/18 1515:00 23:00 07:00 IntakeIntake Total 720 ml 440 ml OutputOutput Total 1100 ml 900 ml 400 ml BalanceBalance -380 ml -460 ml -400 ml Exam Free Text/Dictation The patient is comfortable. The bladder is not distended. Results Result Diagram: 10/28/18 0522 10/28/18 0522 JITENDRA MOYA MD October 28, 2018 12:44
== END 2018-10-28 15:48 | disposition home health service (06) | DRG 854 ==
LOC: E/R 04:28 → MS3 04:40 → 2NE 19:25
PROVIDERS: ADMIT Internal Medicine; ATTEND Internal Medicine
PROC: 0K9 Muscles, Drainage (ICD-10-PCS; 2018-10-20)
PROC: 0Y9M0ZZ Drainage of Right Foot, Open Approach (ICD-10-PCS; 2018-10-20)
PROC: 0L9V0ZX Drainage of Right Foot Tendon, Open Approach, Diagnostic (ICD-10-PCS; principal; 2018-10-20 14:30)
PROC: 02HV33Z Insertion of Infusion Device into Superior Vena Cava, Percutaneous Approach (ICD-10-PCS; 2018-10-21)
PROC: 0TCB8ZZ Extirpation of Matter from Bladder, Via Natural or Artificial Opening Endoscopic (ICD-10-PCS; 2018-10-26)
PROC: 0TP98DZ Removal of Intraluminal Device from Ureter, Via Natural or Artificial Opening Endoscopic (ICD-10-PCS; 2018-10-26)
DX: A41.9 Sepsis, unspecified organism (principal); L03.115 Cellulitis of right lower limb; I12.0 Hypertensive chronic kidney disease with stage 5 chronic kidney disease or end stage renal disease; N17.9 Acute kidney failure, unspecified; E87.2 Acidosis; E87.1 Hypo-osmolality and hyponatremia; E44.0 Moderate protein-calorie malnutrition; Z68.1 Body mass index [BMI] 19.9 or less, adult; L02.611 Cutaneous abscess of right foot; N18.5 Chronic kidney disease, stage 5; M86.671 Other chronic osteomyelitis, right ankle and foot; E11.628 Type 2 diabetes mellitus with other skin complications; E11.69 Type 2 diabetes mellitus with other specified complication; E11.22 Type 2 diabetes mellitus with diabetic chronic kidney disease; N21.0 Calculus in bladder; E78.5 Hyperlipidemia, unspecified; D63.1 Anemia in chronic kidney disease; E11.42 Type 2 diabetes mellitus with diabetic polyneuropathy; B35.1 Tinea unguium; H54.8 Legal blindness, as defined in USA; E11.51 Type 2 diabetes mellitus with diabetic peripheral angiopathy without gangrene; Z89.431 Acquired absence of right foot; Z79.84 Long term (current) use of oral hypoglycemic drugs
CPT/HCPCS: 36430; 36569; 71045; 73718; 73721; 74430; 76937; 80048; 80053; 80061; 80202; 81001; 81003; 82043; 82533; 82550; 82962; 83036; 83540; 83735; 84100; 84155; 84300; 85025; 85610; 85651; 85730; 86140; 86592; 86706; 86708; 86803; 86850; 86900; 86901; 86920; 87070; 87075; 87081; 87086; 87102; 87340; 88300; 93005; 93922; 93971; J0360; J0690; J1100; J1335; J1644; J1815; J2001; J2185; J2405; J2543; J2916; J3010; J3370; J7030; J7040; J7042; P9016; Q5105; Q5106